=== PATIENT | female | born 1975 | race Caucasian/White ===

== ENCOUNTER 2017-03-24 22:58 | Emergency (ER) | payer BC, OTHER ==
[~2017-03-24 22:58] MED LIST: SODIUM CHLORIDE 0.9% 1,000 ML BAG ONE
[2017-03-25] MEDS ORDERED: HYDROmorphone 1 MG/ML 1 ML SYRINGE ONE (01:58)
[2017-03-25] MEDS ORDERED: ONDANSETRON 4 MG/2 ML VIAL ONE (01:58)
--- NOTE | 2017-03-25 11:46 | XR ---
Exam: X-ray abdomen one view HISTORY: Abdominal pain COMPARISON: None FINDINGS: Nonspecific, nonobstructive, bowel gas pattern is noted. There is mild stool noted in the colon witho ut evidence of impaction or obstruction. IMPRESSION: No significant findings.
[2017-03-25 16:20] LABS: Basophils % (A) 0 %; Eosinophils % (A) 0 %; HCT 37.9 % (34.0-46.0); HGB 12.3 gm/dL (11.4-16.0); Lymphocytes # (A) 1.6 k/uL (1.0-4.8); Lymphocytes % (A) 32 %; MCHC 32.3 g/dL (31.0-37.0); MCV 83.5 fL (80.0-100.0); Mean Platelet Volume 9.6; Monocytes # (A) 0.4 k/uL (0-1.0); Monocytes % (A) 8 %; Neutrophils # (A) 2.9 k/uL (1.3-7.7); Neutrophils % (A) 57 %; Partial Thromboplastin Time 23.6 sec (22.0-30.0); Platelet Count 103 k/uL (150-450); Prothrombin Time 10.2 sec (9.0-12.0); RBC 4.54 m/uL (3.80-5.40); RDW 14.7 % (11.5-15.5); WBC 5.1 k/uL (3.8-10.6)
[2017-03-25 16:26] LABS: Amorphous Sediment,Urine Rare /hpf; Appearance,Urine Cloudy (Clear); Bilirubin,Urine Negative (Negative); Blood,Urine Moderate (Negative); Color,Urine Yellow; Glucose,Urine (UA) 4+ (Negative); Hyaline Casts,Urine 2 /lpf (0-2); Ketones,Urine Negative (Negative); Leukocyte Esterase,Urine Trace (Negative); Nitrite,Urine Negative (Negative); Protein,Urine 3+ (Negative); RBC,Urine 3 /hpf (0-5); Specific Gravity,Urine 1.012 (1.001-1.035); Squamous Epithelial Cell,Urine 20 /hpf (0-4); Urobilinogen,Urine <2.0 mg/dL (<2.0); WBC,Urine 28 /hpf (0-5)
[2017-03-25 17:16] LABS: ALT 52 U/L (9-52); AST 68 U/L (14-36); Albumin 2.7 g/dL (3.5-5.0); Alkaline Phosphatase 179 U/L (38-126); Anion Gap 8 mmol/L; Blood Urea Nitrogen 9 mg/dL (7-17); Carbon Dioxide 26 mmol/L (22-30); Chloride 103 mmol/L (98-107); Glucose 280 mg/dL (74-99); Lipase 49 U/L (23-300); Magnesium 1.4 mg/dL (1.6-2.3); Phosphorus 3.7 mg/dL (2.5-4.5); Potassium 3.7 mmol/L (3.5-5.1); Sodium 137 mmol/L (137-145); Total Bilirubin 0.2 mg/dL (0.2-1.3); Total Protein 6.2 g/dL (6.3-8.2)
--- NOTE | 2017-03-30 00:10 | CDI ---
Documentation Clarification OP Dear FIDENCIO Zaragoza: Please do addendum of ED physician document. Thank you, Mica Pedro Cabinetmaker Helper If you have any question, Please contact audio visual project manager at [phone] [facility]
== END 2017-03-25 04:44 | disposition home or self-care (01) ==
LOC: EC 22:58
DX: R18.8 Other ascites (principal); N83.209 Unspecified ovarian cyst, unspecified side; Z87.891 Personal history of nicotine dependence
CPT/HCPCS: 36415; 80053; 82009; 83605; 83690; 83735; 84100; 85025; 85610; 85730; 81001; 87040; 74000; 99284; 96374; 96375; 96361 ×3; J2405; J1170

== ENCOUNTER 2019-07-23 15:05 | Emergency (ER) | payer BC, OTHER ==
[2019-07-23 15:17] VITALS: TEMP 98
[2019-07-23] MEDS ORDERED: SODIUM CHLORIDE 0.9% 1,000 ML IV ONE (15:25)
[2019-07-23] MEDS ORDERED: SODIUM CHLORIDE 0.9% 1,000 ML IV SCH (15:30)
[2019-07-23 15:38] LABS: Glucose,Whole Blood 423 mg/dL (75-99)
[2019-07-23 16:03] LABS: Basophils % (A) 0 %; Eosinophils % (A) 0 %; HCT 37.6 % (34.0-46.0); HGB 12.3 gm/dL (11.4-16.0); Lymphocytes # (A) 0.9 k/uL (1.0-4.8); Lymphocytes % (A) 21 %; MCH 28.1 pg (25.0-35.0); MCHC 32.7 g/dL (31.0-37.0); MCV 85.8 fL (80.0-100.0); Mean Platelet Volume 10.1; Monocytes # (A) 0.2 k/uL (0-1.0); Monocytes % (A) 6 %; Neutrophils # (A) 2.8 k/uL (1.3-7.7); Neutrophils % (A) 70 %; RBC 4.38 m/uL (3.80-5.40); RDW 14.1 % (11.5-15.5); WBC 4.1 k/uL (3.8-10.6)
[2019-07-23 16:06] LABS: Platelet Count 71 k/uL (150-450)
[2019-07-23 16:23] LABS: ALT 73 U/L (4-34); AST 117 U/L (14-36); African American GFR (CKD) 81 (>60 ml/min/1.73 sqM); Albumin 3.8 g/dL (3.5-5.0); Alkaline Phosphatase 321 U/L (38-126); Anion Gap 10 mmol/L; Blood Urea Nitrogen 20 mg/dL (7-17); Calcium 9.1 mg/dL (8.4-10.2); Carbon Dioxide 22 mmol/L (22-30); Chloride 99 mmol/L (98-107); Glucose 453 mg/dL (74-99); Magnesium 1.6 mg/dL (1.6-2.3); Non-African American GFR(CKD) 70 (>60 ml/min/1.73 sqM); Phosphorus 4.3 mg/dL (2.5-4.5); Potassium 5.4 mmol/L (3.5-5.1); Sodium 131 mmol/L (137-145); Total Bilirubin 1.1 mg/dL (0.2-1.3); Total Protein 8.3 g/dL (6.3-8.2)
[2019-07-23 16:55] LABS: Partial Thromboplastin Time 23.1 sec (22.0-30.0); Prothrombin Time 10.3 sec (9.0-12.0)
--- NOTE | 2019-07-23 16:59 | XR ---
EXAMINATION TYPE: XR chest 2V DATE OF EXAM: 07/23/2019 COMPARISON: NONE HISTORY: Diabetic ketoacidosis. Hyperglycemia. Weakness. TECHNIQUE: Frontal and lateral views of the chest are obtained. FINDINGS: Overlying EKG leads are present. There is no focal air space opacity, pleural effusion, or pneumothorax seen. The cardiac silhouette size is within normal limits. The osseous structures ar e intact. IMPRESSION: No acute cardiopulmonary process.
[2019-07-23] MEDS ORDERED: INSULIN REGULAR 100 UNIT/ML VIAL IV ONE (17:51)
[2019-07-23] MEDS ORDERED: MORPHINE SULFATE 4 MG/ML SYRINGE IVP STA (17:57)
--- NOTE | 2019-07-23 18:05 | ED ---
Recheck HPI - General Chief Complaint: Recheck/Abnormal Lab/Rx Stated Complaint: high blood sugar Time Seen by Provider: 07/23/19 15:24 Source: patient Mode of arrival: ambulatory Limitations: no limitations - History of Present Illness Initial Comments: 44-year-old female presenting today for chief complaint of elevated glucose. She stated that her glucometer has read as high for the past 4 days. Patient states that she is also patient also admits to slight shortness of breath. Patient denies any chest pain. Patient denies any fever or cough congestion or URI symptoms. Patient denies dysuria or urgency C but admits to frequency. Patient denies hematuria. Patient states she has chronic abdominal pain due to her liver disease denies any new changes today. Patient denies any melena or hematochezia. Patient denies any jaw or arm pain. Patient denies any pain with deep inspiration leg swelling calf pain. DVD her primary and wasn't hemoptysis recent surgical procedure or immobilization. Immediately system negative upon arrival patient appears well signs acute distress. - Related Data Home Medications Medication Instructions Recorded Confirmed Furosemide [Lasix] 20 mg PO DAILY 03/30/17 07/23/19 Gabapentin [Neurontin] 300 mg PO BID 03/30/17 07/23/19 Spironolactone 50 mg PO DAILY 03/30/17 07/23/19 Albuterol Nebulized [Ventolin 2.5 mg INHALATION RT-QID PRN 07/23/19 07/23/19 Nebulized] Albuterol Sulfate [Ventolin HFA] 2 puff INHALATION RT-QID PRN 07/23/19 07/23/19 Compound Topical Cream W/ 1 applic TOPICAL DAILY PRN 07/23/19 07/23/19 Gabapentin DULoxetine HCL [Cymbalta] 60 mg PO HS 07/23/19 07/23/19 Insulin Aspart [NovoLOG Flexpen] 20 units SQ TID 07/23/19 07/23/19 Insulin Aspart [NovoLOG Flexpen] See Protocol SQ AC-TID 07/23/19 07/23/19 Insulin Degludec [Tresiba 70 units SQ HS 07/23/19 07/23/19 Flextouch U-100] Lactulose [Kristalose Powder 10 gm PO BID 07/23/19 07/23/19 Packet] Meclizine HCl 25 mg PO TID 07/23/19 07/23/19 Multivitamins, Thera [Multivitamin 1 tab PO DAILY 07/23/19 07/23/19 (formulary)] Ondansetron [Zofran] 8 mg PO DAILY 07/23/19 07/23/19 traMADol HCl [Ultram] 25 mg PO DAILY PRN 07/23/19 07/23/19 Allergies Allergy/AdvReac Type Severity Reaction Status Date / Time No Known Allergies Allergy Verified 07/23/19 17:31 Review of Systems ROS Statement: Those systems with pertinent positive or pertinent negative responses have been documented in the HPI. ROS Other: All systems not noted in ROS Statement are negative. 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, neuropathy feet, cyst left ovary History of Any Multi-Drug Resistant Organisms: None Reported Past Surgical History: Tubal Ligation Additional Past Surgical History / Comment(s): carpal tunnel - rt hand, skin tag throat removed Past Anesthesia/Blood Transfusion Reactions: No Reported Reaction Past Psychological History: No Psychological Hx Reported Smoking Status: Former smoker Past Alcohol Use History: Rare Past Drug Use History: None Reported General Exam - General Exam Comments Initial Comments: General: The patient is awake and alert, in no distress Eye: +3 mm pupils are equal, round and reactive to light, extra-ocular movements are intact. No nystagmus. There is normal conjunctiva bilaterally. No signs of icterus. Ears, nose, mouth and throat: There are moist mucous membranes and no oral lesions. Neck: The neck is supple, there is no tenderness or JVD. Cardiovascular: There is a regular rate and rhythm. No murmur, rub or gallop is appreciated. Respiratory: Lungs are clear to auscultation, respirations are non-labored, breath sounds are equal. No wheezes, stridor, rales, or rhonchi. Gastrointestinal: Soft, non-distended, non-tender abdomen without masses or organomegaly noted. There is no rebound or guarding present. Musculoskeletal: Normal ROM, no tenderness. Strength 5/5. Sensation intact. Radial and DP pulses equal bilaterally 2+. Neurological: A&O x 3. CN II-XII intact, There are no obvious motor or sensory deficits. Coordination appears grossly intact. Speech is normal. Skin: Skin is warm and dry and no rashes or lesions are noted. No leg edema b/l, no calf pain, or calf swelling. Psychiatric: Cooperative, appropriate mood & affect, normal judgment. Limitations: no limitations Course Vital Signs 07/23/19 15:14 Temperature 98.0 F Pulse Rate 110 H Respiratory 20 Rate Blood Pressure 134/85 O2 Sat by Pulse 100 Oximetry - Reevaluation(s) Reevaluation #1: 07/23/19 18:05 discussed results with patient, she states she has a headache, which she has exp erienced before, no focal deficits, no sudden onset she states it came on gradually, she states this sometimes occurs with high sugars. patinet will be given analgesics. UA pending. Medical Decision Making - Medical Decision Making Glucose elevated acetone negative no ketones in the urine. Glucose in the urine. Patient was presents to steroids none currently for the past 4 weeks. Patient chest x-ray clear no URI symptoms. There is no evidence of urinary tract infection. Patient has no significant abdominal pain. She denies any chest pain or pressure. Admits to shortness of breath. D-dimer within normal limits. EKG no significant acute findings. Patient heart rate normalized. Give IV insulin/fluids. Patient has slight HAWK during visit, subsided with 1 IV dose of analgesics. Patient appears well in no distress. Was discharged appearing well after discussing case wtih Dr. eden reviewing EKG and CXR. - Lab Data Result diagrams: 07/23/19 15:52 07/23/19 15:52 Lab Results 07/23/19 07/23/19 07/23/19 Range/Units 15:27 15:27 15:27 WBC (3.8-10.6) k/uL RBC (3.80-5.40) m/uL Hgb (11.4-16.0) gm/dL Hct (34.0-46.0) % MCV (80.0-100.0) fL MCH (25.0-35.0) pg MCHC (31.0-37.0) g/dL RDW (11.5-15.5) % Plt Count (150-450) k/uL Neutrophils % % Lymphocytes % % Monocytes % % Eosinophils % % Basophils % % Neutrophils # (1.3-7.7) k/uL Lymphocytes # (1.0-4.8) k/uL Monocytes # (0-1.0) k/uL Eosinophils # (0-0.7) k/uL Basophils # (0-0.2) k/uL PT 10.3 (9.0-12.0) sec INR 1.0 (<1.2) APTT 23.1 (22.0-30.0) sec D-Dimer (<0.60) mg/L FEU Sodium (137-145) mmol/L Potassium (3.5-5.1) mmol/L Chloride (98-107) mmol/L Carbon Dioxide (22-30) mmol/L Anion Gap mmol/L BUN (7-17) mg/dL Creatinine (0.52-1.04) mg/dL Est GFR (CKD-EPI)AfAm (>60 ml/min/1.73 sqM) Est GFR (CKD-EPI)NonAf (>60 ml/min/1.73 sqM) Glucose (74-99) mg/dL POC Glucose (mg/dL) 423 H (75-99) mg/dL POC Glu Shank Carrier ID Isis Vasquez Calcium (8.4-10.2) mg/dL Phosphorus (2.5-4.5) mg/dL Magnesium (1.6-2.3) mg/dL Total Bilirubin (0.2-1.3) mg/dL AST (14-36) U/L ALT (4-34) U/L Alkaline Phosphatase (38-126) U/L Ammonia (<30) umol/L Troponin I <0.012 (0.000-0.034) ng/mL Total Protein (6.3-8.2) g/dL Albumin (3.5-5.0) g/dL Lipase (23-300) U/L Urine Color Urine Appearance (Clear) Urine pH (5.0-8.0) Ur Specific [place] (1.001-1.035) Urine Protein (Negative) Urine Glucose (UA) (Negative) Urine Ketones (Negative) Urine Blood (Negative) Urine Nitrite (Negative) Urine Bilirubin (Negative) Urine Urobilinogen (<2.0) mg/dL Ur Leukocyte Esterase (Negative) Urine RBC (0-5) /hpf Urine WBC (0-5) /hpf Ur Squamous Epith Cells (0-4) /hpf Acetone, Qual (Negative) 07/23/19 07/23/19 07/23/19 Range/Units 15:27 15:27 15:27 WBC (3.8-10.6) k/uL RBC (3.80-5.40) m/uL Hgb (11.4-16.0) gm/dL Hct (34.0-46.0) % MCV (80.0-100.0) fL MCH (25.0-35.0) pg MCHC (31.0-37.0) g/dL RDW (11.5-15.5) % Plt Count (150-450) k/uL Neutrophils % % Lymphocytes % % Monocytes % % Eosinophils % % Basophils % % Neutrophils # (1.3-7.7) k/uL Lymphocytes # (1.0-4.8) k/uL Monocytes # (0-1.0) k/uL Eosinophils # (0-0.7) k/uL Basophils # (0-0.2) k/uL PT (9.0-12.0) sec INR (<1.2) APTT (22.0-30.0) sec D-Dimer 0.34 (<0.60) mg/L FEU Sodium (137-145) mmol/L Potassium (3.5-5.1) mmol/L Chloride (98-107) mmol/L Carbon Dioxide (22-30) mmol/L Anion Gap mmol/L BUN (7-17) mg/dL Creatinine (0.52-1.04) mg/dL Est GFR (CKD-EPI)AfAm (>60 ml/min/1.73 sqM) Est GFR (CKD-EPI)NonAf (>60 ml/min/1.73 sqM) Glucose (74-99) mg/dL POC Glucose (mg/dL) (75-99) mg/dL POC Glu Shank Carrier ID Calcium (8.4-10.2) mg/dL Phosphorus (2.5-4.5) mg/dL Magnesium (1.6-2.3) mg/dL Total Bilirubin (0.2-1.3) mg/dL AST (14-36) U/L ALT (4-34) U/L Alkaline Phosphatase (38-126) U/L Ammonia 25 (<30) umol/L Troponin I (0.000-0.034) ng/mL Total Protein (6.3-8.2) g/dL Albumin (3.5-5.0) g/dL Lipase 168 (23-300) U/L Urine Color Urine Appearance (Clear) Urine pH (5.0-8.0) Ur Specific [place] (1.001-1.035) Urine Protein (Negative) Urine Glucose (UA) (Negative) Urine Ketones (Negative) Urine Blood (Negative) Urine Nitrite (Negative) Urine Bilirubin (Negative) Urine Urobilinogen (<2.0) mg/dL Ur Leukocyte Esterase (Negative) Urine RBC (0-5) /hpf Urine WBC (0-5) /hpf Ur Squamous Epith Cells (0-4) /hpf Acetone, Qual (Negative) 07/23/19 07/23/19 07/23/19 Range/Units 15:52 15:52 18:30 WBC 4.1 (3.8-10.6) k/uL RBC 4.38 (3.80-5.40) m/uL Hgb 12.3 (11.4-16.0) gm/dL Hct 37.6 (34.0-46.0) % MCV 85.8 (80.0-100.0) fL MCH 28.1 (25.0-35.0) pg MCHC 32.7 (31.0-37.0) g/dL RDW 14.1 (11.5-15.5) % Plt Count 71 L (150-450) k/uL Neutrophils % 70 % Lymphocytes % 21 % Monocytes % 6 % Eosinophils % 0 % Basophils % 0 % Neutrophils # 2.8 (1.3-7.7) k/uL Lymphocytes # 0.9 L (1.0-4.8) k/uL Monocytes # 0.2 (0-1.0) k/uL Eosinophils # 0.0 (0-0.7) k/uL Basophils # 0.0 (0-0.2) k/uL PT (9.0-12.0) sec INR (<1.2) APTT (22.0-30.0) sec D-Dimer (<0.60) mg/L FEU Sodium 131 L (137-145) mmol/L Potassium 5.4 H (3.5-5.1) mmol/L Chloride 99 (98-107) mmol/L Carbon Dioxide 22 (22-30) mmol/L Anion Gap 10 mmol/L BUN 20 H (7-17) mg/dL Creatinine 0.98 (0.52-1.04) mg/dL Est GFR (CKD-EPI)AfAm 81 (>60 ml/min/1.73 sqM) Est GFR (CKD-EPI)NonAf 70 (>60 ml/min/1.73 sqM) Glucose 453 H (74-99) mg/dL POC Glucose (mg/dL) (75-99) mg/dL POC Glu Shank Carrier ID Calcium 9.1 (8.4-10.2) mg/dL Phosphorus 4.3 (2.5-4.5) mg/dL Magnesium 1.6 (1.6-2.3) mg/dL Total Bilirubin 1.1 (0.2-1.3) mg/dL AST 117 H (14-36) U/L ALT 73 H (4-34) U/L Alkaline Phosphatase 321 H (38-126) U/L Ammonia (<30) umol/L Troponin I (0.000-0.034) ng/mL Total Protein 8.3 H (6.3-8.2) g/dL Albumin 3.8 (3.5-5.0) g/dL Lipase (23-300) U/L Urine Color Light Yellow Urine Appearance Clear (Clear) Urine pH 6.0 (5.0-8.0) Ur Specific [place] 1.022 (1.001-1.035) Urine Protein Negative (Negative) Urine Glucose (UA) 4+ H (Negative) Urine Ketones Negative (Negative) Urine Blood Small H (Negative) Urine Nitrite Negative (Negative) Urine Bilirubin Negative (Negative) Urine Urobilinogen <2.0 (<2.0) mg/dL Ur Leukocyte Esterase Negative (Negative) Urine RBC 5 (0-5) /hpf Urine WBC 1 (0-5) /hpf Ur Squamous Epith Cells 4 (0-4) /hpf Acetone, Qual Negative (Negative) 07/23/19 Range/Units 19:00 WBC (3.8-10.6) k/uL RBC (3.80-5.40) m/uL Hgb (11.4-16.0) gm/dL Hct (34.0-46.0) % MCV (80.0-100.0) fL MCH (25.0-35.0) pg MCHC (31.0-37.0) g/dL RDW (11.5-15.5) % Plt Count (150-450) k/uL Neutrophils % % Lymphocytes % % Monocytes % % Eosinophils % % Basophils % % Neutrophils # (1.3-7.7) k/uL Lymphocytes # (1.0-4.8) k/uL Monocytes # (0-1.0) k/uL Eosinophils # (0-0.7) k/uL Basophils # (0-0.2) k/uL PT (9.0-12.0) sec INR (<1.2) APTT (22.0-30.0) sec D-Dimer (<0.60) mg/L FEU Sodium (137-145) mmol/L Potassium (3.5-5.1) mmol/L Chloride (98-107) mmol/L Carbon Dioxide (22-30) mmol/L Anion Gap mmol/L BUN (7-17) mg/dL Creatinine (0.52-1.04) mg/dL Est GFR (CKD-EPI)AfAm (>60 ml/min/1.73 sqM) Est GFR (CKD-EPI)NonAf (>60 ml/min/1.73 sqM) Glucose (74-99) mg/dL POC Glucose (mg/dL) 248 H (75-99) mg/dL POC Glu Shank Carrier Rambo Tyson Calcium (8.4-10.2) mg/dL Phosphorus (2.5-4.5) mg/dL Magnesium (1.6-2.3) mg/dL Total Bilirubin (0.2-1.3) mg/dL AST (14-36) U/L ALT (4-34) U/L Alkaline Phosphatase (38-126) U/L Ammonia (<30) umol/L Troponin I (0.000-0.034) ng/mL Total Protein (6.3-8.2) g/dL Albumin (3.5-5.0) g/dL Lipase (23-300) U/L Urine Color Urine Appearance (Clear) Urine pH (5.0-8.0) Ur Specific [place] (1.001-1.035) Urine Protein (Negative) Urine Glucose (UA) (Negative) Urine Ketones (Negative) Urine Blood (Negative) Urine Nitrite (Negative) Urine Bilirubin (Negative) Urine Urobilinogen (<2.0) mg/dL Ur Leukocyte Esterase (Negative) Urine RBC (0-5) /hpf Urine WBC (0-5) /hpf Ur Squamous Epith Cells (0-4) /hpf Acetone, Qual (Negative) Disposition Clinical Impression: High glucose, Dyspnea, Hyperkalemia, Elevated transaminase level Disposition: HOME SELF-CARE Condition: Good Instructions (If sedation given, give patient instructions): Diabetic Hyperglycemia (ED) Additional Instructions: Please use medication as discussed. Please follow-up with family doctor in the next 2 days. Please return to emergency room if the symptoms increase or worsen or for any other concerns. Is patient prescribed a controlled substance at d/c from ED?: No Referrals: Aldo Hall MD [Primary Care Provider] - 1-2 days Time of Disposition: 19:06
[2019-07-23 18:53] LABS: Appearance,Urine Clear (Clear); Bilirubin,Urine Negative (Negative); Blood,Urine Small (Negative); Color,Urine Light Yellow; Glucose,Urine (UA) 4+ (Negative); Ketones,Urine Negative (Negative); Leukocyte Esterase,Urine Negative (Negative); Nitrite,Urine Negative (Negative); Protein,Urine Negative (Negative); RBC,Urine 5 /hpf (0-5); Specific Gravity,Urine 1.022 (1.001-1.035); Squamous Epithelial Cell,Urine 4 /hpf (0-4); Urobilinogen,Urine <2.0 mg/dL (<2.0); WBC,Urine 1 /hpf (0-5)
[2019-07-23 19:01] LABS: Glucose,Whole Blood 248 mg/dL (75-99)
[2019-07-23 19:22] VITALS: BP 151/99; PULSE 100; RESP 18
== END 2019-07-23 19:21 | disposition home or self-care (01) ==
LOC: EC 15:05
DX: E87.5 Hyperkalemia (principal); R74.0 Nonspecific elevation of levels of transaminase and lactic acid dehydrogenase [LDH]; E11.40 Type 2 diabetes mellitus with diabetic neuropathy, unspecified; I10 Essential (primary) hypertension; K74.60 Unspecified cirrhosis of liver; Z79.4 Long term (current) use of insulin; Z79.899 Other long term (current) drug therapy; Z87.891 Personal history of nicotine dependence
CPT/HCPCS: 99285 ×2; 96374 ×2; 96361 ×4; 36415; 93005; 85379; 80053; 82140; 82009; 83690; 83735; 84100; 84484; 85025; 85610; 85730; 81001; 71046; J2270

== ENCOUNTER 2020-06-09 12:11 | Emergency (ER) | payer BC, OTHER ==
[2020-06-09 12:23] VITALS: TEMP 98
[2020-06-09] MEDS ORDERED: SODIUM CHLORIDE 0.9% 1,000 ML IV STA (12:41)
--- NOTE | 2020-06-09 12:47 | ED ---
General Adult HPI - General Chief complaint: Abdominal Pain Stated complaint: abd pain/distention, vomiting Time Seen by Provider: 06/09/20 12:20 Source: patient, RN notes reviewed, old records reviewed Mode of arrival: ambulatory Limitations: no limitations - History of Present Illness Initial comments: This a 45-year-old female who presents to the emergency department stating that she has a history of cirrhosis with multiple banding's of her esophageal varices. Patient states her last esophageal banding was febrile 21st after which she has been waking up every day with nausea and vomiting. Patient states she also has diffuse abdominal pain and a normal basis but the abdominal pain has, much worse per patient states he epigastric region is more tender than normal for sure. Patient denies any fever chills or cough. Patient denies any chest pain or palpitations per patient denies any diarrhea. Patient denies any headache patient denies numbness weakness. Patient denies any recent injury or trauma. Patient states she also has low platelets on occasion. - Related Data Home Medications Medication Instructions Recorded Confirmed Furosemide [Lasix] 20 mg PO DAILY 03/30/17 06/09/20 Gabapentin [Neurontin] 300 mg PO BID@0800,1200 03/30/17 06/09/20 Spironolactone 50 mg PO DAILY 03/30/17 06/09/20 traMADol HCl [Ultram] 50 mg PO DAILY PRN 07/23/19 06/09/20 Cephalexin [Keflex] 500 mg PO TID 06/09/20 06/09/20 Folic Acid 1 mg PO DAILY 06/09/20 06/09/20 Gabapentin [Neurontin] 600 mg PO HS 06/09/20 06/09/20 Insulin Regular [HumuLIN R] 40 units SQ DAILY 06/09/20 06/09/20 Insulin Regular [HumuLIN R] 45 units SQ HS 06/09/20 06/09/20 Pramipexole [Mirapex] 0.5 mg PO DAILY 06/09/20 06/09/20 Pravastatin Sodium [Pravachol] 10 mg PO HS 06/09/20 06/09/20 Propranolol [Inderal] 10 mg PO BID 06/09/20 06/09/20 ondansetron HCL [Zofran] 8 mg PO Q8HR PRN 06/09/20 06/09/20 Allergies Allergy/AdvReac Type Severity Reaction Status Date / Time No Known Allergies Allergy Verified 06/09/20 14:22 Review of Systems ROS Statement: Those systems with pertinent positive or pertinent negative responses have been documented in the HPI. ROS Other: All systems not noted in ROS Statement are negative. Past Medical History Past Medical History: Diabetes Mellitus, Hypertension, Liver Disease Additional Past Medical History / Comment(s): Cirrhosis-2012 from diabetes, neuropathy feet, cyst left ovary, ascities History of Any Multi-Drug Resistant Organisms: None Reported Past Surgical History: Tubal Ligation Additional Past Surgical History / Comment(s): carpal tunnel - rt hand, esphogeal banding Past Anesthesia/Blood Transfusion Reactions: No Reported Reaction Past Psychological History: No Psychological Hx Reported Smoking Status: Never smoker Past Alcohol Use History: Rare Past Drug Use History: None Reported General Exam - General Exam Comments Initial Comments: GENERAL: Patient is well-developed and well-nourished. Patient is nontoxic and well-hy drated and is in mild distress. ENT: Neck is soft and supple. No significant lymphadenopathy is noted. Oropharynx is clear. Moist mucous membranes. Neck has full range of motion without eliciting any pain. EYES: The sclera were anicteric and conjunctiva were pink and moist. Extraocular movements were intact and pupils were equal round and reactive to light. Eyelids were unremarkable. PULMONARY: Unlabored respirations. Good breath sounds bilaterally. No audible rales rhonchi or wheezing was noted. CARDIOVASCULAR: There is a regular rate and rhythm without any murmurs gallops or rubs. ABDOMEN: Patient has right upper quadrant epigastric tenderness. Patient's abdomen is distended and has ascites. SKIN: Skin is clear with no lesions or rashes and otherwise unremarkable. NEUROLOGIC: Patient is alert and oriented x3. Cranial nerves II through XII are grossly intact. Motor and sensory are also intact. Normal speech, volume and content. Symmetrical smile. MUSCULOSKELETAL: Normal extremities with adequate strength and full range of motion. LYMPHATICS: No significant lymphadenopathy is noted PSYCHIATRIC: Normal psychiatric evaluation. Limitations: no limitations Course Vital Signs 06/09/20 06/09/20 06/09/20 12:19 12:49 14:00 Temperature 98.0 F Pulse Rate 112 H 107 H 102 H Respiratory 18 18 16 Rate Blood Pressure 153/74 131/78 128/74 O2 Sat by Pulse 100 99 100 Oximetry Medical Decision Making - Medical Decision Making EKG shows sinus tachycardia at 102 bpm MT interval is 142 QRS is 80 QT interval 372 QTC is 484. Patient's EKG shows no ST segment elevation or depression. CAT scan of the abdomen and pelvis shows cirrhosis hepatosplenomegaly and some ascites. I went into the room to discuss the results with the patient she insisted on going home I told her I recommended her to stay she did sign out AMA knowing the risks and possible consequences. Patient will sign out AMA - Lab Data Result diagrams: 06/09/20 12:49 06/09/20 12:49 Lab Results 06/09/20 06/09/20 06/09/20 Range/Units 12:49 12:49 12:49 WBC 4.4 (3.8-10.6) k/uL RBC 3.98 (3.80-5.40) m/uL Hgb 11.8 (11.4-16.0) gm/dL Hct 34.7 (34.0-46.0) % MCV 87.2 (80.0-100.0) fL MCH 29.5 (25.0-35.0) pg MCHC 33.8 (31.0-37.0) g/dL RDW 14.4 (11.5-15.5) % Plt Count 62 L (150-450) k/uL MPV 8.8 Neutrophils % 76 % Lymphocytes % 18 % Monocytes % 5 % Eosinophils % 0 % Basophils % 0 % Neutrophils # 3.3 (1.3-7.7) k/uL Lymphocytes # 0.8 L (1.0-4.8) k/uL Monocytes # 0.2 (0-1.0) k/uL Eosinophils # 0.0 (0-0.7) k/uL Basophils # 0.0 (0-0.2) k/uL Manual Slide Review Performed PT 10.9 (9.0-12.0) sec INR 1.0 (<1.2) APTT 22.1 (22.0-30.0) sec Sodium (137-145) mmol/L Potassium (3.5-5.1) mmol/L Chloride (98-107) mmol/L Carbon Dioxide (22-30) mmol/L Anion Gap mmol/L BUN (7-17) mg/dL Creatinine (0.52-1.04) mg/dL Est GFR (CKD-EPI)AfAm (>60 ml/min/1.73 sqM) Est GFR (CKD-EPI)NonAf (>60 ml/min/1.73 sqM) Glucose (74-99) mg/dL Plasma Lactic Acid Kai (0.7-2.0) mmol/L Calcium (8.4-10.2) mg/dL Total Bilirubin (0.2-1.3) mg/dL AST (14-36) U/L ALT (4-34) U/L Alkaline Phosphatase (38-126) U/L Total Protein (6.3-8.2) g/dL Albumin (3.5-5.0) g/dL Amylase (30-110) U/L Lipase (23-300) U/L Urine Color Yellow Urine Appearance Clear (Clear) Urine pH 5.5 (5.0-8.0) Ur Specific Atwood 1.031 (1.001-1.035) Urine Protein Negative (Negative) Urine Glucose (UA) 4+ H (Negative) Urine Ketones Negative (Negative) Urine Blood Large H (Negative) Urine Nitrite Negative (Negative) Urine Bilirubin Negative (Negative) Urine Urobilinogen <2.0 (<2.0) mg/dL Ur Leukocyte Esterase Negative (Negative) Urine RBC 78 H (0-5) /hpf Urine WBC 2 (0-5) /hpf Ur Squamous Epith Cells 1 (0-4) /hpf Urine Mucus Rare H (None) /hpf Blood Type Blood Type Confirm Blood Type Recheck Bld Type Recheck Status Antibody Screen Spec Expiration Date 06/09/20 06/09/20 06/09/20 Range/Units 12:49 12:49 12:51 WBC (3.8-10.6) k/uL RBC (3.80-5.40) m/uL Hgb (11.4-16.0) gm/dL Hct (34.0-46.0) % MCV (80.0-100.0) fL MCH (25.0-35.0) pg MCHC (31.0-37.0) g/dL RDW (11.5-15.5) % Plt Count (150-450) k/uL MPV Neutrophils % % Lymphocytes % % Monocytes % % Eosinophils % % Basophils % % Neutrophils # (1.3-7.7) k/uL Lymphocytes # (1.0-4.8) k/uL Monocytes # (0-1.0) k/uL Eosinophils # (0-0.7) k/uL Basophils # (0-0.2) k/uL Manual Slide Review PT (9.0-12.0) sec INR (<1.2) APTT (22.0-30.0) sec Sodium 133 L (137-145) mmol/L Potassium 4.2 (3.5-5.1) mmol/L Chloride 100 (98-107) mmol/L Carbon Dioxide 22 (22-30) mmol/L Anion Gap 11 mmol/L BUN 17 (7-17) mg/dL Creatinine 0.97 (0.52-1.04) mg/dL Est GFR (CKD-EPI)AfAm 81 (>60 ml/min/1.73 sqM) Est GFR (CKD-EPI)NonAf 71 (>60 ml/min/1.73 sqM) Glucose 430 H (74-99) mg/dL Plasma Lactic Acid Kai 1.9 (0.7-2.0) mmol/L Calcium 8.9 (8.4-10.2) mg/dL Total Bilirubin 1.6 H (0.2-1.3) mg/dL AST 89 H (14-36) U/L ALT 53 H (4-34) U/L Alkaline Phosphatase 332 H (38-126) U/L Total Protein 7.5 (6.3-8.2) g/dL Albumin 3.6 (3.5-5.0) g/dL Amylase 61 (30-110) U/L Lipase 237 (23-300) U/L Urine Color Urine Appearance (Clear) Urine pH (5.0-8.0) Ur Specific Atwood (1.001-1.035) Urine Protein (Negative) Urine Glucose (UA) (Negative) Urine Ketones (Negative) Urine Blood (Negative) Urine Nitrite (Negative) Urine Bilirubin (Negative) Urine Urobilinogen (<2.0) mg/dL Ur Leukocyte Esterase (Negative) Urine RBC (0-5) /hpf Urine WBC (0-5) /hpf Ur Squamous Epith Cells (0-4) /hpf Urine Mucus (None) /hpf Blood Type O Negative Blood Type Confirm Blood Type Recheck No Previous Record Bld Type Recheck Status CABO Indicated Antibody Screen NEGATIVE Spec Expiration Date 06/12/2020 - 235006/09/20 Range/Units 12:55 WBC (3.8-10.6) k/uL RBC (3.80-5.40) m/uL Hgb (11.4-16.0) gm/dL Hct (34.0-46.0) % MCV (80.0-100.0) fL MCH (25.0-35.0) pg MCHC (31.0-37.0) g/dL RDW (11.5-15.5) % Plt Count (150-450) k/uL MPV Neutrophils % % Lymphocytes % % Monocytes % % Eosinophils % % Basophils % % Neutrophils # (1.3-7.7) k/uL Lymphocytes # (1.0-4.8) k/uL Monocytes # (0-1.0) k/uL Eosinophils # (0-0.7) k/uL Basophils # (0-0.2) k/uL Manual Slide Review PT (9.0-12.0) sec INR (<1.2) APTT (22.0-30.0) sec Sodium (137-145) mmol/L Potassium (3.5-5.1) mmol/L Chloride (98-107) mmol/L Carbon Dioxide (22-30) mmol/L Anion Gap mmol/L BUN (7-17) mg/dL Creatinine (0.52-1.04) mg/dL Est GFR (CKD-EPI)AfAm (>60 ml/min/1.73 sqM) Est GFR (CKD-EPI)NonAf (>60 ml/min/1.73 sqM) Glucose (74-99) mg/dL Plasma Lactic Acid Kai (0.7-2.0) mmol/L Calcium (8.4-10.2) mg/dL Total Bilirubin (0.2-1.3) mg/dL AST (14-36) U/L ALT (4-34) U/L Alkaline Phosphatase (38-126) U/L Total Protein (6.3-8.2) g/dL Albumin (3.5-5.0) g/dL Amylase (30-110) U/L Lipase (23-300) U/L Urine Color Urine Appearance (Clear) Urine pH (5.0-8.0) Ur Specific Atwood (1.001-1.035) Urine Protein (Negative) Urine Glucose (UA) (Negative) Urine Ketones (Negative) Urine Blood (Negative) Urine Nitrite (Negative) Urine Bilirubin (Negative) Urine Urobilinogen (<2.0) mg/dL Ur Leukocyte Esterase (Negative) Urine RBC (0-5) /hpf Urine WBC (0-5) /hpf Ur Squamous Epith Cells (0-4) /hpf Urine Mucus (None) /hpf Blood Type Blood Type Confirm O Negative Blood Type Recheck Bld Type Recheck Status Antibody Screen Spec Expiration Date Disposition Clinical Impression: Abdominal pain, Ascites, Acute vomiting Disposition: Left Against Medical Advice Instructions (If sedation given, give patient instructions): Abdominal Pain (ED) Is patient prescribed a controlled substance at d/c from ED?: No Referrals: Aldo Hall MD [Primary Care Provider] - 1-2 days Time of Disposition: 14:54
[2020-06-09 13:20] LABS: Basophils % (A) 0 %; Eosinophils % (A) 0 %; HCT 34.7 % (34.0-46.0); HGB 11.8 gm/dL (11.4-16.0); Lymphocytes # (A) 0.8 k/uL (1.0-4.8); Lymphocytes % (A) 18 %; MCH 29.5 pg (25.0-35.0); MCHC 33.8 g/dL (31.0-37.0); MCV 87.2 fL (80.0-100.0); Mean Platelet Volume 8.8; Monocytes # (A) 0.2 k/uL (0-1.0); Monocytes % (A) 5 %; Neutrophils # (A) 3.3 k/uL (1.3-7.7); Neutrophils % (A) 76 %; RBC 3.98 m/uL (3.80-5.40); RDW 14.4 % (11.5-15.5); WBC 4.4 k/uL (3.8-10.6)
[2020-06-09 13:24] LABS: Albumin 3.6 g/dL (3.5-5.0); Calcium 8.9 mg/dL (8.4-10.2); Potassium 4.2 mmol/L (3.5-5.1); Total Bilirubin 1.6 mg/dL (0.2-1.3); Total Protein 7.5 g/dL (6.3-8.2)
[2020-06-09 13:31] LABS: Partial Thromboplastin Time 22.1 sec (22.0-30.0); Prothrombin Time 10.9 sec (9.0-12.0)
[2020-06-09 13:32] LABS: Appearance,Urine Clear (Clear); Bilirubin,Urine Negative (Negative); Blood,Urine Large (Negative); Color,Urine Yellow; Glucose,Urine (UA) 4+ (Negative); Ketones,Urine Negative (Negative); Leukocyte Esterase,Urine Negative (Negative); Mucus,Urine Rare /hpf; Nitrite,Urine Negative (Negative); PH, Urine 5.5 (5.0-8.0); Protein,Urine Negative (Negative); RBC,Urine 78 /hpf (0-5); Specific Gravity,Urine 1.031 (1.001-1.035); Squamous Epithelial Cell,Urine 1 /hpf (0-4); Urobilinogen,Urine <2.0 mg/dL (<2.0); WBC,Urine 2 /hpf (0-5)
[2020-06-09 13:51] LABS: Platelet Count 62 k/uL (150-450)
[2020-06-09] MEDS ORDERED: INSULIN ASPART (NovoLOG) 100 UNIT/ML VIAL SQ ONE (13:54)
[2020-06-09 14:04] VITALS: RESP 16
--- NOTE | 2020-06-09 14:50 | CT ---
EXAMINATION TYPE: CT abdomen pelvis w con DATE OF EXAM: 06/09/2020 COMPARISON: Abdomen dated 03/22/2017 HISTORY: Abd pain, distention, vomiting CT DLP: 1047.4 mGycm Automated exposure control for dose reduction was used. TECHNIQUE: Helical acquisition of images from the lung bases through the pelvis have been completed. CONTRAST: Performed without Oral Contrast and with IV Contrast, patient injected with 100 mL of Isovue 300. FINDINGS: There is some serpiginous enhancing foci adjacent to the distal esophagus, lesser curvature of the stomach consistent with varices. Within the subcutaneous fat there is some high attenuation w hich may be due to injections. LUNG BASES: No significant abnormality is appreciated. AORTA: No significant abnormality is appreciated. LIVER/GB: Liver contour shows a nodular appearance, liver is enlarged, gallbladder is unremarkable. PANCREAS: No significant abnormality is seen. SPLEEN: Enlarged measuring approximately 17 cm in AP dimension ADRENALS: No significant abnormality is seen. KIDNEYS: Probable cortical cysts associated with the kidneys REPRODUCTIVE ORGANS: There is abnormal fluid attenuation, mixed density within the endometrium which shows a thickness of approximately 2.4 cm BOWEL: There are some thickened small bowel loops, the appendix is normal FREE AIR: No Free Air visible. ASCITES: There is ascites, fluid within the pelvis, minimal fluid about the liver PELVIC ADENOPATHY: None visualized. RETROPERITONEAL ADENOPATHY: No Retroperitoneal Adenopathy visible. URINARY BLADDER: No significant abnormality is seen. OSSEOUS STRUCTURES: No significant abnormality is seen. IMPRESSION: ABNORMALITIES CONSISTENT WITH CIRRHOSIS, THERE IS HEPATOSPLENOMEGALY, ASCITES, CONSIDER PORTAL HYPERT ENSION WITH POSSIBLE UNDERLYING ENTERITIS, ABNORMAL DENSITY WITHIN THE ENDOMETRIUM, CONSIDER GASTROEN TEROLOGY, FIXED ASSETS ACCOUNTANT CONSULTATION
[2020-06-09 15:27] VITALS: BP 140/87; PULSE 100
[2020-06-09] MEDS ORDERED: INSULIN ASPART (NovoLOG) 100 UNIT/ML VIAL SQ SCH (17:30)
== END 2020-06-09 15:10 | disposition left against medical advice (07) ==
LOC: EC 12:11
DX: R10.84 Generalized abdominal pain (principal); R11.2 Nausea with vomiting, unspecified; R18.8 Other ascites; E11.40 Type 2 diabetes mellitus with diabetic neuropathy, unspecified; I10 Essential (primary) hypertension; Z79.4 Long term (current) use of insulin; Z79.899 Other long term (current) drug therapy
CPT/HCPCS: 36415; 93005; 86900; 86901; 80053; 82150; 83605; 83690; 85025; 85610; 85730; 86850; 81001; 74177; 99284; 96374; 96361; Q9967; J1790

== ENCOUNTER 2020-07-16 18:28 | Emergency (ER) | payer BC, OTHER ==
--- NOTE | 2020-07-16 18:54 | ED ---
General Adult HPI - General Chief complaint: Shortness of Breath Stated complaint: SOB Time Seen by Provider: 07/16/20 18:31 Source: patient, EMS Mode of arrival: EMS Limitations: no limitations - History of Present Illness Initial comments: Dictation was produced using [employer] dictation software. please excuse any grammatical, word or spelling errors. This patient was cared for during a federal and state declared state of emergency secondary to Covid 19 Chief Complaint: 45-year-old female reported several comorbidities presents to the emergency department for dyspnea shortness of breath. History of Present Illness: Patient is a 45-year-old female she received the [employer] vaccine 5 days ago. She states that the day after she began having symptoms of fever, shortness of breath. She states that her is really feeling sick with upper respiratory symptoms. States that he did not get tested. She states that he refuses to get tested. Patient states she has asked for aggressive liver disease diabetes and hypertension. She denies any pulmonary medical comorbidities. No nausea vomiting. No abdominal pain. She does have sore throat runny nose and mild cough. The ROS documented in this emergency department record has been reviewed and confirmed by me. Those systems with pertinent positive or negative responses have been documented in the HPI. All other systems are other negative and/or noncontributory. PHYSICAL EXAM: General Impression: Alert and oriented x3, not in acute distress HEENT: Normocephalic atraumatic, extra-ocular movements intact, pupils equal and reactive to light bilaterally, mucous membranes moist. Cardiovascular: Heart regular rate and rhythm Chest: Able to complete full sentences, no retractions, no tachypnea, lungs clear to auscultation bilaterally Abdomen: abdomen soft, non-tender, non-distended, no organomegaly Musculoskeletal: Pulses present and equal in all extremities, no peripheral edema Motor: no focal deficits noted Neurological: CN II-XII grossly intact, no focal motor or sensory deficits noted Skin: Intact with no visualized rashes Psych: Normal affect and mood ED course: 45-year-old female presents to the emergency department for respiratory symptoms. Vital signs upon arrival are within acceptable limits. EKG interpretation: Ventricular rate 96, normal sinus rhythm, AZ interval 136, QRS 80, QTC 490. No AZ prolongation, no QTC prolongation, no ST or T-wave changes noted. Overall, this EKG is unremarkable White blood cell count 1.8, hemoglobin 10.0, platelets of 58. Sodium of 129, AST of 170, ALT of 43, alk phos of 338. Patient reevaluated. She does meet criteria for monoclonal antibody infusion. Patient given monoclonal antibody infusion observed for one hour. Patient notified of her lab abnormalities. She does have good follow-up with her primary care physician. Patient improved for discharge. She still to monitor symptoms at home and return to emergency department if she has any shortness of breath or worsening symptoms including hypoxia. - Related Data Home Medications Medication Instructions Recorded Confirmed Furosemide [Lasix] 20 mg PO DAILY 03/30/17 06/09/20 Gabapentin [Neurontin] 300 mg PO BID@0800,1200 03/30/17 06/09/20 Spironolactone 50 mg PO DAILY 03/30/17 06/09/20 traMADol HCl [Ultram] 50 mg PO DAILY PRN 07/23/19 06/09/20 Cephalexin [Keflex] 500 mg PO TID 06/09/20 06/09/20 Folic Acid 1 mg PO DAILY 06/09/20 06/09/20 Gabapentin [Neurontin] 600 mg PO HS 06/09/20 06/09/20 Insulin Regular [HumuLIN R] 40 units SQ DAILY 06/09/20 06/09/20 Insulin Regular [HumuLIN R] 45 units SQ HS 06/09/20 06/09/20 Pramipexole [Mirapex] 0.5 mg PO DAILY 06/09/20 06/09/20 Pravastatin Sodium [Pravachol] 10 mg PO HS 06/09/20 06/09/20 Propranolol [Inderal] 10 mg PO BID 06/09/20 06/09/20 ondansetron HCL [Zofran] 8 mg PO Q8HR PRN 06/09/20 06/09/20 Allergies Allergy/AdvReac Type Severity Reaction Status Date / Time No Known Allergies Allergy Verified 06/09/20 14:22 Review of Systems ROS Statement: Those systems with pertinent positive or pertinent negative responses have been documented in the HPI. ROS Other: All systems not noted in ROS Statement are negative. Past Medical History Past Medical History: Diabetes Mellitus, Hypertension, Liver Disease Additional Past Medical History / Comment(s): Cirrhosis-2012 from diabetes, neuropathy feet, cyst left ovary, ascities History of Any Multi-Drug Resistant Organisms: None Reported Past Surgical History: Tubal Ligation Additional Past Surgical History / Comment(s): carpal tunnel - rt hand, esphogeal banding Past Anesthesia/Blood Transfusion Reactions: No Reported Reaction Past Psychological History: No Psychological Hx Reported Smoking Status: Never smoker Past Alcohol Use History: Rare Past Drug Use History: None Reported General Exam Limitations: no limitations Course Vital Signs 07/16/20 07/16/20 07/16/20 18:37 18:42 20:00 Temperature 98 F Pulse Rate 90 Respiratory 22 18 18 Rate Blood Pressure 107/70 O2 Sat by Pulse 99 Oximetry Medical Decision Making - Lab Data Result diagrams: 07/16/20 18:58 07/16/20 18:58 Lab Results 07/16/20 07/16/20 07/16/20 Range/Units 18:52 18:58 18:58 WBC 1.8 L (3.8-10.6) k/uL RBC 3.61 L (3.80-5.40) m/uL Hgb 10.0 L D (11.4-16.0) gm/dL Hct 30.5 L (34.0-46.0) % MCV 84.5 (80.0-100.0) fL MCH 27.8 (25.0-35.0) pg MCHC 32.9 (31.0-37.0) g/dL RDW 13.8 (11.5-15.5) % Plt Count 58 L (150-450) k/uL MPV 11.5 Neutrophils % 71 % Lymphocytes % 21 % Monocytes % 5 % Eosinophils % 0 % Basophils % 0 % Neutrophils # 1.3 (1.3-7.7) k/uL Lymphocytes # 0.4 L (1.0-4.8) k/uL Monocytes # 0.1 (0-1.0) k/uL Eosinophils # 0.0 (0-0.7) k/uL Basophils # 0.0 (0-0.2) k/uL Manual Slide Review Performed Hypochromasia Moderate Poikilocytosis Slight Sodium 129 L (137-145) mmol/L Potassium 5.1 (3.5-5.1) mmol/L Chloride 103 (98-107) mmol/L Carbon Dioxide 20 L (22-30) mmol/L Anion Gap 6 mmol/L BUN 20 H (7-17) mg/dL Creatinine 1.24 H (0.52-1.04) mg/dL Est GFR (CKD-EPI)AfAm 60 (>60 ml/min/1.73 sqM) Est GFR (CKD-EPI)NonAf 52 (>60 ml/min/1.73 sqM) Glucose 406 H (74-99) mg/dL POC Glucose (mg/dL) 428 H (75-99) mg/dL POC Glu Audit Analyst ID Carmen Scott Calcium 7.8 L (8.4-10.2) mg/dL Total Bilirubin 1.2 (0.2-1.3) mg/dL AST 170 H (14-36) U/L ALT 43 H (4-34) U/L Alkaline Phosphatase 338 H (38-126) U/L NT-Pro-B Natriuret Pep pg/mL Total Protein 6.9 (6.3-8.2) g/dL Albumin 3.0 L (3.5-5.0) g/dL Coronavirus (PCR) (Not Detectd) 07/16/20 07/16/20 Range/Units 18:58 18:58 WBC (3.8-10.6) k/uL RBC (3.80-5.40) m/uL Hgb (11.4-16.0) gm/dL Hct (34.0-46.0) % MCV (80.0-100.0) fL MCH (25.0-35.0) pg MCHC (31.0-37.0) g/dL RDW (11.5-15.5) % Plt Count (150-450) k/uL MPV Neutrophils % % Lymphocytes % % Monocytes % % Eosinophils % % Basophils % % Neutrophils # (1.3-7.7) k/uL Lymphocytes # (1.0-4.8) k/uL Monocytes # (0-1.0) k/uL Eosinophils # (0-0.7) k/uL Basophils # (0-0.2) k/uL Manual Slide Review Hypochromasia Poikilocytosis Sodium (137-145) mmol/L Potassium (3.5-5.1) mmol/L Chloride (98-107) mmol/L Carbon Dioxide (22-30) mmol/L Anion Gap mmol/L BUN (7-17) mg/dL Creatinine (0.52-1.04) mg/dL Est GFR (CKD-EPI)AfAm (>60 ml/min/1.73 sqM) Est GFR (CKD-EPI)NonAf (>60 ml/min/1.73 sqM) Glucose (74-99) mg/dL POC Glucose (mg/dL) (75-99) mg/dL POC Glu Audit Analyst ID Calcium (8.4-10.2) mg/dL Total Bilirubin (0.2-1.3) mg/dL AST (14-36) U/L ALT (4-34) U/L Alkaline Phosphatase (38-126) U/L NT-Pro-B Natriuret Pep 53 pg/mL Total Protein (6.3-8.2) g/dL Albumin (3.5-5.0) g/dL Coronavirus (PCR) Detected A (Not Detectd) Disposition Clinical Impression: COVID-19 Disposition: HOME SELF-CARE Condition: Fair Instructions (If sedation given, give patient instructions): Coronavirus Disease 2019 (COVID-19) Additional Instructions: Follow-up with her primary care physician for the following lab abnormalities. White blood cell count 1.8, hemoglobin 10.0, platelets of 58. Sodium of 129, AST of 170, ALT of 43, alk phos of 338. Today you were evaluated for symptoms consistent with upper respiratory infection. Today you tested positive for Covid 19. Your are stable for d ischarge, however it is instructed to to seek immediate medical attention especially if you develop worsening symptoms especially respiratory distress. If possible, try to obtain a pulse oximeter and monitor your oxygen at home. In the meantime please remain in quarantine for 14 days. For any other questions please contact Remigio for here in emergency department or [facility] at [phone] Is patient prescribed a controlled substance at d/c from ED?: No Referrals: Aldo Hall MD [Primary Care Provider] - 1-2 days Time of Disposition: 22:29
[2020-07-16 18:56] LABS: Glucose,Whole Blood 428 mg/dL (75-99)
--- NOTE | 2020-07-16 19:14 | XR ---
EXAMINATION: XR chest 1V portable DATE AND TIME: 07/16/2020 7:05 PM CLINICAL INDICATION: PHH; dyspnea TECHNIQUE: PA view COMPARISON: Frontal view 07/23/2019 FINDINGS: The lungs are clear. The pleural spaces are negative. The cardiac silhouette is not enlarged. The remainder of the mediastinal silhouette is unremarkable. The skeletal structures and soft tissues are negative for acute findings. IMPRESSION: NO ACUTE PROCESS.
[2020-07-16 19:18] LABS: Calcium 7.8 mg/dL (8.4-10.2); Total Bilirubin 1.2 mg/dL (0.2-1.3); Total Protein 6.9 g/dL (6.3-8.2)
[2020-07-16 19:21] LABS: Potassium 5.1 mmol/L (3.5-5.1)
[2020-07-16 19:29] LABS: Basophils % (A) 0 %; Eosinophils % (A) 0 %; HCT 30.5 % (34.0-46.0); Hypochromasia Moderate; Lymphocytes # (A) 0.4 k/uL (1.0-4.8); Lymphocytes % (A) 21 %; MCH 27.8 pg (25.0-35.0); MCHC 32.9 g/dL (31.0-37.0); MCV 84.5 fL (80.0-100.0); Mean Platelet Volume 11.5; Monocytes # (A) 0.1 k/uL (0-1.0); Monocytes % (A) 5 %; Neutrophils # (A) 1.3 k/uL (1.3-7.7); Neutrophils % (A) 71 %; Poikilocytosis Slight; RBC 3.61 m/uL (3.80-5.40); RDW 13.8 % (11.5-15.5); WBC 1.8 k/uL (3.8-10.6)
[2020-07-16 19:36] LABS: Platelet Count 58 k/uL (150-450)
[2020-07-16] MEDS ORDERED: SODIUM CHLORIDE 0.9% 50 ML IVPB ONE (20:00)
[2020-07-16] MEDS ORDERED: BAMLANIVIMAB (EUA) 700 MG, ETESEVIMAB (EUA) 1,400 MG in SODIUM CHLORIDE 0.9% 50 ML IVPB ONE (20:15)
[2020-07-16] MEDS ORDERED: MORPHINE SULFATE 4 MG/ML SYRINGE IVP STA (21:23)
[2020-07-16] MEDS ORDERED: INSULIN REGULAR 100 UNIT/ML VIAL IV ONE (22:02)
[2020-07-16 23:20] VITALS: BP 138/73; PULSE 84; RESP 17; TEMP 99.1
== END 2020-07-16 22:54 | disposition home or self-care (01) ==
LOC: EC 18:28
DX: U07.1 COVID-19 (principal); E11.40 Type 2 diabetes mellitus with diabetic neuropathy, unspecified; I10 Essential (primary) hypertension; Z79.4 Long term (current) use of insulin
CPT/HCPCS: 36415; 93005; 83880; 80053; 85025; 87635; 71045; 99285; 96365; 96375; J2270; Q0245; 96374

== ENCOUNTER 2020-07-21 17:06 | Emergency (ER) | payer OTHER ==
[2020-07-21] MEDS ORDERED: DEXAMETHASONE SOD PHOSPHATE 10 MG/ML 1 ML VIAL IV STA (18:28)
--- NOTE | 2020-07-21 18:29 | ED ---
General Adult HPI - General Chief complaint: Shortness of Breath Stated complaint: Sent by PCP - covid/pneumonia Time Seen by Provider: 07/21/20 18:21 Source: patient Mode of arrival: ambulatory Limitations: no limitations - History of Present Illness Initial comments: A she is a 45-year-old female that presents to the emergency Department with Covid symptoms. She noted that she's artery receive monoclonal antibody therapy approximately 3-4 days ago. She was sent in by her primary care after he told her that she had Covid pneumonia. Patient is saturating well on room air at 98%. She stated that she was feeling cold and still has a dry cough that is worse with deep inhalation. She was in no apparent distress or pain while laying in bed during the exam and interview. She denied any chest pain headache nausea vomiting diarrhea constipation fever. - Related Data Home Medications Medication Instructions Recorded Confirmed Furosemide [Lasix] 20 mg PO DAILY 03/30/17 06/09/20 Gabapentin [Neurontin] 300 mg PO BID@0800,1200 03/30/17 06/09/20 Spironolactone 50 mg PO DAILY 03/30/17 06/09/20 traMADol HCl [Ultram] 50 mg PO DAILY PRN 07/23/19 06/09/20 Cephalexin [Keflex] 500 mg PO TID 06/09/20 06/09/20 Folic Acid 1 mg PO DAILY 06/09/20 06/09/20 Gabapentin [Neurontin] 600 mg PO HS 06/09/20 06/09/20 Insulin Regular [HumuLIN R] 40 units SQ DAILY 06/09/20 06/09/20 Insulin Regular [HumuLIN R] 45 units SQ HS 06/09/20 06/09/20 Pramipexole [Mirapex] 0.5 mg PO DAILY 06/09/20 06/09/20 Pravastatin Sodium [Pravachol] 10 mg PO HS 06/09/20 06/09/20 Propranolol [Inderal] 10 mg PO BID 06/09/20 06/09/20 ondansetron HCL [Zofran] 8 mg PO Q8HR PRN 06/09/20 06/09/20 Previous Rx's Medication Instructions Recorded Ascorbic Acid [Vitamin C] 1,000 mg PO DAILY 30 Days #30 07/21/20 tablet Cholecalciferol (Vitamin D3) 125 mcg PO DAILY 30 Days #30 cap 07/21/20 [Vitamin D3 (5000 Iu)] Allergies Allergy/AdvReac Type Severity Reaction Status Date / Time No Known Allergies Allergy Verified 07/21/20 17:12 Review of Systems ROS Statement: Those systems with pertinent positive or pertinent negative responses have been documented in the HPI. ROS Other: All systems not noted in ROS Statement are negative. 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 Covid 07/16/20 History of Any Multi-Drug Resistant Organisms: None Reported Past Surgical History: Tubal Ligation Additional Past Surgical History / Comment(s): carpal tunnel - rt hand, esphogeal banding Past Anesthesia/Blood Transfusion Reactions: No Reported Reaction Past Psychological History: No Psychological Hx Reported Smoking Status: Never smoker Past Alcohol Use History: Rare Past Drug Use History: None Reported General Exam Limitations: no limitations General appearance: alert, in no apparent distress Head exam: Present: atraumatic, normocephalic, normal inspection Eye exam: Present: normal appearance, PERRL, EOMI. Absent: scleral icterus, conjunctival injection, periorbital swelling Neck exam: Present: normal inspection. Absent: tenderness, meningismus, lymphadenopathy Respiratory exam: Present: normal lung sounds bilaterally. Absent: respiratory distress, wheezes, rales, rhonchi, stridor Cardiovascular Exam: Present: regular rate, normal rhythm, normal heart sounds. Absent: systolic murmur, diastolic murmur, rubs, gallop, clicks GI/Abdominal exam: Present: soft, normal bowel sounds. Absent: distended, tenderness, guarding, rebound, rigid Extremities exam: Present: normal inspection, full ROM, normal capillary refill. Absent: tenderness, pedal edema, joint swelling, calf tenderness Neurological exam: Present: alert, oriented X3, CN II-XII intact Psychiatric exam: Present: normal affect, normal mood Skin exam: Present: warm, dry, intact, normal color. Absent: rash Course Vital Signs 07/21/20 07/21/20 07/21/20 17:09 18:12 20:04 Temperature 98.1 F 98.4 F Pulse Rate 119 H 95 Respiratory 24 20 16 Rate Blood Pressure 121/80 121/76 O2 Sat by Pulse 98 99 Oximetry Medical Decision Making - Medical Decision Making 45-year-old female with Covid that started received monoclonal antibody therapy. Labs, chest x-ray, 1 L normal saline, 6 mg of Decadron ordered. Labs unremarkable from previous studies, d-dimer elevated at 0.78. CT chest angiogram for PE ordered. CT of the chest negative for pulmonary emboli. Vital signs remained stable. case discussed with Dr. Blanchard, patient can discharge home - Lab Data Result diagrams: 07/21/20 18:30 07/21/20 18:30 Lab Results 07/21/20 07/21/20 07/21/20 Range/Units 18:30 18:30 18:30 WBC 3.2 L (3.8-10.6) k/uL RBC 3.59 L (3.80-5.40) m/uL Hgb 9.9 L (11.4-16.0) gm/dL Hct 29.8 L (34.0-46.0) % MCV 83.1 (80.0-100.0) fL MCH 27.5 (25.0-35.0) pg MCHC 33.1 (31.0-37.0) g/dL RDW 13.9 (11.5-15.5) % Plt Count 66 L (150-450) k/uL MPV 10.1 Neutrophils % 69 % Lymphocytes % 22 % Monocytes % 7 % Eosinophils % 0 % Basophils % 0 % Neutrophils # 2.2 (1.3-7.7) k/uL Lymphocytes # 0.7 L (1.0-4.8) k/uL Monocytes # 0.2 (0-1.0) k/uL Eosinophils # 0.0 (0-0.7) k/uL Basophils # 0.0 (0-0.2) k/uL Manual Slide Review Performed Hypochromasia Moderate Poikilocytosis Slight PT 10.5 (9.0-12.0) sec INR 1.0 (<1.2) APTT 24.4 (22.0-30.0) sec D-Dimer 0.78 H (<0.60) mg/L FEU Sodium 140 (137-145) mmol/L Potassium 4.2 (3.5-5.1) mmol/L Chloride 107 (98-107) mmol/L Carbon Dioxide 26 (22-30) mmol/L Anion Gap 7 mmol/L BUN 14 (7-17) mg/dL Creatinine 0.88 (0.52-1.04) mg/dL Est GFR (CKD-EPI)AfAm >90 (>60 ml/min/1.73 sqM) Est GFR (CKD-EPI)NonAf 80 (>60 ml/min/1.73 sqM) Glucose 151 H (74-99) mg/dL Plasma Lactic Acid Kai (0.7-2.0) mmol/L Calcium 8.6 (8.4-10.2) mg/dL Magnesium 1.6 (1.6-2.3) mg/dL Total Bilirubin 0.8 (0.2-1.3) mg/dL AST 91 H (14-36) U/L ALT 37 H (4-34) U/L Alkaline Phosphatase 398 H (38-126) U/L Lactate Dehydrogenase 675 H (313-618) U/L C-Reactive Protein 2.3 H (<1.0) mg/dL Total Protein 6.9 (6.3-8.2) g/dL Albumin 3.0 L (3.5-5.0) g/dL 07/21/20 Range/Units 18:30 WBC (3.8-10.6) k/uL RBC (3.80-5.40) m/uL Hgb (11.4-16.0) gm/dL Hct (34.0-46.0) % MCV (80.0-100.0) fL MCH (25.0-35.0) pg MCHC (31.0-37.0) g/dL RDW (11.5-15.5) % Plt Count (150-450) k/uL MPV Neutrophils % % Lymphocytes % % Monocytes % % Eosinophils % % Basophils % % Neutrophils # (1.3-7.7) k/uL Lymphocytes # (1.0-4.8) k/uL Monocytes # (0-1.0) k/uL Eosinophils # (0-0.7) k/uL Basophils # (0-0.2) k/uL Manual Slide Review Hypochromasia Poikilocytosis PT (9.0-12.0) sec INR (<1.2) APTT (22.0-30.0) sec D-Dimer (<0.60) mg/L FEU Sodium (137-145) mmol/L Potassium (3.5-5.1) mmol/L Chloride (98-107) mmol/L Carbon Dioxide (22-30) mmol/L Anion Gap mmol/L BUN (7-17) mg/dL Creatinine (0.52-1.04) mg/dL Est GFR (CKD-EPI)AfAm (>60 ml/min/1.73 sqM) Est GFR (CKD-EPI)NonAf (>60 ml/min/1.73 sqM) Glucose (74-99) mg/dL Plasma Lactic Acid Kai 1.6 (0.7-2.0) mmol/L Calcium (8.4-10.2) mg/dL Magnesium (1.6-2.3) mg/dL Total Bilirubin (0.2-1.3) mg/dL AST (14-36) U/L ALT (4-34) U/L Alkaline Phosphatase (38-126) U/L Lactate Dehydrogenase (313-618) U/L C-Reactive Protein (<1.0) mg/dL Total Protein (6.3-8.2) g/dL Albumin (3.5-5.0) g/dL - Radiology Data Radiology results: report reviewed, image reviewed Chest CTA: No pulmonary emboli. Mild to moderate multifocal patchy round glass opacities characteristic of COVID-19 pneumonia cirrhotic liver and likely sequela portal hypertension including splenomegaly and trace perihepatic ascites. Chest x-ray: Leg patchy basilar infiltrates suspicious for developing pneumonia. Disposition Clinical Impression: COVID-19, Pneumonia due to COVID-19 virus Disposition: HOME SELF-CARE Condition: Stable Instructions (If sedation given, give patient instructions): Coronavirus Disease 2019 (COVID-19) Additional Instructions: Please return to the Emergency Department if symptoms worsen or any other concerns. Follow-up with primary care in 3-5 days. Take medications as prescribed. Get plenty rest. Is patient prescribed a controlled substance at d/c from ED?: No Referrals: Aldo Hall MD [Primary Care Provider] - 1-2 days Time of Disposition: 21:50
[2020-07-21 18:50] LABS: Basophils % (A) 0 %; Eosinophils % (A) 0 %; HCT 29.8 % (34.0-46.0); HGB 9.9 gm/dL (11.4-16.0); Hypochromasia Moderate; Lymphocytes # (A) 0.7 k/uL (1.0-4.8); Lymphocytes % (A) 22 %; MCH 27.5 pg (25.0-35.0); MCHC 33.1 g/dL (31.0-37.0); MCV 83.1 fL (80.0-100.0); Mean Platelet Volume 10.1; Monocytes # (A) 0.2 k/uL (0-1.0); Monocytes % (A) 7 %; Neutrophils # (A) 2.2 k/uL (1.3-7.7); Neutrophils % (A) 69 %; Poikilocytosis Slight; RBC 3.59 m/uL (3.80-5.40); RDW 13.9 % (11.5-15.5); WBC 3.2 k/uL (3.8-10.6)
[2020-07-21 18:54] LABS: Platelet Count 66 k/uL (150-450)
[2020-07-21 19:07] LABS: Partial Thromboplastin Time 24.4 sec (22.0-30.0); Prothrombin Time 10.5 sec (9.0-12.0)
[2020-07-21 19:09] LABS: D-Dimer 0.78 mg/L FEU (<0.60)
[2020-07-21 19:12] LABS: ALT 37 U/L (4-34); AST 91 U/L (14-36); African American GFR (CKD) >90 (>60 ml/min/1.73 sqM); Alkaline Phosphatase 398 U/L (38-126); Anion Gap 7 mmol/L; Blood Urea Nitrogen 14 mg/dL (7-17); C Reactive Protein 2.3 mg/dL (<1.0); Calcium 8.6 mg/dL (8.4-10.2); Carbon Dioxide 26 mmol/L (22-30); Chloride 107 mmol/L (98-107); Glucose 151 mg/dL (74-99); LDH 675 U/L (313-618); Magnesium 1.6 mg/dL (1.6-2.3); Non-African American GFR(CKD) 80 (>60 ml/min/1.73 sqM); Potassium 4.2 mmol/L (3.5-5.1); Sodium 140 mmol/L (137-145); Total Bilirubin 0.8 mg/dL (0.2-1.3); Total Protein 6.9 g/dL (6.3-8.2)
--- NOTE | 2020-07-21 20:09 | XR ---
EXAMINATION TYPE: XR chest 1V portable DATE OF EXAM: 07/21/2020 COMPARISON: 07/16/2020 HISTORY: Chest pain TECHNIQUE: Single frontal view of the chest is obtained. FINDINGS: Vague patchy basilar infiltrates suspicious for developing pneumonia. The cardiac silhouette size is within normal limits. The osseous structures are intact. IMPRESSION: 1. Vague patchy basilar infiltrates suspicious for developing pneumonia.
--- NOTE | 2020-07-21 21:38 | CT ---
EXAMINATION TYPE: CT chest angio for PE DATE OF EXAM: 07/21/2020 COMPARISON: Same day chest radiograph. CT abdomen pelvis 06/09/2020 HISTORY: elevated d-dimer, cough, SOB, +covid CT DLP: 325.6 mGycm Automated exposure control for dose reduction was used. CONTRAST: CT Chest for pulmonary embolism performed with with IV Contrast, patient injected with 85cc mL of Iso alisia 370. FINDINGS: LUNGS: There are mild to moderate multifocal patchy groundglass and airspace opacities throughout the bilateral lungs. There is no pleural effusion or pneumothorax seen. The tracheobronchial tree is pa tent. MEDIASTINUM: There is satisfactory enhancement of the pulmonary artery and its branches, there is no CT evidence for pulmonary embolism. There are reactive appearing hilar and mediastinal lymph nodes. T horacic aorta normal in caliber. Cardiac size is normal. No pericardial effusion is seen. OTHER: There is redemonstrated nodular contour of the liver with coarsened appearance, splenomegaly, and adenopathy of the upper abdomen. Trace perihepatic ascites. IMPRESSION: 1. No pulmonary emboli. 2. Mild to moderate multifocal patchy round glass opacities characteristic of Covid 19 pneumonia. 3. Cirrhotic liver and likely sequela of portal hypertension including splenomegaly and trace perihep atic ascites.
[2020-07-21 22:13] VITALS: BP 122/78; PULSE 96; RESP 18; TEMP 98
[2020-07-22 15:23] LABS: Ferritin 33.1 ng/mL (10.0-291.0)
== END 2020-07-21 22:16 | disposition home or self-care (01) ==
LOC: EC 17:06
DX: U07.1 COVID-19 (principal); J12.82 Pneumonia due to coronavirus disease 2019; E11.40 Type 2 diabetes mellitus with diabetic neuropathy, unspecified; I10 Essential (primary) hypertension; Z79.4 Long term (current) use of insulin
CPT/HCPCS: 36415; 85379; 80053; 82728; 83605; 83615; 83735; 85025; 85610; 85730; 86140; 84145; 71045; 71275; 99285; 96374; J1100; Q9967

== ENCOUNTER 2021-11-05 10:06 | Emergency (ER) | payer OTHER ==
[2021-11-05 10:13] VITALS: TEMP 97.7
--- NOTE | 2021-11-05 10:38 | ED ---
General Adult HPI - General Chief complaint: Recheck/Abnormal Lab/Rx Stated complaint: high levels of potassium & sugar - dr sent her Time Seen by Provider: 11/05/21 10:15 Source: patient, RN notes reviewed, old records reviewed Mode of arrival: ambulatory Limitations: no limitations - History of Present Illness Initial comments: This is a 46-year-old female with past medical history significant for liver transplant and diabetes. Patient states she had a transplant done in July and she is in the early stages of possible rejection. She'll call today that her potassium was elevated as was her sugar. [facility] would like to admit her to the hospital but they asked her to come here first so she could have her potassium treated and then her will drive her [facility] to be treated. Patient feels weak she sore all over but she states this is been ongoing issue. Patient states she's had an issue with the potass ium before. Patient denies any chest pain difficulty breathing or shortness of breath. Patient has any fever chills. - Related Data Home Medications Medication Instructions Recorded Confirmed Furosemide [Lasix] 20 mg PO DAILY 03/30/17 06/09/20 Gabapentin [Neurontin] 300 mg PO BID@0800,1200 03/30/17 06/09/20 Spironolactone 50 mg PO DAILY 03/30/17 06/09/20 traMADol HCl [Ultram] 50 mg PO DAILY PRN 07/23/19 06/09/20 Cephalexin [Keflex] 500 mg PO TID 06/09/20 06/09/20 Folic Acid 1 mg PO DAILY 06/09/20 06/09/20 Gabapentin [Neurontin] 600 mg PO HS 06/09/20 06/09/20 Insulin Regular [HumuLIN R] 40 units SQ DAILY 06/09/20 06/09/20 Insulin Regular [HumuLIN R] 45 units SQ HS 06/09/20 06/09/20 Pramipexole [Mirapex] 0.5 mg PO DAILY 06/09/20 06/09/20 Pravastatin Sodium [Pravachol] 10 mg PO HS 06/09/20 06/09/20 Propranolol [Inderal] 10 mg PO BID 06/09/20 06/09/20 ondansetron HCL [Zofran] 8 mg PO Q8HR PRN 06/09/20 06/09/20 Previous Rx's Medication Instructions Recorded Ascorbic Acid [Vitamin C] 1,000 mg PO DAILY 30 Days #30 07/21/20 tablet Cholecalciferol (Vitamin D3) 125 mcg PO DAILY 30 Days #30 cap 07/21/20 [Vitamin D3 (5000 Iu)] Allergies Allergy/AdvReac Type Severity Reaction Status Date / Time No Known Allergies Allergy Verified 11/05/21 10:13 Review of Systems ROS Statement: Those systems with pertinent positive or pertinent negative responses have been documented in the HPI. ROS Other: All systems not noted in ROS Statement are negative. 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 Covid 07/16/20 History of Any Multi-Drug Resistant Organisms: None Reported Past Surgical History: Tubal Ligation Additional Past Surgical History / Comment(s): carpal tunnel - rt hand, esphogeal banding, Liver transplant July 2021 Past Anesthesia/Blood Transfusion Reactions: No Reported Reaction Past Psychological History: No Psychological Hx Reported Smoking Status: Never smoker Past Alcohol Use History: Rare Past Drug Use History: None Reported General Exam - General Exam Comments Initial Comments: GENERAL: Patient is well-developed and well-nourished. Patient is nontoxic and well- hydrated and is in mild distress. ENT: Neck is soft and supple. No significant lymphadenopathy is noted. Oropharynx is clear. Moist mucous membranes. Neck has full range of motion without eliciting any pain. EYES: The sclera were anicteric and conjunctiva were pink and moist. Extraocular move ments were intact and pupils were equal round and reactive to light. Eyelids were unremarkable. PULMONARY: Unlabored respirations. Good breath sounds bilaterally. No audible rales rhonchi or wheezing was noted. CARDIOVASCULAR: There is a regular rate and rhythm without any murmurs gallops or rubs. ABDOMEN: Patient has abdominal tenderness diffusely SKIN: Skin is clear with no lesions or rashes and otherwise unremarkable. NEUROLOGIC: Patient is alert and oriented x3. Cranial nerves II through XII are grossly intact. Motor and sensory are also intact. Normal speech, volume and content. Symmetrical smile. MUSCULOSKELETAL: Normal extremities with adequate strength and full range of motion. LYMPHATICS: No significant lymphadenopathy is noted PSYCHIATRIC: Normal psychiatric evaluation. Limitations: no limitations Course Vital Signs 11/05/21 10:10 Temperature 97.7 F Pulse Rate 96 Respiratory 22 Rate Blood Pressure 112/78 O2 Sat by Pulse 100 Oximetry Medical Decision Making - Medical Decision Making Patient's EKG shows sinus rhythm at 80 bpm IA interval 131 QRS 79 QT interval 362 QTC is 408. Patient's EKG shows no ST segment elevation or depression. Patient's potassium was 5.6 with hemolysis. Patient's EKG was normal. Patient states she or he has a bad at [facility] because of transplant team wants her to stay there. Patient states her liver enzymes are elevated here but much lower than they were a little while ago. Patient does not want to stay any longer if she needs no treatment for the potassium she would like to leave with her to go to [facility] where she is going to be admitted. - Lab Data Result diagrams: 11/05/21 10:55 11/05/21 10:55 Lab Results 11/05/21 11/05/21 Range/Units 10:55 10:55 WBC 11.7 H (3.8-10.6) k/uL RBC 4.64 (3.80-5.40) m/uL Hgb 13.2 (11.4-16.0) gm/dL Hct 39.8 (34.0-46.0) % MCV 85.9 (80.0-100.0) fL MCH 28.5 (25.0-35.0) pg MCHC 33.2 (31.0-37.0) g/dL RDW 16.0 H (11.5-15.5) % Plt Count 121 L (150-450) k/uL MPV 9.6 Neutrophils % 74 % Lymphocytes % 17 % Monocytes % 7 % Eosinophils % 0 % Basophils % 0 % Neutrophils # 8.7 H (1.3-7.7) k/uL Lymphocytes # 2.0 (1.0-4.8) k/uL Monocytes # 0.8 (0-1.0) k/uL Eosinophils # 0.0 (0-0.7) k/uL Basophils # 0.0 (0-0.2) k/uL Hypochromasia Slight Poikilocytosis Slight Sodium 134 L (137-145) mmol/L Potassium 5.6 H (3.5-5.1) mmol/L Chloride 103 (98-107) mmol/L Carbon Dioxide 19 L (22-30) mmol/L Anion Gap 12 mmol/L BUN 41 H (7-17) mg/dL Creatinine 1.45 H (0.52-1.04) mg/dL Est GFR (CKD-EPI)AfAm 50 (>60 ml/min/1.73 sqM) Est GFR (CKD-EPI)NonAf 43 (>60 ml/min/1.73 sqM) Glucose 387 H (74-99) mg/dL Calcium 9.1 (8.4-10.2) mg/dL Total Bilirubin 0.7 (0.2-1.3) mg/dL AST 121 H (14-36) U/L ALT 389 H (4-34) U/L Alkaline Phosphatase 169 H (38-126) U/L Total Protein 7.5 (6.3-8.2) g/dL Albumin 4.5 (3.5-5.0) g/dL Disposition Clinical Impression: Disorder of electrolytes Disposition: HOME SELF-CARE Condition: Good Is patient prescribed a controlled substance at d/c from ED?: No Referrals: Aldo Hall MD [Primary Care Provider] - 1-2 days Time of Disposition: 12:30
[2021-11-05 11:26] LABS: Basophils % (A) 0 %; Eosinophils % (A) 0 %; HCT 39.8 % (34.0-46.0); HGB 13.2 gm/dL (11.4-16.0); Hypochromasia Slight; Lymphocytes % (A) 17 %; MCH 28.5 pg (25.0-35.0); MCHC 33.2 g/dL (31.0-37.0); MCV 85.9 fL (80.0-100.0); Mean Platelet Volume 9.6; Monocytes # (A) 0.8 k/uL (0-1.0); Monocytes % (A) 7 %; Neutrophils # (A) 8.7 k/uL (1.3-7.7); Neutrophils % (A) 74 %; Platelet Count 121 k/uL (150-450); Poikilocytosis Slight; RBC 4.64 m/uL (3.80-5.40); WBC 11.7 k/uL (3.8-10.6)
[2021-11-05 11:43] LABS: Albumin 4.5 g/dL (3.5-5.0); Calcium 9.1 mg/dL (8.4-10.2); Total Bilirubin 0.7 mg/dL (0.2-1.3); Total Protein 7.5 g/dL (6.3-8.2)
[2021-11-05 11:47] LABS: Potassium 5.6 mmol/L (3.5-5.1)
[2021-11-05 13:17] VITALS: BP 128/85; PULSE 84; RESP 18
== END 2021-11-05 12:42 | disposition home or self-care (01) ==
LOC: EC 10:06
DX: E87.8 Other disorders of electrolyte and fluid balance, not elsewhere classified (principal); E11.9 Type 2 diabetes mellitus without complications; I10 Essential (primary) hypertension
CPT/HCPCS: 36415; 80053; 85025; 93005; 99283

== ENCOUNTER 2022-04-06 10:52 | Emergency (ER) | payer OTHER ==
[2022-04-06 11:06] VITALS: RESP 18; TEMP 97.4
[2022-04-06 12:01] LABS: Basophils # (A) 0.1 k/uL (0-0.2); Basophils % (A) 1 %; Eosinophils # (A) 0.1 k/uL (0-0.7); Eosinophils % (A) 1 %; HCT 36.6 % (34.0-46.0); HGB 12.6 gm/dL (11.4-16.0); Lymphocytes # (A) 4.6 k/uL (1.0-4.8); Lymphocytes % (A) 52 %; MCH 31.9 pg (25.0-35.0); MCHC 34.5 g/dL (31.0-37.0); MCV 92.6 fL (80.0-100.0); Mean Platelet Volume 9.7; Monocytes # (A) 0.6 k/uL (0-1.0); Monocytes % (A) 6 %; Neutrophils # (A) 3.3 k/uL (1.3-7.7); Neutrophils % (A) 37 %; Poikilocytosis Slight; RBC 3.95 m/uL (3.80-5.40); RDW 15.9 % (11.5-15.5); WBC 8.8 k/uL (3.8-10.6)
[2022-04-06 12:05] LABS: Albumin 4.1 g/dL (3.5-5.0); Calcium 9.1 mg/dL (8.4-10.2); Potassium 5.9 mmol/L (3.5-5.1); Total Bilirubin 0.7 mg/dL (0.2-1.3); Total Protein 7.3 g/dL (6.3-8.2)
[2022-04-06 12:18] LABS: Platelet Count 77 k/uL (150-450)
[2022-04-06] MEDS ORDERED: SODIUM CHLORIDE 0.9% 1,000 ML IV STA ×2 (12:30)
--- NOTE | 2022-04-06 12:34 | ED ---
Recheck HPI - General Chief Complaint: Recheck/Abnormal Lab/Rx Stated Complaint: abn labs Time Seen by Provider: 04/06/22 12:01 Source: patient, family, RN notes reviewed Mode of arrival: ambulatory Limitations: no limitations - History of Present Illness Initial Comments: 46-year-old female with a history of liver transplant in July of this past year with a rejection in November of this past year which did resolve after treatment who presents with reports of elevated potassium and liver enzymes on testing that was done yesterday at [facility]. Patient reports that she had a 6.3 potassium and elevated liver enzymes. Patient states that in the past 2 weeks she's had upper respiratory infection and sinus infection along with influenza she has no symptoms from that right now other than she does report decreased oral intake of food and water. She also reports lightheadedness or dizziness when she gets up too fast and sitting or lying down. No current fevers chills nausea vomiting sweats she does report a chronic condition of what appears be reflux in the morning she gets up this is a long time symptoms. She has have an ultrasound scheduled for [facility] for evaluation of the liver. No other current complaints modifying factors - Related Data Home Medications Medication Instructions Recorded Confirmed Gabapentin [Neurontin] 300 mg PO BID@0900,1200 03/30/17 04/06/22 Folic Acid 1 mg PO DAILY 06/09/20 04/06/22 Gabapentin [Neurontin] 600 mg PO HS@2100 06/09/20 04/06/22 Aspirin EC [Ecotrin Low Dose] 81 mg PO DAILY 11/05/21 04/06/22 Glucagon [Baqsimi] 1 spray NASAL BID PRN 11/05/21 04/06/22 INSULIN LISPRO (For Pump) [humaLOG 0.01 units SQ-PUMP CONTINUOUS 11/05/2107/24 (For Pump)] Magnesium Oxide [Magox 400] 400 mg PO DAILY 11/05/21 04/06/22 Ondansetron Odt [Zofran Odt] 4 mg PO Q8HR PRN 11/05/21 04/06/22 Pantoprazole Sodium [Protonix] 40 mg PO HS 11/05/21 04/06/22 Tacrolimus [Prograf] 5 mg PO BID 11/05/21 04/06/22 methocarbamoL [Robaxin] 500 mg PO TID PRN 11/05/21 04/06/22 Acetaminophen Tab [Tylenol Tab] 1,000 mg PO Q6HR PRN 04/06/22 04/06/22 Cholecalciferol [Vitamin D3 (25 50 mcg PO DAILY 04/06/22 04/06/22 Mcg = 1000 Iu)] Multivitamins, Thera [Multivitamin 1 tab PO DAILY 04/06/22 04/06/22 (formulary)] Sertraline [Zoloft] 50 mg PO DAILY 04/06/22 04/06/22 Sodium Zirconium Cyclosilicate 10 gm PO DAILY PRN 04/06/22 04/06/22 [Lokelma] hydrOXYzine HCL [Atarax] 25 mg PO Q8H PRN 04/06/22 04/06/22 Allergies Allergy/AdvReac Type Severity Reaction Status Date / Time No Known Allergies Allergy Verified 04/06/22 14:57 Review of Systems ROS Statement: Those systems with pertinent positive or pertinent negative responses have been documented in the HPI. ROS Other: All systems not noted in ROS Statement are negative. 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 Covid 07/16/20 History of Any Multi-Drug Resistant Organisms: None Reported Past Surgical History: Tubal Ligation Additional Past Surgical History / Comment(s): carpal tunnel - rt hand, esphogeal banding, Liver transplant July 2021 Past Anesthesia/Blood Transfusion Reactions: No Reported Reaction Past Psychological History: No Psychological Hx Reported Smoking Status: Never smoker Past Alcohol Use History: Rare Past Drug Use History: None Reported General Exam - General Exam Comments Initial Comments: This is a well-developed well-nourished awake alert oriented 4 female Limitations: no limitations General appearance: alert, in no apparent distress Head exam: Present: atraumatic, normocephalic, normal inspection Eye exam: Present: normal appearance, PERRL, EOMI. Absent: scleral icterus, conjunctival injection, periorbital swelling ENT exam: Present: mucous membranes dry Neck exam: Present: normal inspection, full ROM, other. Absent: tenderness, meningismus, lymphadenopathy Respiratory exam: Present: normal lung sounds bilaterally. Absent: respiratory distress, wheezes, rales, rhonchi, stridor Cardiovascular Exam: Present: normal rhythm, tachycardia, normal heart sounds. Absent: systolic murmur, diastolic murmur, rubs, gallop, clicks GI/Abdominal exam: Present: soft, normal bowel sounds, other (Well-healed surgical scar seen in the mid and upper right quadrant). Absent: distended, tenderness, guarding, rebound, rigid, bruit, pulsatile mass Extremities exam: Present: normal inspection, full ROM, normal capillary refill. Absent: tenderness, pedal edema, joint swelling, calf tenderness Back exam: Present: normal inspection Neurological exam: Present: alert, oriented X3, CN II-XII intact Psychiatric exam: Present: normal affect, normal mood Skin exam: Present: warm, dry, intact, normal color. Absent: rash Course Vital Signs 04/06/22 10:58 Temperature 97.4 F L Pulse Rate 112 H Respiratory 18 Rate Blood Pressure 101/45 O2 Sat by Pulse 98 Oximetry - Reevaluation(s) Reevaluation #1: 04/06/22 15:14 I did discuss patient's care with her transferring surgeon Dr. Garcia at [facility] patient will be discharged after IV hydration will follow-up tomorrow for ultrasound and further evaluation. Patient is asymptomatic this time patient is in agreement with this also. Medical Decision Making - Medical Decision Making Patient remains asymptomatic did discuss the findings the patient and family members also with the transplant surgeon, Dr. Garcia at [facility] patient will follow-up tomorrow as planned for outpatient ultrasound and further evaluation. Patient is encouraged to increase oral fluids he dose of Kayexalate was given emergency department. Was pt. sent in by a medical professional or institution? @ He has by Dr. Garcia from [facility] -[by , PA, CROWN POUNCER, urgent care, hospital, or [place] [facility] [place] facility] Did you speak to anyone other than the patient for history? @ Family members or present-[EMS, parent, family, police, friend?] Did you review nursing and triage notes? @ Yes and I agree-[agree or disagree, why?] Were old charts reviewed? @ Yesterday's labs from [facility]-[outside hosp., previous admi ssions, EMS record, old EKG, old radiological studies, urgent care reports/EKGs, [place] health [place] records?] Differential Diagnosis? @ Elevated potassium secondary to renal failure, dehydration-[chest pain, altered mental status abdominal pain women, abdominal pain men, vaginal bleeding, weakness, fever, dyspnea, syncope, headache, dizziness, GI bleed, back pain, seizure] EKG interpreted by me (3pts min.)? @ Yes no evidence of acute findings please see the reading above-[none] X-rays interpreted by me (1pt min.)? @ -[none] CT interpreted by me (1pt min.)? @ -[none] U/S interpreted by me (1pt. min.)? @ -[none] What testing was considered but not performed? (CT, X-rays, U/S, labs)? Why? @No not at this time [CT, X-rays, U/S, labs? Why?] What meds were considered but not given? Why? @ -[none] Did you discuss the management of the patient with other professionals? @ Dr. Garcia at [facility]-[professionals i.e. Dr, PA, CROWN POUNCER, Lab, RT, Psych Nurse, Telecom Assistant, It Operations Manager, Teacher, Medical Coding Auditor, case management specialist? Give summary] Did you reconcile home meds? @ -[none] Was smoking cessation discussed for >3mins.? @ -[none] Was critical care preformed (if so, how long)? @ -[none] Were there social determinants of health that impacted care today? How? (Ho melessness, low income, unemployed, alcoholism, drug addiction, transportation, low edu. Level, literacy, decrease access to med. care, [facility], rehab)? @ No-[Homelessness, low income, unemployed, alcoholism, drug addiction, transportation, low edu. Level, literacy, decrease access to med. care, [facility], rehab?] Was there de-escalation of care discussed even if they declined? (Discuss DNR or withdrawal of care, Hospice)? @ Not applicable-[Discuss DNR or withdrawal of care, Hospice?] What co-morbidities impacted this encounter? (DM, HTN, Smoking, COPD, CAD, Cancer, CVA, Hep., AIDS, mental health diagnosis, sleep apnea, morbid obesity)? @ Not applicable-[DM, HTN, Smoking, COPD, CAD, Cancer, CVA, Hep., AIDS, mental health diagnosis, sleep apnea, morbid obesity?] Was patient admitted / discharged? @ Patient was discharged -[hospital course] Undiagnosed new problem with uncertain prognosis? @ -[none] Drug Therapy requiring intensive monitoring for toxicity (Heparin, Nitro, Insulin, Cardizem)? @ -[none] Were any procedures done? @ -[none] Diagnosis/symptom? @ Hyperkalemia, dehydration, history of liver transplant-[default] Acute, or Chronic, or Acute on Chronic? @ Acute-[default] Uncomplicated (without systemic symptoms) or Complicated (systemic symptoms)? @ -[default] Side effects of treatment? @ -[none] Exacerbation, Progression, or Severe Exacerbation] @ -[no] Poses a threat to life or bodily function? @ -[no] - Lab Data Result diagrams: 04/06/22 11:35 04/06/22 11:35 Lab Results 04/06/22 04/06/22 04/06/22 Range/Units 11:35 11:35 11:35 WBC 8.8 (3.8-10.6) k/uL RBC 3.95 (3.80-5.40) m/uL Hgb 12.6 (11.4-16.0) gm/dL Hct 36.6 (34.0-46.0) % MCV 92.6 (80.0-100.0) fL MCH 31.9 (25.0-35.0) pg MCHC 34.5 (31.0-37.0) g/dL RDW 15.9 H (11.5-15.5) % Plt Count 77 L (150-450) k/uL MPV 9.7 Neutrophils % 37 % Lymphocytes % 52 % Monocytes % 6 % Eosinophils % 1 % Basophils % 1 % Neutrophils # 3.3 (1.3-7.7) k/uL Lymphocytes # 4.6 (1.0-4.8) k/uL Monocytes # 0.6 (0-1.0) k/uL Eosinophils # 0.1 (0-0.7) k/uL Basophils # 0.1 (0-0.2) k/uL Manual Slide Review Performed Poikilocytosis Slight Sodium 140 (137-145) mmol/L Potassium 5.9 H (3.5-5.1) mmol/L Chloride 108 H (98-107) mmol/L Carbon Dioxide 25 (22-30) mmol/L Anion Gap 7 mmol/L BUN 37 H (7-17) mg/dL Creatinine 1.57 H (0.52-1.04) mg/dL Est GFR (CKD-EPI)AfAm 45 (>60 ml/min/1.73 sqM) Est GFR (CKD-EPI)NonAf 39 (>60 ml/min/1.73 sqM) Glucose 160 H (74-99) mg/dL Calcium 9.1 (8.4-10.2) mg/dL Magnesium 1.7 (1.6-2.3) mg/dL Total Bilirubin 0.7 (0.2-1.3) mg/dL AST 194 H (14-36) U/L ALT 272 H (4-34) U/L Alkaline Phosphatase 134 H (38-126) U/L Troponin I (0.000-0.034) ng/mL Total Protein 7.3 (6.3-8.2) g/dL Albumin 4.1 (3.5-5.0) g/dL 04/06/22 Range/Units 12:45 WBC (3.8-10.6) k/uL RBC (3.80-5.40) m/uL Hgb (11.4-16.0) gm/dL Hct (34.0-46.0) % MCV (80.0-100.0) fL MCH (25.0-35.0) pg MCHC (31.0-37.0) g/dL RDW (11.5-15.5) % Plt Count (150-450) k/uL MPV Neutrophils % % Lymphocytes % % Monocytes % % Eosinophils % % Basophils % % Neutrophils # (1.3-7.7) k/uL Lymphocytes # (1.0-4.8) k/uL Monocytes # (0-1.0) k/uL Eosinophils # (0-0.7) k/uL Basophils # (0-0.2) k/uL Manual Slide Review Poikilocytosis Sodium (137-145) mmol/L Potassium (3.5-5.1) mmol/L Chloride (98-107) mmol/L Carbon Dioxide (22-30) mmol/L Anion Gap mmol/L BUN (7-17) mg/dL Creatinine (0.52-1.04) mg/dL Est GFR (CKD-EPI)AfAm (>60 ml/min/1.73 sqM) Est GFR (CKD-EPI)NonAf (>60 ml/min/1.73 sqM) Glucose (74-99) mg/dL Calcium (8.4-10.2) mg/dL Magnesium (1.6-2.3) mg/dL Total Bilirubin (0.2-1.3) mg/dL AST (14-36) U/L ALT (4-34) U/L Alkaline Phosphatase (38-126) U/L Troponin I <0.012 (0.000-0.034) ng/mL Total Protein (6.3-8.2) g/dL Albumin (3.5-5.0) g/dL - EKG Data -: EKG Interpreted by Me EKG Comments: EKG interpreted by me shows sinus tachycardia of 104. Interval 136 QRS duration 82 QT since QTC 320/388 possible left atrial enlargement no acute ST-T wave changes this is compared to an EKG dated 11/05/21 showing similar configuration. Disposition Clinical Impression: Hyperkalemia, Dehydration, Elevated liver enzymes, History of liver transplant Disposition: HOME SELF-CARE Condition: Good Instructions (If sedation given, give patient instructions): Hyperkalemia (ED), Dehydration (ED) Additional Instructions: Keep your appointment tomorrow at [facility] for ultrasound and further workup Is patient prescribed a controlled substance at d/c from ED?: No Referrals: Aldo Hall MD [Primary Care Provider] - 1-2 days Decision Date: 04/06/22 Decision Time: 15:19
[2022-04-06] MEDS ORDERED: SODIUM POLYSTYRENE SULFONATE 15 GM/60 ML BOTTLE PO STA (15:12)
[2022-04-06 15:47] VITALS: BP 111/58; PULSE 101
== END 2022-04-06 15:40 | disposition home or self-care (01) ==
LOC: EC 10:52
DX: E86.0 Dehydration (principal); E87.5 Hyperkalemia; I10 Essential (primary) hypertension; E11.9 Type 2 diabetes mellitus without complications; Z94.4 Liver transplant status; Z79.82 Long term (current) use of aspirin; Z79.4 Long term (current) use of insulin
CPT/HCPCS: 36415; 80053; 83735; 84484; 85025; 93005; 96360; 96361; 99283; 99284

== ENCOUNTER → 2022-08-03 | Outpatient (CLI) | payer OTHER ==
--- NOTE | 2022-08-03 18:44 | BD ---
EXAMINATION TYPE: Axial Bone Density DATE OF EXAM: 08/03/2022 CLINICAL HISTORY: 47 years old Female. 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 History of Fracture in Adulthood: yes Secondary Osteoporosis: 1. Type 1 Diabetes: yes 2. Hyperthyroidism: no 3. Menopause before 45: yes 4. Malnutrition: no 5. Chronic liver disease: yes Rheumatoid Arthritis: yes Current Tobacco Use: no RISK FACTORS HISTORY OF: Surgery to Spine/Hip(right/left)/Wrist (right/left): no Family History of Osteoporosis: no Active: no Diet low in dairy products/other sources of calcium: no Postmenopausal woman: yes Take estrogen and/or progesterone medications: no Lost more than 2 inches in height since high school: no Frequent falls: yes Poor Health: fair Hyperparathyroidism: no Adrenal Insufficiency: stage 3 kidney disease MEDICATIONS: Prednisone or other steroids: yes How Long: one Additional Medications: liver transplant 2021 , Additional History: prograf, lokelma, prednisone, albuterol, pen lac , magnesium, Pepcid, Afliberce pt, Tramadol, zoloft, imuran, aspirin, vit d3, humi log, Robaxin, glucagon, gabapentin, tylenol as needed, EXAM MEASUREMENTS: Bone mineral densitometry was performed using the Qiniu System. Bone mineral density as measured about the Lumbar spine is: ----- L1-L4(G/cm2): 1.284 T Score Values are as follows: ----- L1: -0.2 ----- L2: 0.7 ----- L3: 1.5 ----- L4: 1.1 ----- L1-L4: 0.9 Z Score Values are as follows: ----- L1: -1.0 ----- L2: -0.1 ----- L3: 0.7 ----- L4: 0.4 ----- L1-L4: 0.1 baseline Bone mineral density about the R hip (g/cm2): 0.772 Bone mineral density about the L hip (g/cm2): 0.727 T Score values are as follows: -----R Neck: -1.9 -----L Neck: -2.2 -----R Total: -1.9 -----L Total: -1.9 Z Score values are as follows: -----R Neck: -1.9 -----L Neck: -2.2 -----R Total: -2.3 -----L Total: -2.2 baseline FRAX%s: The graph provided illustrates a 15.1 % chance for a major osteoporotic fx and a 3.5 % chance for the hips probability for fx in 10 years time. IMPRESSION: Osteopenia (T Score between -2.5 and -1). There is slightly increased risk of fracture and the patient may be considered for treatment. Re-Screen 2-5 years. NOTE: T-SCORE=SD OF THE YOUNG ADULT MEAN.
--- NOTE | 2022-08-04 07:40 | MM ---
Reason for Exam: Screening (asymptomatic). Last mammogram was performed 4 year(s) and 0 month(s) ago. Patient History: Menarche at age 12. First Full-Term at age 22. Right ovary removed at age 42. Postmenopausal. Maternal grandmother had breast cancer at or over age 50. Risk Values: Aleja 5 year model risk: 0.8%. NCI Lifetime model risk: 8.3%. Prior Study Comparison: 08/26/2018 Bilateral MG 3D screening mammo w/cad, [facility] . Tissue Density: There are scattered fibroglandular densities. Findings: Analyzed By CAD. There is no suspicious group of microcalcifications or new suspicious mass in either breast. Overall Assessment: Negative, BI-RAD 1 Management: Screening Mammogram of both breasts in 1 year. . Patient should continue monthly self-breast exams. A clinical breast exam by your physician is recommended on an annual basis. This exam should not preclude additional follow-up of suspicious palpable abnormalities. Note on Aleja scores and lifetime risk: 1. A Aleja score greater than 3% is considered moderate risk. If this is the case, consider specialist referral to assess eligibility for a risk reducing agent. 2. If overall lifetime risk for the development of breast cancer is 20% or higher, the patient may qualify for future screening with alternating mammogram and breast MRI. Electronically signed and approved by: Derek Gallardo M.D.
== END | disposition home or self-care (01) ==
LOC: RADMAMWWP 13:33
PROVIDERS: ATTEND Family Medicine
DX: Z12.31 Encounter for screening mammogram for malignant neoplasm of breast (principal); N18.30 Chronic kidney disease, stage 3 unspecified; E10.9 Type 1 diabetes mellitus without complications; M06.9 Rheumatoid arthritis, unspecified; M85.89 Other specified disorders of bone density and structure, multiple sites; Z78.0 Asymptomatic menopausal state; Z79.52 Long term (current) use of systemic steroids; Z80.3 Family history of malignant neoplasm of breast
CPT/HCPCS: 77063; 77067; 77080

== ENCOUNTER 2023-02-04 09:20 | Emergency (ER) | payer OTHER, MEDICARE ==
[2023-02-04 09:26] VITALS: TEMP 98.5
[2023-02-04 09:38] LABS: Glucose,Whole Blood 162 mg/dL (70-110)
[2023-02-04] MEDS ORDERED: ONDANSETRON 4 MG/2 ML VIAL IVP STA (09:46)
[2023-02-04] MEDS ORDERED: SODIUM CHLORIDE 0.9% 1,000 ML IV STA (09:46)
--- NOTE | 2023-02-04 09:51 | ED ---
General Adult HPI - General Chief complaint: Weakness Stated complaint: dizziness,weakness Time Seen by Provider: 02/04/23 09:25 Source: patient, RN notes reviewed, old records reviewed Mode of arrival: wheelchair Limitations: no limitations - History of Present Illness Initial comments: This a 47-year-old female who has a past medical history significant for liver transplant about a year ago. Patient states she's had 2 episodes of rejection. Patient states she also is a diabetic. Patient comes in today because she has been vomiting for the last 3 days. Patient states she hasn't eaten anything significant since Monday. Patient states she's not been able to take her meds for 3 days because of the vomiting. Patient denies any fever chills per patient states she has diffuse abdominal pain but nothing too severe. Patient denies any diarrhea per patient denies chest pain difficult breathing shortness of breath. - Related Data Home Medications Medication Instructions Recorded Confirmed Gabapentin [Neurontin] 300 mg PO BID@0900,1200 03/30/17 04/06/22 Folic Acid 1 mg PO DAILY 06/09/20 04/06/22 Gabapentin [Neurontin] 600 mg PO HS@2100 06/09/20 04/06/22 Aspirin EC [Ecotrin Low Dose] 81 mg PO DAILY 11/05/21 04/06/22 Glucagon [Baqsimi] 1 spray NASAL BID PRN 11/05/21 04/06/22 INSULIN LISPRO (For Pump) [humaLOG 0.01 units SQ-PUMP CONTINUOUS 11/05/21 04/06/22 (For Pump)] Magnesium Oxide [Magox 400] 400 mg PO DAILY 11/05/21 04/06/22 Ondansetron Odt [Zofran Odt] 4 mg PO Q8HR PRN 11/05/21 04/06/22 Pantoprazole Sodium [Protonix] 40 mg PO HS 11/05/21 04/06/22 Tacrolimus [Prograf] 5 mg PO BID 11/05/21 04/06/22 methocarbamoL [Robaxin] 500 mg PO TID PRN 11/05/21 04/06/22 Acetaminophen Tab [Tylenol Tab] 1,000 mg PO Q6HR PRN 04/06/22 04/06/22 Cholecalciferol [Vitamin D3 (25 50 mcg PO DAILY 04/06/22 04/06/22 Mcg = 1000 Iu)] Multivitamins, Thera [Multivitamin 1 tab PO DAILY 04/06/22 04/06/22 (formulary)] Sertraline [Zoloft] 50 mg PO DAILY 04/06/22 04/06/22 Sodium Zirconium Cyclosilicate 10 gm PO DAILY PRN 04/06/22 04/06/22 [Lokelma] hydrOXYzine HCL [Atarax] 25 mg PO Q8H PRN 04/06/22 04/06/22 Allergies Allergy/AdvReac Type Severity Reaction Status Date / Time No Known Allergies Allergy Verified 02/04/23 09:24 Review of Systems ROS Statement: Those systems with pertinent positive or pertinent negative responses have been documented in the HPI. ROS Other: All systems not noted in ROS Statement are negative. 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 Covid 07/16/20 History of Any Multi-Drug Resistant Organisms: None Reported Past Surgical History: Tubal Ligation Additional Past Surgical History / Comment(s): carpal tunnel - rt hand, esphogeal banding, Liver transplant July 2021 Past Anesthesia/Blood Transfusion Reactions: No Reported Reaction Past Psychological History: No Psychological Hx Reported Smoking Status: Never smoker Past Alcohol Use History: Rare Past Drug Use History: None Reported General Exam - General Exam Comments Initial Comments: GENERAL: Patient is well-developed and well-nourished. Patient is nontoxic and well- hydrated and is in mild distress. ENT: Neck is soft and supple. No significant lymphadenopathy is noted. Oropharynx is clear. Moist mucous membranes. Neck has full range of motion without eliciting any pain. EYES: The sclera were anicteric and conjunctiva were pink and moist. Extraocular mo vements were intact and pupils were equal round and reactive to light. Eyelids were unremarkable. PULMONARY: Unlabored respirations. Good breath sounds bilaterally. No audible rales rhonchi or wheezing was noted. CARDIOVASCULAR: Patient is a regular rate and rhythm ABDOMEN: Minimal diffuse abdominal pain SKIN: Skin is clear with no lesions or rashes and otherwise unremarkable. NEUROLOGIC: Patient is alert and oriented x3. Cranial nerves II through XII are grossly intact. Motor and sensory are also intact. Normal speech, volume and content. Symmetrical smile. MUSCULOSKELETAL: Normal extremities with adequate strength and full range of motion. No lower extremity swelling or edema. No calf tenderness. LYMPHATICS: No significant lymphadenopathy is noted PSYCHIATRIC: Normal psychiatric evaluation. Limitations: no limitations Course Vital Signs 02/04/23 02/04/23 02/04/23 09:21 10:24 11:16 Temperature 98.5 F Pulse Rate 101 H 101 H 99 Respiratory 24 18 18 Rate Blood Pressure 161/99 141/81 O2 Sat by Pulse 99 93 L 100 Oximetry Medical Decision Making - Medical Decision Making EKG as interpreted by myself. EKG shows sinus tachycardia at 100 beats a minute NH interval is 142 QRS is 76 QT interval 341 QTC is 3. Patient's EKG shows no ST segment elevation or depression. Was pt. sent in by a medical professional or institution (FIDENCIO Love, SPECIAL EDUCATION AIDE, urgent care, hospital, or skilled nursing...) When possible be specific @ -No Did you speak to anyone other than the patient for history (EMS, parent, family, police, friend...)? What history was obtained from this source @ -No Did you review nursing and triage notes (agree or disagree)? Why? @ -I reviewed and agree with nursing and triage notes Were old charts reviewed (outside hosp., previous admission, EMS record, old EKG, old radiological studies, urgent care reports/EKG's, skilled nursing records)? Report findings @ -I reviewed prior notes and prior lab work in prior charts and this patient Differential Diagnosis (chest pain, altered mental status, abdominal pain women, abdominal pain men, vaginal bleeding, weakness, fever, dyspnea, syncope, headache, dizziness, GI bleed, back pain, seizure, CVA, palpatations, mental health, musculoskeletal)? @ -Differential Abdominal Pain Women: Appendicitis, Cholecystitis, diverticulosis, ischemic bowel, pancreatitis, hepatitis, UTI, gastroenteritis, AAA, incarcerated hernia, bowel obstruction, constipation, inflammatory bowel, hepatitis, peptic ulcer disease, splenic infarction, perforated viscus, vulvitis, ovarian torsion, PID, kidney stone, placenta abruption, this is not meant to be an all-inclusive list EKG interpreted by me (3pts min.). @ -As above X-rays interpreted by me (1pt min.). @ -None done CT interpreted by me (1pt min.). @ -None done U/S interpreted by me (1pt. min.). @ -None done What testing was considered but not performed or refused? (CT, X-rays, U/S, labs)? Why? @ -None What meds were considered but not given or refused? Why? @ -None Did you discuss the management of the patient with other professionals (professionals i.e. , PA, SPECIAL EDUCATION AIDE, lab, RT, psych nurse, social insurance administrator, manager document, teacher, aoc operations intelligence officer, director of casework)? Give summary @ -No Was smoking cessation discussed for >3mins.? @ -No Was critical care preformed (if so, how long)? @ -No Were there social determinants of health that impacted care today? How? (Homelessness, low income, unemployed, alcoholism, drug addiction, transportation, low edu. Level, literacy, decrease access to med. care, alf, rehab)? @ -No Was there de-escalation of care discussed even if they declined (Discuss DNR or withdrawal of care, Hospice)? DNR status @ -No What co-morbidities impacted this encounter? (DM, HTN, Smoking, COPD, CAD, Cancer, CVA, ARF, Chemo, Hep., AIDS, mental health diagnosis, sleep apnea, morbid obesity)? @ -None Was patient admitted / discharged? Hospital course, mention meds given and route, prescriptions, significant lab abnormalities, going to OR and other pertinent info. @ -Patient was given a liter fluid and Zofran and she felt better but still nauseous she was given 5 of Reglan and the nausea went away. Patient was able to tolerate by mouth fluids and crackers in the emergency department patient's feeling good enough to go home at this time. Undiagnosed new problem with uncertain prognosis? @ -No Drug Therapy requiring intensive monitoring for toxicity (Heparin, Nitro, Insulin, Cardizem)? @ -No Were any procedures done? @ -No Diagnosis/symptom? @ -Acute nausea vomiting Acute, or Chronic, or Acute on Chronic? @ -Acute Uncomplicated (without systemic symptoms) or Complicated (systemic symptoms)? @ -Complicated Side effects of treatment? @ -No Exacerbation, Progression, or Severe Exacerbation? @ -No Poses a threat to life or bodily function? How? (Chest pain, [place], [place], pneumonia, PE, COPD, DKA, ARF, appy, cholecystitis, CVA, Diverticulitis, Homicidal, Suicidal, threat to staff... and all critical care pts) @ -No - Lab Data Result diagrams: 02/04/23 09:51 02/04/23 09:51 Lab Results 02/04/23 02/04/23 02/04/23 Range/Units 09:28 09:51 09:51 WBC 8.9 (3.8-10.6) k/uL RBC 4.47 (3.80-5.40) m/uL Hgb 13.5 (11.4-16.0) gm/dL Hct 40.3 (34.0-46.0) % MCV 90.2 (80.0-100.0) fL MCH 30.3 (25.0-35.0) pg MCHC 33.6 (31.0-37.0) g/dL RDW 16.3 H (11.5-15.5) % Plt Count 131 L (150-450) k/uL MPV 8.2 Neutrophils % 71 % Lymphocytes % 22 % Monocytes % 4 % Eosinophils % 1 % Basophils % 0 % Neutrophils # 6.4 (1.3-7.7) k/uL Lymphocytes # 2.0 (1.0-4.8) k/uL Monocytes # 0.4 (0-1.0) k/uL Eosinophils # 0.1 (0-0.7) k/uL Basophils # 0.0 (0-0.2) k/uL Poikilocytosis Slight Anisocytosis Slight Sodium 139 (137-145) mmol/L Potassium 5.0 (3.5-5.1) mmol/L Chloride 103 (98-107) mmol/L Carbon Dioxide 23 (22-30) mmol/L Anion Gap 13 mmol/L BUN 19 H (7-17) mg/dL Creatinine 1.38 H (0.52-1.04) mg/dL Est GFR (CKD-EPI)AfAm 52 (>60 ml/min/1.73 sqM) Est GFR (CKD-EPI)NonAf 45 (>60 ml/min/1.73 sqM) Glucose 150 H (74-99) mg/dL POC Glucose (mg/dL) 162 H (70-110) mg/dL POC Glu Plater Hot Dip ID Sundeep Wilkerson Calcium 10.4 H (8.4-10.2) mg/dL Total Bilirubin 0.9 (0.2-1.3) mg/dL AST 64 H (14-36) U/L ALT 48 H (4-34) U/L Alkaline Phosphatase 94 (38-126) U/L Total Protein 8.5 H (6.3-8.2) g/dL Albumin 4.7 (3.5-5.0) g/dL Amylase 58 (30-110) U/L Lipase 58 (23-300) U/L Disposition Clinical Impression: Nausea & vomiting Disposition: HOME SELF-CARE Condition: Good Is patient prescribed a controlled substance at d/c from ED?: No Referrals: Aldo Hall MD [Primary Care Provider] - 1-2 days Time of Disposition: 13:06
[2023-02-04 10:02] LABS: Anisocytosis Slight; Basophils % (A) 0 %; Eosinophils # (A) 0.1 k/uL (0-0.7); Eosinophils % (A) 1 %; HCT 40.3 % (34.0-46.0); HGB 13.5 gm/dL (11.4-16.0); Lymphocytes % (A) 22 %; MCH 30.3 pg (25.0-35.0); MCHC 33.6 g/dL (31.0-37.0); MCV 90.2 fL (80.0-100.0); Mean Platelet Volume 8.2; Monocytes # (A) 0.4 k/uL (0-1.0); Monocytes % (A) 4 %; Neutrophils # (A) 6.4 k/uL (1.3-7.7); Neutrophils % (A) 71 %; Platelet Count 131 k/uL (150-450); Poikilocytosis Slight; RBC 4.47 m/uL (3.80-5.40); RDW 16.3 % (11.5-15.5); WBC 8.9 k/uL (3.8-10.6)
[2023-02-04 10:16] LABS: ALT 48 U/L (4-34); AST 64 U/L (14-36); African American GFR (CKD) 52 (>60 ml/min/1.73 sqM); Albumin 4.7 g/dL (3.5-5.0); Alkaline Phosphatase 94 U/L (38-126); Amylase 58 U/L (30-110); Anion Gap 13 mmol/L; Blood Urea Nitrogen 19 mg/dL (7-17); Calcium 10.4 mg/dL (8.4-10.2); Carbon Dioxide 23 mmol/L (22-30); Chloride 103 mmol/L (98-107); Glucose 150 mg/dL (74-99); Lipase 58 U/L (23-300); Non-African American GFR(CKD) 45 (>60 ml/min/1.73 sqM); Sodium 139 mmol/L (137-145); Total Bilirubin 0.9 mg/dL (0.2-1.3); Total Protein 8.5 g/dL (6.3-8.2)
[2023-02-04] MEDS ORDERED: METOCLOPRAMIDE 5 MG/ML 2 ML VIAL IVP STA (10:32)
[2023-02-04 10:53] VITALS: RESP 18
[2023-02-04] MEDS ORDERED: ONDANSETRON 4 MG ODT STARTER PACK 2 TAB BTL PO STA (13:08)
[2023-02-04 13:42] VITALS: BP 136/79; PULSE 79
== END 2023-02-04 13:26 | disposition home or self-care (01) ==
LOC: EC 09:20
DX: R11.2 Nausea with vomiting, unspecified (principal); I10 Essential (primary) hypertension; E11.40 Type 2 diabetes mellitus with diabetic neuropathy, unspecified; Z79.4 Long term (current) use of insulin; Z79.82 Long term (current) use of aspirin; Z79.899 Other long term (current) drug therapy; Z86.16 Personal history of COVID-19
CPT/HCPCS: 36415; 80053; 82150; 83690; 85025; 99285; 96374; 96375; 96361; J2765; J2405; S0119

== ENCOUNTER 2023-02-13 17:22 | Inpatient (IN) | payer OTHER, MEDICARE ==
[2023-02-13] MEDS ORDERED: ONDANSETRON 4 MG/2 ML VIAL IVP STA (18:43)
[2023-02-13] MEDS ORDERED: SODIUM CHLORIDE 0.9% 1,000 ML IV STA ×3 (18:52→19:29)
[2023-02-13] MEDS ORDERED: PROCHLORPERAZINE INJ 10 MG/2 ML VIAL IVP STA ×2 (18:55→21:23)
--- NOTE | 2023-02-13 18:56 | ED ---
Recheck HPI - General Chief Complaint: Nausea/Vomiting/Diarrhea Stated Complaint: vomiting sugar running high Time Seen by Provider: 02/13/23 18:50 Source: patient, RN notes reviewed, old records reviewed Mode of arrival: wheelchair Limitations: no limitations - History of Present Illness Initial Comments: This is a 47-year-old female to the emergency department for evaluation of nausea vomiting weakness, patient does have history of liver transplant patient is on anti- rejection medication. Patient is having nausea vomiting persistently here in the ER feels lightheaded with an elevated blood sugar at home and feels like her heart is racing. No fevers. MD Complaint: abnormal lab Returns Today for: Called Because of Abnormal Lab/Test, persistent/worsening pain related to initial visit Symptoms Since Prior Visit: no new symptoms Context: planned re-check Associated Symptoms: none Treatments Prior to Arrival: other - Related Data Home Medications Medication Instructions Recorded Confirmed Gabapentin [Neurontin] 600 mg PO DIRECTED 06/09/20 02/14/23 Aspirin EC [Ecotrin Low Dose] 81 mg PO DAILY 11/05/21 02/13/23 Glucagon [Baqsimi] 1 spray NASAL BID PRN 11/05/21 02/13/23 INSULIN LISPRO (For Pump) [humaLOG 0.01 units SQ-PUMP CONTINUOUS 11/05/21 1 04/15/22 (For Pump)] Tacrolimus [Prograf] 5 mg PO BID 11/05/21 02/13/23 Acetaminophen Tab [Tylenol Tab] 1,000 mg PO Q6HR PRN 04/06/22 02/13/23 Cholecalciferol [Vitamin D3 (25 50 mcg PO DAILY 04/06/22 02/13/23 Mcg = 1000 Iu)] Sodium Zirconium Cyclosilicate 10 gm PO DAILY PRN 04/06/22 02/13/23 [Lokelma] Albuterol Inhaler [Ventolin Hfa 1 - 2 puff INHALATION RT-Q6H PRN 02/13/23 Inhaler] Eylea (Aflibercept) 2mg/0.05ml 2 mg IV Q60D 02/13/23 02/13/23 Solution Famotidine [Pepcid] 40 mg PO DAILY 02/13/23 02/13/23 Insulin NPH Human Isophane See Protocol SQ ACHS PRN 02/13/23 02/13/23 [humuLIN N Kwikpen] Ketoconazole 2% Shampoo [Nizoral] 1 applic TOPICAL DAILY PRN 02/13/23 02/13/23 Magnesium Chloride [Slow-Mag] 64 mg PO BID 02/13/23 02/13/23 Sertraline [Zoloft] 100 mg PO DAILY 02/13/23 02/13/23 Triamcinolone 0.1% Ointment 1 applic TOPICAL BID PRN 02/13/23 02/13/23 [Kenalog 0.1% Ointment] azaTHIOprine [Imuran] 50 mg PO DAILY 02/13/23 02/13/23 predniSONE 2 mg PO DAILY 02/13/23 02/13/23 traMADol HCL 50 mg PO BID PRN 02/13/23 02/13/23 Allergies Allergy/AdvReac Type Severity Reaction Status Date / Time No Known Allergies Allergy Verified 02/13/23 20:02 Review of Systems ROS Statement: Those systems with pertinent positive or pertinent negative responses have been documented in the HPI. ROS Other: All systems not noted in ROS Statement are negative. 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 Covid 07/16/20 History of Any Multi-Drug Resistant Organisms: None Reported Past Surgical History: Tubal Ligation Additional Past Surgical History / Comment(s): carpal tunnel - rt hand, esphogeal banding, Liver transplant July 2021 Past Anesthesia/Blood Transfusion Reactions: No Reported Reaction Past Psychological History: No Psychological Hx Reported Smoking Status: Never smoker Past Alcohol Use History: Rare Past Drug Use History: None Reported General Exam Limitations: no limitations General appearance: alert, anxious, lethargic, in distress Head exam: Present: atraumatic, normocephalic, normal inspection Eye exam: Present: normal appearance, PERRL, EOMI. Absent: scleral icterus, conjunctival injection, periorbital swelling ENT exam: Present: normal exam, mucous membranes moist Neck exam: Present: normal inspection. Absent: tenderness, meningismus, lymphadenopathy Respiratory exam: Present: normal lung sounds bilaterally. Absent: respiratory distress, wheezes, rales, rhonchi, stridor Cardiovascular Exam: Present: normal rhythm, tachycardia, normal heart sounds. Absent: systolic murmur, diastolic murmur, rubs, gallop, clicks GI/Abdominal exam: Present: soft, normal bowel sounds. Absent: distended, tenderness, guarding, rebound, rigid Extremities exam: Present: normal inspection, full ROM, normal capillary refill. Absent: tenderness, pedal edema, joint swelling, calf tenderness Back exam: Present: normal inspection Neurological exam: Present: alert, oriented X3, CN II-XII intact Psychiatric exam: Present: normal affect, normal mood Skin exam: Present: warm, dry, intact, normal color. Absent: rash Course Vital Signs 02/13/23 02/13/23 02/13/23 17:32 19:42 20:46 Temperature 98.6 F Pulse Rate 133 H 131 H 133 H Respiratory 16 18 18 Rate Blood Pressure 171/94 180/89 180/111 O2 Sat by Pulse 96 98 95 Oximetry 02/13/23 02/13/23 02/13/23 21:10 21:17 22:28 Temperature Pulse Rate 131 H 122 H Respiratory 18 18 Rate Blood Pressure 186/105 152/63 145/88 O2 Sat by Pulse 96 94 L Oximetry 02/14/23 02/14/23 02/14/23 02:00 03:45 03:53 Temperature 98.9 F Pulse Rate 122 H 126 H 124 H Respiratory 20 20 20 Rate Blood Pressure 185/102 155/94 168/96 O2 Sat by Pulse 97 96 95 Oximetry 02/14/23 02/14/23 02/14/23 06:15 08:12 08:58 Temperature 98.6 F Pulse Rate 127 H 125 H 128 H Respiratory 22 20 16 Rate Blood Pressure 160/85 171/93 O2 Sat by Pulse 95 92 L 96 Oximetry 02/14/23 14:12 Temperature 98 F Pulse Rate 122 H Respiratory 20 Rate Blood Pressure 158/76 O2 Sat by Pulse 95 Oximetry - Reevaluation(s) Reevaluation #1: 02/13/23 22:55 Medical record is reviewed Reevaluation #2: 02/13/23 22:55 Patient informed results and questions answered Reevaluation #3: 02/13/23 22:55 Patient symptoms are relatively unchanged Reevaluation #4: 02/13/23 22:55 Was pt. sent in by a medical professional or institution (, PA, DIGITAL ACCOUNT EXECUTIVE, urgent care, hospital, or alf...) When possible be specific @ -no Did you speak to anyone other than the patient for history (EMS, parent, family, police, friend...)? What history was obtained from this source @ -no Did you review nursing and triage notes (agree or disagree)? Why? @ -agree Are old charts reviewed (outside hosp., previous admission, EMS record, old EKG, old radiological studies, urgent care reports/EKG's, alf records)? Report findings @ -yes Differential Diagnosis (chest pain, altered mental status, abdominal pain women, abdominal pain men, vaginal bleeding, weakness, fever, dyspnea, syncope, headache, dizziness, GI bleed, back pain, seizure, CVA, palpatations, mental health, musculoskeletal)? @ -prior EKG interpreted by me (3pts min.). @ -yes X-rays interpreted by me (1pt min.). @ -no CT interpreted by me (1pt min.). @ -no U/S interpreted by me (1pt. min.). @ -no What testing was considered but not performed or refused? (CT, X-rays, U/S, labs)? Why? @ -none What meds were considered but not given or refused? Why? @ -none Did you discuss the management of the patient with other professionals (professionals i.e. , PA, DIGITAL ACCOUNT EXECUTIVE, lab, RT, psych nurse, social media marketing specialist, bench hand, teacher, chief science officer, director of casework department)? Give summary @ -no Was smoking cessation discussed for >3mins.? @ -no Was critical care preformed (if so, how long)? @ -yes31 Were there social determinants of health that impacted care today? How? ([place] elessness, low income, unemployed, alcoholism, drug addiction, transportation, low edu. Level, literacy, decrease access to med. care, senior care, rehab)? @ -none Was there de-escalation of care discussed even if they declined (Discuss DNR or withdrawal of care, Hospice)? DNR status @ -no What co-morbidities impacted this encounter? (DM, HTN, Smoking, COPD, CAD, Cancer, CVA, ARF, Chemo, Hep., AIDS, mental health diagnosis, sleep apnea, morbid obesity)? @ -none Was patient admitted / discharged? Hospital course, mention meds given and route, prescriptions, significant lab abnormalities, going to OR and other pertinent info. @ - 47 female to the emergency department for evaluation. Patient will be admitted for supportive care IV hydration blood sugar control and control potassium of cardiac monitoring Admitted Undiagnosed new problem with uncertain prognosis? @ -no Drug Therapy requiring intensive monitoring for toxicity (Heparin, Nitro, Insulin, Cardizem)? @ -no Were any procedures done? @ -no Diagnosis/symptom? @ - Acute, or Chronic, or Acute on Chronic? @ -Acute Uncomplicated (without systemic symptoms) or Complicated (systemic symptoms)? @ -Complicated Side effects of treatment? @ -no Exacerbation, Progression, or Severe Exacerbation? @ -exacerbation Poses a threat to life or bodily function? How? (Chest pain, [place], [place], pneumonia, PE, COPD, DKA, ARF, appy, cholecystitis, CVA, Diverticulitis, Homicidal, Suicidal, threat to staff... and all critical care pts) @ -yes or severe electrolyte abnormality Reevaluation #5: 02/13/23 22:55 Differential Weakness: Hypoglycemia, shock, sepsis, hyponatremia, anemia, infection, PR, ETOH, adverse medicine reaction, overdose, stroke, this is not meant to be an all-inclusive list. - Consultations Consultation #1: Spoke with admitting physician agrees to admit this patient Medical Decision Making - Medical Decision Making 47 female to the emergency department for evaluation. Patient will be admitted for supportive care IV hydration blood sugar control and control potassium of cardiac monitoring - Lab Data Result diagrams: 02/20/23 07:20 02/20/23 07:20 Lab Results 02/13/23 02/13/23 02/13/23 Range/Units 18:48 18:48 18:48 WBC 11.1 H (3.8-10.6) k/uL RBC 5.10 (3.80-5.40) m/uL Hgb 15.5 (11.4-16.0) gm/dL Hct 46.3 H (34.0-46.0) % MCV 90.9 (80.0-100.0) fL MCH 30.4 (25.0-35.0) pg MCHC 33.4 (31.0-37.0) g/dL RDW 15.5 (11.5-15.5) % Plt Count 107 L (150-450) k/uL MPV 8.4 Neutrophils % 83 % Lymphocytes % 13 % Monocytes % 3 % Eosinophils % 0 % Basophils % 0 % Neutrophils # 9.2 H (1.3-7.7) k/uL Lymphocytes # 1.4 (1.0-4.8) k/uL Monocytes # 0.3 (0-1.0) k/uL Eosinophils # 0.0 (0-0.7) k/uL Basophils # 0.0 (0-0.2) k/uL Poikilocytosis Slight Sodium 135 L (137-145) mmol/L Potassium 6.3 H* (3.5-5.1) mmol/L Chloride 99 (98-107) mmol/L Carbon Dioxide 20 L (22-30) mmol/L Anion Gap 16 mmol/L BUN 37 H (7-17) mg/dL Creatinine 1.66 H (0.52-1.04) mg/dL Est GFR (CKD-EPI)AfAm 42 (>60 ml/min/1.73 sqM) Est GFR (CKD-EPI)NonAf 36 (>60 ml/min/1.73 sqM) Glucose 421 H (74-99) mg/dL Plasma Lactic Acid Kai (0.7-2.0) mmol/L Calcium 9.8 (8.4-10.2) mg/dL Phosphorus 4.8 H (2.5-4.5) mg/dL Magnesium 1.3 L (1.6-2.3) mg/dL Total Bilirubin 1.1 (0.2-1.3) mg/dL AST 63 H (14-36) U/L ALT 62 H (4-34) U/L Alkaline Phosphatase 126 (38-126) U/L Total Protein 8.4 H (6.3-8.2) g/dL Albumin 4.6 (3.5-5.0) g/dL Urine Color Colorless Urine Appearance Clear (Clear) Urine pH 6.5 (5.0-8.0) Ur Specific [place] 1.010 (1.001-1.035) Urine Protein Trace H (Negative) Urine Glucose (UA) 4+ H (Negative) Urine Ketones 1+ H (Negative) Urine Blood Negative (Negative) Urine Nitrite Negative (Negative) Urine Bilirubin Negative (Negative) Urine Urobilinogen <2.0 (<2.0) mg/dL Ur Leukocyte Esterase Negative (Negative) Acetone, Qual Positive (Negative) 02/13/23 Range/Units 18:48 WBC (3.8-10.6) k/uL RBC (3.80-5.40) m/uL Hgb (11.4-16.0) gm/dL Hct (34.0-46.0) % MCV (80.0-100.0) fL MCH (25.0-35.0) pg MCHC (31.0-37.0) g/dL RDW (11.5-15.5) % Plt Count (150-450) k/uL MPV Neutrophils % % Lymphocytes % % Monocytes % % Eosinophils % % Basophils % % Neutrophils # (1.3-7.7) k/uL Lymphocytes # (1.0-4.8) k/uL Monocytes # (0-1.0) k/uL Eosinophils # (0-0.7) k/uL Basophils # (0-0.2) k/uL Poikilocytosis Sodium (137-145) mmol/L Potassium (3.5-5.1) mmol/L Chloride (98-107) mmol/L Carbon Dioxide (22-30) mmol/L Anion Gap mmol/L BUN (7-17) mg/dL Creatinine (0.52-1.04) mg/dL Est GFR (CKD-EPI)AfAm (>60 ml/min/1.73 sqM) Est GFR (CKD-EPI)NonAf (>60 ml/min/1.73 sqM) Glucose (74-99) mg/dL Plasma Lactic Acid Kai 1.9 (0.7-2.0) mmol/L Calcium (8.4-10.2) mg/dL Phosphorus (2.5-4.5) mg/dL Magnesium (1.6-2.3) mg/dL Total Bilirubin (0.2-1.3) mg/dL AST (14-36) U/L ALT (4-34) U/L Alkaline Phosphatase (38-126) U/L Total Protein (6.3-8.2) g/dL Albumin (3.5-5.0) g/dL Urine Color Urine Appearance (Clear) Urine pH (5.0-8.0) Ur Specific [place] (1.001-1.035) Urine Protein (Negative) Urine Glucose (UA) (Negative) Urine Ketones (Negative) Urine Blood (Negative) Urine Nitrite (Negative) Urine Bilirubin (Negative) Urine Urobilinogen (<2.0) mg/dL Ur Leukocyte Esterase (Negative) Acetone, Qual (Negative) - EKG Data -: EKG Interpreted by Me (EKG is tachycardia 130 MO 28 QRS 87 QTc 389) Critical Care Time Critical Care Time: Yes Total Critical Care Time: 31 Disposition Clinical Impression: Nausea & vomiting, Dehydration, Hyperkalemia, Tachycardia Disposition: ADMITTED IP TO THIS HOSP Condition: Good Is patient prescribed a controlled substance at d/c from ED?: No Time of Disposition: 22:15
[2023-02-13 19:01] LABS: Basophils % (A) 0 %; Eosinophils % (A) 0 %; HCT 46.3 % (34.0-46.0); HGB 15.5 gm/dL (11.4-16.0); Lymphocytes # (A) 1.4 k/uL (1.0-4.8); Lymphocytes % (A) 13 %; MCH 30.4 pg (25.0-35.0); MCHC 33.4 g/dL (31.0-37.0); MCV 90.9 fL (80.0-100.0); Mean Platelet Volume 8.4; Monocytes # (A) 0.3 k/uL (0-1.0); Monocytes % (A) 3 %; Neutrophils # (A) 9.2 k/uL (1.3-7.7); Neutrophils % (A) 83 %; Platelet Count 107 k/uL (150-450); Poikilocytosis Slight; RDW 15.5 % (11.5-15.5); WBC 11.1 k/uL (3.8-10.6)
[2023-02-13 19:09] LABS: ALT 62 U/L (4-34); AST 63 U/L (14-36); African American GFR (CKD) 42 (>60 ml/min/1.73 sqM); Albumin 4.6 g/dL (3.5-5.0); Alkaline Phosphatase 126 U/L (38-126); Anion Gap 16 mmol/L; Blood Urea Nitrogen 37 mg/dL (7-17); Calcium 9.8 mg/dL (8.4-10.2); Carbon Dioxide 20 mmol/L (22-30); Chloride 99 mmol/L (98-107); Glucose 421 mg/dL (74-99); Magnesium 1.3 mg/dL (1.6-2.3); Non-African American GFR(CKD) 36 (>60 ml/min/1.73 sqM); Phosphorus 4.8 mg/dL (2.5-4.5); Sodium 135 mmol/L (137-145); Total Bilirubin 1.1 mg/dL (0.2-1.3); Total Protein 8.4 g/dL (6.3-8.2)
[2023-02-13 19:14] LABS: Potassium 6.3 mmol/L (3.5-5.1)
[2023-02-13] MEDS ORDERED: SODIUM BICARB 8.4% 50 ML SYR (1 MEQ/ML) IV STA (19:29)
[2023-02-13] MEDS ORDERED: DEXTROSE 50% SYRINGE 50 ML IVP STA (19:29)
[2023-02-13] MEDS: INSULIN REGULAR 100 UNIT/ML VIAL (IV) IV ONE ×2 (19:40→19:44)
[2023-02-13 20:54] LABS: Appearance,Urine Clear (Clear); Bilirubin,Urine Negative (Negative); Blood,Urine Negative (Negative); Color,Urine Colorless; Glucose,Urine (UA) 4+ (Negative); Ketones,Urine 1+ (Negative); Leukocyte Esterase,Urine Negative (Negative); Nitrite,Urine Negative (Negative); PH, Urine 6.5 (5.0-8.0); Protein,Urine Trace (Negative); Urobilinogen,Urine <2.0 mg/dL (<2.0)
[2023-02-13] MEDS: LABETALOL 5 MG/ML VIAL MDV IVP STA ×2 (21:11→21:22)
[2023-02-13] MEDS ORDERED: NALOXONE 0.4 MG/ML 1 ML VIAL IV PRN (22:53)
[2023-02-13] MEDS: SODIUM CHLORIDE 0.9% 1,000 ML IV SCH (23:39)
[2023-02-14 01:00] LABS: Glucose,Whole Blood 418 mg/dL (70-110)
[2023-02-14 01:50] LABS: ALT 53 U/L (4-34); AST 52 U/L (14-36); African American GFR (CKD) 51 (>60 ml/min/1.73 sqM); Albumin 4.2 g/dL (3.5-5.0); Alkaline Phosphatase 113 U/L (38-126); Anion Gap 17 mmol/L; Blood Urea Nitrogen 33 mg/dL (7-17); Carbon Dioxide 19 mmol/L (22-30); Chloride 102 mmol/L (98-107); Glucose 419 mg/dL (74-99); Non-African American GFR(CKD) 44 (>60 ml/min/1.73 sqM); Potassium 5.5 mmol/L (3.5-5.1); Sodium 138 mmol/L (137-145); Total Protein 7.6 g/dL (6.3-8.2)
[2023-02-14] MEDS ORDERED: METOCLOPRAMIDE 5 MG/ML 2 ML VIAL IVP STA ×2 (02:21→06:17)
[2023-02-14] MEDS ORDERED: INSULIN ASPART (NovoLOG) 100 UNIT/ML VIAL SQ ONE ×2 (02:21→10:34)
[2023-02-14] MEDS ORDERED: hydrALAZINE HCL 20 MG/ML 1 ML VIAL IVP STA (02:21)
[2023-02-14] MEDS ORDERED: diphenhydrAMINE 50 MG/ML 1 ML VIAL IVP STA ×2 (02:22→06:17)
[2023-02-14 03:27] LABS: Glucose,Whole Blood 410 mg/dL (70-110)
[2023-02-14] MEDS: ONDANSETRON 4 MG/2 ML VIAL IVP PRN ×3 (03:56→21:33)
[2023-02-14] MEDS ORDERED: INSULIN LISPRO (For Pump) 100 UNIT/ML VIAL SQ-PUMP SCH (04:15)
[2023-02-14] MEDS ORDERED: DEXTROSE 50% SYRINGE 50 ML IVP PRN ×2 (04:19)
[2023-02-14 05:25] LABS: Glucose,Whole Blood 412 mg/dL (70-110)
--- NOTE | 2023-02-14 06:14 | P.HPIM ---
History of Present Illness H&P Date: 02/13/23 Chief Complaint: repeated nausea and vomiting 47 year old female with liver transplant due to history of VELASQUEZ She started feeling weak and tired 3 days ago spent the weekend in bed however today since morning she's been having repeated nausea vomiting nonbloody nonbilious denies any abdominal pain denies any fever or Zyrtec chills denies any diarrhea continues to pass regular bowel movement with nonbloody continues to pass gas as denies any chest pain or shortness of breath denies any cough runny nose or any symptoms of upper respiratory infection denies any falls or injuries she claims to be compliant with all her medications and her antirejection medications. She hasn't been traveling or in contact with any nodes people she's been sharing food with her who is healthy and denies any similar symptoms. Today after repeated nausea vomiting started having some epigastric discomfort. In the ED her workup was overall pretty much unremarkable except for some hyperglycemia and hyperkalemia patient does have history of diabetes mellitus with insulin pump continuous insulin pump Patient denies any tobacco smoking illicit drugs or heavy alcohol review of systems Pertinent positives as noted in HPI. All other systems were reviewed and are negative on exam Constitutional: No acute distress, conversant, pleasant Eyes: Anicteric sclerae, moist conjunctiva, Pupils equal round reactive to light ENMT: NC/AT Oropharynx clear, no erythema, or exudates Neck: Supple, no masses, or JVD No carotid bruits No thyromegaly Lungs: Clear to auscultation Clear to percussion Normal respiratory effort, no accessory muscle use Cardiovascular: Heart regular in rate and rhythm, No murmurs, gallops, or rubs No peripheral edema Abdominal: Soft Nontender, no guarding, rebound or rigidity Abdomen moving with respiration Normoactive bowel sounds No hepatomegaly, No splenomegaly No palpable mass No abdominal wall hernia noted Extremities: No digital cyanosis No clubbing Pedal pulses intact and symmetrical Radial pulses intact and symmetrical No calf tenderness Psychiatric: Alert and oriented to person, place and time Appropriate affect fair judgement Neuro Muscles Strength 5/5 in all 4 extremities Sensation to light touch grossly present throughout Cranial nerves II-XII grossly intact Lymphatics: no palpable cervical or supraclavicular lymph nodes Past Medical History Past Medical History: Diabetes Mellitus, Hypertension, Liver Disease Additional Past Medical History / Comment(s): Cirrhosis-2012 from diabetes, neuropathy feet, cyst left ovary, ascities. Covid 07/16/20 History of Any Multi-Drug Resistant Organisms: None Reported Past Surgical History: Tubal Ligation Additional Past Surgical History / Comment(s): carpal tunnel - rt hand, esphogeal banding, Liver transplant July 2021 Past Anesthesia/Blood Transfusion Reactions: No Reported Reaction Past Psychological History: No Psychological Hx Reported Smoking Status: Never smoker Past Alcohol Use History: Rare Past Drug Use History: None Reported Medications and Allergies Home Medications Medication Instructions Recorded Confirmed Type Gabapentin [Neurontin] 600 mg PO BID 06/09/20 02/13/23 History Aspirin EC [Ecotrin Low Dose] 81 mg PO DAILY 11/05/21 02/13/23 History Glucagon [Baqsimi] 1 spray NASAL BID PRN 11/05/21 02/13/23 History INSULIN LISPRO (For Pump) [humaLOG 0.01 units SQ-PUMP CONTINUOUS 11/05/21 02/13/23 History (For Pump)] Tacrolimus [Prograf] 5 mg PO BID 11/05/21 02/13/23 History Acetaminophen Tab [Tylenol Tab] 1,000 mg PO Q6HR PRN 04/06/22 02/13/23 History Cholecalciferol [Vitamin D3 (25 50 mcg PO DAILY 04/06/22 02/13/23 History Mcg = 1000 Iu)] Sodium Zirconium Cyclosilicate 10 gm PO DAILY PRN 04/06/22 02/13/23 History [Lokelma] Albuterol Inhaler [Ventolin Hfa 1 - 2 puff INHALATION RT-Q6H PRN 02/13/2302/01 History Inhaler] Eylea (Aflibercept) 2mg/0.05ml 2 mg IV Q60D 02/13/23 02/13/23 History Solution Famotidine [Pepcid] 40 mg PO DAILY 02/13/23 02/13/23 History Insulin NPH Human Isophane See Protocol SQ ACHS PRN 02/13/23 02/13/23 History [humuLIN N Kwikpen] Ketoconazole 2% Shampoo [Nizoral] 1 applic TOPICAL DAILY PRN 02/13/23 02/13/23 History Magnesium Chloride [Slow-Mag] 64 mg PO BID 02/13/23 02/13/23 History Sertraline [Zoloft] 100 mg PO DAILY 02/13/23 02/13/23 History Triamcinolone 0.1% Ointment 1 applic TOPICAL BID PRN 02/13/23 02/13/23 History [Kenalog 0.1% Ointment] azaTHIOprine [Imuran] 50 mg PO DAILY 02/13/23 02/13/23 History predniSONE 2 mg PO DAILY 02/13/23 02/13/23 History traMADol HCL 50 mg PO BID PRN 02/13/23 02/13/23 History Allergies Allergy/AdvReac Type Severity Reaction Status Date / Time No Known Allergies Allergy Verified 02/13/23 20:02 Physical Exam Vitals: Vital Signs Temp Pulse Resp BP Pulse Ox 02/13/23 22:28 122 H 18 145/88 94 L 02/13/23 21:17 152/63 02/13/23 21:10 131 H 18 186/105 96 02/13/23 20:46 133 H 18 180/111 95 02/13/23 19:42 131 H 18 180/89 98 02/13/23 17:32 98.6 F 133 H 16 171/94 96 Intake and Output 02/13/23 02/13/23 02/14/23 14:59 22:59 06:59 Other: Weight 94.347 kg Results CBC & Chem 7: 02/13/23 18:48 02/14/23 01:01 Labs: Abnormal Lab Results - Last 24 Hours (Table) 02/13/23 02/13/23 02/13/23 Range/Units 18:48 18:48 18:48 WBC 11.1 H (3.8-10.6) k/uL Hct 46.3 H (34.0-46.0) % Plt Count 107 L (150-450) k/uL Neutrophils # 9.2 H (1.3-7.7) k/uL Sodium 135 L (137-145) mmol/L Potassium 6.3 H* (3.5-5.1) mmol/L Carbon Dioxide 20 L (22-30) mmol/L BUN 37 H (7-17) mg/dL Creatinine 1.66 H (0.52-1.04) mg/dL Glucose 421 H (74-99) mg/dL Phosphorus 4.8 H (2.5-4.5) mg/dL Magnesium 1.3 L (1.6-2.3) mg/dL AST 63 H (14-36) U/L ALT 62 H (4-34) U/L Total Protein 8.4 H (6.3-8.2) g/dL Urine Protein Trace H (Negative) Urine Glucose (UA) 4+ H (Negative) Urine Ketones 1+ H (Negative) Assessment and Plan Assessment: 47-year-old female with history of liver transplant secondary to fatty liver, coming in with intractable nausea vomiting of 1 day duration I discussed the case with the ED doctor and accepted the admission for hyperkalemia and symptomatic control of nausea vomiting with anticipated length of stay less than 2 midnights Intractable nausea vomiting Rule out gastroenteritis versus side effect of antirejection meds History of liver transplant secondary to nonalcoholic fatty liver Continue with tacrolimus and azathioprine and prednisone Symptom control with Zofran when necessary Consider contacting [facility] for for further recommendations IV fluid hydration with normal saline Replace magnesium follow-up levels Advance diet as tolerated Chronic kidney disease stage III Hyperkalemia Sodium 135 potassium 6.3 when necessary 37 creatinine 1.66 Patient given potassium Schifter's Follow-up potassium 5.5 Hyperglycemia Continue with continuous insulin pump Insulin sliding scale Elevated blood pressure without history of hypertension When necessary hydralazine IV push due to unable to take by mouth intake Full code DVT prophylaxis heparin subcu 3 times a day
[2023-02-14 06:18] LABS: Anisocytosis Slight; Basophils % (A) 0 %; Eosinophils % (A) 0 %; HCT 42.6 % (34.0-46.0); HGB 14.3 gm/dL (11.4-16.0); Lymphocytes # (A) 1.5 k/uL (1.0-4.8); Lymphocytes % (A) 13 %; MCH 30.5 pg (25.0-35.0); MCHC 33.7 g/dL (31.0-37.0); MCV 90.5 fL (80.0-100.0); Mean Platelet Volume 8.5; Monocytes # (A) 0.5 k/uL (0-1.0); Monocytes % (A) 4 %; Neutrophils # (A) 9.7 k/uL (1.3-7.7); Neutrophils % (A) 81 %; Platelet Count 117 k/uL (150-450); Poikilocytosis Slight; RDW 16.1 % (11.5-15.5); WBC 11.9 k/uL (3.8-10.6)
[2023-02-14 06:34] LABS: ALT 53 U/L (4-34); AST 47 U/L (14-36); African American GFR (CKD) 54 (>60 ml/min/1.73 sqM); Albumin 4.4 g/dL (3.5-5.0); Alkaline Phosphatase 121 U/L (38-126); Anion Gap 14 mmol/L; Blood Urea Nitrogen 32 mg/dL (7-17); Calcium 9.2 mg/dL (8.4-10.2); Carbon Dioxide 21 mmol/L (22-30); Chloride 102 mmol/L (98-107); Glucose 462 mg/dL (74-99); Magnesium 1.2 mg/dL (1.6-2.3); Non-African American GFR(CKD) 47 (>60 ml/min/1.73 sqM); Phosphorus 3.7 mg/dL (2.5-4.5); Potassium 5.3 mmol/L (3.5-5.1); Sodium 137 mmol/L (137-145); Total Protein 7.9 g/dL (6.3-8.2)
[2023-02-14] MEDS ORDERED: INSULIN ASPART (NovoLOG) 100 UNIT/ML VIAL SQ SCH (07:30)
[2023-02-14] MEDS: HEPARIN SODIUM,PORCINE 5,000 UNIT/ML 1 ML VIAL SQ SCH ×3 (07:43→23:42)
[2023-02-14] MEDS: SODIUM CHLORIDE 0.9% 1,000 ML IV SCH ×2 (07:49→16:23)
[2023-02-14] MEDS: MAGNESIUM SULFATE-D5W PMX 1 GM in DEXTROSE/WATER 1 100ML.BAG IVPB SCH ×4 (07:50→15:15)
[2023-02-14] MEDS: GABAPENTIN 300 MG CAP PO SCH ×2 (07:50→20:48)
[2023-02-14] MEDS: ASPIRIN 81 MG PO SCH (07:50)
[2023-02-14] MEDS: SERTRALINE 100 MG TAB PO SCH (07:50)
[2023-02-14 08:03] LABS: Glucose,Whole Blood 445 mg/dL (70-110)
[2023-02-14] MEDS: azaTHIOprine 50 MG TAB PO SCH (08:12)
[2023-02-14] MEDS: predniSONE 1 MG TAB PO SCH (08:12)
[2023-02-14] MEDS ORDERED: FAMOTIDINE 20 MG TAB PO SCH (09:00)
[2023-02-14 09:05] LABS: Glucose,Whole Blood 451 mg/dL (70-110)
[2023-02-14] MEDS ORDERED: INSULIN REGULAR 100 UNIT in SODIUM CHLORIDE 0.9% 100 ML IV SCH (11:15)
[2023-02-14] MEDS: TACROLIMUS 1 MG CAP PO SCH ×2 (11:18→21:34)
[2023-02-14 11:19] LABS: VBG PH 7.38 (7.31-7.41)
[2023-02-14 11:47] LABS: Glucose,Whole Blood 371 mg/dL (70-110)
--- NOTE | 2023-02-14 11:54 | P.PN ---
Subjective Progress Note Date: 02/14/23 47-year-old female with PMH of liver transplant, type 2 diabetes mellitus on insulin pump, hypertension presents to the ED for altered mentation and intractable NBNB nausea and vomiting. Symptoms ongoing since Monday. Reports poor oral intake. Reports vague epigastric pain, could be sore from intractable N/V. No fever, chills, cough, diarrhea, changes in urination or bowel habits. reports being sick with the stomach flu over the weekend (nausea, vomiting, diarrhea). reports she was not making sense and lethargic today which prompted her to come to the ED. She received her liver transplant at [facility]. [phone] Dr. Garcia. Currently on antirejection medications including Prednisone, Tacrolimus, and Azathioprine. In the ED, she underwent extensive evaluation. Tachycardic with HR in the 130s and hypertensive BP 170s/90s. CBC WBC 11.1, Hct 46.3, Plt 107 CMP Na 135, K 6.3, bicarb 20, BUN 37, Cr 1.66, glucose 421, AST 63, ALT 62. Phos 4.8. Mag 1.3. UA + protein, glucose and ketone. Acetone + EKG atrial tachycardia with ST depression. She was given IV insulin/D50, sodium bicarbonate, NS bolus and admitted for management and workup. 02/14 Patient was seen and examined. She continues to reports nausea but no more vomiting. Her mentation has significantly improved according to the . Her insulin pump was restarted but does not appear to be working. BP 171/93, HR 128. CBC WBC 11.9, Plt 117. CMP K 5.3, bicarb 21, BUN 32, Cr 1.35, glu 462, AST 47, A LT 52. Mag 1.2. General: non toxic, mild distress, appears at stated age Derm: warm, dry Head: atraumatic, normocephalic, symmetric Eyes: EOMI, no lid lag, anicteric sclera Mouth: no lip lesion, mucus membranes moist Cardiovascular: S1S2 tachycardic, no murmur Lungs: CTA bilateral, no rhonchi, no rales , no accessory muscle use Abdominal: soft, nontender to palpation, no guarding, no appreciable organomegaly Ext: no gross muscle atrophy, no edema, no contractures Neuro: no focal neuro deficits Psych: Alert, oriented, appropriate affect Intractable nausea and vomiting Acute metabolic encephalopathy Mild diabetic ketoacidosis Acute kidney injury on chronic kidney disease Hypomagnesemia Transaminitis Leukocytosis Thrombocytopenia Based on my assessment of this patient, this patient meets a high complexity level of care. Patient has an acute diagnosis of intractable nausea and vomiting that poses a threat to life or bodily function. Found to have severe hyperkalemia, mild DKA and CHIQUITA. Intractable nausea and vomiting: Gastroparesis vs gastroenteritis vs side effect of antirejection medications. Abdominal exam benign. LFTs non obstructive and mildly elevated. Zofran 4 mg IV Q8H PRN for N/V. Protonix 40 mg IV BID. Obtain tacrolimus level. Acute metabolic encephalopathy: Likely related to above. Significantly improved. Mild diabetic ketoacidosis: Discontinue insulin pump and start insulin drip per DKA protocol. NS at 130 cc/hr. Accuchecks Q1H. BMP Q4H. A1c. Hypoglycemic pre cautions. Telemetry monitoring. Hyperkalemia: Expected to improve with insulin infusion. Acute kidney injury on chronic kidney disease: Baseline Cr ~ 1.4. IV hydration as above. Hypomagnesemia: 4g Mag sulfate IV ordered. Transaminitis: Monitor. Leukocytosis: Likely reactive. Monitor fever profile. Thrombocytopenia: Monitor. CODE STATUS: FULL CODE DVT Prophylaxis: Heparin SQ. GI Prophylaxis: Protonix IV. Designated medical POA if patient is not able to make medical decisions for themselves: I have reviewed the following business system consultant notes: I have reviewed the results of the following tests: CBC, BMP, Mag I have ordered the following tests: Accuchecks Q1H. BMP Q4H. A1c. Tacrolimus level. I have discussed the care of this patient with the following independent historian: at bedside. RN. I have independently interpreted the following test below: I have discussed the management of this patient with the following physician: This patient has a high risk of morbidity due to the following reasons: This patient meets a high level of care for the following reasons: Patient requires adjustments in insulin which requires intensive monitoring for hypoglycemic episodes. Objective - Vital Signs Vital signs: Vital Signs Temp 98.6 F 02/14/23 08:58 Pulse 128 H 02/14/23 08:58 Resp 16 02/14/23 08:58 BP 171/93 02/14/23 08:58 Pulse Ox 96 02/14/23 08:58 FiO2 Intake & Output 02/13/23 02/14/23 02/14/23 18:59 06:59 18:59 Weight 94.347 kg Other: # Voids 3 - Labs CBC & Chem 7: 02/14/23 05:57 02/14/23 05:57 Labs: Abnormal Lab Results - Last 24 Hours (Table) 02/13/23 02/13/23 02/13/23 Range/Units 18:48 18:48 18:48 WBC 11.1 H (3.8-10.6) k/uL Hct 46.3 H (34.0-46.0) % RDW (11.5-15.5) % Plt Count 107 L (150-450) k/uL Neutrophils # 9.2 H (1.3-7.7) k/uL Sodium 135 L (137-145) mmol/L Potassium 6.3 H* (3.5-5.1) mmol/L Carbon Dioxide 20 L (22-30) mmol/L BUN 37 H (7-17) mg/dL Creatinine 1.66 H (0.52-1.04) mg/dL Glucose 421 H (74-99) mg/dL POC Glucose (mg/dL) (70-110) mg/dL Phosphorus 4.8 H (2.5-4.5) mg/dL Magnesium 1.3 L (1.6-2.3) mg/dL AST 63 H (14-36) U/L ALT 62 H (4-34) U/L Total Protein 8.4 H (6.3-8.2) g/dL Urine Protein Trace H (Negative) Urine Glucose (UA) 4+ H (Negative) Urine Ketones 1+ H (Negative) 02/14/23 02/14/23 02/14/23 Range/Units 00:58 01:01 03:25 WBC (3.8-10.6) k/uL Hct (34.0-46.0) % RDW (11.5-15.5) % Plt Count (150-450) k/uL Neutrophils # (1.3-7.7) k/uL Sodium (137-145) mmol/L Potassium 5.5 H (3.5-5.1) mmol/L Carbon Dioxide 19 L (22-30) mmol/L BUN 33 H (7-17) mg/dL Creatinine 1.40 H (0.52-1.04) mg/dL Glucose 419 H (74-99) mg/dL POC Glucose (mg/dL) 418 H 410 H (70-110) mg/dL Phosphorus (2.5-4.5) mg/dL Magnesium (1.6-2.3) mg/dL AST 52 H (14-36) U/L ALT 53 H (4-34) U/L Total Protein (6.3-8.2) g/dL Urine Protein (Negative) Urine Glucose (UA) (Negative) Urine Ketones (Negative) 02/14/23 02/14/23 02/14/23 Range/Units 05:23 05:57 05:57 WBC 11.9 H (3.8-10.6) k/uL Hct (34.0-46.0) % RDW 16.1 H (11.5-15.5) % Plt Count 117 L (150-450) k/uL Neutrophils # 9.7 H (1.3-7.7) k/uL Sodium (137-145) mmol/L Potassium 5.3 H (3.5-5.1) mmol/L Carbon Dioxide 21 L (22-30) mmol/L BUN 32 H (7-17) mg/dL Creatinine 1.35 H (0.52-1.04) mg/dL Glucose 462 H (74-99) mg/dL POC Glucose (mg/dL) 412 H (70-110) mg/dL Phosphorus (2.5-4.5) mg/dL Magnesium 1.2 L (1.6-2.3) mg/dL AST 47 H (14-36) U/L ALT 53 H (4-34) U/L Total Protein (6.3-8.2) g/dL Urine Protein (Negative) Urine Glucose (UA) (Negative) Urine Ketones (Negative) 02/14/23 02/14/23 02/14/23 Range/Units 08:01 09:02 11:45 WBC (3.8-10.6) k/uL Hct (34.0-46.0) % RDW (11.5-15.5) % Plt Count (150-450) k/uL Neutrophils # (1.3-7.7) k/uL Sodium (137-145) mmol/L Potassium (3.5-5.1) mmol/L Carbon Dioxide (22-30) mmol/L BUN (7-17) mg/dL Creatinine (0.52-1.04) mg/dL Glucose (74-99) mg/dL POC Glucose (mg/dL) 445 H 451 H 371 H (70-110) mg/dL Phosphorus (2.5-4.5) mg/dL Magnesium (1.6-2.3) mg/dL AST (14-36) U/L ALT (4-34) U/L Total Protein (6.3-8.2) g/dL Urine Protein (Negative) Urine Glucose (UA) (Negative) Urine Ketones (Negative)
[2023-02-14 13:27] LABS: Glucose,Whole Blood 301 mg/dL (70-110)
[2023-02-14 14:07] LABS: Glucose,Whole Blood 310 mg/dL (70-110)
[2023-02-14 15:08] LABS: Glucose,Whole Blood 243 mg/dL (70-110)
[2023-02-14 16:04] LABS: Glucose,Whole Blood 182 mg/dL (70-110)
[2023-02-14] MEDS ORDERED: DEXTROSE 5%-0.9% NACL 1,000 ML IV SCH (16:15)
[2023-02-14 17:02] LABS: African American GFR (CKD) 56 (>60 ml/min/1.73 sqM); Anion Gap 13 mmol/L; Blood Urea Nitrogen 32 mg/dL (7-17); Carbon Dioxide 23 mmol/L (22-30); Chloride 103 mmol/L (98-107); Non-African American GFR(CKD) 48 (>60 ml/min/1.73 sqM); Phosphorus 2.5 mg/dL (2.5-4.5); Potassium 4.7 mmol/L (3.5-5.1); Sodium 139 mmol/L (137-145)
[2023-02-14 17:07] LABS: Glucose,Whole Blood 160 mg/dL (70-110)
[2023-02-14 18:06] LABS: Glucose,Whole Blood 169 mg/dL (70-110)
[2023-02-14] MEDS: METOCLOPRAMIDE 5 MG/ML 2 ML VIAL IVP PRN (18:32)
[2023-02-14 19:06] LABS: Glucose,Whole Blood 185 mg/dL (70-110)
[2023-02-14 20:02] LABS: Glucose,Whole Blood 210 mg/dL (70-110)
[2023-02-14] MEDS: PANTOPRAZOLE 40 MG/10 ML VIAL IVP SCH (20:48)
[2023-02-14] MEDS: INSULIN ASPART (NovoLOG) 100 UNIT/ML VIAL SQ SCH (20:49)
[2023-02-14] MEDS ORDERED: cloNIDine HCL 0.2 MG TAB PO STA (20:57)
[2023-02-14 21:35] LABS: Sodium 137 mmol/L (137-145)
[2023-02-14 21:37] LABS: African American GFR (CKD) 57 (>60 ml/min/1.73 sqM); Anion Gap 10 mmol/L; Blood Urea Nitrogen 32 mg/dL (7-17); Carbon Dioxide 26 mmol/L (22-30); Chloride 101 mmol/L (98-107); Non-African American GFR(CKD) 50 (>60 ml/min/1.73 sqM); Phosphorus 3.7 mg/dL (2.5-4.5); Potassium 4.9 mmol/L (3.5-5.1)
[2023-02-15 00:52] LABS: African American GFR (CKD) 50 (>60 ml/min/1.73 sqM); Anion Gap 11 mmol/L; Blood Urea Nitrogen 34 mg/dL (7-17); Carbon Dioxide 22 mmol/L (22-30); Chloride 102 mmol/L (98-107); Non-African American GFR(CKD) 43 (>60 ml/min/1.73 sqM); Phosphorus 3.5 mg/dL (2.5-4.5); Potassium 4.8 mmol/L (3.5-5.1); Sodium 135 mmol/L (137-145)
[2023-02-15 02:52] LABS: Glucose,Whole Blood 304 mg/dL (70-110)
[2023-02-15] MEDS: INSULIN ASPART (NovoLOG) 100 UNIT/ML VIAL SQ SCH ×8 (03:03→21:18)
[2023-02-15 07:26] LABS: Glucose,Whole Blood 304 mg/dL (70-110)
[2023-02-15] MEDS: ASPIRIN 81 MG PO SCH (08:57)
[2023-02-15] MEDS: SERTRALINE 100 MG TAB PO SCH (08:58)
[2023-02-15] MEDS: HEPARIN SODIUM,PORCINE 5,000 UNIT/ML 1 ML VIAL SQ SCH ×3 (08:58→23:39)
[2023-02-15] MEDS: FAMOTIDINE 20 MG TAB PO SCH (08:58)
[2023-02-15] MEDS: SODIUM CHLORIDE 0.9% 1,000 ML IV SCH ×2 (08:58→21:18)
[2023-02-15] MEDS: carvediloL 3.125 MG TAB PO SCH ×2 (08:58→17:22)
[2023-02-15] MEDS: PANTOPRAZOLE 40 MG/10 ML VIAL IVP SCH ×2 (08:59→21:17)
[2023-02-15] MEDS: INSULIN DETEMIR (LEVEMIR) 100 UNIT/ML SYR SQ SCH (08:59)
[2023-02-15] MEDS: predniSONE 1 MG TAB PO SCH (09:01)
[2023-02-15] MEDS: TACROLIMUS 1 MG CAP PO SCH ×2 (09:02→21:18)
[2023-02-15] MEDS: azaTHIOprine 50 MG TAB PO SCH (09:02)
[2023-02-15] MEDS: GABAPENTIN 300 MG CAP PO SCH ×3 (09:06→21:18)
[2023-02-15] MEDS: ONDANSETRON 4 MG/2 ML VIAL IVP PRN ×2 (09:06→17:22)
[2023-02-15 10:08] LABS: ALT 41 U/L (4-34); AST 35 U/L (14-36); African American GFR (CKD) 42 (>60 ml/min/1.73 sqM); Alkaline Phosphatase 106 U/L (38-126); Anion Gap 13 mmol/L; Blood Urea Nitrogen 38 mg/dL (7-17); Calcium 9.1 mg/dL (8.4-10.2); Carbon Dioxide 23 mmol/L (22-30); Chloride 100 mmol/L (98-107); Glucose 289 mg/dL (74-99); Magnesium 2.2 mg/dL (1.6-2.3); Non-African American GFR(CKD) 36 (>60 ml/min/1.73 sqM); Potassium 4.1 mmol/L (3.5-5.1); Sodium 136 mmol/L (137-145); Total Bilirubin 0.9 mg/dL (0.2-1.3); Total Protein 7.4 g/dL (6.3-8.2)
[2023-02-15 11:37] LABS: Anisocytosis Slight; HCT 40.4 % (34.0-46.0); HGB 13.9 gm/dL (11.4-16.0); MCHC 34.3 g/dL (31.0-37.0); MCV 90.4 fL (80.0-100.0); Mean Platelet Volume 8.4; Platelet Count 106 k/uL (150-450); Poikilocytosis Slight; RBC 4.47 m/uL (3.80-5.40); RDW 16.1 % (11.5-15.5); WBC 11.9 k/uL (3.8-10.6)
[2023-02-15 11:45] LABS: Partial Thromboplastin Time 28.1 sec (22.0-30.0); Prothrombin Time 11.1 sec (10.0-12.5)
[2023-02-15 12:05] LABS: Glucose,Whole Blood 302 mg/dL (70-110)
--- NOTE | 2023-02-15 12:53 | P.NPCON ---
History of Present Illness - Reason for Consult acute renal failure, chronic renal failure - History of Present Illness Reason for consultation: Acute kidney injury on chronic kidney disease History of present illness: Patient is a 47-year-old female seen in renal consultation for acute kidney injury on chronic kidney disease. Patient has chronic kidney disease age IIIB with baseline creatinine 1.4-1.6 secondary to diabetic kidney disease. Patient states she follows with manager culture out of [place]. Creatinine this admission was 1.66 and improved to 1.28 and is back up to 1.66 today. She is receiving IV fluids. Patient came to the hospital due to vomiting which initially started Monday morning. Patient states history progressively getting worse and she's not able to eat or drink much at all. She has been voiding and denies any hematuria or dysuria. She denies use of nonsteroidals. Patient has diabetes and states his uncontrolled. She denies history of coronary artery disease. Patient does have a history of nonalcoholic fatty liver disease with cirrhosis and is status post liver transplant from [facility] in July 2021. Patient states she takes prednisone, Imuran and tacrolimus. She just underwent a CAT scan of the abdomen. Hemodynamically stable. No chest pain or shortness of breath. No edema. Vital signs are stable. General: No acute distress. HEENT: Head exam is unremarkable. LUNGS: No audible rhonchi or wheezes. HEART: Rate and Rhythm are regular. ABDOMEN: Nontender. EXTREMITITES: No edema. 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 Covid 07/16/20 History of Any Multi-Drug Resistant Organisms: None Reported Past Surgical History: Tubal Ligation Additional Past Surgical History / Comment(s): carpal tunnel - rt hand, esphogeal banding, Liver transplant July 2021 Past Anesthesia/Blood Transfusion Reactions: No Reported Reaction Past Psychological History: No Psychological Hx Reported Smoking Status: Never smoker Past Alcohol Use History: Rare Additional Past Alcohol Use History / Comment(s): quit 2012 Past Drug Use History: None Reported Medications and Allergies Home Medications Medication Instructions Recorded Confirmed Type Gabapentin [Neurontin] 600 mg PO DIRECTED 06/09/20 02/14/23 History Aspirin EC [Ecotrin Low Dose] 81 mg PO DAILY 11/05/21 02/13/23 History Glucagon [Baqsimi] 1 spray NASAL BID PRN 11/05/21 02/13/23 History INSULIN LISPRO (For Pump) [humaLOG 0.01 units SQ-PUMP CONTINUOUS 11/05/21 History (For Pump)] Tacrolimus [Prograf] 5 mg PO BID 11/05/21 02/13/23 History Acetaminophen Tab [Tylenol Tab] 1,000 mg PO Q6HR PRN 04/06/22 02/13/23 History Cholecalciferol [Vitamin D3 (25 50 mcg PO DAILY 04/06/22 02/13/23 History Mcg = 1000 Iu)] Sodium Zirconium Cyclosilicate 10 gm PO DAILY PRN 04/06/22 02/13/23 History [Lokelma] Albuterol Inhaler [Ventolin Hfa 1 - 2 puff INHALATION RT-Q6H PRN 02/13/23 02/13/23 History Inhaler] Eylea (Aflibercept) 2mg/0.05ml 2 mg IV Q60D 02/13/23 02/13/23 History Solution Famotidine [Pepcid] 40 mg PO DAILY 02/13/23 02/13/23 History Insulin NPH Human Isophane See Protocol SQ ACHS PRN 02/13/23 02/13/23 History [humuLIN N Kwikpen] Ketoconazole 2% Shampoo [Nizoral] 1 applic TOPICAL DAILY PRN 02/13/23 02/13/23 History Magnesium Chloride [Slow-Mag] 64 mg PO BID 02/13/23 02/13/23 History Sertraline [Zoloft] 100 mg PO DAILY 02/13/23 02/13/23 History Triamcinolone 0.1% Ointment 1 applic TOPICAL BID PRN 02/13/23 02/13/23 History [Kenalog 0.1% Ointment] azaTHIOprine [Imuran] 50 mg PO DAILY 02/13/23 02/13/23 History predniSONE 2 mg PO DAILY 02/13/23 02/13/23 History traMADol HCL 50 mg PO BID PRN 02/13/23 02/13/23 History Allergies Allergy/AdvReac Type Severity Reaction Status Date / Time No Known Allergies Allergy Verified 02/13/23 20:02 Physical Exam Vitals: Vital Signs Temp Pulse Pulse Resp BP BP Pulse Ox 02/15/23 08:00 97.6 F 115 H 16 172/90 95 02/15/23 03:13 97.4 F L 105 H 17 130/72 95 02/14/23 23:57 97.5 F L 101 H 17 124/81 94 L 02/14/23 20:00 97.5 F L 124 H 17 183/99 97 02/14/23 15:30 98.3 F 117 H 17 151/86 96 02/14/23 14:12 98 F 122 H 20 158/76 95 Intake and Output 02/14/23 02/15/23 02/15/23 22:59 06:59 14:59 Intake Total 37.945 300 Balance 37.945 300 Intake: Intake, IV Titration 37.945 Amount Insulin Regular 100 unit 37.945 In Sodium Chloride 0.9% 100 ml @ 0.1 UNITS/KG/HR 9.529 mls/hr IV .[id number] [facility] Rx#:[id number] Oral 300 Other: Voiding Method Toilet Toilet Toilet # Voids 1 2 Weight 94.347 kg Results - Lab Results Most recent lab results Calcium 9.1 mg/dL (8.4-10.2) 02/15/23 08:32 Phosphorus 3.5 mg/dL (2.5-4.5) 02/15/23 00:24 Magnesium 2.2 mg/dL (1.6-2.3) 02/15/23 08:32 02/15/23 11:26 02/15/23 08:32 Assessment and Plan Plan: Assessment: 1. Acute kidney injury secondary to vasomotor nephropathy secondary to hypovolemia from vomiting. Creatinine 1.66 today. UA with trace protein and no blood. 2. Chronic kidney disease stage IIIB. Baseline creatinine 1.4-1.6 secondary to diabetic kidney disease. 3. Hyperkalemia secondary to acute kidney injury, tacrolimus and hyperglycemia. Improved. 4. DKA. Improved. 5. Hypertension with chronic kidney disease. Exacerbated by vomiting. 6. History of liver transplant in July 2021 at [facility]. Plan: Maintain IV fluids. Check tacrolimus level. Follow-up CAT scan. Avoid nephrotoxins. Add when necessary hydralazine. Thank you for the consultation. I will continue to follow the patient with you during her hospital stay.
[2023-02-15] MEDS: hydrALAZINE HCL 20 MG/ML 1 ML VIAL IVP PRN (13:36)
[2023-02-15] MEDS: SCOPOLAMINE 1 MG/72 HR PATCH TRANSDERM SCH (13:37)
[2023-02-15] MEDS: METOCLOPRAMIDE 5 MG/ML 2 ML VIAL IVP PRN ×2 (14:36→22:00)
--- NOTE | 2023-02-15 14:38 | P.CONS ---
History of Present Illness - Reason for Consult Consult date: 02/15/23 Liver transplant Requesting physician: Diamond Acosta - Chief Complaint Intractable nausea and vomiting - History of Present Illness This 47-year-old female who presented to the emergency department 2 days ago for intractable nausea, vomiting, tachycardia and weakness. She does have a history of diabetes mellitus, cirrhosis of the liver status post liver transplant in 2021 who is on antirejection medications including Imuran, prednisone and Prograf. She follows with Dr. Garcia from [facility] and actually had seen him 2 weeks ago. For the last few days patient sugar had been running high she was having nausea and vomiting several times a day. States yesterday she may have had coffee-ground emesis. She was admitted with diabetic ketoacidosis. Denies previous history of uncontrolled sugars. She is insulin- dependent and has a insulin pump. Nausea vomiting is somewhat improved today. She did reportedly vomited 4 times today, no coffee-ground emesis or hematemesis. She denies any abdominal pain, fevers or chills. She's been tachycardic. Today's labs WBC 11.9 hemoglobin 13.9 platelet count of 106,000 sodium 136 potassium 4.1 BUN 38 creatinine 1.66 glucose 289 total bilirubin 0.9 AST 35 ALT 41 alk phos 106 Review of Systems REVIEW OF SYSTEMS: CARDIOPULMONARY: No chest pain or shortness of breath. Reports heart racing. Gastrointestinal: No abdominal pain. Nausea with vomiting, reported coffee- ground appearing emesis yesterday. No rectal bleeding, or melena. GENITOURINARY: No dysuria or hematuria. MUSCULOSKELETAL: Reports normal range of motion. SKIN: No rashes. No jaundice. ENDOCRINE: No chills, fevers. No excessive weight gain or loss. No polydipsia or polyuria. PSYCHIATRIC: Unremarkable. NEUROLOGY: No change in mental status. Reports dizziness, weakness. ENT: Vision unremarkable. CONSTITUTIONAL: No recent weight loss. No fever, chills, night sweats. Reports body aches. 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 Covid 07/16/20 History of Any Multi-Drug Resistant Organisms: None Reported Past Surgical History: Tubal Ligation Additional Past Surgical History / Comment(s): carpal tunnel - rt hand, esphogeal banding, Liver transplant July 2021 Past Anesthesia/Blood Transfusion Reactions: No Reported Reaction Past Psychological History: No Psychological Hx Reported Smoking Status: Never smoker Past Alcohol Use History: Rare Additional Past Alcohol Use History / Comment(s): quit 2012 Past Drug Use History: None Reported Medications and Allergies Home Medications Medication Instructions Recorded Confirmed Type Gabapentin [Neurontin] 600 mg PO DIRECTED 06/09/20 02/14/23 History Aspirin EC [Ecotrin Low Dose] 81 mg PO DAILY 11/05/21 02/13/23 History Glucagon [Baqsimi] 1 spray NASAL BID PRN 11/05/21 02/13/23 History INSULIN LISPRO (For Pump) [humaLOG 0.01 units SQ-PUMP CONTINUOUS 11/05/21 02/13/23 History (For Pump)] Tacrolimus [Prograf] 5 mg PO BID 11/05/21 02/13/23 History Acetaminophen Tab [Tylenol Tab] 1,000 mg PO Q6HR PRN 04/06/22 02/13/23 History Cholecalciferol [Vitamin D3 (25 50 mcg PO DAILY 04/06/22 02/13/23 History Mcg = 1000 Iu)] Sodium Zirconium Cyclosilicate 10 gm PO DAILY PRN 04/06/22 02/13/23 History [Lokelma] Albuterol Inhaler [Ventolin Hfa 1 - 2 puff INHALATION RT-Q6H PRN 02/13/23 02/13/23 History Inhaler] Eylea (Aflibercept) 2mg/0.05ml 2 mg IV Q60D 02/13/23 02/13/23 History Solution Famotidine [Pepcid] 40 mg PO DAILY 02/13/23 02/13/23 History Insulin NPH Human Isophane See Protocol SQ ACHS PRN 02/13/23 02/13/23 History [humuLIN N Kwikpen] Ketoconazole 2% Shampoo [Nizoral] 1 applic TOPICAL DAILY PRN 02/13/23 02/13/23 History Magnesium Chloride [Slow-Mag] 64 mg PO BID 02/13/23 02/13/23 History Sertraline [Zoloft] 100 mg PO DAILY 02/13/23 02/13/23 History Triamcinolone 0.1% Ointment 1 applic TOPICAL BID PRN 02/13/23 02/13/23 History [Kenalog 0.1% Ointment] azaTHIOprine [Imuran] 50 mg PO DAILY 02/13/23 02/13/23 History predniSONE 2 mg PO DAILY 02/13/23 02/13/23 History traMADol HCL 50 mg PO BID PRN 02/13/23 02/13/23 History Allergies Allergy/AdvReac Type Severity Reaction Status Date / Time No Known Allergies Allergy Verified 02/13/23 20:02 Physical Exam Vitals: Vital Signs Temp Pulse Pulse Resp BP BP Pulse Ox 02/15/23 08:00 97.6 F 115 H 16 172/90 95 02/15/23 03:13 97.4 F L 105 H 17 130/72 95 02/14/23 23:57 97.5 F L 101 H 17 124/81 94 L 02/14/23 20:00 97.5 F L 124 H 17 183/99 97 02/14/23 15:30 98.3 F 117 H 17 151/86 96 02/14/23 14:12 98 F 122 H 20 158/76 95 Intake and Output 02/14/23 02/15/23 02/15/23 22:59 06:59 14:59 Intake Total 37.945 300 Balance 37.945 300 Intake: Intake, IV Titration 37.945 Amount Insulin Regular 100 unit 37.945 In Sodium Chloride 0.9% 100 ml @ 0.1 UNITS/KG/HR 9.529 mls/hr IV .[id number] [facility] Rx#:[id number] Oral 300 Other: Voiding Method Toilet Toilet Toilet # Voids 1 2 Weight 94.347 kg General appearance: The patient is alert, oriented, appears in no acute distress. HET: Head is normocephalic and atraumatic. Conjunctiva pink. Sclera anicteric. Neck: Supple without lymphadenopathy. Trachea midline. Heart: Regular. Lungs: Equal expansion, normal respiratory effort. Abdomen: Soft, nontender, nondistended with bowel sounds. No guarding or rigidity. Skin: No rashes. No jaundice. Extremities: Normal skin color and turgor. No pedal edema. Neurological: No focal deficits. Alert and oriented x3. Results CBC & Chem 7: 02/15/23 11:26 02/15/23 08:32 Labs: Abnormal Lab Results - Last 24 Hours (Table) 02/14/23 02/14/23 02/14/23 Range/Units 11:06 11:45 13:25 Sodium (137-145) mmol/L BUN (7-17) mg/dL Creatinine (0.52-1.04) mg/dL Glucose (74-99) mg/dL POC Glucose (mg/dL) 371 H 301 H (70-110) mg/dL Hemoglobin A1c 6.9 H (<=6.0) % ALT (4-34) U/L 02/14/23 02/14/23 02/14/23 Range/Units 14:06 15:06 16:02 Sodium (137-145) mmol/L BUN (7-17) mg/dL Creatinine (0.52-1.04) mg/dL Glucose (74-99) mg/dL POC Glucose (mg/dL) 310 H 243 H 182 H (70-110) mg/dL Hemoglobin A1c (<=6.0) % ALT (4-34) U/L 02/14/23 02/14/23 02/14/23 Range/Units 16:07 17:05 18:05 Sodium (137-145) mmol/L BUN 32 H (7-17) mg/dL Creatinine 1.31 H (0.52-1.04) mg/dL Glucose (74-99) mg/dL POC Glucose (mg/dL) 160 H 169 H (70-110) mg/dL Hemoglobin A1c (<=6.0) % ALT (4-34) U/L 02/14/23 02/14/23 02/14/23 Range/Units 19:03 20:01 20:24 Sodium (137-145) mmol/L BUN 32 H (7-17) mg/dL Creatinine 1.28 H (0.52-1.04) mg/dL Glucose (74-99) mg/dL POC Glucose (mg/dL) 185 H 210 H (70-110) mg/dL Hemoglobin A1c (<=6.0) % ALT (4-34) U/L 02/15/23 02/15/23 02/15/23 Range/Units 00:24 02:50 07:22 Sodium 135 L (137-145) mmol/L BUN 34 H (7-17) mg/dL Creatinine 1.43 H (0.52-1.04) mg/dL Glucose (74-99) mg/dL POC Glucose (mg/dL) 304 H 304 H (70-110) mg/dL Hemoglobin A1c (<=6.0) % ALT (4-34) U/L 02/15/23 Range/Units 08:32 Sodium 136 L (137-145) mmol/L BUN 38 H (7-17) mg/dL Creatinine 1.66 H (0.52-1.04) mg/dL Glucose 289 H (74-99) mg/dL POC Glucose (mg/dL) (70-110) mg/dL Hemoglobin A1c (<=6.0) % ALT 41 H (4-34) U/L Assessment and Plan (1) History of liver transplant Narrative/Plan: 47-year-old female with a history of diabetes mellitus, hypertension, cirrhosis of the liver status post liver transplant in 2021 on antirejection medications presented with nausea and vomiting, tachycardia, and hyperglycemia. She was noted to be in diabetic ketoacidosis on admission with sugars in the 400s. She is insulin-dependent diabetic, denies any previous history of uncontrolled diabetes mellitus. She follows with Dr. Garcia [facility] for her liver transplant. She recently was seen about 2 weeks ago. States there was no changes in her medications other than the discontinued her Zofran which she states doesn't help for her nausea anyway. Patient states that she has chronic nausea however over the last couple days duration she has been having intractable nausea with vomiting. Nausea vomiting likely related to diabetic ketoacidosis also need to consider gastroparesis in the setting of diabetes mellitus. Will add scopolamine patch for nausea and vomiting. Otherwise no further workup from gastroenterology. Patient will need to follow-up with her liver specialist on discharge. Recommend strict glycemic control. Current Visit: Yes Status: Acute Code(s): Z94.4 - LIVER TRANSPLANT STATUS SNOMED Code(s): 064878664 (2) Nausea & vomiting Current Visit: Yes Status: Acute Code(s): R11.2 - NAUSEA WITH VOMITING, UNSPECIFIED SNOMED Code(s): 11759690 (3) Diabetic ketoacidosis Current Visit: Yes Status: Acute Code(s): E11.10 - TYPE 2 DIABETES MELLITUS WITH KETOACIDOSIS WITHOUT COMA SNOMED Code(s): 134219647 (4) Tachycardia Current Visit: Yes Status: Acute Code(s): R00.0 - TACHYCARDIA, UNSPECIFIED SNOMED Code(s): 8306646 Plan: 1. Continue symptomatic and supportive care 2. Continue anti-emetics, will add scopolamine patch 3. Continue Protonix 40 mg daily for GI prophylaxis 4. Recommend strict glycemic control 5. Diet as tolerated 6. No further workup per gastroenterology. Recommend outpatient follow-up with liver specialist at [facility]. Thank you for this consultation, we will continue to follow. Dr. oDv Brunson I agree with the dictator's note, documented as a scribe by Li Toussaint.
[2023-02-15] MEDS ORDERED: bisacodyL 5 MG TABLET.DR PO PRN (15:06)
--- NOTE | 2023-02-15 15:11 | P.PN ---
Subjective Progress Note Date: 02/15/23 (delayed charting seen at 1030) Patient is a 47-year-old female status post liver transplant due to nonalcoholic fatty liver disease, insulin-dependent diabetes on insulin pump, hypertension, and neuropathy who presented to the hospital due to abdominal pain and altered mentation. On arrival to the ER her vital signs were remarkable for a blood pressure of 171/94 and a heart rate of 133. Laboratory analysis was remarkable for white blood cell count of 11.1, platelets 107, sodium 135, potassium 6.3, carbon dioxide 20, BUN 37, creatinine 1.66, glucose 421, magnesium 1.3, AST 63, ALT 62, and positive urine acetone. In the emergency department she was diagnosed with intractable nausea and vomiting with possible gastroparesis as well as hyperkalemia. Patient was treated with Zofran, hydration, and potassium binders. She was admitted for further monitoring. Her [facility] transplant he was contacted who recommended continued care at our facility. Patient seen and examined at bedside with present. She reports some upper abdominal pain that is epigastric. She also reports intractable nausea. She has been able to keep her pills down. Her reports that he did have some abdominal pain and diarrhea on Monday, however the patient took ill on Monday. She has not missed any of her doses of medications or had any issues with rejection in the past. She seems rather lethargic on exam and her reports that she does sleep a lot at home. Apparently she was having difficulty self administering her insulin pump over the weekend due to her lethargy. She denies any history of gastroparesis. Vital signs reviewed General: nontoxic, no distress, appears at stated age Cardiovascular: S1S2 reg, no murmur, positive posterior tibial pulse bilateral, Lungs: CTA bilateral, no rhonchi, no rales , no accessory muscle use Abdominal: soft, tender to palpation epigastric, no guarding, no appreciable organomegaly Ext: no gross muscle atrophy, no edema b/l lower extremities, no contractures Neuro: CN II-XI grossly intact, no focal neuro deficits Psych: Lethargic, one awake answers questions appropriately, oriented, appropriate affect Assessment/Plan: Intractable nausea and vomiting with abdominal pain Immunosuppression secondary to liver transplantation with antirejection meds CHIQUITA on CKD stage IIIB Toxic metabolic encephalopathy Transaminitis Pancytopenia -Stop D5 half normal, start normal saline at 75 mL/h -Check CT abdomen and pelvis -Consult GI -Consult nephrology -Continue with Protonix 40 mg twice daily -Continue with prednisone 2 mg daily, Prograf 4 mg twice daily, and azathioprine 50 mg daily -Follow CBC and CMP daily, ammonia level ordered and was negative DM2 with hyperglycemia and neuropathy -Hemoglobin A1c 6.9 -Follow blood sugars -Continue with insulin sliding scale, NovoLog 8 units with meals, and Levemir 28 units at 7 AM Hypertensive urgency -Start Coreg 3.125 mg daily -Follow blood pressures DKA, resolved Hyperkalemia, resolved Imaging: None Data Review: Labs reviewed from this morning include a CBC, basic metabolic profile, liver enzymes which are remarkable for white blood cell count 11.9, platelets 106, sodium 136, BUN 38, creatinine 1.66, glucose 302. Ammonia level was less than 9. Coagulation studies were normal. DVT prophylaxis: Heparin Anticipated discharge date: Pending Clinical Course Anticipated discharge place: Pending Clinical Course This dictation was prepared using [employer] voice recognition software. Though every attempt is made to correct errors during dictation some may still exist. Objective - Vital Signs Vital signs: Vital Signs Temp 98.6 F 02/15/23 12:00 Pulse 113 H 02/15/23 12:00 Resp 16 02/15/23 12:00 BP 167/107 02/15/23 12:00 Pulse Ox 95 02/15/23 12:00 FiO2 Intake & Output 02/14/23 02/15/23 02/15/23 18:59 06:59 18:59 Intake Total 37.945 300 Balance 37.945 300 Weight 94.347 kg Intake: Intake, IV Titration 37.945 Amount Insulin Regular 100 unit 37.945 In Sodium Chloride 0.9% 100 ml @ 0.1 UNITS/KG/HR 9.529 mls/hr IV .[id number] [facility] Rx#:[id number] Oral 300 Other: Voiding Method Toilet Toilet # Voids 2 - Labs CBC & Chem 7: 02/15/23 11:26 02/15/23 08:32 Labs: Abnormal Lab Results - Last 24 Hours (Table) 02/14/23 02/14/23 02/14/23 Range/Units 11:06 16:02 16:07 WBC (3.8-10.6) k/uL RDW (11.5-15.5) % Plt Count (150-450) k/uL Sodium (137-145) mmol/L BUN 32 H (7-17) mg/dL Creatinine 1.31 H (0.52-1.04) mg/dL Glucose (74-99) mg/dL POC Glucose (mg/dL) 182 H (70-110) mg/dL Hemoglobin A1c 6.9 H (<=6.0) % ALT (4-34) U/L 02/14/23 02/14/23 02/14/23 Range/Units 17:05 18:05 19:03 WBC (3.8-10.6) k/uL RDW (11.5-15.5) % Plt Count (150-450) k/uL Sodium (137-145) mmol/L BUN (7-17) mg/dL Creatinine (0.52-1.04) mg/dL Glucose (74-99) mg/dL POC Glucose (mg/dL) 160 H 169 H 185 H (70-110) mg/dL Hemoglobin A1c (<=6.0) % ALT (4-34) U/L 02/14/23 02/14/23 02/15/23 Range/Units 20:01 20:24 00:24 WBC (3.8-10.6) k/uL RDW (11.5-15.5) % Plt Count (150-450) k/uL Sodium 135 L (137-145) mmol/L BUN 32 H 34 H (7-17) mg/dL Creatinine 1.28 H 1.43 H (0.52-1.04) mg/dL Glucose (74-99) mg/dL POC Glucose (mg/dL) 210 H (70-110) mg/dL Hemoglobin A1c (<=6.0) % ALT (4-34) U/L 02/15/23 02/15/23 02/15/23 Range/Units 02:50 07:22 08:32 WBC (3.8-10.6) k/uL RDW (11.5-15.5) % Plt Count (150-450) k/uL Sodium 136 L (137-145) mmol/L BUN 38 H (7-17) mg/dL Creatinine 1.66 H (0.52-1.04) mg/dL Glucose 289 H (74-99) mg/dL POC Glucose (mg/dL) 304 H 304 H (70-110) mg/dL Hemoglobin A1c (<=6.0) % ALT 41 H (4-34) U/L 02/15/23 02/15/23 Range/Units 11:26 12:03 WBC 11.9 H (3.8-10.6) k/uL RDW 16.1 H (11.5-15.5) % Plt Count 106 L (150-450) k/uL Sodium (137-145) mmol/L BUN (7-17) mg/dL Creatinine (0.52-1.04) mg/dL Glucose (74-99) mg/dL POC Glucose (mg/dL) 302 H (70-110) mg/dL Hemoglobin A1c (<=6.0) % ALT (4-34) U/L
[2023-02-15 16:42] LABS: Glucose,Whole Blood 216 mg/dL (70-110)
--- NOTE | 2023-02-15 17:25 | CT ---
EXAMINATION TYPE: CT abdomen pelvis wo con DATE OF EXAM: 02/15/2023 COMPARISON: 06/09/2020 HISTORY: 47-year-old female Vomiting, hx of liver transplant CT DLP: 721 mGycm. Automated exposure control for dose reduction was used. TECHNIQUE: Contiguous axial scanning of the abdomen and pelvis without IV contrast. Coronal and sagit antonio reconstructions performed. FINDINGS: Heart normal size without pericardial effusion. Strandy atelectasis in the lower lungs. There appears to be circumferential wall thickening distal esophagus. Post surgical change of hepatic transplant. The transplant liver shows partial resection of the left lobe. There is severe diminished attenuation of the liver parenchyma. Vasculature not adequately asse ssed on this noncontrast study. Adrenal glands, right kidney, and atrophic pancreas show no gross organomegaly. Small 1.2 cm cortical cyst lateral left kidney. Small underlying 1 cm cortical cyst lateral right kid josefa. No hydronephrosis on either side. There is residual splenomegaly at 16.8 cm, similar to prior. Tiny anterior splenule. However, the pre vious ascites fluid and mesenteric edema has resolved. Moderate atherosclerotic calcifications infrarenal abdominal aorta. Increased density and reticulations within the subcutaneous adipose layer of the mid to lower abdomen likely relates to subcutaneous injections. Normal appendix. No significant stool burden. No pericolic inflammatory change. Bladder urine distended. Uterus anteverted. Right ovary visualized. Left ovary not clearly delineated . No abnormal fluid collection in the pelvis or pelvic lymphadenopathy. Bones: No osseous destructive process. IMPRESSION: 1. Interval transplant liver. The transplant liver shows partial left hepatectomy change. In additio n, there is severely diminished density of the transplant liver parenchyma. Consider hepatitis or sev ere fatty infiltration. 2. The previous ascites and mesenteric edema seen in 2020 has resolved. There is residual splenomega ly of 16.8 cm, similar to 202. 3. Circumferential wall thickening visualized lower esophagus. Correlate for esophagitis. Direct vis ualization if indicated.
[2023-02-15 20:44] LABS: Glucose,Whole Blood 171 mg/dL (70-110)
[2023-02-15] MEDS: ACETAMINOPHEN TAB 325 MG TAB PO PRN (22:01)
[2023-02-16] MEDS: INSULIN ASPART (NovoLOG) 100 UNIT/ML VIAL SQ SCH ×8 (03:17→21:33)
[2023-02-16] MEDS: ONDANSETRON 4 MG/2 ML VIAL IVP PRN (03:17)
[2023-02-16] MEDS: hydrALAZINE HCL 20 MG/ML 1 ML VIAL IVP PRN ×2 (03:21→08:41)
[2023-02-16 06:19] LABS: Glucose,Whole Blood 232 mg/dL (70-110)
[2023-02-16] MEDS: INSULIN DETEMIR (LEVEMIR) 100 UNIT/ML SYR SQ SCH (06:45)
[2023-02-16] MEDS: carvediloL 3.125 MG TAB PO SCH ×2 (06:46→18:07)
[2023-02-16] MEDS: METOCLOPRAMIDE 5 MG/ML 2 ML VIAL IVP PRN (06:46)
[2023-02-16 07:15] LABS: Glucose,Whole Blood 231 mg/dL (70-110)
[2023-02-16] MEDS: HEPARIN SODIUM,PORCINE 5,000 UNIT/ML 1 ML VIAL SQ SCH ×3 (08:40→23:14)
[2023-02-16] MEDS: FAMOTIDINE 20 MG TAB PO SCH (08:40)
[2023-02-16] MEDS: PANTOPRAZOLE 40 MG/10 ML VIAL IVP SCH ×2 (08:40→20:18)
[2023-02-16] MEDS: GABAPENTIN 300 MG CAP PO SCH ×3 (08:40→20:17)
[2023-02-16] MEDS: ASPIRIN 81 MG PO SCH (08:40)
[2023-02-16] MEDS: SERTRALINE 100 MG TAB PO SCH (08:40)
[2023-02-16] MEDS: TACROLIMUS 1 MG CAP PO SCH ×2 (08:41→20:17)
[2023-02-16] MEDS: predniSONE 1 MG TAB PO SCH (08:41)
[2023-02-16] MEDS: azaTHIOprine 50 MG TAB PO SCH (08:41)
[2023-02-16 09:31] LABS: HCT 41.8 % (34.0-46.0); HGB 14.3 gm/dL (11.4-16.0); MCH 30.4 pg (25.0-35.0); MCHC 34.2 g/dL (31.0-37.0); MCV 88.9 fL (80.0-100.0); Mean Platelet Volume 7.9; Platelet Count 120 k/uL (150-450); Poikilocytosis Slight; RDW 15.4 % (11.5-15.5); WBC 12.5 k/uL (3.8-10.6)
[2023-02-16 09:54] LABS: ALT 42 U/L (4-34); AST 45 U/L (14-36); African American GFR (CKD) 61 (>60 ml/min/1.73 sqM); Albumin 4.4 g/dL (3.5-5.0); Alkaline Phosphatase 124 U/L (38-126); Anion Gap 12 mmol/L; Blood Urea Nitrogen 30 mg/dL (7-17); Calcium 9.5 mg/dL (8.4-10.2); Carbon Dioxide 25 mmol/L (22-30); Chloride 100 mmol/L (98-107); Glucose 244 mg/dL (74-99); Magnesium 1.5 mg/dL (1.6-2.3); Non-African American GFR(CKD) 53 (>60 ml/min/1.73 sqM); Sodium 137 mmol/L (137-145); Total Bilirubin 1.1 mg/dL (0.2-1.3)
[2023-02-16 09:56] LABS: Potassium 4.4 mmol/L (3.5-5.1)
[2023-02-16 11:43] LABS: Glucose,Whole Blood 227 mg/dL (70-110)
[2023-02-16] MEDS: MAGNESIUM SULFATE-D5W PMX 1 GM in DEXTROSE/WATER 1 100ML.BAG IVPB SCH ×2 (11:55→15:06)
--- NOTE | 2023-02-16 11:55 | P.PN ---
Subjective Patient is seen in follow-up for acute kidney injury on chronic kidney disease. Renal function improved. Vomited last night. Oral intake remains poor. Good urine output. Vital signs are stable. General: No acute distress. HEENT: Head exam is unremarkable. LUNGS: No audible rhonchi or wheezes. HEART: Rate and Rhythm are regular. ABDOMEN: Nontender. EXTREMITITES: No edema. Objective - Vital Signs Vital signs: Vital Signs Temp 97.6 F 02/16/23 08:00 Pulse 120 H 02/16/23 08:00 Resp 16 02/16/23 08:00 BP 184/103 02/16/23 08:00 Pulse Ox 96 02/16/23 08:00 FiO2 Intake & Output 02/15/23 02/16/23 02/16/23 18:59 06:59 18:59 Output Total 27 Balance -27 Output: Post Void Residual 27 Other: Voiding Method Toilet Toilet Toilet # Voids 3 - Labs CBC & Chem 7: 02/16/23 08:32 02/16/23 08:32 Labs: Abnormal Lab Results - Last 24 Hours (Table) 02/15/23 02/15/23 02/15/23 Range/Units 12:03 16:41 20:42 WBC (3.8-10.6) k/uL Plt Count (150-450) k/uL BUN (7-17) mg/dL Creatinine (0.52-1.04) mg/dL Glucose (74-99) mg/dL POC Glucose (mg/dL) 302 H 216 H 171 H (70-110) mg/dL Magnesium (1.6-2.3) mg/dL AST (14-36) U/L ALT (4-34) U/L 02/16/23 02/16/23 02/16/23 Range/Units 06:17 07:12 08:32 WBC (3.8-10.6) k/uL Plt Count (150-450) k/uL BUN 30 H (7-17) mg/dL Creatinine 1.22 H (0.52-1.04) mg/dL Glucose 244 H (74-99) mg/dL POC Glucose (mg/dL) 232 H 231 H (70-110) mg/dL Magnesium 1.5 L (1.6-2.3) mg/dL AST 45 H (14-36) U/L ALT 42 H (4-34) U/L 02/16/23 02/16/23 Range/Units 08:32 11:41 WBC 12.5 H (3.8-10.6) k/uL Plt Count 120 L (150-450) k/uL BUN (7-17) mg/dL Creatinine (0.52-1.04) mg/dL Glucose (74-99) mg/dL POC Glucose (mg/dL) 227 H (70-110) mg/dL Magnesium (1.6-2.3) mg/dL AST (14-36) U/L ALT (4-34) U/L Assessment and Plan Plan: Assessment: 1. Acute kidney injury secondary to vasomotor nephropathy secondary to hypovolemia from vomiting. Renal function improved. Creatinine 1.22 today. UA with trace protein and no blood. 2. Chronic kidney disease stage IIIB. Baseline creatinine 1.4-1.6 secondary to diabetic kidney disease. 3. Hyperkalemia secondary to acute kidney injury, tacrolimus and hyperglycemia. Improved. 4. DKA. Improved. 5. Hypertension with chronic kidney disease. Exacerbated by vomiting. 6. History of liver transplant in July 2021 at [facility]. 7. Hypomagnesemia anemia from poor intake. Being replaced. Plan: Maintain IV fluids. Follow-up tacrolimus level. Avoid nephrotoxins. Add scheduled hydralazine.
[2023-02-16] MEDS: PROMETHAZINE 25 MG TAB PO PRN ×3 (11:57→23:18)
[2023-02-16] MEDS: METOCLOPRAMIDE 5 MG/ML 2 ML VIAL IVP SCH ×3 (11:57→23:14)
[2023-02-16] MEDS: SODIUM CHLORIDE 0.9% 1,000 ML IV SCH (12:07)
--- NOTE | 2023-02-16 14:21 | P.PN ---
Subjective Progress Note Date: 02/16/23 Principal diagnosis: Nausea and vomiting, liver transplant patient This 47-year-old female who presented to the emergency department 2 days ago for intractable nausea, vomiting, tachycardia and weakness. She does have a history of diabetes mellitus, cirrhosis of the liver status post liver transplant in 2021 who is on antirejection medications including Imuran, prednisone and Prograf. She follows with Dr. Garcia from [facility] and actually had seen him 2 weeks ago. For the last few days patient sugar had been running high she was having nausea and vomiting several times a day. States yesterday she may have had coffee-ground emesis. She was admitted with diabetic ketoacidosis. Denies previous history of uncontrolled sugars. She is insulin- dependent and has a insulin pump. Nausea vomiting is somewhat improved today. She did reportedly vomited 4 times today, no coffee-ground emesis or hematemesis. She denies any abdominal pain, fevers or chills. She's been tachycardic. Today's labs WBC 11.9 hemoglobin 13.9 platelet count of 106,000 sodium 136 potassium 4.1 BUN 38 creatinine 1.66 glucose 289 total bilirubin 0.9 AST 35 ALT 41 alk phos 106 02/16/2023 She was seen and examined as a follow-up. Blood sugars still remain in the upper 200s. She still remains nauseated and states she vomited from 2 AM until about 6 AM this morning, all bile. Denies any abdominal pain. Has some occasional dizziness. States bowel movements have been normal. She doesn't feel that the scopolamine patch really help. She did have a CT of the abdomen and pelvis yesterday which reported interval transplant liver. Transplant liver shows partial left hepatectomy change in addition, there is severely diminished density of the transplant liver parenchyma. Consider hepatitis or severe fatty infiltration. The previous ascites and mesenteric edema seen in 2020 has resolved. There is residual splenomegaly of 16.8 cm, similar to 202. Circumferential wall thickening visualized lower esophagus. Correlate for esophagitis. Direct visualization of indicated. WBC 12.5 hemoglobin 14 platelet count 120,000 sodium 137 potassium 4.4 BUN 30 creatinine 1.2 glucose 244 magnesium 1.5 total bilirubin 1.1 AST 45 ALT 42 alkaline phosphatase 42 Objective - Vital Signs Vital signs: Vital Signs Temp 97.6 F 02/16/23 08:00 Pulse 120 H 02/16/23 08:00 Resp 16 02/16/23 08:00 BP 184/103 02/16/23 08:00 Pulse Ox 96 02/16/23 08:00 FiO2 Intake & Output 02/15/23 02/16/23 02/16/23 18:59 06:59 18:59 Output Total 27 Balance -27 Output: Post Void Residual 27 Other: Voiding Method Toilet Toilet Toilet # Voids 3 - Exam General appearance: The patient is alert, oriented, appears in no acute distress . HET: Head is normocephalic and atraumatic. Conjunctiva pink. Sclera anicteric. Neck: Supple without lymphadenopathy. Abdomen: Soft, nontender, nondistended with bowel sounds. No guarding or ri gidity. Extremities: Normal skin color and turgor. No pedal edema Skin: No rashes, no jaundice Neurological: No focal deficits. Alert and oriented. - Labs CBC & Chem 7: 02/16/23 08:32 02/16/23 08:32 Labs: Abnormal Lab Results - Last 24 Hours (Table) 02/15/23 02/15/23 02/15/23 Range/Units 12:03 16:41 20:42 WBC (3.8-10.6) k/uL Plt Count (150-450) k/uL BUN (7-17) mg/dL Creatinine (0.52-1.04) mg/dL Glucose (74-99) mg/dL POC Glucose (mg/dL) 302 H 216 H 171 H (70-110) mg/dL Magnesium (1.6-2.3) mg/dL AST (14-36) U/L ALT (4-34) U/L 02/16/23 02/16/23 02/16/23 Range/Units 06:17 07:12 08:32 WBC (3.8-10.6) k/uL Plt Count (150-450) k/uL BUN 30 H (7-17) mg/dL Creatinine 1.22 H (0.52-1.04) mg/dL Glucose 244 H (74-99) mg/dL POC Glucose (mg/dL) 232 H 231 H (70-110) mg/dL Magnesium 1.5 L (1.6-2.3) mg/dL AST 45 H (14-36) U/L ALT 42 H (4-34) U/L 02/16/23 02/16/23 Range/Units 08:32 11:41 WBC 12.5 H (3.8-10.6) k/uL Plt Count 120 L (150-450) k/uL BUN (7-17) mg/dL Creatinine (0.52-1.04) mg/dL Glucose (74-99) mg/dL POC Glucose (mg/dL) 227 H (70-110) mg/dL Magnesium (1.6-2.3) mg/dL AST (14-36) U/L ALT (4-34) U/L Assessment and Plan (1) History of liver transplant Narrative/Plan: 47-year-old female with a history of diabetes mellitus, hypertension, cirrhosis of the liver status post liver transplant in 2021 on antirejection medications presented with nausea and vomiting, tachycardia, and hyperglycemia. She was noted to be in diabetic ketoacidosis on admission with sugars in the 400s. She is insulin-dependent diabetic, denies any previous history of uncontrolled diabetes mellitus. She follows with Dr. Garcia [facility] for her liver transplant. She recently was seen about 2 weeks ago. States there was no changes in her medications other than the discontinued her Zofran which she states doesn't help for her nausea anyway. Patient states that she has chronic nausea however over the last couple days duration she has been having intractable nausea with vomiting. Nausea vomiting likely related to diabetic ketoacidosis also need to consider gastroparesis in the setting of diabetes mellitus. Will add scopolamine patch for nausea and vomiting. Otherwise no further workup from gastroenterology. Patient will need to follow-up with her liver specialist on discharge. Recommend strict glycemic control. Current Visit: Yes Status: Acute Code(s): Z94.4 - LIVER TRANSPLANT STATUS SNOMED Code(s): 546879455 (2) Nausea & vomiting Narrative/Plan: Non-improving. Scopolamine was added. Will add Tigan. CT abdomen and pelvis does show esophageal wall thickening correlate for esophagitis likely related to intractable nausea and vomiting Current Visit: Yes Status: Acute Code(s): R11.2 - NAUSEA WITH VOMITING, UNSPECIFIED SNOMED Code(s): 62953520 (3) Diabetic ketoacidosis Current Visit: Yes Status: Acute Code(s): E11.10 - TYPE 2 DIABETES MELLITUS WITH KETOACIDOSIS WITHOUT COMA SNOMED Code(s): 109017397 (4) Tachycardia Current Visit: Yes Status: Acute Code(s): R00.0 - TACHYCARDIA, UNSPECIFIED SNOMED Code(s): 0530322 Plan: 1. Continue symptomatic and supportive care 2. Continue anti-emetics, will add Tigan 3. Continue Protonix 40 mg twice a day for GI prophylaxis 4. Recommend strict glycemic control 5. Recommend clear liquid diet today, advance as tolerated 6. If patient continues to vomit consider possible endoscopic evaluation tomorrow 7. Recommend outpatient follow-up with liver specialist at [facility]. Thank you for this consultation, we will continue to follow. Dr. Dov Brunson I agree with the dictator's note, documented as a scribe by Li Toussaint.
[2023-02-16] MEDS: TRIMETHOBENZAMIDE 100 MG/ML 2 ML VIAL IM PRN (15:10)
[2023-02-16 15:59] LABS: Glucose,Whole Blood 184 mg/dL (70-110)
[2023-02-16 16:18] LABS: Glucose,Whole Blood 178 mg/dL (70-110)
--- NOTE | 2023-02-16 17:54 | P.PN ---
Subjective Progress Note Date: 02/16/23 (delayed charting seen at 0945) Patient is a 47-year-old female status post liver transplant due to nonalcoholic fatty liver disease, insulin-dependent diabetes on insulin pump, hypertension, and neuropathy who presented to the hospital due to abdominal pain and altered mentation. On arrival to the ER her vital signs were remarkable for a blood pressure of 171/94 and a heart rate of 133. Laboratory analysis was remarkable for white blood cell count of 11.1, platelets 107, sodium 135, potassium 6.3, carbon dioxide 20, BUN 37, creatinine 1.66, glucose 421, magnesium 1.3, AST 63, ALT 62, and positive urine acetone. In the emergency department she was diagnosed with intractable nausea and vomiting with possible gastroparesis as well as hyperkalemia. Patient was treated with Zofran, hydration, and potassium binders. She was admitted for further monitoring. Her [facility] transplant team was contacted who recommended continued care at our facility. She was seen by gastroenterology who added scopolamine patch. She was seen by nephrology who did agree with tacrolimus testing but suggested trough level testing. Patient seen and examined at bedside with present. She continues to have some nausea but no vomiting. She has been able to keep her pills down today. We discussed lab results and imaging finding. Vital signs reviewed General: nontoxic, no distress, appears at stated age Cardiovascular: S1S2 reg, no murmur, positive posterior tibial pulse bilateral, Lungs: CTA bilateral, no rhonchi, no rales , no accessory muscle use Abdominal: soft, tender to palpation epigastric, no guarding, no appreciable organomegaly Ext: no gross muscle atrophy, no edema b/l lower extremities, no contractures Neuro: CN II-XI grossly intact, no focal neuro deficits Psych: Lethargic, one awake answers questions appropriately, oriented, appropriate affect Assessment/Plan: Intractable nausea and vomiting with abdominal pain Immunosuppression secondary to liver transplantation with antirejection meds CHIQUITA on CKD stage IIIB Toxic metabolic encephalopathy Transaminitis Pancytopenia - case discussed with GI [employer] will conitnue to monitor and if has increased vomiting will consider scope - Case discussed with Dr. Diane at length. We agree that an immune suppression associated with liver transplant we need to be concerned about CMV or jp esophagitis. Will send out CMV IgM and IgG antibodies as well as EBV panel. If patient continues to have significant/vomiting in the morning we'll recontact [facility] to consider transfer given the fact that we'll not have GI services available after tomorrow. -Continue with Protonix 40 mg twice daily -Continue with prednisone 2 mg daily, Prograf 4 mg twice daily, and azathioprine 50 mg daily -Follow CBC and CMP daily, ammonia level ordered and was negative - phenergan 25 mg PO q 6 hours prn, tigan 100 mg IM daily prn nausea DM2 with hyperglycemia and neuropathy -Hemoglobin A1c 6.9 -Follow blood sugars -Continue with insulin sliding scale, NovoLog 10 units with meals, and Levemir 28 units at 7 AM Hypertensive urgency - Coreg 3.125 mg daily -Follow blood pressures Hypomagnesemia -Magnesium sulfate 2 g IV piggyback, repeat magnesium level in a.m. DKA, resolved Hyperkalemia, resolved Imaging: None Data Review: Labs reviewed from today include CBC and basic metabolic profile which are remarkable for white blood cell count of 12.5, platelets 120, BUN 30, creatinine 1.22, magnesium 1.5 DVT prophylaxis: Heparin Anticipated discharge date: Pending Clinical Course Anticipated discharge place: Pending Clinical Course This dictation was prepared using [employer] voice recognition software. Though every attempt is made to correct errors during dictation some may still exist. Objective - Vital Signs Vital signs: Vital Signs Temp 96.3 F L 02/16/23 16:00 Pulse 114 H 02/16/23 16:00 Resp 16 02/16/23 16:00 BP 179/92 02/16/23 16:00 Pulse Ox 94 L 02/16/23 16:00 FiO2 Intake & Output 02/15/23 02/16/23 02/16/23 18:59 06:59 18:59 Output Total 27 Balance -27 Output: Post Void Residual 27 Other: Voiding Method Toilet Toilet Toilet # Voids 3 2 - Labs CBC & Chem 7: 02/16/23 08:32 02/16/23 08:32 Labs: Abnormal Lab Results - Last 24 Hours (Table) 02/15/23 02/16/23 02/16/23 Range/Units 20:42 02:22 06:17 WBC (3.8-10.6) k/uL Plt Count (150-450) k/uL BUN (7-17) mg/dL Creatinine (0.52-1.04) mg/dL Glucose (74-99) mg/dL POC Glucose (mg/dL) 171 H 184 H 232 H (70-110) mg/dL Magnesium (1.6-2.3) mg/dL AST (14-36) U/L ALT (4-34) U/L 02/16/23 02/16/23 02/16/23 Range/Units 07:12 08:32 08:32 WBC 12.5 H (3.8-10.6) k/uL Plt Count 120 L (150-450) k/uL BUN 30 H (7-17) mg/dL Creatinine 1.22 H (0.52-1.04) mg/dL Glucose 244 H (74-99) mg/dL POC Glucose (mg/dL) 231 H (70-110) mg/dL Magnesium 1.5 L (1.6-2.3) mg/dL AST 45 H (14-36) U/L ALT 42 H (4-34) U/L 02/16/23 02/16/23 Range/Units 11:41 16:17 WBC (3.8-10.6) k/uL Plt Count (150-450) k/uL BUN (7-17) mg/dL Creatinine (0.52-1.04) mg/dL Glucose (74-99) mg/dL POC Glucose (mg/dL) 227 H 178 H (70-110) mg/dL Magnesium (1.6-2.3) mg/dL AST (14-36) U/L ALT (4-34) U/L
[2023-02-16] MEDS: hydrALAZINE HCL 25 MG TAB PO SCH ×2 (18:07→23:14)
[2023-02-16 20:49] LABS: Glucose,Whole Blood 116 mg/dL (70-110)
[2023-02-17] MEDS: ONDANSETRON 4 MG/2 ML VIAL IVP PRN ×3 (00:04→17:14)
[2023-02-17 01:53] LABS: Glucose,Whole Blood 160 mg/dL (70-110)
[2023-02-17] MEDS: INSULIN ASPART (NovoLOG) 100 UNIT/ML VIAL SQ SCH ×8 (01:55→20:48)
[2023-02-17] MEDS: TRIMETHOBENZAMIDE 100 MG/ML 2 ML VIAL IM PRN (01:59)
[2023-02-17] MEDS: SODIUM CHLORIDE 0.9% 1,000 ML IV SCH ×2 (04:29→14:54)
[2023-02-17] MEDS: hydrALAZINE HCL 20 MG/ML 1 ML VIAL IVP PRN (04:29)
[2023-02-17 04:42] LABS: EBV-EA (IgG) <0.2 AI; EBV-EBNA(IgG) 0.5; EBV-VCA (IgG) 7.2 AI; EBV-VCA (IgM) >4.0 AI
[2023-02-17] MEDS: carvediloL 3.125 MG TAB PO SCH ×2 (06:38→17:14)
[2023-02-17] MEDS: METOCLOPRAMIDE 5 MG/ML 2 ML VIAL IVP SCH ×3 (06:39→17:14)
[2023-02-17 07:14] LABS: Glucose,Whole Blood 199 mg/dL (70-110)
[2023-02-17] MEDS: TACROLIMUS 1 MG CAP PO SCH ×2 (08:49→20:48)
[2023-02-17] MEDS: azaTHIOprine 50 MG TAB PO SCH (08:49)
[2023-02-17] MEDS: predniSONE 1 MG TAB PO SCH (08:49)
[2023-02-17 09:39] LABS: HCT 41.1 % (34.0-46.0); HGB 14.1 gm/dL (11.4-16.0); MCH 30.4 pg (25.0-35.0); MCHC 34.4 g/dL (31.0-37.0); MCV 88.5 fL (80.0-100.0); Platelet Count 127 k/uL (150-450); Poikilocytosis Slight; RBC 4.65 m/uL (3.80-5.40); RDW 15.3 % (11.5-15.5); WBC 12.9 k/uL (3.8-10.6)
[2023-02-17 09:58] LABS: ALT 41 U/L (4-34); AST 48 U/L (14-36); African American GFR (CKD) 62 (>60 ml/min/1.73 sqM); Albumin 4.1 g/dL (3.5-5.0); Alkaline Phosphatase 111 U/L (38-126); Anion Gap 14 mmol/L; Blood Urea Nitrogen 27 mg/dL (7-17); Calcium 9.2 mg/dL (8.4-10.2); Carbon Dioxide 24 mmol/L (22-30); Chloride 99 mmol/L (98-107); Glucose 180 mg/dL (74-99); Magnesium 1.6 mg/dL (1.6-2.3); Non-African American GFR(CKD) 53 (>60 ml/min/1.73 sqM); Phosphorus 3.8 mg/dL (2.5-4.5); Potassium 4.5 mmol/L (3.5-5.1); Sodium 137 mmol/L (137-145); Total Bilirubin 1.1 mg/dL (0.2-1.3); Total Protein 7.6 g/dL (6.3-8.2)
[2023-02-17] MEDS: GABAPENTIN 300 MG CAP PO SCH ×2 (10:50→13:28)
[2023-02-17] MEDS: hydrALAZINE HCL 25 MG TAB PO SCH (10:50)
[2023-02-17] MEDS: FAMOTIDINE 20 MG TAB PO SCH (10:50)
[2023-02-17] MEDS: INSULIN DETEMIR (LEVEMIR) 100 UNIT/ML SYR SQ SCH (10:50)
[2023-02-17] MEDS: HEPARIN SODIUM,PORCINE 5,000 UNIT/ML 1 ML VIAL SQ SCH ×2 (10:50→17:14)
[2023-02-17] MEDS: SERTRALINE 100 MG TAB PO SCH (10:50)
[2023-02-17] MEDS: ASPIRIN 81 MG PO SCH (10:50)
--- NOTE | 2023-02-17 10:59 | P.PN ---
Subjective Progress Note Date: 02/17/23 Principal diagnosis: Nausea and vomiting, liver transplant patient This 47-year-old female who presented to the emergency department 2 days ago for intractable nausea, vomiting, tachycardia and weakness. She does have a history of diabetes mellitus, cirrhosis of the liver status post liver transplant in 2021 who is on antirejection medications including Imuran, prednisone and Prograf. She follows with Dr. Garcia from [facility] and actually had seen him 2 weeks ago. For the last few days patient sugar had been running high she was having nausea and vomiting several times a day. States yesterday she may have had coffee-ground emesis. She was admitted with diabetic ketoacidosis. Denies previous history of uncontrolled sugars. She is insulin- dependent and has a insulin pump. Nausea vomiting is somewhat improved today. She did reportedly vomited 4 times today, no coffee-ground emesis or hematemesis. She denies any abdominal pain, fevers or chills. She's been tachycardic. Today's labs WBC 11.9 hemoglobin 13.9 platelet count of 106,000 sodium 136 potassium 4.1 BUN 38 creatinine 1.66 glucose 289 total bilirubin 0.9 AST 35 ALT 41 alk phos 106 02/16/2023 She was seen and examined as a follow-up. Blood sugars still remain in the upper 200s. She still remains nauseated and states she vomited from 2 AM until about 6 AM this morning, all bile. Denies any abdominal pain. Has some occasional dizziness. States bowel movements have been normal. She doesn't feel that the scopolamine patch really help. She did have a CT of the abdomen and pelvis yesterday which reported interval transplant liver. Transplant liver shows partial left hepatectomy change in addition, there is severely diminished density of the transplant liver parenchyma. Consider hepatitis or severe fatty infiltration. The previous ascites and mesenteric edema seen in 2020 has resolved. There is residual splenomegaly of 16.8 cm, similar to 202. Circumferential wall thickening visualized lower esophagus. Correlate for esophagitis. Direct visualization of indicated. WBC 12.5 hemoglobin 14 platelet count 120,000 sodium 137 potassium 4.4 BUN 30 creatinine 1.2 glucose 244 magnesium 1.5 total bilirubin 1.1 AST 45 ALT 42 alkaline phosphatase 42 02/17/2023 Patient was seen and examined this morning. She states she is feeling better. States she had 3-4 episodes of nausea and vomiting from yesterday afternoon through the night but feeling better this morning. Denies any hematemesis or coffee-ground emesis. Denies any abdominal pain. Medical team did run a CMV yesterday which came back reactive positive IgM. Denies any diarrhea. WBC 12.9 hemoglobin 14 platelet count 127,000 BUN 27 creatinine 1.2 total bilirubin 1.1 AST 48 ALT 41 alkaline phosphatase 111. She's been afebrile mesh remains mildly tachycardic with heart rate in the 100s. Objective - Vital Signs Vital signs: Vital Signs Temp 98.4 F 02/17/23 04:00 Pulse 104 H 02/17/23 04:00 Resp 18 02/17/23 04:00 BP 166/99 02/17/23 04:00 Pulse Ox 96 02/17/23 04:00 FiO2 Intake & Output 02/16/23 02/17/23 02/17/23 18:59 06:59 18:59 Output Total 100 Balance -100 Output: Emesis 100 Other: Voiding Method Toilet Toilet # Voids 2 1 - Exam General appearance: The patient is alert, oriented, appears in no acute distress. HET: Head is normocephalic and atraumatic. Conjunctiva pink. Sclera anicteric. Neck: Supple without lymphadenopathy. Abdomen: Soft, nontender, nondistended with bowel sounds. No guarding or rigidity. Extremities: Normal skin color and turgor. No pedal edema Skin: No rashes, no jaundice Neurological: No focal deficits. Alert and oriented. - Labs CBC & Chem 7: 02/17/23 08:16 02/17/23 08:16 Labs: Abnormal Lab Results - Last 24 Hours (Table) 02/16/23 02/16/23 02/16/23 Range/Units 02:22 07:12 08:32 WBC (3.8-10.6) k/uL Plt Count (150-450) k/uL BUN 30 H (7-17) mg/dL Creatinine 1.22 H (0.52-1.04) mg/dL Glucose 244 H (74-99) mg/dL POC Glucose (mg/dL) 184 H 231 H (70-110) mg/dL Magnesium 1.5 L (1.6-2.3) mg/dL AST 45 H (14-36) U/L ALT 42 H (4-34) U/L CMV IgG Ab (Non-Reactive) CMV IgM Ab (Non-Reactive) EBV Capsid Ag IgG Intrp (Negative) EBV Capsid Ag IgM Intrp (Negative) 02/16/23 02/16/23 02/16/23 Range/Units 08:32 11:41 16:17 WBC 12.5 H (3.8-10.6) k/uL Plt Count 120 L (150-450) k/uL BUN (7-17) mg/dL Creatinine (0.52-1.04) mg/dL Glucose (74-99) mg/dL POC Glucose (mg/dL) 227 H 178 H (70-110) mg/dL Magnesium (1.6-2.3) mg/dL AST (14-36) U/L ALT (4-34) U/L CMV IgG Ab (Non-Reactive) CMV IgM Ab (Non-Reactive) EBV Capsid Ag IgG Intrp (Negative) EBV Capsid Ag IgM Intrp (Negative) 02/16/23 02/16/23 02/16/23 Range/Units 17:39 17:39 20:47 WBC (3.8-10.6) k/uL Plt Count (150-450) k/uL BUN (7-17) mg/dL Creatinine (0.52-1.04) mg/dL Glucose (74-99) mg/dL POC Glucose (mg/dL) 116 H (70-110) mg/dL Magnesium (1.6-2.3) mg/dL AST (14-36) U/L ALT (4-34) U/L CMV IgG Ab Reactive A (Non-Reactive) CMV IgM Ab Reactive A (Non-Reactive) EBV Capsid Ag IgG Intrp Positive A (Negative) EBV Capsid Ag IgM Intrp Positive A (Negative) 02/17/23 Range/Units 01:51 WBC (3.8-10.6) k/uL Plt Count (150-450) k/uL BUN (7-17) mg/dL Creatinine (0.52-1.04) mg/dL Glucose (74-99) mg/dL POC Glucose (mg/dL) 160 H (70-110) mg/dL Magnesium (1.6-2.3) mg/dL AST (14-36) U/L ALT (4-34) U/L CMV IgG Ab (Non-Reactive) CMV IgM Ab (Non-Reactive) EBV Capsid Ag IgG Intrp (Negative) EBV Capsid Ag IgM Intrp (Negative) Assessment and Plan (1) History of liver transplant Narrative/Plan: 47-year-old female with a history of diabetes mellitus, hypertension, cirrhosis of the liver status post liver transplant in 2021 on antirejection medications presented with nausea and vomiting, tachycardia, and hyperglycemia. She was noted to be in diabetic ketoacidosis on admission with sugars in the 400s. She is insulin-dependent diabetic, denies any previous history of uncontrolled diabetes mellitus. She follows with Dr. Garcia [facility] for her liver transplant. She recently was seen about 2 weeks ago. States there was no changes in her medications other than the discontinued her Zofran which she states doesn't help for her nausea anyway. Patient states that she has chronic nausea however over the last couple days duration she has been having intractable nausea with vomiting. Nausea vomiting likely related to diabetic ketoacidosis also need to consider gastroparesis in the setting of diabetes mellitus. Will add scopolamine patch for nausea and vomiting. Otherwise no further workup from gastroenterology. Patient will need to follow-up with her liver specialist on discharge. Recommend strict glycemic control. Current Visit: Yes Status: Acute Code(s): Z94.4 - LIVER TRANSPLANT STATUS SNOMED Code(s): 971387758 (2) Nausea & vomiting Narrative/Plan: Treating symptomatically with antiemetics. CT abdomen and pelvis does show esophageal wall thickening correlate for esophagitis likely related to intractable nausea and vomiting. Some improvement with nausea and vomiting. CMV IgM positive, primary medical team called [facility] liver transplant team associated with patient and they are requesting a EGD with biopsy to be done here with no recommendation for transfer at this time. We'll plan for EGD with biopsy today. Current Visit: Yes Status: Acute Code(s): R11.2 - NAUSEA WITH VOMITING, UNSPECIFIED SNOMED Code(s): 14514501 (3) Diabetic ketoacidosis Current Visit: Yes Status: Acute Code(s): E11.10 - TYPE 2 DIABETES MELLITUS WITH KETOACIDOSIS WITHOUT COMA SNOMED Code(s): 594772032 (4) Tachycardia Current Visit: Yes Status: Acute Code(s): R00.0 - TACHYCARDIA, UNSPECIFIED SNOMED Code(s): 7045424 (5) CMV (cytomegalovirus infection) Current Visit: Yes Status: Acute Code(s): B25.9 - CYTOMEGALOVIRAL DISEASE, UNSPECIFIED SNOMED Code(s): 26785406 Plan: 1. Continue symptomatic and supportive care 2. Make nothing by mouth 3. Continue antiemetics as needed 4. Continue antirejection medications 5. We'll plan for EGD with biopsies today, further recommendations forthcoming 6. Continue Protonix 40 mg twice a day 7. Recommend patient follow-up after discharge with her manager office services with [facility] Thank you for allowing us to participate in the care of the patient, the GI service will sign off, gastroenterology will not be available at the hospital this weekend and through next week. If further evaluation by gastroenterology is required the patient will need transfer as per the primary team's discretion. Dr. Dov Brunson I agree with the dictator's note, documented as a scribe by Li Toussaint.
--- NOTE | 2023-02-17 11:32 | P.PN ---
Subjective Patient is seen in follow-up for acute kidney injury on chronic kidney disease. Renal function stable. Still having vomiting. Scheduled for EGD today. Admits to good urine output. present at bedside. Vital signs are stable. General: No acute distress. HEENT: Head exam is unremarkable. LUNGS: No audible rhonchi or wheezes. HEART: Rate and Rhythm are regular. ABDOMEN: Nontender. EXTREMITITES: No edema. Objective - Vital Signs Vital signs: Vital Signs Temp 98.4 F 02/17/23 04:00 Pulse 104 H 02/17/23 08:00 Resp 18 02/17/23 08:00 BP 154/86 02/17/23 08:00 Pulse Ox 96 02/17/23 08:00 FiO2 Intake & Output 02/16/23 02/17/23 02/17/23 18:59 06:59 18:59 Output Total 100 Balance -100 Output: Emesis 100 Other: Voiding Method Toilet Toilet # Voids 2 1 - Labs CBC & Chem 7: 02/17/23 08:16 02/17/23 08:16 Labs: Abnormal Lab Results - Last 24 Hours (Table) 02/16/23 02/16/23 02/16/23 Range/Units 02:22 11:41 16:17 WBC (3.8-10.6) k/uL Plt Count (150-450) k/uL BUN (7-17) mg/dL Creatinine (0.52-1.04) mg/dL Glucose (74-99) mg/dL POC Glucose (mg/dL) 184 H 227 H 178 H (70-110) mg/dL AST (14-36) U/L ALT (4-34) U/L CMV IgG Ab (Non-Reactive) CMV IgM Ab (Non-Reactive) EBV Capsid Ag IgG Intrp (Negative) EBV Capsid Ag IgM Intrp (Negative) 02/16/23 02/16/23 02/16/23 Range/Units 17:39 17:39 20:47 WBC (3.8-10.6) k/uL Plt Count (150-450) k/uL BUN (7-17) mg/dL Creatinine (0.52-1.04) mg/dL Glucose (74-99) mg/dL POC Glucose (mg/dL) 116 H (70-110) mg/dL AST (14-36) U/L ALT (4-34) U/L CMV IgG Ab Reactive A (Non-Reactive) CMV IgM Ab Reactive A (Non-Reactive) EBV Capsid Ag IgG Intrp Positive A (Negative) EBV Capsid Ag IgM Intrp Positive A (Negative) 02/17/23 02/17/23 02/17/23 Range/Units 01:51 07:13 08:16 WBC (3.8-10.6) k/uL Plt Count (150-450) k/uL BUN 27 H (7-17) mg/dL Creatinine 1.21 H (0.52-1.04) mg/dL Glucose 180 H (74-99) mg/dL POC Glucose (mg/dL) 160 H 199 H (70-110) mg/dL AST 48 H (14-36) U/L ALT 41 H (4-34) U/L CMV IgG Ab (Non-Reactive) CMV IgM Ab (Non-Reactive) EBV Capsid Ag IgG Intrp (Negative) EBV Capsid Ag IgM Intrp (Negative) 02/17/23 Range/Units 08:16 WBC 12.9 H (3.8-10.6) k/uL Plt Count 127 L (150-450) k/uL BUN (7-17) mg/dL Creatinine (0.52-1.04) mg/dL Glucose (74-99) mg/dL POC Glucose (mg/dL) (70-110) mg/dL AST (14-36) U/L ALT (4-34) U/L CMV IgG Ab (Non-Reactive) CMV IgM Ab (Non-Reactive) EBV Capsid Ag IgG Intrp (Negative) EBV Capsid Ag IgM Intrp (Negative) Assessment and Plan Plan: Assessment: 1. Acute kidney injury secondary to vasomotor nephropathy secondary to hypovolemia from vomiting. Renal function improved. Creatinine stable at 1.21 today. UA with trace protein and no blood. 2. Chronic kidney disease stage IIIB. Baseline creatinine 1.4-1.6 secondary to diabetic kidney disease. 3. Hyperkalemia secondary to acute kidney injury, tacrolimus and hyperglycemia. Improved. 4. DKA. Improved. 5. Hypertension with chronic kidney disease. Exacerbated by vomiting. 6. History of liver transplant in July 2021 at [facility]. 7. Hypomagnesemia anemia from poor intake. Replaced. Slightly better. 8. Nausea and vomiting. Possibly diabetic gastroparesis versus viral esophagitis. 9. Positive CMV and EBV IgM and IgG antibody. Plan: Maintain IV fluids. Follow-up trough tacrolimus level. Avoid nephrotoxins. Increase dose of hydralazine. Viral load will be quantified. Per [facility] transplant team, maintain current immunosuppressive medications as she had episode of ejection recently. Goal tacrolimus level 8-10. ID consulted. Case discussed with primary team.
[2023-02-17 12:07] LABS: Glucose,Whole Blood 216 mg/dL (70-110)
[2023-02-17] MEDS: MAGNESIUM SULFATE-D5W PMX 1 GM in DEXTROSE/WATER 1 100ML.BAG IVPB SCH ×2 (13:27→13:28)
[2023-02-17] MEDS: PANTOPRAZOLE 40 MG/10 ML VIAL IVP SCH ×2 (13:27→20:47)
[2023-02-17] MEDS ORDERED: LIDOCAINE 1% INJ 10MG/ML (20 ML MDV) ONE (15:10)
[2023-02-17] MEDS ORDERED: PROPOFOL 10 MG/ML 20 ML VIAL IV ONE (15:10)
[2023-02-17] MEDS ORDERED: IV FLUID CONTINUATION 1,000 ML IV ONE (15:13)
--- NOTE | 2023-02-17 15:29 | P.PCN ---
Date of Procedure: 02/17/23 Procedure(s) Performed: BRIEF HISTORY: Patient is a 47-year-old, pleasant, white white female scheduled for an upper endoscopy as a part of evaluation of persistent nausea vomiting for the last 2 weeks' duration.. 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 She was noted to have positive CMV IgM antibody and the clinical setting of recent liver transplant she is scheduled for an upper endoscopy to rule out acute CMV infection PROCEDURE PERFORMED: Esophagogastroduodenoscopy with biopsy. PREOPERATIVE DIAGNOSIS: Forceps and nausea vomiting and epigastric pain of 2 weeks' duration. IV sedation per anesthesia. PROCEDURE: After informed consent was obtained, the patient was brought into the endoscopy unit. IV sedation was administered by Anesthesia under continuous monitoring. Initially the Olympus GIF-140 video endoscope was inserted into the mouth. Esophagus intubated without any difficulty. It was gradually advanced into the stomach and duodenum and carefully examined. The bulb and the second part of the duodenum appeared normal. Biopsies were done from the duodenum. The scope at this time was withdrawn to the stomach, adequately insufflated with air, and upon careful examination, mucosa of the antrum had several scattered erosions and biopsies were done from this area. Mucosa of the, body, cardia and the fundus appeared normal. The scope was then withdrawn into the esophagus. The GE junction was located at 39 cm from the incisors. There was a circumferential erythema of the distal esophagus with mucosal friability and exudates consistent with moderate esophagitis and biopsies were done to rule out CMV infection. The mid and esophagus appeared normal and the patient tolerated the procedure well. IMPRESSION: 1. Circumferential erythema and mucosal friability of the entire distal esophagus consistent with severe esophagitis status post biopsies to rule out CMV infection. 2. Antral erosive gastritis.. RECOMMENDATIONS: The findings of this examination were discussed with the patient . Follow with the biopsy results. Continue with Protonix 40 mg twice daily as well as antiemetics as needed. We'll advance diet as tolerated..
[2023-02-17] MEDS ORDERED: LACTATED RINGERS 1,000 ML IV ONE (15:32)
--- NOTE | 2023-02-17 16:16 | P.PN ---
Subjective Progress Note Date: 02/17/23 (delayed charting seen at 0830) Patient is a 47-year-old female status post liver transplant due to nonalcoholic fatty liver disease, insulin-dependent diabetes on insulin pump, hypertension, and neuropathy who presented to the hospital due to abdominal pain and altered mentation. On arrival to the ER her vital signs were remarkable for a blood pressure of 171/94 and a heart rate of 133. Laboratory analysis was remarkable for white blood cell count of 11.1, platelets 107, sodium 135, potassium 6.3, carbon dioxide 20, BUN 37, creatinine 1.66, glucose 421, magnesium 1.3, AST 63, ALT 62, and positive urine acetone. In the emergency department she was diagnosed with intractable nausea and vomiting with possible gastroparesis as well as hyperkalemia. Patient was treated with Zofran, hydration, and potassium binders. She was admitted for further monitoring. Her [facility] transplant team was contacted who recommended continued care at our facility. She was seen by gastroenterology who added scopolamine patch. She was seen by nephrology who did agree with tacrolimus testing but suggested trough level testing. Patient seen and examined at bedside. She continues to have some nausea and abdominal tenderness. She has not had any vomiting today. Vital signs reviewed General: nontoxic, no distress, appears at stated age Cardiovascular: S1S2 reg, no murmur, positive posterior tibial pulse bilateral, Lungs: CTA bilateral, no rhonchi, no rales , no accessory muscle use Abdominal: soft, tender to palpation epigastric, no guarding, no appreciable organomegaly Ext: no gross muscle atrophy, no edema b/l lower extremities, no contractures Neuro: CN II-XI grossly intact, no focal neuro deficits Psych: awake, appropraite affect Assessment/Plan: Intractable nausea and vomiting with abdominal pain Severe esophagitis, concerns for CMV Immunosuppression secondary to liver transplantation with antirejection meds CHIQUITA on CKD stage IIIB Toxic metabolic encephalopathy Transaminitis Pancytopenia -CMV IgG and IgM as well as EBV IgG and IgM are positive -Dr. Dr. Garcia contacted through [facility] he recommends direct visualization of the esophagus to rule out CMV esophagitis. Tacro levels ideally 6-10. He believes that she has had a recent episode of rejection and there for recommneds conitnue imurna, tacro, and prednisone at the same dose. He recommends CMV and EBV PCR levels. Alerted him that no GI available here starting today. He thanked me for calling, and did not suggest transfer to [facility] at this time. Patient and updated. Infectious diseaase consulted. [facility] [facility] contacted who has arranged for EGD this afternoon. Case discussed with nephrology as well. -Continue with Protonix 40 mg twice daily -Continue with prednisone 2 mg daily, Prograf 4 mg twice daily, and azathioprine 50 mg daily -Follow CBC and CMP daily, ammonia level ordered and was negative - phenergan 25 mg PO q 6 hours prn, tigan 100 mg IM daily prn nausea - case discussed with pathology will not have CMV biopsy back until - of next week, CMV PCR will take 1 week for results. DM2 with hyperglycemia and neuropathy -Hemoglobin A1c 6.9 -Follow blood sugars -Continue with insulin sliding scale, NovoLog 11 units with meals, and Levemir 30 units at 7 AM Hypertensive urgency - Coreg 3.125 mg daily -Follow blood pressures Hypomagnesemia -Magnesium sulfate 2 g IV piggyback, repeat magnesium level in a.m. DKA, resolved Hyperkalemia, resolved Imaging: None Data Review: Labs reviewed today include CBC, CMP which are remarkable for white blood cell count 12.9, platelets 127, BUN 27, creatinine 1.21, glucose 218, AST 48, ALT 41. Trough tacrolimus level IX.9 and within goal range DVT prophylaxis: Heparin Anticipated discharge date: Pending Clinical Course Anticipated discharge place: Pending Clinical Course This dictation was prepared using Get[employer] voice recognition software. Though every attempt is made to correct errors during dictation some may still exist. Objective - Vital Signs Vital signs: Vital Signs Temp 98.4 F 02/17/23 04:00 Pulse 106 H 02/17/23 12:00 Resp 18 02/17/23 12:00 BP 154/96 02/17/23 12:00 Pulse Ox 97 02/17/23 12:00 FiO2 Intake & Output 02/16/23 02/17/23 02/17/23 18:59 06:59 18:59 Output Total 100 Balance -100 Output: Emesis 100 Other: Voiding Method Toilet Toilet # Voids 2 1 - Labs CBC & Chem 7: 02/17/23 08:16 02/17/23 08:16 Labs: Abnormal Lab Results - Last 24 Hours (Table) 02/16/23 02/16/23 02/16/23 Range/Units 02:22 16:17 17:39 WBC (3.8-10.6) k/uL Plt Count (150-450) k/uL BUN (7-17) mg/dL Creatinine (0.52-1.04) mg/dL Glucose (74-99) mg/dL POC Glucose (mg/dL) 184 H 178 H (70-110) mg/dL AST (14-36) U/L ALT (4-34) U/L CMV IgG Ab Reactive A (Non-Reactive) CMV IgM Ab Reactive A (Non-Reactive) EBV Capsid Ag IgG Intrp (Negative) EBV Capsid Ag IgM Intrp (Negative) 02/16/23 02/16/23 02/17/23 Range/Units 17:39 20:47 01:51 WBC (3.8-10.6) k/uL Plt Count (150-450) k/uL BUN (7-17) mg/dL Creatinine (0.52-1.04) mg/dL Glucose (74-99) mg/dL POC Glucose (mg/dL) 116 H 160 H (70-110) mg/dL AST (14-36) U/L ALT (4-34) U/L CMV IgG Ab (Non-Reactive) CMV IgM Ab (Non-Reactive) EBV Capsid Ag IgG Intrp Positive A (Negative) EBV Capsid Ag IgM Intrp Positive A (Negative) 02/17/23 02/17/23 02/17/23 Range/Units 07:13 08:16 08:16 WBC 12.9 H (3.8-10.6) k/uL Plt Count 127 L (150-450) k/uL BUN 27 H (7-17) mg/dL Creatinine 1.21 H (0.52-1.04) mg/dL Glucose 180 H (74-99) mg/dL POC Glucose (mg/dL) 199 H (70-110) mg/dL AST 48 H (14-36) U/L ALT 41 H (4-34) U/L CMV IgG Ab (Non-Reactive) CMV IgM Ab (Non-Reactive) EBV Capsid Ag IgG Intrp (Negative) EBV Capsid Ag IgM Intrp (Negative) 02/17/23 Range/Units 12:05 WBC (3.8-10.6) k/uL Plt Count (150-450) k/uL BUN (7-17) mg/dL Creatinine (0.52-1.04) mg/dL Glucose (74-99) mg/dL POC Glucose (mg/dL) 216 H (70-110) mg/dL AST (14-36) U/L ALT (4-34) U/L CMV IgG Ab (Non-Reactive) CMV IgM Ab (Non-Reactive) EBV Capsid Ag IgG Intrp (Negative) EBV Capsid Ag IgM Intrp (Negative)
[2023-02-17 16:38] LABS: Glucose,Whole Blood 218 mg/dL (70-110)
[2023-02-17] MEDS: hydrALAZINE HCL 50 MG TAB PO SCH ×2 (17:14→20:47)
[2023-02-17 20:28] LABS: Glucose,Whole Blood 209 mg/dL (70-110)
[2023-02-17] MEDS: PROMETHAZINE 25 MG TAB PO PRN (20:55)
--- NOTE | 2023-02-17 21:00 | P.CONS ---
History of Present Illness - Reason for Consult Consult date: 02/17/23 Possible CMV infection Requesting physician: Diamond Acosta - Chief Complaint Intractable vomiting x few days - History of Present Illness Patient is a 47-year-old female who is status post liver transplant at [facility] [place] patient has been on immuno suppressive therapy and mention did not have any change in her immunosuppressive recently and she had tested positive for CMV at the time of transplant patient did have an episode of intractable nausea vomiting unable to keep anything down for the patient was seen in the ER on 02/04/2023 and the patient was given some symptomatic treatment and subsequently discharged home patient mention she felt better initially however 2 days before presentation to the hospital this time patient did have recurrence of her nausea and vomiting and the patient was unable to keep anything down for the patient presented to hospital patient denies any fever or any chills and no fever have recorded during this hospital stay patient did have some elevated white count of 11.1 on admission which is 12.9 today [facility] has been mildly elevated liver enzymes are mildly elevated urine has been negative patient did tested positive for CMV IgG and IgM and also did have a EBV antibodies positive with concern for possible CMV infection infectious disease was consulted for further management of antibiotic therapy patient did have a abdominal pelvis CT with no acute abnormality did show circumferential wall thickening lower esophagus correlate for esophagitis and the patient scheduled for EGD this afternoon Review of Systems Positive point and negatives has been mentioned in the HPI, complete review of systems was performed and all other systems are negative 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, neuropathy feet, cyst left ovary, ascities. Covid 07/16/20 History of Any Multi-Drug Resistant Organisms: None Reported Past Surgical History: Tubal Ligation Additional Past Surgical History / Comment(s): carpal tunnel - rt hand, esphogeal banding, Liver transplant July 2021 Past Anesthesia/Blood Transfusion Reactions: No Reported Reaction Past Psychological History: No Psychological Hx Reported Smoking Status: Never smoker Past Alcohol Use History: Rare Additional Past Alcohol Use History / Comment(s): quit 2012 Past Drug Use History: None Reported Medications and Allergies Home Medications Medication Instructions Recorded Confirmed Type Gabapentin [Neurontin] 600 mg PO DIRECTED 06/09/20 02/14/23 History Aspirin EC [Ecotrin Low Dose] 81 mg PO DAILY 11/05/21 02/13/23 History Glucagon [Baqsimi] 1 spray NASAL BID PRN 11/05/21 02/13/23 History INSULIN LISPRO (For Pump) [humaLOG 0.01 units SQ-PUMP CONTINUOUS 11/05/21 02/13/23 History (For Pump)] Tacrolimus [Prograf] 5 mg PO BID 11/05/21 02/13/23 History Acetaminophen Tab [Tylenol Tab] 1,000 mg PO Q6HR PRN 04/06/22 02/13/23 History Cholecalciferol [Vitamin D3 (25 50 mcg PO DAILY 04/06/22 02/13/23 History Mcg = 1000 Iu)] Sodium Zirconium Cyclosilicate 10 gm PO DAILY PRN 04/06/22 02/13/23 History [Lokelma] Albuterol Inhaler [Ventolin Hfa 1 - 2 puff INHALATION RT-Q6H PRN 02/13/23 02/13/23 History Inhaler] Eylea (Aflibercept) 2mg/0.05ml 2 mg IV Q60D 02/13/23 02/13/23 History Solution Famotidine [Pepcid] 40 mg PO DAILY 02/13/23 02/13/23 History Insulin NPH Human Isophane See Protocol SQ ACHS PRN 02/13/23 02/13/23 History [humuLIN N Kwikpen] Ketoconazole 2% Shampoo [Nizoral] 1 applic TOPICAL DAILY PRN 02/13/23 02/13/23 History Magnesium Chloride [Slow-Mag] 64 mg PO BID 02/13/23 02/13/23 History Sertraline [Zoloft] 100 mg PO DAILY 02/13/23 02/13/23 History Triamcinolone 0.1% Ointment 1 applic TOPICAL BID PRN 02/13/23 02/13/23 History [Kenalog 0.1% Ointment] azaTHIOprine [Imuran] 50 mg PO DAILY 02/13/23 02/13/23 History predniSONE 2 mg PO DAILY 02/13/23 02/13/23 History traMADol HCL 50 mg PO BID PRN 02/13/23 02/13/23 History Allergies Allergy/AdvReac Type Severity Reaction Status Date / Time No Known Allergies Allergy Verified 02/13/23 20:02 Physical Exam Vitals: Vital Signs Temp Pulse Resp BP Pulse Ox 02/17/23 08:00 104 H 18 154/86 96 02/17/23 04:00 98.4 F 104 H 18 166/99 96 02/17/23 02:00 104 H 18 02/17/23 00:00 98.5 F 103 H 18 152/88 94 L 02/16/23 20:00 98.4 F 100 18 105/69 96 02/16/23 16:00 96.3 F L 114 H 16 179/92 94 L 02/16/23 12:00 98.5 F 111 H 16 157/91 96 Intake and Output 02/16/23 02/17/23 02/17/23 22:59 06:59 14:59 Output Total 100 Balance -100 Output: Emesis 100 Other: Voiding Method Toilet Toilet # Voids 1 1 GENERAL DESCRIPTION: Middle-aged female lying in bed, no distress. No tachypnea or accessory muscle of respiration use. HEENT: Shows Pallor , no scleral icterus. Oral mucous membrane is dry. No pharyngeal erythema or thrush NECK: Trachea central, no thyromegaly. LUNGS: Unlabored breathing. Clear to auscultation anteriorly. No wheeze or crackle. HEART: S1, S2, regular rate and rhythm. No loud murmur ABDOMEN: Soft, no tenderness EXTREMITIES: No edema of feet. SKIN: No rash, no masses palpable. NEUROLOGICAL: The patient is awake, alert, oriented x3, mood and affect normal. Results CBC & Chem 7: 02/17/23 08:16 02/17/23 08:16 Labs: Abnormal Lab Results - Last 24 Hours (Table) 02/16/23 02/16/23 02/16/23 Range/Units 02:22 11:41 16:17 WBC (3.8-10.6) k/uL Plt Count (150-450) k/uL BUN (7-17) mg/dL Creatinine (0.52-1.04) mg/dL Glucose (74-99) mg/dL POC Glucose (mg/dL) 184 H 227 H 178 H (70-110) mg/dL AST (14-36) U/L ALT (4-34) U/L CMV IgG Ab (Non-Reactive) CMV IgM Ab (Non-Reactive) EBV Capsid Ag IgG Intrp (Negative) EBV Capsid Ag IgM Intrp (Negative) 02/16/23 02/16/23 02/16/23 Range/Units 17:39 17:39 20:47 WBC (3.8-10.6) k/uL Plt Count (150-450) k/uL BUN (7-17) mg/dL Creatinine (0.52-1.04) mg/dL Glucose (74-99) mg/dL POC Glucose (mg/dL) 116 H (70-110) mg/dL AST (14-36) U/L ALT (4-34) U/L CMV IgG Ab Reactive A (Non-Reactive) CMV IgM Ab Reactive A (Non-Reactive) EBV Capsid Ag IgG Intrp Positive A (Negative) EBV Capsid Ag IgM Intrp Positive A (Negative) 02/17/23 02/17/23 02/17/23 Range/Units 01:51 07:13 08:16 WBC (3.8-10.6) k/uL Plt Count (150-450) k/uL BUN 27 H (7-17) mg/dL Creatinine 1.21 H (0.52-1.04) mg/dL Glucose 180 H (74-99) mg/dL POC Glucose (mg/dL) 160 H 199 H (70-110) mg/dL AST 48 H (14-36) U/L ALT 41 H (4-34) U/L CMV IgG Ab (Non-Reactive) CMV IgM Ab (Non-Reactive) EBV Capsid Ag IgG Intrp (Negative) EBV Capsid Ag IgM Intrp (Negative) 02/17/23 Range/Units 08:16 WBC 12.9 H (3.8-10.6) k/uL Plt Count 127 L (150-450) k/uL BUN (7-17) mg/dL Creatinine (0.52-1.04) mg/dL Glucose (74-99) mg/dL POC Glucose (mg/dL) (70-110) mg/dL AST (14-36) U/L ALT (4-34) U/L CMV IgG Ab (Non-Reactive) CMV IgM Ab (Non-Reactive) EBV Capsid Ag IgG Intrp (Negative) EBV Capsid Ag IgM Intrp (Negative) Assessment and Plan (1) Positive cytomegalovirus IgG serology Current Visit: Yes Status: Acute Code(s): R76.8 - OTHER SPECIFIED ABNORMAL IMMUNOLOGICAL FINDINGS IN SERUM SNOMED Code(s): 689464022 Plan: 1patient presented to hospital with intractable nausea and vomiting in this patient who did have a history of liver transplant on immunosuppressive medication patient was positive for CMV at the time of surgery, her symptoms are highly suggestive of possible severe reflux esophagitis clinically suspicious low for CMV esophagitis but not entirely excluded 2-we will wait for EGD and biopsy to confirm the diagnosis before recommending any specific treatment for CMV 3-we will check inflammatory markers Multiple questions concern answered in layman term We will follow on clinical condition and cultures to further adjust medication if needed Thank you for this consultation we will follow the patient along with you Dictation was produced using [employer] dictation software. please excuse any grammatical, word or spelling errors. Time with Patient: Greater than 30
[2023-02-18] MEDS: hydrALAZINE HCL 20 MG/ML 1 ML VIAL IVP PRN (00:03)
[2023-02-18] MEDS: METOCLOPRAMIDE 5 MG/ML 2 ML VIAL IVP SCH ×4 (00:05→18:40)
[2023-02-18] MEDS: HEPARIN SODIUM,PORCINE 5,000 UNIT/ML 1 ML VIAL SQ SCH ×3 (00:08→17:21)
[2023-02-18] MEDS: SODIUM CHLORIDE 0.9% 1,000 ML IV SCH ×2 (00:08→17:22)
[2023-02-18] MEDS: GABAPENTIN 300 MG CAP PO SCH ×4 (00:16→23:16)
[2023-02-18 03:24] LABS: Glucose,Whole Blood 179 mg/dL (70-110)
[2023-02-18] MEDS: INSULIN ASPART (NovoLOG) 100 UNIT/ML VIAL SQ SCH ×8 (03:28→20:29)
[2023-02-18] MEDS: carvediloL 3.125 MG TAB PO SCH ×2 (06:28→16:22)
[2023-02-18] MEDS: ONDANSETRON 4 MG/2 ML VIAL IVP PRN ×2 (06:41→20:32)
[2023-02-18 07:20] LABS: Glucose,Whole Blood 191 mg/dL (70-110)
[2023-02-18 09:17] LABS: Glucose,Whole Blood 195 mg/dL (70-110)
[2023-02-18 09:23] LABS: HGB 11.9 gm/dL (11.4-16.0); MCH 30.7 pg (25.0-35.0); MCHC 34.2 g/dL (31.0-37.0); MCV 89.8 fL (80.0-100.0); Mean Platelet Volume 8.1; Poikilocytosis Slight; RDW 15.5 % (11.5-15.5); WBC 7.2 k/uL (3.8-10.6)
[2023-02-18] MEDS: PROMETHAZINE 25 MG TAB PO PRN ×2 (09:34→16:27)
[2023-02-18 09:40] LABS: Blood Urea Nitrogen 28 mg/dL (7-17)
[2023-02-18 09:42] LABS: ALT 34 U/L (4-34); AST 40 U/L (14-36); African American GFR (CKD) 70 (>60 ml/min/1.73 sqM); Albumin 3.3 g/dL (3.5-5.0); Alkaline Phosphatase 95 U/L (38-126); Anion Gap 10 mmol/L; C Reactive Protein 4.7 mg/dL (<1.0); Calcium 8.4 mg/dL (8.4-10.2); Carbon Dioxide 19 mmol/L (22-30); Chloride 103 mmol/L (98-107); Glucose 205 mg/dL (74-99); Non-African American GFR(CKD) 61 (>60 ml/min/1.73 sqM); Sodium 132 mmol/L (137-145); Total Bilirubin 0.8 mg/dL (0.2-1.3); Total Protein 6.4 g/dL (6.3-8.2)
[2023-02-18] MEDS: INSULIN DETEMIR (LEVEMIR) 100 UNIT/ML SYR SQ SCH ×2 (10:09→10:19)
[2023-02-18 10:12] LABS: Platelet Count 89 k/uL (150-450)
[2023-02-18] MEDS: PANTOPRAZOLE 40 MG/10 ML VIAL IVP SCH ×2 (10:16→20:31)
[2023-02-18] MEDS: SERTRALINE 100 MG TAB PO SCH (10:23)
[2023-02-18] MEDS: FAMOTIDINE 20 MG TAB PO SCH (10:24)
[2023-02-18] MEDS: ASPIRIN 81 MG PO SCH (10:24)
[2023-02-18] MEDS: hydrALAZINE HCL 50 MG TAB PO SCH ×3 (10:24→20:33)
[2023-02-18] MEDS: TACROLIMUS 1 MG CAP PO SCH ×2 (10:25→20:31)
[2023-02-18] MEDS: predniSONE 1 MG TAB PO SCH (10:26)
[2023-02-18] MEDS: azaTHIOprine 50 MG TAB PO SCH (10:26)
[2023-02-18] MEDS: SCOPOLAMINE 1 MG/72 HR PATCH TRANSDERM SCH (10:28)
--- NOTE | 2023-02-18 11:38 | P.PN ---
Subjective Progress Note Date: 02/18/23 Principal diagnosis: Reason for follow-up is intractable vomiting esophagitis and a question of CMV Patient is a 47-year-old female who is status post liver transplant at [facility] , patient has been on immuno suppressive therapy, patient presented to hospital with intractable vomiting he did have evidence of severe esophagitis did have positive CMV serology status post endoscopy and biopsy completed on 02/17/2023 On today's evaluation that is 02/18/2023, the patient remains to be afebrile, the patient is breathing comfortably on room air, the patient denies shortness of breath, chest pain and no cough , patient denies abdominal pain, patient did have improvement in her nausea no further vomiting has been reported Patient did have white, 7.2, creatinine 1.08 CRP is 4.7, CMV PCR is pending as well as biopsy report Objective - Vital Signs Vital signs: Vital Signs Temp 97.8 F 02/18/23 09:30 Pulse 103 H 02/18/23 09:30 Resp 16 02/18/23 09:30 BP 172/96 02/18/23 09:30 Pulse Ox 98 02/18/23 09:30 FiO2 Intake & Output 02/17/23 02/18/23 02/18/23 18:59 06:59 18:59 Intake Total 630 Balance 630 Intake: Oral 630 Other: Voiding Method Toilet Toilet # Voids 2 # Bowel Movements 1 - Exam GENERAL DESCRIPTION: A middle-age female lying in bed in no distress RESPIRATORY SYSTEM: Unlabored breathing , clear to auscultation anteriorly HEART: S1 S2 regular rate and rhythm , ABDOMEN: Soft , no tenderness EXTREMITIES: No edema feet - Labs CBC & Chem 7: 02/18/23 08:14 02/18/23 08:14 Labs: Abnormal Lab Results - Last 24 Hours (Table) 02/17/23 02/17/23 02/17/23 Range/Units 12:05 16:27 20:26 Plt Count (150-450) k/uL Sodium (137-145) mmol/L Carbon Dioxide (22-30) mmol/L BUN (7-17) mg/dL Creatinine (0.52-1.04) mg/dL Glucose (74-99) mg/dL POC Glucose (mg/dL) 216 H 218 H 209 H (70-110) mg/dL AST (14-36) U/L C-Reactive Protein (<1.0) mg/dL Albumin (3.5-5.0) g/dL 02/18/23 02/18/23 02/18/23 Range/Units 03:23 07:19 08:14 Plt Count 89 L (150-450) k/uL Sodium (137-145) mmol/L Carbon Dioxide (22-30) mmol/L BUN (7-17) mg/dL Creatinine (0.52-1.04) mg/dL Glucose (74-99) mg/dL POC Glucose (mg/dL) 179 H 191 H (70-110) mg/dL AST (14-36) U/L C-Reactive Protein (<1.0) mg/dL Albumin (3.5-5.0) g/dL 02/18/23 02/18/23 Range/Units 08:14 09:15 Plt Count (150-450) k/uL Sodium 132 L (137-145) mmol/L Carbon Dioxide 19 L (22-30) mmol/L BUN 28 H (7-17) mg/dL Creatinine 1.08 H (0.52-1.04) mg/dL Glucose 205 H (74-99) mg/dL POC Glucose (mg/dL) 195 H (70-110) mg/dL AST 40 H (14-36) U/L C-Reactive Protein 4.7 H (<1.0) mg/dL Albumin 3.3 L (3.5-5.0) g/dL Assessment and Plan (1) Positive cytomegalovirus IgG serology Current Visit: Yes Status: Acute Code(s): R76.8 - OTHER SPECIFIED ABNORMAL IMMUNOLOGICAL FINDINGS IN SERUM SNOMED Code(s): 672428265 Plan: 1patient presented to hospital with intractable nausea and vomiting in this patient who did have a history of liver transplant on immunosuppressive medication patient was positive for CMV at the time of surgery, her symptoms are highly suggestive of possible severe reflux esophagitis clinically suspicious low for CMV esophagitis but not entirely excluded 2-patient is status post EGD and biopsy, CMV PCR is currently pending 3-we will wait for biopsy and CMV PCR before recommending any treatment this was discussed with the admitting physician at the bedside Multiple questions concern answered in layman term Dictation was produced using [employer]oves[employer] software. please excuse any grammatical, word or spelling errors. Time with Patient: Greater than 30
[2023-02-18 11:53] LABS: Glucose,Whole Blood 221 mg/dL (70-110)
--- NOTE | 2023-02-18 14:45 | P.PN ---
Subjective Progress Note Date: 02/18/23 Follow-up for acute on chronic kidney disease. Renal function stable. Denies any nausea vomiting diarrhea. Objective - Vital Signs Vital signs: Vital Signs Temp 97.8 F 02/18/23 09:30 Pulse 108 H 02/18/23 11:35 Resp 16 02/18/23 14:15 BP 166/97 02/18/23 11:35 Pulse Ox 97 02/18/23 11:35 FiO2 Intake & Output 02/17/23 02/18/23 02/18/23 18:59 06:59 18:59 Intake Total 630 Balance 630 Intake: Oral 630 Other: Voiding Method Toilet Toilet # Voids 2 # Bowel Movements 1 - Exam No acute distress. S1-S2 heard Lungs clear No edema - Labs CBC & Chem 7: 02/18/23 08:14 02/18/23 08:14 Labs: Abnormal Lab Results - Last 24 Hours (Table) 02/17/23 02/17/23 02/18/23 Range/Units 16:27 20:26 03:23 Plt Count (150-450) k/uL Sodium (137-145) mmol/L Carbon Dioxide (22-30) mmol/L BUN (7-17) mg/dL Creatinine (0.52-1.04) mg/dL Glucose (74-99) mg/dL POC Glucose (mg/dL) 218 H 209 H 179 H (70-110) mg/dL AST (14-36) U/L C-Reactive Protein (<1.0) mg/dL Albumin (3.5-5.0) g/dL 02/18/23 02/18/23 02/18/23 Range/Units 07:19 08:14 08:14 Plt Count 89 L (150-450) k/uL Sodium 132 L (137-145) mmol/L Carbon Dioxide 19 L (22-30) mmol/L BUN 28 H (7-17) mg/dL Creatinine 1.08 H (0.52-1.04) mg/dL Glucose 205 H (74-99) mg/dL POC Glucose (mg/dL) 191 H (70-110) mg/dL AST 40 H (14-36) U/L C-Reactive Protein 4.7 H (<1.0) mg/dL Albumin 3.3 L (3.5-5.0) g/dL 02/18/23 02/18/23 Range/Units 09:15 11:52 Plt Count (150-450) k/uL Sodium (137-145) mmol/L Carbon Dioxide (22-30) mmol/L BUN (7-17) mg/dL Creatinine (0.52-1.04) mg/dL Glucose (74-99) mg/dL POC Glucose (mg/dL) 195 H 221 H (70-110) mg/dL AST (14-36) U/L C-Reactive Protein (<1.0) mg/dL Albumin (3.5-5.0) g/dL Assessment and Plan Assessment: #1 acute kidney injury secondary to prerenal process. #2 status post liver transplant'July 2021 at [facility] #3 chronic kidney disease stage IIIB baseline creatinine of 1.4-1.6 secondary to diabetic kidney disease/chronic tacrolimus nephropathy #4 CMV positive Plan: #1 renal function stable. #2 Prograf level IX.5. Goal tacrolimus 8-10. #3 continue with Prograf 4 mg twice a day. #4 supportive care
--- NOTE | 2023-02-18 15:36 | P.PN ---
Subjective Progress Note Date: 02/18/23 (delayed charting seen at 0930) Patient is a 47-year-old female status post liver transplant due to nonalcoholic fatty liver disease, insulin-dependent diabetes on insulin pump, hypertension, and neuropathy who presented to the hospital due to abdominal pain and altered mentation. On arrival to the ER her vital signs were remarkable for a blood pressure of 171/94 and a heart rate of 133. Laboratory analysis was remarkable for white blood cell count of 11.1, platelets 107, sodium 135, potassium 6.3, carbon dioxide 20, BUN 37, creatinine 1.66, glucose 421, magnesium 1.3, AST 63, ALT 62, and positive urine acetone. In the emergency department she was diagnosed with intractable nausea and vomiting with possible gastroparesis as well as hyperkalemia. Patient was treated with Zofran, hydration, and potassium binders. She was admitted for further monitoring. Her [facility] transplant team was contacted who recommended continued care at our facility. She was seen by gastroenterology who added scopolamine patch. She was seen by nephrology who did agree with tacrolimus testing but suggested trough level testing. She continued to struggle with nausea and vomiting. Her blood sugars were improving. She subsequently underwent CMV and EBV testing which showed possible acute infection. [facility] liver transplant team was again contacted who recommended direct visualization with EGD and biopsy, this was completed on 02/17/23, hey also suggested CMV PCR. Patient seen and examined at bedside With and child present. Sure nausea is getting somewhat better. She is asking to eat. She has no complaints of chest pain. We discussed current plan of care and that her results will likely not be back until Monday. Her and her are aware. All questions answered. Vital signs reviewed General: nontoxic, no distress, appears at stated age Cardiovascular: S1S2 reg, no murmur, positive posterior tibial pulse bilateral, Lungs: CTA bilateral, no rhonchi, no rales , no accessory muscle use Abdominal: soft, tender to palpation epigastric, no guarding, no appreciable organomegaly Ext: no gross muscle atrophy, no edema b/l lower extremities, no contractures Neuro: CN II-XI grossly intact, no focal neuro deficits Psych: awake, appropriate affect Assessment/Plan: Intractable nausea and vomiting with abdominal pain Severe esophagitis, concerns for CMV Immunosuppression secondary to liver transplantation with antirejection meds CHIQUITA on CKD stage IIIB Toxic metabolic encephalopathy Transaminitis Pancytopenia -CMV IgG and IgM as well as EBV IgG and IgM are positive -Case discussed with Dr. Richardson. We will continue to await biopsy results and CMV PCR - await biopsy results from EGD preformed on 02/17. -Continue with Protonix 40 mg IV twice daily -Continue with prednisone 2 mg daily, Prograf 4 mg twice daily, and azathioprine 50 mg daily -Follow CBC and CMP daily, ammonia level ordered and was negative - phenergan 25 mg PO q 6 hours prn, tigan 100 mg IM daily prn nausea - anticipate CMV biopsy back - of next week, CMV PCR will take 1 week for results. - Tacro level 9.9, goal 8-10 per [facility] (Dr. Garcia. [phone]) DM2 with hyperglycemia and neuropathy -Hemoglobin A1c 6.9 -Follow blood sugars -Continue with insulin sliding scale, NovoLog 11 units with meals, and Levemir 30 units at 7 AM Hypertensive urgency - Coreg 3.125 mg BID, Hydralazine 50 mg TID -Follow blood pressures Hypomagnesemia DKA, resolved Hyperkalemia, resolved Imaging: None Data Review: Labs reviewed from today include CBC and basic metabolic profile which are remarkable for white blood cell count 7.2, platelets 89, sodium 132, carbon dioxide 19, BUN 28, creatinine 1.08, blood sugar 205 DVT prophylaxis: Heparin Anticipated discharge date: Pending Clinical Course Anticipated discharge place: Pending Clinical Course This dictation was prepared using Nginx voice recognition software. o [facility] every attempt is made to correct errors during dictation some may still exist. Objective - Vital Signs Vital signs: Vital Signs Temp 97.8 F 02/18/23 09:30 Pulse 108 H 02/18/23 11:35 Resp 16 02/18/23 14:15 BP 166/97 02/18/23 11:35 Pulse Ox 97 02/18/23 11:35 FiO2 Intake & Output 02/17/23 02/18/23 02/18/23 18:59 06:59 18:59 Intake Total 630 Balance 630 Intake: Oral 630 Other: Voiding Method Toilet Toilet # Voids 2 # Bowel Movements 1 - Labs CBC & Chem 7: 02/18/23 08:14 11/18/23 08:14 Labs: Abnormal Lab Results - Last 24 Hours (Table) 02/17/23 02/17/23 02/18/23 Range/Units 16:27 20:26 03:23 Plt Count (150-450) k/uL Sodium (137-145) mmol/L Carbon Dioxide (22-30) mmol/L BUN (7-17) mg/dL Creatinine (0.52-1.04) mg/dL Glucose (74-99) mg/dL POC Glucose (mg/dL) 218 H 209 H 179 H (70-110) mg/dL AST (14-36) U/L C-Reactive Protein (<1.0) mg/dL Albumin (3.5-5.0) g/dL 02/18/23 02/18/23 02/18/23 Range/Units 07:19 08:14 08:14 Plt Count 89 L (150-450) k/uL Sodium 132 L (137-145) mmol/L Carbon Dioxide 19 L (22-30) mmol/L BUN 28 H (7-17) mg/dL Creatinine 1.08 H (0.52-1.04) mg/dL Glucose 205 H (74-99) mg/dL POC Glucose (mg/dL) 191 H (70-110) mg/dL AST 40 H (14-36) U/L C-Reactive Protein 4.7 H (<1.0) mg/dL Albumin 3.3 L (3.5-5.0) g/dL 02/18/23 02/18/23 Range/Units 09:15 11:52 Plt Count (150-450) k/uL Sodium (137-145) mmol/L Carbon Dioxide (22-30) mmol/L BUN (7-17) mg/dL Creatinine (0.52-1.04) mg/dL Glucose (74-99) mg/dL POC Glucose (mg/dL) 195 H 221 H (70-110) mg/dL AST (14-36) U/L C-Reactive Protein (<1.0) mg/dL Albumin (3.5-5.0) g/dL
[2023-02-18 16:08] LABS: Glucose,Whole Blood 145 mg/dL (70-110)
[2023-02-18] MEDS: ACETAMINOPHEN TAB 325 MG TAB PO PRN (16:22)
[2023-02-18 17:06] LABS: Glucose,Whole Blood 117 mg/dL (70-110)
[2023-02-18 17:53] LABS: Glucose,Whole Blood 151 mg/dL (70-110)
[2023-02-18 20:23] LABS: Glucose,Whole Blood 134 mg/dL (70-110)
[2023-02-19] MEDS: hydrALAZINE HCL 20 MG/ML 1 ML VIAL IVP PRN (00:02)
[2023-02-19 02:54] LABS: Glucose,Whole Blood 158 mg/dL (70-110)
[2023-02-19] MEDS: ACETAMINOPHEN TAB 325 MG TAB PO PRN ×2 (02:55→09:16)
[2023-02-19] MEDS: PROMETHAZINE 25 MG TAB PO PRN ×3 (02:57→16:59)
[2023-02-19] MEDS: INSULIN DETEMIR (LEVEMIR) 100 UNIT/ML SYR SQ SCH (06:23)
[2023-02-19] MEDS: METOCLOPRAMIDE 5 MG/ML 2 ML VIAL IVP SCH ×4 (06:23→17:54)
[2023-02-19] MEDS: carvediloL 3.125 MG TAB PO SCH ×2 (06:23→16:59)
[2023-02-19] MEDS: SODIUM CHLORIDE 0.9% 1,000 ML IV SCH ×2 (06:24→17:54)
[2023-02-19 07:01] LABS: Glucose,Whole Blood 170 mg/dL (70-110)
[2023-02-19 08:23] LABS: African American GFR (CKD) 70 (>60 ml/min/1.73 sqM); Anion Gap 7 mmol/L; Blood Urea Nitrogen 22 mg/dL (7-17); Calcium 8.5 mg/dL (8.4-10.2); Carbon Dioxide 22 mmol/L (22-30); Chloride 106 mmol/L (98-107); Glucose 151 mg/dL (74-99); Magnesium 1.3 mg/dL (1.6-2.3); Non-African American GFR(CKD) 61 (>60 ml/min/1.73 sqM); Phosphorus 3.4 mg/dL (2.5-4.5); Potassium 3.9 mmol/L (3.5-5.1); Sodium 135 mmol/L (137-145)
[2023-02-19 08:28] LABS: HGB 11.7 gm/dL (11.4-16.0); MCHC 35.5 g/dL (31.0-37.0); MCV 87.4 fL (80.0-100.0); Mean Platelet Volume 8.8; Platelet Count 108 k/uL (150-450); Poikilocytosis Slight; RBC 3.77 m/uL (3.80-5.40); RDW 15.3 % (11.5-15.5); WBC 8.2 k/uL (3.8-10.6)
[2023-02-19] MEDS: ASPIRIN 81 MG PO SCH (09:15)
[2023-02-19] MEDS: INSULIN ASPART (NovoLOG) 100 UNIT/ML VIAL SQ SCH ×7 (09:15→21:16)
[2023-02-19] MEDS: GABAPENTIN 300 MG CAP PO SCH ×4 (09:15→21:16)
[2023-02-19 09:16] LABS: Glucose,Whole Blood 145 mg/dL (70-110)
[2023-02-19] MEDS: hydrALAZINE HCL 50 MG TAB PO SCH ×3 (09:16→21:14)
[2023-02-19] MEDS: FAMOTIDINE 20 MG TAB PO SCH ×2 (09:16→21:15)
[2023-02-19] MEDS: SERTRALINE 100 MG TAB PO SCH (09:16)
[2023-02-19] MEDS: HEPARIN SODIUM,PORCINE 5,000 UNIT/ML 1 ML VIAL SQ SCH ×3 (09:17→17:01)
[2023-02-19] MEDS: PANTOPRAZOLE 40 MG/10 ML VIAL IVP SCH ×2 (09:19→21:15)
[2023-02-19] MEDS: azaTHIOprine 50 MG TAB PO SCH (09:22)
[2023-02-19] MEDS: predniSONE 1 MG TAB PO SCH (09:22)
[2023-02-19] MEDS: TACROLIMUS 1 MG CAP PO SCH ×2 (09:23→21:16)
[2023-02-19] MEDS: MAGNESIUM SULFATE-D5W PMX 1 GM in DEXTROSE/WATER 1 100ML.BAG IVPB SCH ×4 (11:04→17:00)
[2023-02-19 11:46] LABS: Glucose,Whole Blood 174 mg/dL (70-110)
--- NOTE | 2023-02-19 12:07 | P.PN ---
Subjective Progress Note Date: 02/19/23 Principal diagnosis: Reason for follow-up is intractable vomiting esophagitis and a question of CMV Patient is a 47-year-old female who is status post liver transplant at [facility] , patient has been on immuno suppressive therapy, patient presented to hospital with intractable vomiting he did have evidence of severe esophagitis did have positive CMV serology status post endoscopy and biopsy completed on 02/17/2023 On today's evaluation that is 02/19/2023, the patient continues to be afebrile, the patient is breathing comfortably on room air and no need for supplemental oxygen, the patient denies chest pain shortness of breath or cough , patient has been complaining of some nausea but no further vomiting denies any abdominal pain and no diarrhea Patient white count is 8.2, creatinine 1.09 CRP is 4.7, CMV PCR is pending as well as biopsy report Objective - Vital Signs Vital signs: Vital Signs Temp 98.3 F 02/19/23 03:04 Pulse 106 H 02/19/23 03:05 Resp 16 02/19/23 03:05 BP 158/90 02/19/23 03:04 Pulse Ox 96 02/19/23 08:27 FiO2 Intake & Output 02/18/23 02/19/23 02/19/23 18:59 06:59 18:59 Intake Total 720 Balance 720 Intake: Oral 720 Other: Voiding Method Toilet Toilet # Voids 2 2 - Exam GENERAL DESCRIPTION: A middle-age female lying in bed in no distress RESPIRATORY SYSTEM: Unlabored breathing , clear to auscultation anteriorly HEART: S1 S2 regular rate and rhythm , ABDOMEN: Soft , no tenderness EXTREMITIES: No edema feet - Labs CBC & Chem 7: 02/19/23 06:47 02/19/23 06:47 Labs: Abnormal Lab Results - Last 24 Hours (Table) 02/18/23 02/18/23 02/18/23 Range/Units 11:52 16:06 17:05 RBC (3.80-5.40) m/uL Hct (34.0-46.0) % Plt Count (150-450) k/uL Sodium (137-145) mmol/L BUN (7-17) mg/dL Creatinine (0.52-1.04) mg/dL Glucose (74-99) mg/dL POC Glucose (mg/dL) 221 H 145 H 117 H (70-110) mg/dL Magnesium (1.6-2.3) mg/dL 02/18/23 02/18/23 02/19/23 Range/Units 17:50 20:21 02:52 RBC (3.80-5.40) m/uL Hct (34.0-46.0) % Plt Count (150-450) k/uL Sodium (137-145) mmol/L BUN (7-17) mg/dL Creatinine (0.52-1.04) mg/dL Glucose (74-99) mg/dL POC Glucose (mg/dL) 151 H 134 H 158 H (70-110) mg/dL Magnesium (1.6-2.3) mg/dL 02/19/23 02/19/23 02/19/23 Range/Units 06:47 06:47 06:58 RBC 3.77 L (3.80-5.40) m/uL Hct 33.0 L (34.0-46.0) % Plt Count 108 L (150-450) k/uL Sodium 135 L (137-145) mmol/L BUN 22 H (7-17) mg/dL Creatinine 1.09 H (0.52-1.04) mg/dL Glucose 151 H (74-99) mg/dL POC Glucose (mg/dL) 170 H (70-110) mg/dL Magnesium 1.3 L (1.6-2.3) mg/dL 02/19/23 Range/Units 09:14 RBC (3.80-5.40) m/uL Hct (34.0-46.0) % Plt Count (150-450) k/uL Sodium (137-145) mmol/L BUN (7-17) mg/dL Creatinine (0.52-1.04) mg/dL Glucose (74-99) mg/dL POC Glucose (mg/dL) 145 H (70-110) mg/dL Magnesium (1.6-2.3) mg/dL Assessment and Plan (1) Positive cytomegalovirus IgG serology Current Visit: Yes Status: Acute Code(s): R76.8 - OTHER SPECIFIED ABNORMAL IMMUNOLOGICAL FINDINGS IN SERUM SNOMED Code(s): 093976780 Plan: 1patient presented to hospital with intractable nausea and vomiting in this patient who did have a history of liver transplant on immunosuppressive medicati on patient was positive for CMV at the time of surgery, her symptoms are highly suggestive of possible severe reflux esophagitis clinically suspicious low for CMV esophagitis but not entirely excluded 2-patient is status post EGD and biopsy, CMV PCR is currently pending 3-we're currently waiting for biopsy and CMV PCR , continue the Pepcid, Reglan and Protonix at the bedside Multiple questions concern answered in layman term Dictation was produced using [employer] dictation software. please excuse any grammatical, word or spelling errors. Time with Patient: Less than 30
--- NOTE | 2023-02-19 13:45 | P.PN ---
Subjective Progress Note Date: 02/19/23 (delayed charing seen at approx 10 am) Patient is a 47-year-old female status post liver transplant due to nonalcoholic fatty liver disease, insulin-dependent diabetes on insulin pump, hypertension, and neuropathy who presented to the hospital due to abdominal pain and altered mentation. On arrival to the ER her vital signs were remarkable for a blood pressure of 171/94 and a heart rate of 133. Laboratory analysis was remarkable for white blood cell count of 11.1, platelets 107, sodium 135, potassium 6.3, carbon dioxide 20, BUN 37, creatinine 1.66, glucose 421, magnesium 1.3, AST 63, ALT 62, and positive urine acetone. In the emergency department she was diagnosed with intractable nausea and vomiting with possible gastroparesis as well as hyperkalemia. Patient was treated with Zofran, hydration, and potassium binders. She was admitted for further monitoring. Her [facility] transplant team was contacted who recommended continued care at our facility. She was seen by gastroenterology who added scopolamine patch. She was seen by nephrology who did agree with tacrolimus testing but suggested trough level testing. She continued to struggle with nausea and vomiting. Her blood sugars were improving. She subsequently underwent CMV and EBV testing which showed possible acute infection. [facility] liver transplant team was again contacted who recommended direct visualization with EGD and biopsy, this was completed on 02/17/23, hey also suggested CMV PCR. Patient seen and examined at bedside with present. She was able to take in a little bit of chicken and rice yesterday. She is feeling slightly nauseated this morning. She is feeling frustrated that her pain continues. Vital signs reviewed General: nontoxic, no distress, appears at stated age Cardiovascular: S1S2 reg, no murmur, positive posterior tibial pulse bilateral, Lungs: CTA bilateral, no rhonchi, no rales , no accessory muscle use Abdominal: soft, tender to palpation epigastric, no guarding, no appreciable organomegaly Ext: no gross muscle atrophy, no edema b/l lower extremities, no contractures Neuro: CN II-XI grossly intact, no focal neuro deficits Psych: awake, appropriate affect Assessment/Plan: Intractable nausea and vomiting with abdominal pain Severe esophagitis, concerns for CMV Immunosuppression secondary to liver transplantation with antirejection meds CHIQUITA on CKD stage IIIB Toxic metabolic encephalopathy Transaminitis Pancytopenia -CMV IgG and IgM as well as EBV IgG and IgM are positive -Infectious disease note reviewed: Continue with conservative care, await CMV PCR and EGD biopsy results - await biopsy results from EGD preformed on 02/17. -Continue with Protonix 40 mg IV twice daily, increase pepcid to 40 mg BID -Continue with prednisone 2 mg daily, Prograf 4 mg twice daily, and azathioprine 50 mg daily -Follow CBC and CMP daily - phenergan 25 mg PO q 6 hours prn, tigan 100 mg IM daily prn nausea - anticipate CMV biopsy back - of next week, CMV PCR will take 1 week for results. 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 Garcia.[phone]: recommended awaiting biopsy results, goal tacro level 6-10, hx of recent rejection episode. Hypomagnesemia -4 g today and repeat in a.m. DM2 with hyperglycemia and neuropathy -Hemoglobin A1c 6.9 -Follow blood sugars -Continue with insulin sliding scale, NovoLog 8 units with meals, and Levemir 28 units at 7 AM Hypertensive urgency - Coreg 3.125 mg BID, Hydralazine 50 mg TID -Follow blood pressures Hypomagnesemia DKA, resolved Hyperkalemia, resolved Imaging: None Data Review: Labs reviewed from today include CBC, basic metabolic profile, and magnesium which are remarkable for platelets of 108, sodium 135, BUN 22, creatinine 1.09, magnesium 1.3 DVT prophylaxis: Heparin Anticipated discharge date: Pending Clinical Course Anticipated discharge place: Pending Clinical Course This dictation was prepared using [employer] voice recognition software. Though every attempt is made to correct errors during dictation some may still exist. Objective - Vital Signs Vital signs: Vital Signs Temp 98.3 F 02/19/23 03:04 Pulse 106 H 02/19/23 03:05 Resp 16 02/19/23 03:05 BP 158/90 02/19/23 03:04 Pulse Ox 96 02/19/23 08:27 FiO2 Intake & Output 02/18/23 02/19/23 02/19/23 18:59 06:59 18:59 Intake Total 720 Balance 720 Intake: Oral 720 Other: Voiding Method Toilet Toilet # Voids 2 2 - Labs CBC & Chem 7: 02/19/23 06:47 02/19/23 06:47 Labs: Abnormal Lab Results - Last 24 Hours (Table) 02/18/23 02/18/23 02/18/23 Range/Units 16:06 17:05 17:50 RBC (3.80-5.40) m/uL Hct (34.0-46.0) % Plt Count (150-450) k/uL Sodium (137-145) mmol/L BUN (7-17) mg/dL Creatinine (0.52-1.04) mg/dL Glucose (74-99) mg/dL POC Glucose (mg/dL) 145 H 117 H 151 H (70-110) mg/dL Magnesium (1.6-2.3) mg/dL 02/18/23 02/19/23 02/19/23 Range/Units 20:21 02:52 06:47 RBC 3.77 L (3.80-5.40) m/uL Hct 33.0 L (34.0-46.0) % Plt Count 108 L (150-450) k/uL Sodium (137-145) mmol/L BUN (7-17) mg/dL Creatinine (0.52-1.04) mg/dL Glucose (74-99) mg/dL POC Glucose (mg/dL) 134 H 158 H (70-110) mg/dL Magnesium (1.6-2.3) mg/dL 02/19/23 02/19/23 02/19/23 Range/Units 06:47 06:58 09:14 RBC (3.80-5.40) m/uL Hct (34.0-46.0) % Plt Count (150-450) k/uL Sodium 135 L (137-145) mmol/L BUN 22 H (7-17) mg/dL Creatinine 1.09 H (0.52-1.04) mg/dL Glucose 151 H (74-99) mg/dL POC Glucose (mg/dL) 170 H 145 H (70-110) mg/dL Magnesium 1.3 L (1.6-2.3) mg/dL 02/19/23 Range/Units 11:44 RBC (3.80-5.40) m/uL Hct (34.0-46.0) % Plt Count (150-450) k/uL Sodium (137-145) mmol/L BUN (7-17) mg/dL Creatinine (0.52-1.04) mg/dL Glucose (74-99) mg/dL POC Glucose (mg/dL) 174 H (70-110) mg/dL Magnesium (1.6-2.3) mg/dL
[2023-02-19] MEDS: CALCIUM CARBONATE 500 MG CHEWABLE PO PRN (15:38)
[2023-02-19] MEDS: traMADol 50 MG TAB PO PRN ×2 (15:38→21:14)
--- NOTE | 2023-02-19 16:07 | P.PN ---
Subjective Progress Note Date: 02/19/23 Follow-up for acute on chronic kidney disease. Renal function stable. Denies any nausea vomiting diarrhea. Objective - Vital Signs Vital signs: Vital Signs Temp 98.1 F 02/19/23 09:10 Pulse 103 H 02/19/23 11:00 Resp 16 02/19/23 11:00 BP 133/74 02/19/23 11:00 Pulse Ox 96 02/19/23 11:00 FiO2 Intake & Output 02/18/23 02/19/23 02/19/23 18:59 06:59 18:59 Intake Total 720 Balance 720 Intake: Oral 720 Other: Voiding Method Toilet Toilet Toilet # Voids 2 2 2 - Exam No acute distress. S1-S2 heard Lungs clear No edema - Labs CBC & Chem 7: 02/19/23 06:47 02/19/23 06:47 Labs: Abnormal Lab Results - Last 24 Hours (Table) 02/18/23 02/18/23 02/18/23 Range/Units 16:06 17:05 17:50 RBC (3.80-5.40) m/uL Hct (34.0-46.0) % Plt Count (150-450) k/uL Sodium (137-145) mmol/L BUN (7-17) mg/dL Creatinine (0.52-1.04) mg/dL Glucose (74-99) mg/dL POC Glucose (mg/dL) 145 H 117 H 151 H (70-110) mg/dL Magnesium (1.6-2.3) mg/dL 02/18/23 02/19/23 02/19/23 Range/Units 20:21 02:52 06:47 RBC 3.77 L (3.80-5.40) m/uL Hct 33.0 L (34.0-46.0) % Plt Count 108 L (150-450) k/uL Sodium (137-145) mmol/L BUN (7-17) mg/dL Creatinine (0.52-1.04) mg/dL Glucose (74-99) mg/dL POC Glucose (mg/dL) 134 H 158 H (70-110) mg/dL Magnesium (1.6-2.3) mg/dL 02/19/23 02/19/23 02/19/23 Range/Units 06:47 06:58 09:14 RBC (3.80-5.40) m/uL Hct (34.0-46.0) % Plt Count (150-450) k/uL Sodium 135 L (137-145) mmol/L BUN 22 H (7-17) mg/dL Creatinine 1.09 H (0.52-1.04) mg/dL Glucose 151 H (74-99) mg/dL POC Glucose (mg/dL) 170 H 145 H (70-110) mg/dL Magnesium 1.3 L (1.6-2.3) mg/dL 02/19/23 Range/Units 11:44 RBC (3.80-5.40) m/uL Hct (34.0-46.0) % Plt Count (150-450) k/uL Sodium (137-145) mmol/L BUN (7-17) mg/dL Creatinine (0.52-1.04) mg/dL Glucose (74-99) mg/dL POC Glucose (mg/dL) 174 H (70-110) mg/dL Magnesium (1.6-2.3) mg/dL Assessment and Plan Assessment: #1 acute kidney injury secondary to prerenal process. #2 status post liver transplant'July 2021 at [facility] #3 chronic kidney disease stage IIIB baseline creatinine of 1.4-1.6 secondary to diabetic kidney disease/chronic tacrolimus nephropathy #4 CMV positive Plan: #1 renal function stable. #2 Prograf level 9.5 Goal tacrolimus 8-10. #3 continue with Prograf 4 mg twice a day. #4 supportive care
[2023-02-19 16:25] LABS: Glucose,Whole Blood 191 mg/dL (70-110)
[2023-02-19 19:55] LABS: Glucose,Whole Blood 164 mg/dL (70-110)
[2023-02-19] MEDS: ONDANSETRON 4 MG/2 ML VIAL IVP PRN (21:24)
[2023-02-20] MEDS: METOCLOPRAMIDE 5 MG/ML 2 ML VIAL IVP SCH ×4 (00:18→17:48)
[2023-02-20] MEDS: hydrALAZINE HCL 20 MG/ML 1 ML VIAL IVP PRN (00:18)
[2023-02-20] MEDS: HEPARIN SODIUM,PORCINE 5,000 UNIT/ML 1 ML VIAL SQ SCH ×3 (00:18→17:48)
[2023-02-20] MEDS: MORPHINE SULFATE 4 MG/ML SYRINGE IV PRN ×3 (02:55→21:06)
[2023-02-20 03:13] LABS: Glucose,Whole Blood 150 mg/dL (70-110)
[2023-02-20] MEDS: traMADol 50 MG TAB PO PRN (05:32)
[2023-02-20] MEDS: SODIUM CHLORIDE 0.9% 1,000 ML IV SCH ×2 (05:36→22:09)
[2023-02-20] MEDS: INSULIN DETEMIR (LEVEMIR) 100 UNIT/ML SYR SQ SCH (06:25)
[2023-02-20] MEDS: carvediloL 3.125 MG TAB PO SCH ×2 (06:25→17:48)
[2023-02-20] MEDS: ACETAMINOPHEN TAB 325 MG TAB PO PRN (06:26)
[2023-02-20 07:15] LABS: Glucose,Whole Blood 153 mg/dL (70-110)
[2023-02-20] MEDS: INSULIN ASPART (NovoLOG) 100 UNIT/ML VIAL SQ SCH ×7 (08:05→21:05)
[2023-02-20] MEDS: PANTOPRAZOLE 40 MG/10 ML VIAL IVP SCH ×2 (08:23→21:05)
[2023-02-20] MEDS: FAMOTIDINE 20 MG TAB PO SCH ×2 (08:24→21:05)
[2023-02-20] MEDS: ASPIRIN 81 MG PO SCH (08:24)
[2023-02-20] MEDS: hydrALAZINE HCL 50 MG TAB PO SCH ×3 (08:24→21:04)
[2023-02-20] MEDS: SERTRALINE 100 MG TAB PO SCH (08:24)
[2023-02-20] MEDS: GABAPENTIN 300 MG CAP PO SCH ×3 (08:24→21:05)
[2023-02-20] MEDS: azaTHIOprine 50 MG TAB PO SCH (08:25)
[2023-02-20] MEDS: TACROLIMUS 1 MG CAP PO SCH ×2 (08:25→21:05)
[2023-02-20] MEDS: predniSONE 1 MG TAB PO SCH (08:25)
[2023-02-20 08:40] LABS: ALT 32 U/L (4-34); AST 40 U/L (14-36); African American GFR (CKD) 66 (>60 ml/min/1.73 sqM); Albumin 2.9 g/dL (3.5-5.0); Alkaline Phosphatase 87 U/L (38-126); Anion Gap 8 mmol/L; Blood Urea Nitrogen 17 mg/dL (7-17); Calcium 8.2 mg/dL (8.4-10.2); Carbon Dioxide 22 mmol/L (22-30); Chloride 104 mmol/L (98-107); Glucose 140 mg/dL (74-99); Magnesium 1.7 mg/dL (1.6-2.3); Non-African American GFR(CKD) 57 (>60 ml/min/1.73 sqM); Phosphorus 3.6 mg/dL (2.5-4.5); Potassium 4.3 mmol/L (3.5-5.1); Sodium 134 mmol/L (137-145); Total Bilirubin 0.6 mg/dL (0.2-1.3); Total Protein 5.8 g/dL (6.3-8.2)
[2023-02-20 08:53] LABS: HCT 32.9 % (34.0-46.0); HGB 11.6 gm/dL (11.4-16.0); MCH 31.4 pg (25.0-35.0); MCHC 35.1 g/dL (31.0-37.0); MCV 89.6 fL (80.0-100.0); Mean Platelet Volume 8.3; Poikilocytosis Slight; RBC 3.67 m/uL (3.80-5.40); RDW 15.5 % (11.5-15.5)
[2023-02-20 10:42] LABS: Platelet Count 98 k/uL (150-450)
[2023-02-20 11:44] LABS: Glucose,Whole Blood 201 mg/dL (70-110)
--- NOTE | 2023-02-20 12:20 | P.PN ---
Subjective Progress Note Date: 02/20/23 Principal diagnosis: Reason for follow-up is intractable vomiting esophagitis and a question of CMV Patient is a 47-year-old female who is status post liver transplant at [facility] , patient has been on immuno suppressive therapy, patient presented to hospital with intractable vomiting he did have evidence of severe esophagitis did have positive CMV serology status post endoscopy and biopsy completed on 02/17/2023 On today's evaluation that is 02/20/2023, the patient remains to be afebrile, the patient is breathing comfortably on room air and denies any shortness of breath, the patient denies chest pain or cough , patient denies abdominal pain, patient is an episode of vomiting yesterday no further nausea vomiting and no diarrhea Patient white count is 9.0, creatinine 1.14 CRP is 4.7, CMV PCR is pending as well as biopsy report Objective - Vital Signs Vital signs: Vital Signs Temp 98.6 F 02/20/23 03:02 Pulse 105 H 02/20/23 03:02 Resp 16 02/20/23 03:02 BP 145/77 02/20/23 03:02 Pulse Ox 96 02/20/23 03:02 FiO2 Intake & Output 02/19/23 02/20/23 02/20/23 18:59 06:59 18:59 Intake Total 0 Balance 0 Intake: Oral 0 Other: Voiding Method Toilet Toilet # Voids 2 1 - Exam GENERAL DESCRIPTION: A middle-age female lying in bed in no distress RESPIRATORY SYSTEM: Unlabored breathing , clear to auscultation anteriorly HEART: S1 S2 regular rate and rhythm , ABDOMEN: Soft , no tenderness EXTREMITIES: No edema feet - Labs CBC & Chem 7: 02/20/23 07:20 02/20/23 07:20 Labs: Abnormal Lab Results - Last 24 Hours (Table) 02/19/23 02/19/23 02/19/23 Range/Units 11:44 16:24 19:54 RBC (3.80-5.40) m/uL Hct (34.0-46.0) % Sodium (137-145) mmol/L Creatinine (0.52-1.04) mg/dL Glucose (74-99) mg/dL POC Glucose (mg/dL) 174 H 191 H 164 H (70-110) mg/dL Calcium (8.4-10.2) mg/dL AST (14-36) U/L Total Protein (6.3-8.2) g/dL Albumin (3.5-5.0) g/dL 02/20/23 02/20/23 02/20/23 Range/Units 03:01 07:14 07:20 RBC 3.67 L (3.80-5.40) m/uL Hct 32.9 L (34.0-46.0) % Sodium (137-145) mmol/L Creatinine (0.52-1.04) mg/dL Glucose (74-99) mg/dL POC Glucose (mg/dL) 150 H 153 H (70-110) mg/dL Calcium (8.4-10.2) mg/dL AST (14-36) U/L Total Protein (6.3-8.2) g/dL Albumin (3.5-5.0) g/dL 02/20/23 Range/Units 07:20 RBC (3.80-5.40) m/uL Hct (34.0-46.0) % Sodium 134 L (137-145) mmol/L Creatinine 1.14 H (0.52-1.04) mg/dL Glucose 140 H (74-99) mg/dL POC Glucose (mg/dL) (70-110) mg/dL Calcium 8.2 L (8.4-10.2) mg/dL AST 40 H (14-36) U/L Total Protein 5.8 L (6.3-8.2) g/dL Albumin 2.9 L (3.5-5.0) g/dL Assessment and Plan (1) Positive cytomegalovirus IgG serology Current Visit: Yes Status: Acute Code(s): R76.8 - OTHER SPECIFIED ABNORMAL IMMUNOLOGICAL FINDINGS IN SERUM SNOMED Code(s): 960125093 Plan: 1patient presented to hospital with intractable nausea and vomiting in this patient who did have a history of liver transplant on immunosuppressive medication patient was positive for CMV at the time of surgery, her symptoms are highly suggestive of possible severe reflux esophagitis clinically suspicious low for CMV esophagitis but not entirely excluded 2-patient is status post EGD and biopsy, CMV PCR is currently pending 3-we're currently waiting for biopsy and CMV PCR , patient did have some clinical improvement and will continue the Pepcid, Reglan and Protonix Dictation was produced using [employer] dictation software. please excuse any grammatical, word or spelling errors. Time with Patient: Less than 30
--- NOTE | 2023-02-20 12:52 | P.PN ---
Subjective Patient is seen for follow-up for acute kidney injury. Tolerated oral intake today. No further nausea noted. Maintained on IV fluids. Serum creatinine at 1.14. Good urine output. Objective - Vital Signs Vital signs: Vital Signs Temp 97.9 F 02/20/23 08:15 Pulse 97 02/20/23 08:15 Resp 18 02/20/23 08:15 BP 131/73 02/20/23 08:15 Pulse Ox 95 02/20/23 08:15 FiO2 Intake & Output 02/19/23 02/20/23 02/20/23 18:59 06:59 18:59 Intake Total 0 Balance 0 Intake: Oral 0 Other: Voiding Method Toilet Toilet Toilet # Voids 2 1 - Exam Patient is awake, comfortable, no acute distress Examination of the heart S1 and S2 Examination the lungs bilateral breath sounds are heard Abdomen is soft nontender Examination lower extremity shows no significant edema [employer] exam grossly intact - Labs CBC & Chem 7: 02/20/23 07:20 02/20/23 07:20 Labs: Abnormal Lab Results - Last 24 Hours (Table) 02/19/23 02/19/23 02/20/23 Range/Units 16:24 19:54 03:01 RBC (3.80-5.40) m/uL Hct (34.0-46.0) % Plt Count (150-450) k/uL Sodium (137-145) mmol/L Creatinine (0.52-1.04) mg/dL Glucose (74-99) mg/dL POC Glucose (mg/dL) 191 H 164 H 150 H (70-110) mg/dL Calcium (8.4-10.2) mg/dL AST (14-36) U/L Total Protein (6.3-8.2) g/dL Albumin (3.5-5.0) g/dL 02/20/23 02/20/23 02/20/23 Range/Units 07:14 07:20 07:20 RBC 3.67 L (3.80-5.40) m/uL Hct 32.9 L (34.0-46.0) % Plt Count 98 L (150-450) k/uL Sodium 134 L (137-145) mmol/L Creatinine 1.14 H (0.52-1.04) mg/dL Glucose 140 H (74-99) mg/dL POC Glucose (mg/dL) 153 H (70-110) mg/dL Calcium 8.2 L (8.4-10.2) mg/dL AST 40 H (14-36) U/L Total Protein 5.8 L (6.3-8.2) g/dL Albumin 2.9 L (3.5-5.0) g/dL 02/20/23 Range/Units 11:42 RBC (3.80-5.40) m/uL Hct (34.0-46.0) % Plt Count (150-450) k/uL Sodium (137-145) mmol/L Creatinine (0.52-1.04) mg/dL Glucose (74-99) mg/dL POC Glucose (mg/dL) 201 H (70-110) mg/dL Calcium (8.4-10.2) mg/dL AST (14-36) U/L Total Protein (6.3-8.2) g/dL Albumin (3.5-5.0) g/dL Assessment and Plan Assessment: 1. Acute kidney injury, prerenal, maintained on IV fluids 2. CK D stage III B with baseline creatinine 1.4-1.6 with grams per deciliter secondary to diabetic kidney disease and chronic use of calcineurin inhibitors 3. Status post liver transplant in July 2021 at [facility], Prograf level IX.5, goal tacrolimus level at 8-10. 4. Nausea and vomiting, slowly improving, possible diabetic gastroparesis versus CMV esophagitis Plan: Continue IV fluids Continue current dose of tacrolimus. Encourage increased oral intake
[2023-02-20 13:27] LABS: CMV DNA Qualitative Not detected (Not detected); CMV DNA, Quantitative <30 IU/mL (<30); LOG CMV Copies/mL <76 Copies/mL (<76); Log Cytomegalovirus <1.48 (<1.48)
[2023-02-20 13:29] VITALS: BMI 33.5
--- NOTE | 2023-02-20 15:54 | P.PN ---
Subjective Progress Note Date: 02/20/23 Patient is a 47-year-old female status post liver transplant due to nonalcoholic fatty liver disease, insulin-dependent diabetes on insulin pump, hypertension, and neuropathy who presented to the hospital due to abdominal pain and altered mentation. On arrival to the ER her vital signs were remarkable for a blood pressure of 171/94 and a heart rate of 133. Laboratory analysis was remarkable for white blood cell count of 11.1, platelets 107, sodium 135, potassium 6.3, carbon dioxide 20, BUN 37, creatinine 1.66, glucose 421, magnesium 1.3, AST 63, ALT 62, and positive urine acetone. In the emergency department she was diagnosed with intractable nausea and vomiting with possible gastroparesis as w ell as hyperkalemia. Patient was treated with Zofran, hydration, and potassium binders. She was admitted for further monitoring. Her [facility] transplant team was contacted who recommended continued care at our facility. She was seen by gastroenterology who added scopolamine patch. She was seen by nephrology who did agree with tacrolimus testing but suggested trough level testing. She continued to struggle with nausea and vomiting. Her blood sugars were improving. She subsequently underwent CMV and EBV testing which showed possible acute infection. [facility] liver transplant team was again contacted who recommended direct visualization with EGD and biopsy, this was completed on 02/17/23, hey also suggested CMV PCR. 02/20 Patient seen and examined at bedside. She was able to take in romansh muffin from [employer] this morning. She is feeling slightly nauseated this morning. Feels better than previous days. CBC Hct 32.9 Plt 98.BMP Na 134, Cr 1.14, glu 140, Ca 8.2. Mag 1.7. Vital signs reviewed General: nontoxic, no distress, appears at stated age Cardiovascular: S1S2 reg, no murmur Lungs: CTA bilateral, no rhonchi, no rales , no accessory muscle use Abdominal: soft, tender to palpation epigastric, no guarding, no appreciable organomegaly Ext: no gross muscle atrophy, no edema b/l lower extremities, no contractures Neuro: no focal neuro deficits Psych: awake, appropriate affect Assessment/Plan: Intractable nausea and vomiting with abdominal pain Severe esophagitis, concerns for CMV Immunosuppression secondary to liver transplantation with antirejection meds CHIQUITA on CKD stage IIIB Toxic metabolic encephalopathy Transaminitis Pancytopenia -CMV IgG and IgM as well as EBV IgG and IgM are positive -Infectious disease note reviewed: Continue with conservative care, await CMV PCR and EGD biopsy results - await biopsy results from EGD preformed on 02/17. -Continue with Protonix 40 mg IV twice daily, increase pepcid to 40 mg BID -Continue with prednisone 2 mg daily, Prograf 4 mg twice daily, and azathioprine 50 mg daily -Follow CBC and CMP daily - phenergan 25 mg PO q 6 hours prn, tigan 100 mg IM daily prn nausea - anticipate CMV biopsy back - of next week, CMV PCR will take 1 week for results. Transplant signal supervisor- Dr. Garcia.[phone]: recommended awaiting biopsy results, goal tacro level 6-10, hx of recent rejection episode. DM2 with hyperglycemia and neuropathy -Hemoglobin A1c 6.9 -Follow blood sugars -Continue with insulin sliding scale, NovoLog 8 units with meals, and Levemir 28 units at 7 AM Hypertensive urgency - Coreg 3.125 mg BID, Hydralazine 50 mg TID -Follow blood pressures DKA, resolved Hyperkalemia, resolved HypoMag, resolved Imaging: None Data Review: Labs reviewed from today include CBC, basic metabolic profile, and magnesium as above. Objective - Vital Signs Vital signs: Vital Signs Temp 97.9 F 02/20/23 08:15 Pulse 102 H 02/20/23 12:00 Resp 18 02/20/23 12:00 BP 118/71 02/20/23 12:00 Pulse Ox 96 02/20/23 12:00 FiO2 Intake & Output 02/19/23 02/20/23 02/20/23 18:59 06:59 18:59 Intake Total 0 Balance 0 Weight 94.347 kg Intake: Oral 0 Other: Voiding Method Toilet Toilet Toilet # Voids 2 1 - Labs CBC & Chem 7: 02/20/23 07:20 02/20/23 07:20 Labs: Abnormal Lab Results - Last 24 Hours (Table) 02/19/23 02/19/23 02/20/23 Range/Units 16:24 19:54 03:01 RBC (3.80-5.40) m/uL Hct (34.0-46.0) % Plt Count (150-450) k/uL Sodium (137-145) mmol/L Creatinine (0.52-1.04) mg/dL Glucose (74-99) mg/dL POC Glucose (mg/dL) 191 H 164 H 150 H (70-110) mg/dL Calcium (8.4-10.2) mg/dL AST (14-36) U/L Total Protein (6.3-8.2) g/dL Albumin (3.5-5.0) g/dL 02/20/23 02/20/23 02/20/23 Range/Units 07:14 07:20 07:20 RBC 3.67 L (3.80-5.40) m/uL Hct 32.9 L (34.0-46.0) % Plt Count 98 L (150-450) k/uL Sodium 134 L (137-145) mmol/L Creatinine 1.14 H (0.52-1.04) mg/dL Glucose 140 H (74-99) mg/dL POC Glucose (mg/dL) 153 H (70-110) mg/dL Calcium 8.2 L (8.4-10.2) mg/dL AST 40 H (14-36) U/L Total Protein 5.8 L (6.3-8.2) g/dL Albumin 2.9 L (3.5-5.0) g/dL 02/20/23 Range/Units 11:42 RBC (3.80-5.40) m/uL Hct (34.0-46.0) % Plt Count (150-450) k/uL Sodium (137-145) mmol/L Creatinine (0.52-1.04) mg/dL Glucose (74-99) mg/dL POC Glucose (mg/dL) 201 H (70-110) mg/dL Calcium (8.4-10.2) mg/dL AST (14-36) U/L Total Protein (6.3-8.2) g/dL Albumin (3.5-5.0) g/dL
[2023-02-20 16:58] LABS: Glucose,Whole Blood 180 mg/dL (70-110)
[2023-02-20 20:53] LABS: Glucose,Whole Blood 194 mg/dL (70-110)
[2023-02-20 21:47] LABS: Amorphous Sediment,Urine Rare /hpf; Appearance,Urine Cloudy (Clear); Bacteria,Urine Moderate /hpf; Bilirubin,Urine Negative (Negative); Blood,Urine Negative (Negative); Color,Urine Yellow; Glucose,Urine (UA) Trace (Negative); Hyaline Casts,Urine 105 /lpf (0-2); Ketones,Urine Negative (Negative); Leukocyte Esterase,Urine Negative (Negative); Mucus,Urine Rare /hpf; Nitrite,Urine Negative (Negative); Protein,Urine 1+ (Negative); RBC,Urine 2 /hpf (0-5); Specific Gravity,Urine 1.019 (1.001-1.035); Squamous Epithelial Cell,Urine 22 /hpf (0-4); Urobilinogen,Urine <2.0 mg/dL (<2.0); WBC,Urine 4 /hpf (0-5)
[2023-02-21] MEDS: METOCLOPRAMIDE 5 MG/ML 2 ML VIAL IVP SCH ×4 (01:17→17:36)
[2023-02-21] MEDS: HEPARIN SODIUM,PORCINE 5,000 UNIT/ML 1 ML VIAL SQ SCH ×3 (01:17→16:47)
[2023-02-21 01:23] LABS: Glucose,Whole Blood 173 mg/dL (70-110)
[2023-02-21] MEDS: SODIUM CHLORIDE 0.9% 1,000 ML IV SCH (04:56)
[2023-02-21] MEDS: carvediloL 3.125 MG TAB PO SCH ×2 (06:58→16:47)
[2023-02-21 07:05] LABS: HCT 31.7 % (34.0-46.0); MCH 31.2 pg (25.0-35.0); MCHC 34.7 g/dL (31.0-37.0); Mean Platelet Volume 8.9; Platelet Count 98 k/uL (150-450); Poikilocytosis Slight; RBC 3.52 m/uL (3.80-5.40); RDW 15.9 % (11.5-15.5); WBC 7.9 k/uL (3.8-10.6)
[2023-02-21 07:19] LABS: ALT 32 U/L (4-34); AST 38 U/L (14-36); African American GFR (CKD) 38 (>60 ml/min/1.73 sqM); Albumin 2.8 g/dL (3.5-5.0); Alkaline Phosphatase 90 U/L (38-126); Anion Gap 9 mmol/L; Blood Urea Nitrogen 23 mg/dL (7-17); Calcium 8.4 mg/dL (8.4-10.2); Carbon Dioxide 22 mmol/L (22-30); Chloride 103 mmol/L (98-107); Glucose 198 mg/dL (74-99); Non-African American GFR(CKD) 33 (>60 ml/min/1.73 sqM); Potassium 4.3 mmol/L (3.5-5.1); Sodium 134 mmol/L (137-145); Total Bilirubin 0.5 mg/dL (0.2-1.3); Total Protein 5.6 g/dL (6.3-8.2)
[2023-02-21 07:33] LABS: Glucose,Whole Blood 222 mg/dL (70-110)
[2023-02-21] MEDS: INSULIN ASPART (NovoLOG) 100 UNIT/ML VIAL SQ SCH ×7 (08:00→20:48)
[2023-02-21] MEDS: INSULIN DETEMIR (LEVEMIR) 100 UNIT/ML SYR SQ SCH (08:00)
[2023-02-21] MEDS: TACROLIMUS 1 MG CAP PO SCH ×2 (08:02→20:48)
[2023-02-21] MEDS: PANTOPRAZOLE 40 MG/10 ML VIAL IVP SCH ×2 (08:02→20:48)
[2023-02-21] MEDS: hydrALAZINE HCL 50 MG TAB PO SCH ×3 (08:02→20:47)
[2023-02-21] MEDS: GABAPENTIN 300 MG CAP PO SCH ×3 (08:02→20:48)
[2023-02-21] MEDS: ASPIRIN 81 MG PO SCH (08:02)
[2023-02-21] MEDS: SERTRALINE 100 MG TAB PO SCH (08:02)
[2023-02-21] MEDS: FAMOTIDINE 20 MG TAB PO SCH ×2 (08:02→20:47)
[2023-02-21] MEDS: azaTHIOprine 50 MG TAB PO SCH (08:03)
[2023-02-21] MEDS: predniSONE 1 MG TAB PO SCH (08:03)
[2023-02-21] MEDS: TRIMETHOBENZAMIDE 100 MG/ML 2 ML VIAL IM PRN (10:22)
--- NOTE | 2023-02-21 10:42 | P.PN ---
Subjective Progress Note Date: 02/21/23 Patient is a 47-year-old female status post liver transplant due to nonalcoholic fatty liver disease, insulin-dependent diabetes on insulin pump, hypertension, and neuropathy who presented to the hospital due to abdominal pain and altered mentation. On arrival to the ER her vital signs were remarkable for a blood pressure of 171/94 and a heart rate of 133. Laboratory analysis was remarkable for white blood cell count of 11.1, platelets 107, sodium 135, potassium 6.3, carbon dioxide 20, BUN 37, creatinine 1.66, glucose 421, magnesium 1.3, AST 63, ALT 62, and positive urine acetone. In the emergency department she was diagnosed with intractable nausea and vomiting with possible gastroparesis as w ell as hyperkalemia. Patient was treated with Zofran, hydration, and potassium binders. She was admitted for further monitoring. Her [facility] transplant team was contacted who recommended continued care at our facility. She was seen by gastroenterology who added scopolamine patch. She was seen by nephrology who did agree with tacrolimus testing but suggested trough level testing. She continued to struggle with nausea and vomiting. Her blood sugars were improving. She subsequently underwent CMV and EBV testing which showed possible acute infection. [facility] liver transplant team was again contacted who recommended direct visualization with EGD and biopsy, this was completed on 02/17/23, they also suggested CMV PCR. 02/20 Patient seen and examined at bedside. She was able to take in kinyarwanda muffin from [employer] this morning. She is feeling slightly nauseated this morning. Feels better than previous days. CBC Hct 32.9 Plt 98.BMP Na 134, Cr 1.14, glu 140, Ca 8.2. Mag 1.7. 02/21 Patient was seen and examined. at bedside. Appetite slowly improving. Still feels nauseated. CBC Hg 11 Plt 98. CMP Na 134, BUN 23, Cr 1.79, glu 198, AST 38, alb 2.8. UA 1+ protein, trace glucose. Renal/Bladder US ordered by Nephrology. Case discussed with Dr. Acosta, per pathology, CMV PCR results wont be back for a couple of weeks. Pathology can possible reports on a preliminary result for inclusion bodies. Either way, I believe patient can be discharged home to follow up with the CMV PRC results. If positive, she may need to be re-admitted for close monitoring while on anti-viral therapy. This was discussed with the and patient at bedside. Possible discharge home today or tomorrow if patient is able to tolerate small meals and fluid intake. Vital signs reviewed General: nontoxic, no distress, appears at stated age Cardiovascular: good distal perfusion in all 4 extremities Lungs: breathing comfortably , no accessory muscle use Ext: no gross muscle atrophy, no edema b/l lower extremities, no contractures Neuro: no focal neuro deficits Psych: awake, appropriate affect Based on my assessment of this patient, this patient meets a moderate complexity level of care. Patient has an acute diagnosis of intractable nausea and vomiting that poses a threat to life or bodily function. Found to have severe hyperkalemia, mild DKA and CHIQUITA. Intractable nausea and vomiting due to severe esophagitis: CMV IgG and IgM as well as EBV IgG and IgM are positive. ID recommends awaiting CMV PCR and EGD biopsy results. Protonix 40 mg IV twice daily. Pepcid 40 mg PO BID. Tums 500 mg PO TID PRN. Zofran 4 mg IV Q8H PRN. Phenegram 25 mg PO Q6H PRN. Scopolamine path Q72H. Tigan 100 mg IM Q6H PRN. Immunosuppression secondary to liver transplantation with antirejection meds: Continue with prednisone 2 mg daily, Prograf 4 mg twice daily, and azathioprine [address] Garcia, : recommended awaiting biopsy results, goal tacro level 6-10, hx of recent rejection episode. Acute metabolic encephalopathy: Likely related to above. Significantly improved. DM2 with hyperglycemia and neuropathy: A1c 6.9. ISS. Novolog 8 units TID. Levemir 28 units QAM. Acute kidney injury on chronic kidney disease: Baseline Cr ~ 1.4. IV hydration as above. Hypertension: Coreg 3.125 mg PO BID. Hydralazine 50 mg PO TID. Transaminitis: Monitor. Leukocytosis: Likely reactive. Monitor fever profile. Thrombocytopenia: Monitor. Resolved: Hyperkalemia, DKA, HypoMag CODE STATUS: FULL CODE DVT Prophylaxis: Heparin SQ. GI Prophylaxis: Protonix IV. Designated medical POA if patient is not able to make medical decisions for themselves: I have reviewed the following customer service sales consultant notes: ID, Nephro note. I have reviewed the results of the following tests: CBC, BMP, UA I have ordered the following tests: I have discussed the care of this patient with the following independent historian: Discussed with RN and at bedside. I have independently interpreted the following test below: I have discussed the management of this patient with the following physician: Objective - Vital Signs Vital signs: Vital Signs Temp 98.5 F 02/20/23 20:00 Pulse 106 H 02/21/23 04:00 Resp 16 02/21/23 04:00 BP 130/76 02/21/23 04:00 Pulse Ox 95 02/21/23 04:00 FiO2 Intake & Output 02/20/23 02/21/23 02/21/23 18:59 06:59 18:59 Intake Total 118 10 Balance 118 10 Weight 94.347 kg Intake: IV 10 Invasive Line 2 10 Oral 118 Other: Voiding Method Toilet Toilet # Voids 4 1 - Labs CBC & Chem 7: 02/21/23 06:29 02/21/23 06:29 Labs: Abnormal Lab Results - Last 24 Hours (Table) 02/20/23 02/20/23 02/20/23 Range/Units 07:20 07:20 11:42 RBC 3.67 L (3.80-5.40) m/uL Hgb (11.4-16.0) gm/dL Hct 32.9 L (34.0-46.0) % RDW (11.5-15.5) % Plt Count 98 L (150-450) k/uL Sodium 134 L (137-145) mmol/L BUN (7-17) mg/dL Creatinine 1.14 H (0.52-1.04) mg/dL Glucose 140 H (74-99) mg/dL POC Glucose (mg/dL) 201 H (70-110) mg/dL Calcium 8.2 L (8.4-10.2) mg/dL AST 40 H (14-36) U/L Total Protein 5.8 L (6.3-8.2) g/dL Albumin 2.9 L (3.5-5.0) g/dL Urine Appearance (Clear) Urine Protein (Negative) Urine Glucose (UA) (Negative) Ur Squamous Epith Cells (0-4) /hpf Amorphous Sediment (None) /hpf Urine Bacteria (None) /hpf Hyaline Casts (0-2) /lpf Urine Mucus (None) /hpf 02/20/23 02/20/23 02/20/23 Range/Units 16:57 20:52 21:00 RBC (3.80-5.40) m/uL Hgb (11.4-16.0) gm/dL Hct (34.0-46.0) % RDW (11.5-15.5) % Plt Count (150-450) k/uL Sodium (137-145) mmol/L BUN (7-17) mg/dL Creatinine (0.52-1.04) mg/dL Glucose (74-99) mg/dL POC Glucose (mg/dL) 180 H 194 H (70-110) mg/dL Calcium (8.4-10.2) mg/dL AST (14-36) U/L Total Protein (6.3-8.2) g/dL Albumin (3.5-5.0) g/dL Urine Appearance Cloudy H (Clear) Urine Protein 1+ H (Negative) Urine Glucose (UA) Trace H (Negative) Ur Squamous Epith Cells 22 H (0-4) /hpf Amorphous Sediment Rare H (None) /hpf Urine Bacteria Moderate H (None) /hpf Hyaline Casts 105 H (0-2) /lpf Urine Mucus Rare H (None) /hpf 02/21/23 02/21/23 02/21/23 Range/Units 01:21 06:29 06:29 RBC 3.52 L (3.80-5.40) m/uL Hgb 11.0 L (11.4-16.0) gm/dL Hct 31.7 L (34.0-46.0) % RDW 15.9 H (11.5-15.5) % Plt Count 98 L (150-450) k/uL Sodium 134 L (137-145) mmol/L BUN 23 H (7-17) mg/dL Creatinine 1.79 H (0.52-1.04) mg/dL Glucose 198 H (74-99) mg/dL POC Glucose (mg/dL) 173 H (70-110) mg/dL Calcium (8.4-10.2) mg/dL AST 38 H (14-36) U/L Total Protein 5.6 L (6.3-8.2) g/dL Albumin 2.8 L (3.5-5.0) g/dL Urine Appearance (Clear) Urine Protein (Negative) Urine Glucose (UA) (Negative) Ur Squamous Epith Cells (0-4) /hpf Amorphous Sediment (None) /hpf Urine Bacteria (None) /hpf Hyaline Casts (0-2) /lpf Urine Mucus (None) /hpf 02/21/23 Range/Units 07:31 RBC (3.80-5.40) m/uL Hgb (11.4-16.0) gm/dL Hct (34.0-46.0) % RDW (11.5-15.5) % Plt Count (150-450) k/uL Sodium (137-145) mmol/L BUN (7-17) mg/dL Creatinine (0.52-1.04) mg/dL Glucose (74-99) mg/dL POC Glucose (mg/dL) 222 H (70-110) mg/dL Calcium (8.4-10.2) mg/dL AST (14-36) U/L Total Protein (6.3-8.2) g/dL Albumin (3.5-5.0) g/dL Urine Appearance (Clear) Urine Protein (Negative) Urine Glucose (UA) (Negative) Ur Squamous Epith Cells (0-4) /hpf Amorphous Sediment (None) /hpf Urine Bacteria (None) /hpf Hyaline Casts (0-2) /lpf Urine Mucus (None) /hpf
--- NOTE | 2023-02-21 10:56 | US ---
EXAMINATION TYPE: US kidneys/renal and bladder DATE OF EXAM: 02/21/2023 Exam done portable COMPARISON: CT 2022 CLINICAL INDICATION: Female, 47 years old with history of stefanie; EXAM MEASUREMENTS: Right Kidney: 11.0 x 5.5 x 5.4 cm Left Kidney: 10.5 x 4.6 x 4.2 cm Right Kidney: No hydronephrosis or masses seen Left Kidney: 1.5cm hypoechoic area lateral mid pole no hydronephrosis. Bladder: wnl Bilateral Jets seen: yes There is no evidence for hydronephrosis at this point in time. No nephrolithiasis is seen. No herman s are identified. The urinary bladder is anechoic. Bilateral ureteral jets are seen. IMPRESSION: 1. No evidence for obstructive uropathy. 2. Hypoechoic left kidney lesion likely representing simple cyst seen on prior CT 02/15/2023.
--- NOTE | 2023-02-21 12:08 | P.PN ---
Subjective Patient is seen for follow-up for acute kidney injury. Tolerated oral intake today. Patient complained of nausea this morning Maintained on IV fluids. Serum creatinine increased to 1.79 today from 1.14 yesterday. Patient states that she has not been voiding much. Objective - Vital Signs Vital signs: Vital Signs Temp 98.5 F 02/21/23 08:00 Pulse 116 H 02/21/23 08:00 Resp 18 02/21/23 08:00 BP 137/70 02/21/23 08:00 Pulse Ox 94 L 02/21/23 08:00 FiO2 Intake & Output 02/20/23 02/21/23 02/21/23 18:59 06:59 18:59 Intake Total 118 10 118 Balance 118 10 118 Weight 94.347 kg Intake: IV 10 Invasive Line 2 10 Oral 118 118 Other: Voiding Method Toilet Toilet Toilet # Voids 4 1 - Exam Patient is awake, comfortable, no acute distress Examination of the heart S1 and S2 Examination the lungs bilateral breath sounds are heard Abdomen is soft nontender Examination lower extremity shows no significant edema STILL PUMP OPERATOR exam grossly intact - Labs CBC & Chem 7: 02/21/23 06:29 02/21/23 06:29 Labs: Abnormal Lab Results - Last 24 Hours (Table) 02/20/23 02/20/23 02/20/23 Range/Units 16:57 20:52 21:00 RBC (3.80-5.40) m/uL Hgb (11.4-16.0) gm/dL Hct (34.0-46.0) % RDW (11.5-15.5) % Plt Count (150-450) k/uL Sodium (137-145) mmol/L BUN (7-17) mg/dL Creatinine (0.52-1.04) mg/dL Glucose (74-99) mg/dL POC Glucose (mg/dL) 180 H 194 H (70-110) mg/dL AST (14-36) U/L Total Protein (6.3-8.2) g/dL Albumin (3.5-5.0) g/dL Urine Appearance Cloudy H (Clear) Urine Protein 1+ H (Negative) Urine Glucose (UA) Trace H (Negative) Ur Squamous Epith Cells 22 H (0-4) /hpf Amorphous Sediment Rare H (None) /hpf Urine Bacteria Moderate H (None) /hpf Hyaline Casts 105 H (0-2) /lpf Urine Mucus Rare H (None) /hpf 02/21/23 02/21/23 02/21/23 Range/Units 01:21 06:29 06:29 RBC 3.52 L (3.80-5.40) m/uL Hgb 11.0 L (11.4-16.0) gm/dL Hct 31.7 L (34.0-46.0) % RDW 15.9 H (11.5-15.5) % Plt Count 98 L (150-450) k/uL Sodium 134 L (137-145) mmol/L BUN 23 H (7-17) mg/dL Creatinine 1.79 H (0.52-1.04) mg/dL Glucose 198 H (74-99) mg/dL POC Glucose (mg/dL) 173 H (70-110) mg/dL AST 38 H (14-36) U/L Total Protein 5.6 L (6.3-8.2) g/dL Albumin 2.8 L (3.5-5.0) g/dL Urine Appearance (Clear) Urine Protein (Negative) Urine Glucose (UA) (Negative) Ur Squamous Epith Cells (0-4) /hpf Amorphous Sediment (None) /hpf Urine Bacteria (None) /hpf Hyaline Casts (0-2) /lpf Urine Mucus (None) /hpf 02/21/23 Range/Units 07:31 RBC (3.80-5.40) m/uL Hgb (11.4-16.0) gm/dL Hct (34.0-46.0) % RDW (11.5-15.5) % Plt Count (150-450) k/uL Sodium (137-145) mmol/L BUN (7-17) mg/dL Creatinine (0.52-1.04) mg/dL Glucose (74-99) mg/dL POC Glucose (mg/dL) 222 H (70-110) mg/dL AST (14-36) U/L Total Protein (6.3-8.2) g/dL Albumin (3.5-5.0) g/dL Urine Appearance (Clear) Urine Protein (Negative) Urine Glucose (UA) (Negative) Ur Squamous Epith Cells (0-4) /hpf Amorphous Sediment (None) /hpf Urine Bacteria (None) /hpf Hyaline Casts (0-2) /lpf Urine Mucus (None) /hpf Assessment and Plan Assessment: 1. Acute kidney injury, prerenal, maintained on IV fluids. Renal function had improved initially however serum creatinine has increased again to 1.7 today. Patient states that her serum creatinine has been ranging between 1.4-1.8 mg/dL prior to admission. 2. CK D stage III B with baseline creatinine 1.4-1.6 with grams per deciliter secondary to diabetic kidney disease and chronic use of calcineurin inhibitors 3. Status post liver transplant in July 2021 at [facility], Prograf level IX.5, goal tacrolimus level at 8-10. 4. Nausea and vomiting, slowly improving, possible diabetic gastroparesis versus CMV esophagitis Plan: Continue IV fluid Repeat tacrolimus level in a.m. Repeat labs in a.m. Check ultrasound of the kidneys Accurate I's and O's Continue current dose of tacrolimus. Encourage increased oral intake
[2023-02-21 12:18] LABS: Glucose,Whole Blood 200 mg/dL (70-110)
[2023-02-21] MEDS: SCOPOLAMINE 1 MG/72 HR PATCH TRANSDERM SCH (12:20)
--- NOTE | 2023-02-21 14:26 | P.PN ---
Subjective Progress Note Date: 02/21/23 Principal diagnosis: Reason for follow-up is intractable vomiting esophagitis and a question of CMV Patient is a 47-year-old female who is status post liver transplant at [facility] , patient has been on immuno suppressive therapy, patient presented to hospital with intractable vomiting he did have evidence of severe esophagitis did have positive CMV serology status post endoscopy and biopsy completed on 02/17/2023 On today's evaluation that is 02/21/2023, the patient continues to be afebrile, the patient is breathing comfortably on room air without the need for supplemental oxygen, the patient denies shortness of breath chest pain and no significant cough , patient mentioned she felt sick last night but no vomiting and epigastric pain has decreased in intensity and no diarrhea Patient white count is 7.9 creatinine is 1.79 CRP is 4.7, CMV PCR is negative biopsy report is pending Objective - Vital Signs Vital signs: Vital Signs Temp 98.5 F 02/21/23 08:00 Pulse 116 H 02/21/23 08:00 Resp 18 02/21/23 08:00 BP 137/70 02/21/23 08:00 Pulse Ox 94 L 02/21/23 08:00 FiO2 Intake & Output 02/20/23 02/21/23 02/21/23 18:59 06:59 18:59 Intake Total 118 10 118 Balance 118 10 118 Weight 94.347 kg Intake: IV 10 Invasive Line 2 10 Oral 118 118 Other: Voiding Method Toilet Toilet Toilet # Voids 4 1 - Exam GENERAL DESCRIPTION: A middle-age female lying in bed in no distress RESPIRATORY SYSTEM: Unlabored breathing , clear to auscultation anteriorly HEART: S1 S2 regular rate and rhythm , ABDOMEN: Soft , no tenderness EXTREMITIES: No edema feet - Labs CBC & Chem 7: 02/21/23 06:29 02/21/23 06:29 Labs: Abnormal Lab Results - Last 24 Hours (Table) 02/20/23 02/20/23 02/20/23 Range/Units 11:42 16:57 20:52 RBC (3.80-5.40) m/uL Hgb (11.4-16.0) gm/dL Hct (34.0-46.0) % RDW (11.5-15.5) % Plt Count (150-450) k/uL Sodium (137-145) mmol/L BUN (7-17) mg/dL Creatinine (0.52-1.04) mg/dL Glucose (74-99) mg/dL POC Glucose (mg/dL) 201 H 180 H 194 H (70-110) mg/dL AST (14-36) U/L Total Protein (6.3-8.2) g/dL Albumin (3.5-5.0) g/dL Urine Appearance (Clear) Urine Protein (Negative) Urine Glucose (UA) (Negative) Ur Squamous Epith Cells (0-4) /hpf Amorphous Sediment (None) /hpf Urine Bacteria (None) /hpf Hyaline Casts (0-2) /lpf Urine Mucus (None) /hpf 02/20/23 02/21/23 02/21/23 Range/Units 21:00 01:21 06:29 RBC 3.52 L (3.80-5.40) m/uL Hgb 11.0 L (11.4-16.0) gm/dL Hct 31.7 L (34.0-46.0) % RDW 15.9 H (11.5-15.5) % Plt Count 98 L (150-450) k/uL Sodium (137-145) mmol/L BUN (7-17) mg/dL Creatinine (0.52-1.04) mg/dL Glucose (74-99) mg/dL POC Glucose (mg/dL) 173 H (70-110) mg/dL AST (14-36) U/L Total Protein (6.3-8.2) g/dL Albumin (3.5-5.0) g/dL Urine Appearance Cloudy H (Clear) Urine Protein 1+ H (Negative) Urine Glucose (UA) Trace H (Negative) Ur Squamous Epith Cells 22 H (0-4) /hpf Amorphous Sediment Rare H (None) /hpf Urine Bacteria Moderate H (None) /hpf Hyaline Casts 105 H (0-2) /lpf Urine Mucus Rare H (None) /hpf 02/21/23 02/21/23 Range/Units 06:29 07:31 RBC (3.80-5.40) m/uL Hgb (11.4-16.0) gm/dL Hct (34.0-46.0) % RDW (11.5-15.5) % Plt Count (150-450) k/uL Sodium 134 L (137-145) mmol/L BUN 23 H (7-17) mg/dL Creatinine 1.79 H (0.52-1.04) mg/dL Glucose 198 H (74-99) mg/dL POC Glucose (mg/dL) 222 H (70-110) mg/dL AST 38 H (14-36) U/L Total Protein 5.6 L (6.3-8.2) g/dL Albumin 2.8 L (3.5-5.0) g/dL Urine Appearance (Clear) Urine Protein (Negative) Urine Glucose (UA) (Negative) Ur Squamous Epith Cells (0-4) /hpf Amorphous Sediment (None) /hpf Urine Bacteria (None) /hpf Hyaline Casts (0-2) /lpf Urine Mucus (None) /hpf Assessment and Plan (1) Positive cytomegalovirus IgG serology Current Visit: Yes Status: Acute Code(s): R76.8 - OTHER SPECIFIED ABNORMAL IMMUNOLOGICAL FINDINGS IN SERUM SNOMED Code(s): 492719250 Plan: 1patient presented to hospital with intractable nausea and vomiting in this patient who did have a history of liver transplant on immunosuppressive medication patient was positive for CMV at the time of surgery, her symptoms are highly suggestive of possible severe reflux esophagitis clinically suspicious low for CMV esophagitis but not entirely excluded 2-patient is status post EGD and biopsy report is currently pending, CMV PCR is negative making CMV esophagitis to be less likely 3-patient to continue the Pepcid, Reglan and Protonix while waiting for biopsy to finalize Dictation was produced using [employer] dictation software. please excuse any grammatical, word or spelling errors. Time with Patient: Less than 30
[2023-02-21 16:52] LABS: Glucose,Whole Blood 216 mg/dL (70-110)
[2023-02-21 20:26] LABS: Glucose,Whole Blood 239 mg/dL (70-110)
[2023-02-21 23:00] VITALS: TEMP 98.5
[2023-02-22] MEDS: METOCLOPRAMIDE 5 MG/ML 2 ML VIAL IVP SCH ×3 (01:35→12:40)
[2023-02-22] MEDS: HEPARIN SODIUM,PORCINE 5,000 UNIT/ML 1 ML VIAL SQ SCH ×2 (01:35→08:56)
[2023-02-22] MEDS: ACETAMINOPHEN TAB 325 MG TAB PO PRN ×2 (01:35→08:56)
[2023-02-22 01:38] LABS: Glucose,Whole Blood 171 mg/dL (70-110)
[2023-02-22] MEDS: CALCIUM CARBONATE 500 MG CHEWABLE PO PRN (01:42)
[2023-02-22] MEDS: SODIUM CHLORIDE 0.9% 1,000 ML IV SCH (01:43)
[2023-02-22] MEDS: carvediloL 3.125 MG TAB PO SCH (06:50)
[2023-02-22 07:26] LABS: Glucose,Whole Blood 225 mg/dL (70-110)
[2023-02-22 07:37] LABS: HCT 27.9 % (34.0-46.0); HGB 9.8 gm/dL (11.4-16.0); MCH 31.7 pg (25.0-35.0); MCHC 35.2 g/dL (31.0-37.0); MCV 89.9 fL (80.0-100.0); Mean Platelet Volume 9.5; Poikilocytosis Slight; WBC 4.7 k/uL (3.8-10.6)
[2023-02-22 07:46] LABS: Platelet Count 92 k/uL (150-450)
[2023-02-22 07:50] LABS: African American GFR (CKD) 59 (>60 ml/min/1.73 sqM); Anion Gap 7 mmol/L; Blood Urea Nitrogen 14 mg/dL (7-17); Calcium 8.2 mg/dL (8.4-10.2); Carbon Dioxide 21 mmol/L (22-30); Chloride 107 mmol/L (98-107); Glucose 204 mg/dL (74-99); Non-African American GFR(CKD) 52 (>60 ml/min/1.73 sqM); Potassium 3.9 mmol/L (3.5-5.1); Sodium 135 mmol/L (137-145)
[2023-02-22 08:26] VITALS: RESP 18
[2023-02-22] MEDS: PANTOPRAZOLE 40 MG/10 ML VIAL IVP SCH (08:54)
[2023-02-22] MEDS: INSULIN ASPART (NovoLOG) 100 UNIT/ML VIAL SQ SCH ×4 (08:55→12:45)
[2023-02-22] MEDS: INSULIN DETEMIR (LEVEMIR) 100 UNIT/ML SYR SQ SCH (08:55)
[2023-02-22] MEDS: hydrALAZINE HCL 50 MG TAB PO SCH (08:57)
[2023-02-22] MEDS: GABAPENTIN 300 MG CAP PO SCH ×2 (08:57→12:37)
[2023-02-22] MEDS: ONDANSETRON 4 MG/2 ML VIAL IVP PRN (08:57)
[2023-02-22] MEDS: SERTRALINE 100 MG TAB PO SCH (08:57)
[2023-02-22] MEDS: FAMOTIDINE 20 MG TAB PO SCH (08:57)
[2023-02-22] MEDS: ASPIRIN 81 MG PO SCH (08:57)
[2023-02-22] MEDS: TACROLIMUS 1 MG CAP PO SCH (08:57)
[2023-02-22] MEDS: azaTHIOprine 50 MG TAB PO SCH (08:58)
[2023-02-22] MEDS: predniSONE 1 MG TAB PO SCH (08:58)
[2023-02-22 12:24] LABS: Glucose,Whole Blood 221 mg/dL (70-110)
[2023-02-22 12:45] VITALS: BP 110/71; PULSE 92
--- NOTE | 2023-02-22 13:04 | P.DS ---
Providers Date of admission: 02/13/23 22:53 Expected date of discharge: 02/22/23 Attending physician: Gallito Porter MD Consults: 02/15/23 08:19 Consult Physician Routine Consulting Provider: Kal Diane Consult Reason/Comments: CHIQUITA, On Antirejection meds for liver transplant Do you want consulting provider notified?: Yes 02/15/23 08:21 Consult Physician Routine Consulting Provider: Dafne Brunson Consult Reason/Comments: Liver transplant Do you want consulting provider notified?: Yes 02/17/23 08:32 Consult Physician Routine Consulting Provider: Elisabeth Richardson Consult Reason/Comments: possible CMV infection Do you want consulting provider notified?: Yes [facility] Course: Patient is a 47-year-old female status post liver transplant due to nonalcoholic fatty liver disease, insulin-dependent diabetes on insulin pump, hypertension, and neuropathy who presented to the hospital due to abdominal pain and altered mentation. On arrival to the ER her vital signs were remarkable for a blood pressure of 171/94 and a heart rate of 133. Laboratory analysis was remarkable for white blood cell count of 11.1, platelets 107, sodium 135, potassium 6.3, carbon dioxide 20, BUN 37, creatinine 1.66, glucose 421, magnesium 1.3, AST 63, ALT 62, and positive urine acetone. In the emergency department she was diagnosed with intractable nausea and vomiting with possible gastroparesis as well as hyperkalemia. Patient was treated with Zofran, hydration, and potassium binders. She was admitted for further monitoring. Her [facility] transplant team was contacted who recommended continued care at our facility. She was seen by gastroenterology who added scopolamine patch. She was seen by nephrology who did agree with tacrolimus testing but suggested trough level testing. She continued to struggle with nausea and vomiting. Her blood sugars were improving. She subsequently underwent CMV and EBV testing which showed possible acute infection. [facility] liver transplant team was again contacted who recommended direct visualization with EGD and biopsy, this was completed on 02/17/23, they also suggested CMV PCR. 02/20 Patient seen and examined at bedside. She was able to take in beninese muffin from [employer] this morning. She is feeling slightly nauseated this morning. Feels better than previous days. CBC Hct 32.9 Plt 98.BMP Na 134, Cr 1.14, glu 140, Ca 8.2. Mag 1.7. 02/21 Patient was seen and examined. at bedside. Appetite slowly improving. Still feels nauseated. CBC Hg 11 Plt 98. CMP Na 134, BUN 23, Cr 1.79, glu 198, AST 38, alb 2.8. UA 1+ protein, trace glucose. Renal/Bladder US ordered by Nephrology. 02/22 Patient was seen and examined. at bedside. Tolerating diet well. Nausea but no vomiting. CBC shows Hg 9.8 and Plt 92. The drop in Hg could be dilutional as all of her cell lines have dropped. BMP shows Na 135, bicarb 21, Cr 1.24, glu 204, Ca 8.2. Case discussed with Dr. Acosta, per pathology, CMV PCR results wont be back for a couple of weeks. Pathology shows no inclusion bodies. I believe patient can be discharged home to follow up with the CMV results with Dr. Richardson. If positive, she may need to be re-admitted for close monitoring while on anti-viral therapy. This was discussed with the and patient at bedside. Possible discharge home today if patient is able to tolerate small meals and fluid intake. Discharged on Protonix, Pepcid, Zofran PRN, Tigan PRN, Tums PRN, Coreg and Hydralazine. Follow up with PCP within 1-2 days. Follow up with Dr. Richardson and Dr. Brunson within a week. Pertinent studies include Renal US, CT AP. Pertinent procedures include EGD. Vital signs reviewed General: nontoxic, no distress, appears at stated age Cardiovascular: good distal perfusion in all 4 extremities, Normal S1 S2 Lungs: breathing comfortably , no accessory muscle use, CTA BL Ext: no gross muscle atrophy, no edema b/l lower extremities, no contractures Neuro: no focal neuro deficits Psych: awake, appropriate affect Discharge Diagnosis: Intractable nausea and vomiting due to severe esophagitis Immunosuppression secondary to liver transplantation with antirejection meds Acute metabolic encephalopathy DM2 with hyperglycemia and neuropathy Acute kidney injury on chronic kidney disease Hypertension Transaminitis Leukocytosis Thrombocytopenia Resolved: Hyperkalemia, DKA, HypoMag This complex discharge took 35 minutes to complete. Patient Condition at Discharge: Stable Plan - Discharge Summary Discharge Rx Participant: No New Discharge Prescriptions: New carvediloL [Coreg] 3.125 mg PO BID-W/MEALS #60 tab Famotidine [Pepcid] 40 mg PO BID #60 tab Pantoprazole Sodium [Protonix] 40 mg PO AC-BID #60 tab Scopolamine 1 mg/72 Hr Patch [TransDerm Scop] 1 patch TRANSDERM Q72H #10 patch Ondansetron Odt [Zofran Odt] 4 mg PO Q8HR PRN #30 tab PRN Reason: Nausea And Vomiting hydrALAZINE HCL [Apresoline] 50 mg PO TID #90 tab Trimethobenzamide [Tigan] 300 mg PO TID PRN #90 capsule PRN Reason: Nausea And Vomiting Calcium Carbonate [Tums] 500 mg PO TID PRN #90 tab PRN Reason: Heartburn Continue Gabapentin [Neurontin] 600 mg PO DIRECTED INSULIN LISPRO (For Pump) [humaLOG (For Pump)] 0.01 units SQ-PUMP CONTINUOUS Aspirin EC [Ecotrin Low Dose] 81 mg PO DAILY Glucagon [Baqsimi] 1 spray NASAL BID PRN PRN Reason: LOW BLOOD SUGAR Acetaminophen Tab [Tylenol] 1,000 mg PO Q6HR PRN PRN Reason: Fever And/ Or Pain Ketoconazole 2% Shampoo [Nizoral] 1 applic TOPICAL DAILY PRN PRN Reason: Rash predniSONE 2 mg PO DAILY Triamcinolone 0.1% Ointment [Kenalog 0.1% Ointment] 1 applic TOPICAL BID PRN PRN Reason: Rash Eylea (Aflibercept) 2mg/0.05ml Solution 2 mg IV Q60D Tacrolimus [Prograf] 5 mg PO BID Cholecalciferol [Vitamin D3 (25 Mcg = 1000 Iu)] 50 mcg PO DAILY Sodium Zirconium Cyclosilicate [Lokelma] 10 gm PO DAILY PRN PRN Reason: HIGH POTASSIUM LEVELS Albuterol Inhaler [Ventolin Hfa Inhaler] 1 - 2 puff INHALATION RT-Q6H PRN PRN Reason: Shortness Of Breath Insulin NPH Human Isophane [humuLIN N Kwikpen] See Protocol SQ ACHS PRN PRN Reason: HIGH BLOOD SUGAR/PUMP FAILURE Magnesium Chloride [Slow-Mag] 64 mg PO BID traMADol HCL 50 mg PO BID PRN PRN Reason: Pain Sertraline [Zoloft] 100 mg PO DAILY azaTHIOprine [Imuran] 50 mg PO DAILY Discontinued Famotidine [Pepcid] 40 mg PO DAILY Discharge Medication List Gabapentin [Neurontin] 600 mg PO DIRECTED 06/09/20 [History] Aspirin EC [Ecotrin Low Dose] 81 mg PO DAILY 11/05/21 [History] Glucagon [Baqsimi] 1 spray NASAL BID PRN 11/05/21 [History] INSULIN LISPRO (For Pump) [humaLOG (For Pump)] 0.01 units SQ-PUMP CONTINUOUS 11/05/21 [History] Tacrolimus [Prograf] 5 mg PO BID 11/05/21 [History] Acetaminophen Tab [Tylenol] 1,000 mg PO Q6HR PRN 04/06/22 [History] Cholecalciferol [Vitamin D3 (25 Mcg = 1000 Iu)] 50 mcg PO DAILY 04/06/22 [History] Sodium Zirconium Cyclosilicate [Lokelma] 10 gm PO DAILY PRN 04/06/22 [History] Albuterol Inhaler [Ventolin Hfa Inhaler] 1 - 2 puff INHALATION RT-Q6H PRN 02/13/23 [History] Eylea (Aflibercept) 2mg/0.05ml Solution 2 mg IV Q60D 02/13/23 [History] Insulin NPH Human Isophane [humuLIN N Kwikpen] See Protocol SQ ACHS PRN 02/13/23 [History] Ketoconazole 2% Shampoo [Nizoral] 1 applic TOPICAL DAILY PRN 02/13/23 [History] Magnesium Chloride [Slow-Mag] 64 mg PO BID 02/13/23 [History] Sertraline [Zoloft] 100 mg PO DAILY 02/13/23 [History] Triamcinolone 0.1% Ointment [Kenalog 0.1% Ointment] 1 applic TOPICAL BID PRN 02/13/23 [History] azaTHIOprine [Imuran] 50 mg PO DAILY 02/13/23 [History] predniSONE 2 mg PO DAILY 02/13/23 [History] traMADol HCL 50 mg PO BID PRN 02/13/23 [History] Calcium Carbonate [Tums] 500 mg PO TID PRN #90 tab 02/22/23 [Rx] Famotidine [Pepcid] 40 mg PO BID #60 tab 02/22/23 [Rx] Ondansetron Odt [Zofran Odt] 4 mg PO Q8HR PRN #30 tab 02/22/23 [Rx] Pantoprazole Sodium [Protonix] 40 mg PO AC-BID #60 tab 02/22/23 [Rx] Scopolamine 1 mg/72 Hr Patch [TransDerm Scop] 1 patch TRANSDERM Q72H #10 patch 02/22/23 [Rx] Trimethobenzamide [Tigan] 300 mg PO TID PRN #90 capsule 02/22/23 [Rx] carvediloL [Coreg] 3.125 mg PO BID-W/MEALS #60 tab 02/22/23 [Rx] hydrALAZINE HCL [Apresoline] 50 mg PO TID #90 tab 02/22/23 [Rx] Follow up Appointment(s)/Referral(s): Gage Brothers MD [REFERRING] - 1-2 days Elisabeth Richardson MD [STAFF PHYSICIAN] - 1 Week Dafne Brunson MD [STAFF PHYSICIAN] - 1 Week Discharge Disposition: HOME SELF-CARE
--- NOTE | 2023-02-22 14:54 | P.PN ---
Subjective Patient is seen in follow-up for acute kidney injury on chronic kidney disease. Renal function better. No vomiting today. Still having vomiting. No active complaints. Vital signs are stable. General: No acute distress. HEENT: Head exam is unremarkable. LUNGS: No audible rhonchi or wheezes. HEART: Rate and Rhythm are regular. ABDOMEN: Nontender. EXTREMITITES: No edema. Objective - Vital Signs Vital signs: Vital Signs Temp 98.5 F 02/22/23 12:34 Pulse 92 02/22/23 12:34 Resp 18 02/22/23 12:34 BP 110/71 02/22/23 12:34 Pulse Ox 93 L 02/22/23 12:34 FiO2 Intake & Output 02/21/23 02/22/23 02/22/23 18:59 06:59 18:59 Intake Total 2818 490 Output Total 300 800 Balance 2518 -800 490 Weight 94.347 kg Intake: IV 10 Invasive Line 2 10 Oral 2818 480 Output: Urine 300 800 Other: Voiding Method Toilet Toilet Toilet # Voids 1 1 2 - Labs CBC & Chem 7: 02/22/23 07:15 02/22/23 07:15 Labs: Abnormal Lab Results - Last 24 Hours (Table) 02/21/23 02/21/23 02/22/23 Range/Units 16:50 20:24 01:35 RBC (3.80-5.40) m/uL Hgb (11.4-16.0) gm/dL Hct (34.0-46.0) % RDW (11.5-15.5) % Plt Count (150-450) k/uL Sodium (137-145) mmol/L Carbon Dioxide (22-30) mmol/L Creatinine (0.52-1.04) mg/dL Glucose (74-99) mg/dL POC Glucose (mg/dL) 216 H 239 H 171 H (70-110) mg/dL Calcium (8.4-10.2) mg/dL 02/22/23 02/22/23 02/22/23 Range/Units 07:15 07:15 07:25 RBC 3.10 L (3.80-5.40) m/uL Hgb 9.8 L (11.4-16.0) gm/dL Hct 27.9 L (34.0-46.0) % RDW 16.0 H (11.5-15.5) % Plt Count 92 L (150-450) k/uL Sodium 135 L (137-145) mmol/L Carbon Dioxide 21 L (22-30) mmol/L Creatinine 1.24 H (0.52-1.04) mg/dL Glucose 204 H (74-99) mg/dL POC Glucose (mg/dL) 225 H (70-110) mg/dL Calcium 8.2 L (8.4-10.2) mg/dL 02/22/23 Range/Units 12:23 RBC (3.80-5.40) m/uL Hgb (11.4-16.0) gm/dL Hct (34.0-46.0) % RDW (11.5-15.5) % Plt Count (150-450) k/uL Sodium (137-145) mmol/L Carbon Dioxide (22-30) mmol/L Creatinine (0.52-1.04) mg/dL Glucose (74-99) mg/dL POC Glucose (mg/dL) 221 H (70-110) mg/dL Calcium (8.4-10.2) mg/dL Assessment and Plan Plan: Assessment: 1. Acute kidney injury secondary to vasomotor nephropathy secondary to hypovolemia from vomiting. Renal function improved. Creatinine 1.24 today. UA with trace protein and no blood. 2. Chronic kidney disease stage IIIB. Baseline creatinine 1.4-1.6 secondary to diabetic kidney disease. 3. Hyperkalemia secondary to acute kidney injury, tacrolimus and hyperglycemia. Improved. 4. DKA. Improved. 5. Hypertension with chronic kidney disease. Exacerbated by vomiting. Controlled. 6. History of liver transplant in July 2021 at [facility]. 7. Hypomagnesemia anemia from poor intake. Replaced. Improved. 8. Nausea and vomiting. Possibly diabetic gastroparesis versus viral esophagitis. Improved. Status post EGD. 9. Positive CMV and EBV IgM and IgG antibody. Quantification of CMV pending. Plan: Encourage oral intake. Avoid nephrotoxins. Per [facility] transplant team, maintain current immunosuppressive medications as she had episode of ejection recently. Goal tacrolimus level 8-10. Patient being discharged today. Advised to follow up outpatient in 1 week post discharge. She is also advised to follow up with [facility] transplant team and rest of her physicians.
== END 2023-02-22 14:41 | disposition home or self-care (01) | DRG 637 ==
LOC: EC 17:22 → 3SCARD 22:53
PROVIDERS: ADMIT Internal Medicine; ATTEND Internal Medicine
PROC: 0DB98ZX Excision of Duodenum, Via Natural or Artificial Opening Endoscopic, Diagnostic (ICD-10-PCS; principal; 2023-02-17 08:10)
PROC: 0DB78ZX Excision of Stomach, Pylorus, Via Natural or Artificial Opening Endoscopic, Diagnostic (ICD-10-PCS; principal; 2023-02-17 08:10)
PROC: 0DB48ZX Excision of Esophagogastric Junction, Via Natural or Artificial Opening Endoscopic, Diagnostic (ICD-10-PCS; principal; 2023-02-17 08:10)
DX: E11.10 Type 2 diabetes mellitus with ketoacidosis without coma (principal); G92.8 Other toxic encephalopathy; N17.0 Acute kidney failure with tubular necrosis; B25.9 Cytomegaloviral disease, unspecified; D61.818 Other pancytopenia; Z94.4 Liver transplant status; D84.821 Immunodeficiency due to drugs; I47.19 Other supraventricular tachycardia; X58.XXXA Exposure to other specified factors, initial encounter; I12.9 Hypertensive chronic kidney disease with stage 1 through stage 4 chronic kidney disease, or unspecified chronic kidney disease; E11.22 Type 2 diabetes mellitus with diabetic chronic kidney disease; N18.30 Chronic kidney disease, stage 3 unspecified; D69.6 Thrombocytopenia, unspecified; E87.5 Hyperkalemia; R11.2 Nausea with vomiting, unspecified; E86.0 Dehydration; N18.32 Chronic kidney disease, stage 3b; E11.40 Type 2 diabetes mellitus with diabetic neuropathy, unspecified; K76.9 Liver disease, unspecified; I16.0 Hypertensive urgency; K29.60 Other gastritis without bleeding; E83.42 Hypomagnesemia; E11.43 Type 2 diabetes mellitus with diabetic autonomic (poly)neuropathy; R74.01 Elevation of levels of liver transaminase levels; K21.00 Gastro-esophageal reflux disease with esophagitis, without bleeding; E11.21 Type 2 diabetes mellitus with diabetic nephropathy; K31.84 Gastroparesis; E11.42 Type 2 diabetes mellitus with diabetic polyneuropathy; E11.65 Type 2 diabetes mellitus with hyperglycemia; E86.1 Hypovolemia; K74.60 Unspecified cirrhosis of liver; K76.0 Fatty (change of) liver, not elsewhere classified; Z79.4 Long term (current) use of insulin; Z79.624 Long term (current) use of inhibitors of nucleotide synthesis; Z79.82 Long term (current) use of aspirin; Z79.899 Other long term (current) drug therapy; Z96.41 Presence of insulin pump (external) (internal); Z98.51 Tubal ligation status
CPT/HCPCS: 36415; 43239; 74176; 76770; 80048; 80051; 80053; 80197; 81001; 81003; 82009; 82140; 82565; 82803; 83036; 83605; 83735; 84100; 84520; 84703; 85025; 85027; 85610; 85730; 86140; 86644; 86645; 86663; 86664; 86665; 87497; 88305; 93005; 94760; 96361; 96365; 96366; 96375; 96376; 99291

== ENCOUNTER 2023-03-21 17:10 | Inpatient (IN) | payer OTHER, MEDICARE ==
[2023-03-21] MEDS ORDERED: PANTOPRAZOLE 40 MG/10 ML VIAL IVP STA (18:40)
[2023-03-21] MEDS ORDERED: SODIUM CHLORIDE 0.9% 1,000 ML IV STA ×2 (18:40)
[2023-03-21] MEDS ORDERED: ONDANSETRON 4 MG/2 ML VIAL IVP STA (18:40)
[2023-03-21 19:22] LABS: Basophils % (A) 0 %; Eosinophils % (A) 0 %; HCT 39.5 % (34.0-46.0); Hypochromasia Slight; Lymphocytes # (A) 1.3 k/uL (1.0-4.8); Lymphocytes % (A) 22 %; MCH 29.8 pg (25.0-35.0); MCHC 34.2 g/dL (31.0-37.0); MCV 87.2 fL (80.0-100.0); Mean Platelet Volume 9.9; Monocytes # (A) 0.3 k/uL (0-1.0); Monocytes % (A) 5 %; Neutrophils # (A) 4.4 k/uL (1.3-7.7); Neutrophils % (A) 72 %; Platelet Count 119 k/uL (150-450); Poikilocytosis Moderate; RBC 4.53 m/uL (3.80-5.40); RDW 14.9 % (11.5-15.5); WBC 6.1 k/uL (3.8-10.6)
--- NOTE | 2023-03-21 19:29 | XR ---
EXAMINATION TYPE: XR abdomen acute w cxr DATE OF EXAM: 03/21/2023 7:22 PM CLINICAL INDICATION:Female, 47 years old with history of abdominal pain; [facility] COMPARISON: None. TECHNIQUE: Two radiographic views of the abdomen (upright and supine) and a frontal chest radiograph were obtained. FINDINGS CHEST: Lungs/Pleura: There is no evidence of pleural effusion, focal consolidation or pneumothorax. Mediastinum: Unremarkable. Vasculature: Normal. Heart: Normal in size. Musculoskeletal: The osseous structures are intact. Other findings: No significant. FINDINGS ABDOMEN: Bowel gas pattern: Right upper quadrant surgical clips. Normal without dilated loops of small or larg e bowel. Fecal material and gas are demonstrated throughout the colon and rectum. Abnormal calcifications: None. Musculoskeletal: Normal. Other: None. IMPRESSION: 1. No radiographic evidence for acute abdominal process. 2. No acute cardiopulmonary process
[2023-03-21 19:30] LABS: African American GFR (CKD) 34 (>60 ml/min/1.73 sqM); Albumin 4.7 g/dL (3.5-5.0); Carbon Dioxide 26 mmol/L (22-30); Non-African American GFR(CKD) 29 (>60 ml/min/1.73 sqM); Total Protein 8.6 g/dL (6.3-8.2)
[2023-03-21 19:32] LABS: HGB 13.5 gm/dL (11.4-16.0)
[2023-03-21 19:41] LABS: ALT 62 U/L (4-34); AST 90 U/L (14-36); Alkaline Phosphatase 145 U/L (38-126); Anion Gap 11 mmol/L; Blood Urea Nitrogen 34 mg/dL (7-17); Calcium 10.4 mg/dL (8.4-10.2); Chloride 101 mmol/L (98-107); Glucose 221 mg/dL (74-99); Lipase 52 U/L (23-300); Magnesium 1.4 mg/dL (1.6-2.3); Phosphorus 3.4 mg/dL (2.5-4.5); Sodium 138 mmol/L (137-145); Total Bilirubin 0.8 mg/dL (0.2-1.3)
[2023-03-21 19:55] LABS: Potassium 7.1 mmol/L (3.5-5.1)
[2023-03-21] MEDS ORDERED: INSULIN REGULAR 100 UNIT/ML VIAL (IV) IV ONE (20:07)
[2023-03-21] MEDS ORDERED: SODIUM ZIRCONIUM CYCLOSILICATE 10 GM PACKET PO ONE (20:07)
[2023-03-21] MEDS ORDERED: DEXTROSE 50% SYRINGE 50 ML IVP ONE (20:07)
[2023-03-21] MEDS ORDERED: SODIUM BICARB 8.4% 50 ML SYR (1 MEQ/ML) IV ONE (20:07)
[2023-03-21] MEDS ORDERED: METOCLOPRAMIDE 5 MG/ML 2 ML VIAL IVP STA (20:38)
[2023-03-21 20:40] LABS: Appearance,Urine Clear (Clear); Bilirubin,Urine Negative (Negative); Blood,Urine Negative (Negative); Color,Urine Colorless; Glucose,Urine (UA) Trace (Negative); Hyaline Casts,Urine 1 /lpf (0-2); Ketones,Urine Negative (Negative); Leukocyte Esterase,Urine Negative (Negative); Nitrite,Urine Negative (Negative); Protein,Urine 1+ (Negative); RBC,Urine <1 /hpf (0-5); Squamous Epithelial Cell,Urine <1 /hpf (0-4); Urobilinogen,Urine <2.0 mg/dL (<2.0); WBC,Urine <1 /hpf (0-5)
--- NOTE | 2023-03-21 20:41 | ED ---
General Adult HPI - General Chief complaint: Recheck/Abnormal Lab/Rx Stated complaint: abnormal labs Time Seen by Provider: 03/21/23 18:28 Source: patient Mode of arrival: ambulatory Limitations: no limitations - History of Present Illness Initial comments: This 39-year-old female presents with complaint of nausea and vomiting. She states that it just started this morning. She vomited approximately 20 times. She denies any diarrhea, constipation, fevers, or chills. She does complain of occasional abdominal cramping. She does relate a history of previous hepatic transplant out of [facility]. They apparently called [facility] and were told to come to the emergency department. She had some labs done recently that showed slight elevation of her liver function studies as well as elevation of her kidneys. She does admit to being hospitalized last month and was fairly ill at that time with 11 day hospitalization and treatment for diabetic ketoacidosis. Her transplant was approximately a year and a half ago. She has had problems with rejection 2. No other complaints or modifying factors. - Related Data Home Medications Medication Instructions Recorded Confirmed Gabapentin [Neurontin] 600 mg PO DIRECTED 06/09/20 02/14/23 Aspirin EC [Ecotrin Low Dose] 81 mg PO DAILY 11/05/21 02/13/23 Glucagon [Baqsimi] 1 spray NASAL BID PRN 11/05/21 02/13/23 INSULIN LISPRO (For Pump) [humaLOG 0.01 units SQ-PUMP CONTINUOUS 11/05/21 02/13/23 (For Pump)] Tacrolimus [Prograf] 5 mg PO BID 11/05/21 02/13/23 Acetaminophen Tab [Tylenol] 1,000 mg PO Q6HR PRN 04/06/22 02/13/23 Cholecalciferol [Vitamin D3 (25 50 mcg PO DAILY 04/06/22 02/13/23 Mcg = 1000 Iu)] Sodium Zirconium Cyclosilicate 10 gm PO DAILY PRN 04/06/22 02/13/23 [Lokelma] Albuterol Inhaler [Ventolin Hfa 1 - 2 puff INHALATION RT-Q6H PRN 02/13/23 02/13/23 Inhaler] Eylea (Aflibercept) 2mg/0.05ml 2 mg IV Q60D 02/13/23 02/13/23 Solution Insulin NPH Human Isophane See Protocol SQ ACHS PRN 02/13/23 02/13/23 [humuLIN N Gerardikpen] Ketoconazole 2% Shampoo [Nizoral] 1 applic TOPICAL DAILY PRN 02/13/23 02/13/23 Magnesium Chloride [Slow-Mag] 64 mg PO BID 02/13/23 02/13/23 Sertraline [Zoloft] 100 mg PO DAILY 02/13/23 02/13/23 Triamcinolone 0.1% Ointment 1 applic TOPICAL BID PRN 02/13/23 02/13/23 [Kenalog 0.1% Ointment] azaTHIOprine [Imuran] 50 mg PO DAILY 02/13/23 02/13/23 predniSONE 2 mg PO DAILY 02/13/23 02/13/23 traMADol HCL 50 mg PO BID PRN 02/13/23 02/13/23 Previous Rx's Medication Instructions Recorded Calcium Carbonate [Tums] 500 mg PO TID PRN #90 tab 02/22/23 Famotidine [Pepcid] 40 mg PO BID #60 tab 02/22/23 Ondansetron Odt [Zofran Odt] 4 mg PO Q8HR PRN #30 tab 02/22/23 Pantoprazole Sodium [Protonix] 40 mg PO AC-BID #60 tab 02/22/23 Scopolamine 1 mg/72 Hr Patch 1 patch TRANSDERM Q72H #10 patch 02/22/23 [TransDerm Scop] Trimethobenzamide [Tigan] 300 mg PO TID PRN #90 capsule 02/22/23 carvediloL [Coreg] 3.125 mg PO BID-W/MEALS #60 tab 02/22/23 hydrALAZINE HCL [Apresoline] 50 mg PO TID #90 tab 02/22/23 Allergies Allergy/AdvReac Type Severity Reaction Status Date / Time No Known Allergies Allergy Verified 03/21/23 17:50 Review of Systems ROS Statement: Those systems with pertinent positive or pertinent negative responses have been documented in the HPI. ROS Other: All systems not noted in ROS Statement are negative. 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 Covid 07/16/20 History of Any Multi-Drug Resistant Organisms: None Reported Past Surgical History: Tubal Ligation Additional Past Surgical History / Comment(s): carpal tunnel - rt hand, esphogeal banding, Liver transplant July 2021 Past Anesthesia/Blood Transfusion Reactions: No Reported Reaction Past Psychological History: No Psychological Hx Reported Smoking Status: Never smoker Past Alcohol Use History: Rare Past Drug Use History: None Reported General Exam - General Exam Comments Initial Comments: GENERAL: The patient is well nourished and well hydrated. VITAL SIGNS: Heart rate, blood pressure, respiratory rate reviewed as recorded in nurse's notes. EYES: Pupils are round and reactive. Extraocular movements are intact. No conjunctival / lid redness or swelling. ENT: No external evidence of injury, swelling, or ecchymosis. Airway is patent. Throat is clear. NECK: Nontender. No swelling or evidence of injury. No subcutaneous emphysema. Trachea is midline. No thyroid mass. HEART: Regular rate and rhythm. Good peripheral pulses. LUNGS/CHEST: Breath sounds clear and equal bilaterally. No rales, rhonchi, or wheezes. No ecchymosis, subcutaneous emphysema, or tenderness. ABDOMEN: Abdomen soft slight diffuse tenderness. Hiccups noted. No palpable masses or organomegaly. No peritoneal signs. No abdominal wall swelling or ecchymosis. EXTREMITIES: No extremity tenderness. Normal muscle tone and function. No thoracolumbar tenderness. NEUROLOGIC: Sensation is grossly intact. Cranial nerve exam reveals face is symmetrical, tongue is midline, speech is clear. SKIN: No abrasions or ecchymosis is noted. No induration or masses noted. PSYCHIATRIC: Alert and oriented. Appropriate behavior and judgment. Limitations: no limitations Course Vital Signs 03/21/23 03/21/23 17:47 20:52 Temperature 98.3 F Pulse Rate 95 101 H Respiratory 18 18 Rate Blood Pressure 165/92 166/99 O2 Sat by Pulse 100 96 Oximetry Medical Decision Making - Medical Decision Making The patient was seen and examined. All diagnostics were reviewed. An IV was established patient is hydrated. She receives Zofran initially for nausea and later receives Reglan. EKG is completed and this does show a sinus tachycardia at a rate of 107. There is no acute ST or T wave changes noted per my interpretation. The intervals are normal. The laboratory does come back showing increase in the BUN/creatinine and creatinine especially as compared to previous. Her previous level was 1.23 and she currently is at approximately 1.89 for her creatinine. Her potassium came back significantly elevated at 7.1. There is mild transaminitis. Patient does receive Lokelema orally and bicarb perfecto, insulin, and glucose intravenously for her significant hyperkalemia. It is felt as though she would benefit from admission to the hospital for further treatment. She is agreeable with this plan. Case is discussed with Dr. Manrique from internal medicine and he is agreeable with admission. Was pt. sent in by a medical professional or institution ([facility], HEEL SEATER, urgent care, hospital, or penitentiary...) When possible be specific @ -Patient was sent in by [facility] hepatic transplant ancillary staff Did you speak to anyone other than the patient for history (EMS, parent, family, police, friend...)? What history was obtained from this source @ - also does contribute to history. Did you review nursing and triage notes (agree or disagree)? Why? @ -I reviewed and agree with nursing and triage notes Were old charts reviewed (outside hosp., previous admission, EMS record, old EKG, old radiological studies, urgent care reports/EKG's, penitentiary records)? Report findings @ -Old records were reviewed and additional past medical history is obtained. Differential Diagnosis (chest pain, altered mental status, abdominal pain women, abdominal pain men, vaginal bleeding, weakness, fever, dyspnea, syncope, headache, dizziness, GI bleed, back pain, seizure, CVA, palpatations, mental health, musculoskeletal)? @ -Nausea and vomiting, acute kidney injury, hyperkalemia, electrolyte imbalance, dehydration EKG interpreted by me (3pts min.). @ -As above X-rays interpreted by me (1pt min.). @ -None done CT interpreted by me (1pt min.). @ -None done U/S interpreted by me (1pt. min.). @ -None done What testing was considered but not performed or refused? (CT, X-rays, U/S, labs)? Why? @ -None What meds were considered but not given or refused? Why? @ -None Did you discuss the management of the patient with other professionals (pro fessionals i.e. , [facility], HEEL SEATER, lab, RT, psych nurse, social services aide, mobile web application developer, teacher, chief risk officer, insurance case manager)? Give summary @ -Case is discussed with internal medicine and they're agreeable with admission. Was smoking cessation discussed for >3mins.? @ -No Was critical care preformed (if so, how long)? @ -30 minutes of critical care time is utilized and the treatment of the patient. Were there social determinants of health that impacted care today? How? (Homelessness, low income, unemployed, alcoholism, drug addiction, transportation, low edu. Level, literacy, decrease access to med. care, fci, rehab)? @ -No Was there de-escalation of care discussed even if they declined (Discuss DNR or withdrawal of care, Hospice)? DNR status @ -No What co-morbidities impacted this encounter? (DM, HTN, Smoking, COPD, CAD, Cancer, CVA, ARF, Chemo, Hep., AIDS, mental health diagnosis, sleep apnea, morbid obesity)? @ -Hepatic transplant, diabetes mellitus Was patient admitted / discharged? Hospital course, mention meds given and route, prescriptions, significant lab abnormalities, going to OR and other pertinent info. @ -Admitted, please see above. Undiagnosed new problem with uncertain prognosis? @ -This is a new problem. Drug Therapy requiring intensive monitoring for toxicity (Heparin, Nitro, Insulin, Cardizem)? @ -No Were any procedures done? @ -No Diagnosis/symptom? @ -Hyperkalemia, acute kidney injury, transaminitis, nausea and vomiting, dehydration. Acute, or Chronic, or Acute on Chronic? @ -Acute Uncomplicated (without systemic symptoms) or Complicated (systemic symptoms)? @ -Uncomplicated Side effects of treatment? @ -No Exacerbation, Progression, or Severe Exacerbation? @ -Exacerbation Poses a threat to life or bodily function? How? (Chest pain, USA, AL, pneumonia, PE, COPD, DKA, ARF, appy, cholecystitis, CVA, Diverticulitis, Homicidal, Suicidal, threat to staff... and all critical care pts) @ -Yes, patient has severe hyperkalemia and this is life-threatening. - Lab Data Result diagrams: 03/21/23 19:15 03/21/23 19:15 Lab Results 03/21/23 03/21/23 03/21/23 Range/Units 19:15 19:15 19:15 WBC 6.1 (3.8-10.6) k/uL RBC 4.53 (3.80-5.40) m/uL Hgb 13.5 D (11.4-16.0) gm/dL Hct 39.5 (34.0-46.0) % MCV 87.2 (80.0-100.0) fL MCH 29.8 (25.0-35.0) pg MCHC 34.2 (31.0-37.0) g/dL RDW 14.9 (11.5-15.5) % Plt Count 119 L (150-450) k/uL MPV 9.9 Neutrophils % 72 % Lymphocytes % 22 % Monocytes % 5 % Eosinophils % 0 % Basophils % 0 % Neutrophils # 4.4 (1.3-7.7) k/uL Lymphocytes # 1.3 (1.0-4.8) k/uL Monocytes # 0.3 (0-1.0) k/uL Eosinophils # 0.0 (0-0.7) k/uL Basophils # 0.0 (0-0.2) k/uL Hypochromasia Slight Poikilocytosis Moderate Sodium 138 (137-145) mmol/L Potassium 7.1 H* (3.5-5.1) mmol/L Chloride 101 (98-107) mmol/L Carbon Dioxide 26 (22-30) mmol/L Anion Gap 11 mmol/L BUN 34 H (7-17) mg/dL Creatinine 1.98 H (0.52-1.04) mg/dL Est GFR (CKD-EPI)AfAm 34 (>60 ml/min/1.73 sqM) Est GFR (CKD-EPI)NonAf 29 (>60 ml/min/1.73 sqM) Glucose 221 H (74-99) mg/dL Plasma Lactic Acid Kai 1.0 (0.7-2.0) mmol/L Calcium 10.4 H (8.4-10.2) mg/dL Phosphorus 3.4 (2.5-4.5) mg/dL Magnesium 1.4 L (1.6-2.3) mg/dL Total Bilirubin 0.8 (0.2-1.3) mg/dL AST 90 H (14-36) U/L ALT 62 H (4-34) U/L Alkaline Phosphatase 145 H (38-126) U/L Total Protein 8.6 H (6.3-8.2) g/dL Albumin 4.7 (3.5-5.0) g/dL Lipase 52 (23-300) U/L Urine Color Urine Appearance (Clear) Urine pH (5.0-8.0) Ur Specific Lane (1.001-1.035) Urine Protein (Negative) Urine Glucose (UA) (Negative) Urine Ketones (Negative) Urine Blood (Negative) Urine Nitrite (Negative) Urine Bilirubin (Negative) Urine Urobilinogen (<2.0) mg/dL Ur Leukocyte Esterase (Negative) Urine RBC (0-5) /hpf Urine WBC (0-5) /hpf Ur Squamous Epith Cells (0-4) /hpf Hyaline Casts (0-2) /lpf 03/21/23 Range/Units 20:24 WBC (3.8-10.6) k/uL RBC (3.80-5.40) m/uL Hgb (11.4-16.0) gm/dL Hct (34.0-46.0) % MCV (80.0-100.0) fL MCH (25.0-35.0) pg MCHC (31.0-37.0) g/dL RDW (11.5-15.5) % Plt Count (150-450) k/uL MPV Neutrophils % % Lymphocytes % % Monocytes % % Eosinophils % % Basophils % % Neutrophils # (1.3-7.7) k/uL Lymphocytes # (1.0-4.8) k/uL Monocytes # (0-1.0) k/uL Eosinophils # (0-0.7) k/uL Basophils # (0-0.2) k/uL Hypochromasia Poikilocytosis Sodium (137-145) mmol/L Potassium (3.5-5.1) mmol/L Chloride (98-107) mmol/L Carbon Dioxide (22-30) mmol/L Anion Gap mmol/L BUN (7-17) mg/dL Creatinine (0.52-1.04) mg/dL Est GFR (CKD-EPI)AfAm (>60 ml/min/1.73 sqM) Est GFR (CKD-EPI)NonAf (>60 ml/min/1.73 sqM) Glucose (74-99) mg/dL Plasma Lactic Acid Kai (0.7-2.0) mmol/L Calcium (8.4-10.2) mg/dL Phosphorus (2.5-4.5) mg/dL Magnesium (1.6-2.3) mg/dL Total Bilirubin (0.2-1.3) mg/dL AST (14-36) U/L ALT (4-34) U/L Alkaline Phosphatase (38-126) U/L Total Protein (6.3-8.2) g/dL Albumin (3.5-5.0) g/dL Lipase (23-300) U/L Urine Color Colorless Urine Appearance Clear (Clear) Urine pH 7.0 (5.0-8.0) Ur Specific Lane 1.010 (1.001-1.035) Urine Protein 1+ H (Negative) Urine Glucose (UA) Trace H (Negative) Urine Ketones Negative (Negative) Urine Blood Negative (Negative) Urine Nitrite Negative (Negative) Urine Bilirubin Negative (Negative) Urine Urobilinogen <2.0 (<2.0) mg/dL Ur Leukocyte Esterase Negative (Negative) Urine RBC <1 (0-5) /hpf Urine WBC <1 (0-5) /hpf Ur Squamous Epith Cells <1 (0-4) /hpf Hyaline Casts 1 (0-2) /lpf Disposition Clinical Impression: Nausea & vomiting, CHIQUITA (acute kidney injury), Hyperkalemia, Hiccups, Transaminitis, History of liver transplant, Dehydration Disposition: ADMITTED IP TO THIS [facility] Condition: Fair Referrals: Aldo Hall MD [Primary Care Provider] - 1-2 days Time of Disposition: 20:41 Decision Date: 03/21/23 Decision Time: 20:41
[2023-03-21] MEDS ORDERED: ONDANSETRON 4 MG/2 ML VIAL IVP PRN (21:18)
[2023-03-21] MEDS ORDERED: METOCLOPRAMIDE 5 MG/ML 2 ML VIAL IVP PRN (21:23)
[2023-03-22] MEDS ORDERED: TRIMETHOBENZAMIDE 300 MG PO PRN (01:00)
--- NOTE | 2023-03-22 01:04 | P.HPIM ---
History of Present Illness H&P Date: 03/21/23 Patient is a 47-year-old female with a PMH of VELASQUEZ status post liver transplant, insulin-dependent DM on insulin pump, hypertension, and chronic kidney disease who was sent to the emergency room for abnormal blood work. The patient reports that she had been doing well until this morning when she had multiple episodes of nonbloody bilious emesis, without any obvious provocation. She was seen at [facility] for follow-up yesterday where blood work was drawn and she was subsequently called today and advised to go to the emergency room for severe hyperkalemia and acute kidney injury. Of note, the patient was recently discharged from the hospital after a nine-day hospital course for intractable nausea and vomiting with esophagitis and acute encephalopathy. The patient's CMV testing from prior EGD was negative. At time of interview, the patient reports that her nausea had resolved mid day and that she continues to feel well and has no active complaints. Denies experiencing abdominal pain, fever, chills, cough. In the emergency room abdominal x-rays were unremarkable. 107 bpm with Q waves in precordial leads V1 to V3 and poor R-wave progression as reviewed by me. Lab oratory evaluation had revealed potassium of 7.1, BUN 34, creatinine 1.98 (baseline 1.3), platelets 119, magnesium 1.4, AST 90, ALT 62, alk phos 145, with an unremarkable UA, and glucose 221. ED documentation reviewed and case discussed with ED provider. Review of systems: Pertinent positives and negatives as discussed in HPI, a complete review of systems was performed and all other systems are negative. Physical examination: Vital signs reviewed General: non toxic, no distress, appears at stated age, obese Derm: no unusual rashes/lesions, warm Head: atraumatic, normocephalic, symmetric Eyes: EOMI, no lid lag, anicteric sclera, pupils equal round reactive to light ENT: Nose and ears atraumatic Neck: No cervical lymphadenopathy, trachea midline, supple Mouth: no lip lesion, mucus membranes moist Cardiovascular: S1S2 reg, no murmur, positive dorsalis pedis pulse bilateral, no edema Lungs: CTA bilateral, no rhonchi, no rales, no accessory muscle use Abdominal: soft, nontender to palpation, no guarding Ext: muscle strength 5 out of 5 in all 4 extremities grossly, no gross muscle atrophy, no contractures, Neuro: CN II-XI grossly intact, no gross focal neuro deficits Psych: Alert, oriented, appropriate affect Assessment: CHIQUITA on chronic kidney disease Severe hyperkalemia Transaminitis Insulin-dependent diabetes mellitus on insulin pump Thrombocytopenia, at baseline Hypomagnesemia Imaging: In the emergency room abdominal x-rays were unremarkable. 107 bpm with Q waves in precordial leads V1 to V3 and poor R-wave progression as reviewed by me. Data Review: Laboratory evaluation had revealed potassium of 7.1, BUN 34, creatinine 1.98 (baseline 1.3), platelets 119, magnesium 1.4, AST 90, ALT 62, alk phos 145, with an unremarkable UA, and glucose 221. Plan: Continue with IV fluids with normal saline 130 mL/h Status post hyperkalemia cocktail Cardiac monitoring Nephrology consulted Antiemetics Place magnesium Continue patient's insulin pump with pump instructions and assessment Continue home medications DVT prophylaxis: Lovenox Subq The patient is admitted with an anticipated greater than 2 midnight stay for evaluation of CHIQUITA on CKD CODE STATUS: Full Code Discussed with: Patient Anticipated discharge place: Home 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, neuropathy feet, cyst left ovary, ascities. Covid 07/16/20 History of Any Multi-Drug Resistant Organisms: None Reported Past Surgical History: Tubal Ligation Additional Past Surgical History / Comment(s): carpal tunnel - rt hand, esphogeal banding, Liver transplant July 2021 Past Anesthesia/Blood Transfusion Reactions: No Reported Reaction Past Psychological History: No Psychological Hx Reported Smoking Status: Never smoker Past Alcohol Use History: Rare Past Drug Use History: None Reported Medications and Allergies Home Medications Medication Instructions Recorded Confirmed Type Gabapentin [Neurontin] 300 mg PO AC-BID@0800,1200 06/09/20 03/21/23 History Aspirin EC [Ecotrin Low Dose] 81 mg PO DAILY 11/05/21 03/21/23 History Glucagon [Baqsimi] 1 spr NASAL BID PRN 11/05/21 03/21/23 History INSULIN LISPRO (For Pump) [humaLOG 0.01 units SQ-PUMP CONTINUOUS 11/05/21 03/21/23 History (For Pump)] Tacrolimus [Prograf] 5 mg PO BID 11/05/21 03/21/23 History Acetaminophen Tab [Tylenol] 1,000 mg PO Q6HR PRN 04/06/22 03/21/23 History Cholecalciferol [Vitamin D3 (25 50 mcg PO DAILY 04/06/22 03/21/23 History Mcg = 1000 Iu)] Sodium Zirconium Cyclosilicate 10 gm PO DAILY PRN 04/06/22 03/21/23 History [Lokelma] Albuterol Inhaler [Ventolin Hfa 1 - 2 puff INHALATION RT-Q6H PRN 02/13/23 03/21/23 History Inhaler] Eylea (Aflibercept) 2mg/0.05ml 2 mg IV Q60D 02/13/23 03/21/23 History Solution Insulin NPH Human Isophane See Protocol SQ ACHS PRN 02/13/23 03/21/23 History [humuLIN N Kwikpen] Ketoconazole 2% Shampoo [Nizoral] 1 applic TOPICAL DAILY PRN 02/13/23 03/21/23 History Magnesium Chloride [Slow-Mag] 64 mg PO BID 02/13/23 03/21/23 History Sertraline [Zoloft] 100 mg PO DAILY 02/13/23 03/21/23 History Triamcinolone 0.1% Ointment 1 applic TOPICAL BID PRN 02/13/23 03/21/23 History [Kenalog 0.1% Ointment] azaTHIOprine [Imuran] 50 mg PO DAILY 02/13/23 03/21/23 History predniSONE 2 mg PO DAILY 02/13/23 03/21/23 History traMADol HCL 50 mg PO BID PRN 02/13/23 03/21/23 History Calcium Carbonate [Tums] 500 mg PO TID PRN #90 tab 02/22/23 03/21/23 Rx Famotidine [Pepcid] 40 mg PO BID #60 tab 02/22/23 03/21/23 Rx Ondansetron Odt [Zofran Odt] 4 mg PO Q8HR PRN #30 tab 02/22/23 03/21/23 Rx Pantoprazole Sodium [Protonix] 40 mg PO AC-BID #60 tab 02/22/23 03/21/23 Rx Trimethobenzamide [Tigan] 300 mg PO TID PRN #90 capsule 02/22/23 03/21/23 Rx carvediloL [Coreg] 3.125 mg PO BID-W/MEALS #60 tab 02/22/23 03/21/23 Rx hydrALAZINE HCL [Apresoline] 50 mg PO TID #90 tab 02/22/23 03/21/23 Rx Gabapentin [Neurontin] 600 mg PO HS 03/21/23 03/21/23 History Scopolamine 1 mg/72 Hr Patch 1 patch TRANSDERM Q72H PRN 03/21/23 03/21/23 History [TransDerm Scop] Allergies Allergy/AdvReac Type Severity Reaction Status Date / Time furosemide [From Lasix] AdvReac Nausea & Verified 03/21/23 22:20 Vomiting tirzepatide [From Mounjaro] AdvReac Nausea & Verified 03/21/23 22:20 Vomiting Physical Exam Vitals: Vital Signs Temp Pulse Resp BP Pulse Ox 03/21/23 22:52 101 H 18 165/91 96 03/21/23 20:52 101 H 18 166/99 96 03/21/23 17:47 98.3 F 95 18 165/92 100 Intake and Output 03/21/23 03/21/23 03/22/23 14:59 22:59 06:59 Other: Weight 85.729 kg Results CBC & Chem 7: 03/21/23 19:15 03/21/23 19:15 Labs: Abnormal Lab Results - Last 24 Hours (Table) 03/21/23 03/21/23 03/21/23 Range/Units 19:15 19:15 20:24 Plt Count 119 L (150-450) k/uL Potassium 7.1 H* (3.5-5.1) mmol/L BUN 34 H (7-17) mg/dL Creatinine 1.98 H (0.52-1.04) mg/dL Glucose 221 H (74-99) mg/dL Calcium 10.4 H (8.4-10.2) mg/dL Magnesium 1.4 L (1.6-2.3) mg/dL AST 90 H (14-36) U/L ALT 62 H (4-34) U/L Alkaline Phosphatase 145 H (38-126) U/L Total Protein 8.6 H (6.3-8.2) g/dL Urine Protein 1+ H (Negative) Urine Glucose (UA) Trace H (Negative)
[2023-03-22] MEDS: MAGNESIUM SULFATE-D5W PMX 1 GM in DEXTROSE/WATER 1 100ML.BAG IVPB SCH ×2 (01:39→02:55)
[2023-03-22] MEDS: ACETAMINOPHEN TAB 325 MG TAB PO PRN ×2 (03:48→23:35)
[2023-03-22 03:51] LABS: Glucose,Whole Blood 101 mg/dL (70-110)
[2023-03-22] MEDS: GABAPENTIN 300 MG CAP PO SCH ×2 (07:22→12:27)
[2023-03-22] MEDS: carvediloL 3.125 MG TAB PO SCH ×2 (07:22→17:14)
[2023-03-22] MEDS ORDERED: SCOPOLAMINE 1 MG/72 HR PATCH TRANSDERM PRN (09:00)
[2023-03-22] MEDS ORDERED: CALCIUM CARBONATE 500 MG CHEWABLE PO PRN (09:00)
[2023-03-22] MEDS ORDERED: SODIUM ZIRCONIUM CYCLOSILICATE 10 GM PACKET PO PRN (09:00)
[2023-03-22] MEDS ORDERED: TACROLIMUS 1 MG CAP PO SCH (09:00)
[2023-03-22] MEDS: SERTRALINE 100 MG TAB PO SCH (09:43)
[2023-03-22] MEDS: predniSONE 1 MG TAB PO SCH (09:43)
[2023-03-22] MEDS: ASPIRIN 81 MG PO SCH (09:43)
[2023-03-22] MEDS: azaTHIOprine 50 MG TAB PO SCH (09:43)
[2023-03-22] MEDS: PANTOPRAZOLE 40 MG/10 ML VIAL IV SCH (09:43)
[2023-03-22] MEDS: hydrALAZINE HCL 50 MG TAB PO SCH ×3 (09:43→21:38)
[2023-03-22] MEDS: ENOXAPARIN 40 MG/0.4 ML SYRINGE SQ SCH (09:44)
[2023-03-22 09:57] LABS: ALT 58 U/L (4-34); AST 84 U/L (14-36); African American GFR (CKD) 40 (>60 ml/min/1.73 sqM); Albumin 3.9 g/dL (3.5-5.0); Alkaline Phosphatase 127 U/L (38-126); Anion Gap 13 mmol/L; Blood Urea Nitrogen 26 mg/dL (7-17); Calcium 9.5 mg/dL (8.4-10.2); Carbon Dioxide 23 mmol/L (22-30); Chloride 105 mmol/L (98-107); Glucose 125 mg/dL (74-99); Non-African American GFR(CKD) 35 (>60 ml/min/1.73 sqM); Potassium 4.9 mmol/L (3.5-5.1); Sodium 141 mmol/L (137-145); Total Bilirubin 0.8 mg/dL (0.2-1.3); Total Protein 7.4 g/dL (6.3-8.2)
[2023-03-22 10:19] VITALS: RESP 16
--- NOTE | 2023-03-22 11:16 | P.PN ---
Subjective Progress Note Date: 03/22/23 Pt reports feeling better than admission, feels back to baseline. Patient at bedside tells me that on 03/20, patient had tacrolimus level drawn and this was 3 times target range with a level of 30+. Gen: awake, alert HEENT: normocephalic, atraumatic, good hearing acuity, moist mucous membranes Resp: good air exchange, breathing comfortably with no accessory muscle use CVS: good distal perfusion x 4, GI: soft, NTTP, ND : no SPT, no CVAT, denney catheter not present MSK: no pitting edema, no clubbing Neuro: non-focal, moving all extremities Psych: cooperative, euthymic mood Hospital course: Patient is a 47-year-old female with a PMH of VELASQUEZ status post liver transplant, insulin-dependent DM on insulin pump, hypertension, and chronic kidney disease who was sent to the emergency room for abnormal blood work. In the emergency room abdominal x-rays were unremarkable. 107 bpm with Q waves in precordial leads V1 to V3 and poor R-wave progression as reviewed by me. Laboratory evaluation had revealed potassium of 7.1, BUN 34, creatinine 1.98 (baseline 1.3), platelets 119, magnesium 1.4, AST 90, ALT 62, alk phos 145, with an unremarkable UA, and glucose 221. Assessment/plan: CHIQUITA on chronic kidney disease Severe hyperkalemia Transaminitis Insulin-dependent diabetes mellitus on insulin pump Thrombocytopenia, at baseline Hypomagnesemia Plan: Continue with IV fluids with normal saline 130 mL/h Status post hyperkalemia cocktail Cardiac monitoring Nephrology consulted Antiemetics Place magnesium Continue patient's insulin pump with pump instructions and assessment Continue home medications Tacrolimus will be held, tacrolimus level was added stat to a.m. labs DVT prophylaxis: Lovenox Subq CODE STATUS: Full Code Discussed with: Patient Anticipated discharge place: Home Objective - Vital Signs Vital signs: Vital Signs Temp 98.1 F 03/22/23 09:40 Pulse 100 03/22/23 09:40 Resp 16 03/22/23 09:40 BP 130/81 03/22/23 09:40 Pulse Ox 98 03/22/23 09:40 FiO2 Intake & Output 03/21/23 03/22/23 03/22/23 18:59 06:59 18:59 Weight 85.729 kg - Labs CBC & Chem 7: 03/21/23 19:15 03/22/23 08:39 Labs: Abnormal Lab Results - Last 24 Hours (Table) 03/21/23 03/21/23 03/21/23 Range/Units 19:15 19:15 20:24 Plt Count 119 L (150-450) k/uL Potassium 7.1 H* (3.5-5.1) mmol/L BUN 34 H (7-17) mg/dL Creatinine 1.98 H (0.52-1.04) mg/dL Glucose 221 H (74-99) mg/dL Calcium 10.4 H (8.4-10.2) mg/dL Magnesium 1.4 L (1.6-2.3) mg/dL AST 90 H (14-36) U/L ALT 62 H (4-34) U/L Alkaline Phosphatase 145 H (38-126) U/L Total Protein 8.6 H (6.3-8.2) g/dL Urine Protein 1+ H (Negative) Urine Glucose (UA) Trace H (Negative) 03/22/23 03/22/23 Range/Units 00:56 08:39 Plt Count (150-450) k/uL Potassium 5.3 H (3.5-5.1) mmol/L BUN 26 H (7-17) mg/dL Creatinine 1.71 H (0.52-1.04) mg/dL Glucose 125 H (74-99) mg/dL Calcium (8.4-10.2) mg/dL Magnesium (1.6-2.3) mg/dL AST 84 H (14-36) U/L ALT 58 H (4-34) U/L Alkaline Phosphatase 127 H (38-126) U/L Total Protein (6.3-8.2) g/dL Urine Protein (Negative) Urine Glucose (UA) (Negative)
--- NOTE | 2023-03-22 12:10 | P.NPCON ---
History of Present Illness - Reason for Consult acute renal failure - History of Present Illness Patient is a 47-year-old female with history of liver transplant about 1-1/2 year ago at [facility] for VELASQUEZ. Patient is maintained on Prograf and Imuran. She is admitted to the hospital with history of weakness, some nausea and vomiting but mostly for IV hydration as labs done as outpatient showed elevated serum creatinine and elevated liver enzymes. Patient states that her TACROLIMUS LEVEL WAS SIGNIFICANTLY ELEVATED AT 24 RECENTLY.. Her last dose of Prograf was yesterday morning. Serum potassium was 7.1 on admission and is down to 4.9 today. Serum creatinine was 1.98 and down to 1.7. Previous creatinine has been around 1.0-1.2 mg/dL with few episodes of acute kidney injury noted with creatinine as high as 1.79 on 02/21/2023. This improved to a creatinine of 1.2 on 02/22/2023. Patient was hospitalized last month for about a a week from 02/13/2023 to 02/22/2023 with symptoms of nausea and vomiting. CMV IgM and IgG antibody was positive. EGD was performed. Tissue biopsy was negative for CMV and CMV PCR was also negative. No significant urinary symptoms. No history of use of NSAIDs. UA shows 1+ protein, otherwise quite benign Blood pressure has not been low. 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 Covid 07/16/20 History of Any Multi-Drug Resistant Organisms: None Reported Past Surgical History: Tubal Ligation Additional Past Surgical History / Comment(s): carpal tunnel - rt hand, esphogeal banding, Liver transplant July 2021 Past Anesthesia/Blood Transfusion Reactions: No Reported Reaction Past Psychological History: No Psychological Hx Reported Smoking Status: Never smoker Past Alcohol Use History: Rare Past Drug Use History: None Reported Medications and Allergies Home Medications Medication Instructions Recorded Confirmed Type Gabapentin [Neurontin] 300 mg PO AC-BID@0800,1200 06/09/20 03/21/23 History Aspirin EC [Ecotrin Low Dose] 81 mg PO DAILY 11/05/21 03/21/23 History Glucagon [Baqsimi] 1 spr NASAL BID PRN 11/05/21 03/21/23 History INSULIN LISPRO (For Pump) [humaLOG 0.01 units SQ-PUMP CONTINUOUS 11/05/21 03/21/23 History (For Pump)] Tacrolimus [Prograf] 5 mg PO BID 11/05/21 03/21/23 History Acetaminophen Tab [Tylenol] 1,000 mg PO Q6HR PRN 04/06/22 03/21/23 History Cholecalciferol [Vitamin D3 (25 50 mcg PO DAILY 04/06/22 03/21/23 History Mcg = 1000 Iu)] Sodium Zirconium Cyclosilicate 10 gm PO DAILY PRN 04/06/22 03/21/23 History [Lokelma] Albuterol Inhaler [Ventolin Hfa 1 - 2 puff INHALATION RT-Q6H PRN 02/13/23 03/21/23 History Inhaler] Eylea (Aflibercept) 2mg/0.05ml 2 mg IV Q60D 02/13/23 03/21/23 History Solution Insulin NPH Human Isophane See Protocol SQ ACHS PRN 02/13/23 03/21/23 History [humuLIN N Kwikpen] Ketoconazole 2% Shampoo [Nizoral] 1 applic TOPICAL DAILY PRN 02/13/23 03/21/23 History Magnesium Chloride [Slow-Mag] 64 mg PO BID 02/13/23 03/21/23 History Sertraline [Zoloft] 100 mg PO DAILY 02/13/23 03/21/23 History Triamcinolone 0.1% Ointment 1 applic TOPICAL BID PRN 02/13/23 03/21/23 History [Kenalog 0.1% Ointment] azaTHIOprine [Imuran] 50 mg PO DAILY 02/13/23 03/21/23 History predniSONE 2 mg PO DAILY 02/13/23 03/21/23 History traMADol HCL 50 mg PO BID PRN 02/13/23 03/21/23 History Calcium Carbonate [Tums] 500 mg PO TID PRN #90 tab 02/22/23 03/21/23 Rx Famotidine [Pepcid] 40 mg PO BID #60 tab 02/22/23 03/21/23 Rx Ondansetron Odt [Zofran Odt] 4 mg PO Q8HR PRN #30 tab 02/22/23 03/21/23 Rx Pantoprazole Sodium [Protonix] 40 mg PO AC-BID #60 tab 02/22/23 03/21/23 Rx Trimethobenzamide [Tigan] 300 mg PO TID PRN #90 capsule 02/22/23 03/21/23 Rx carvediloL [Coreg] 3.125 mg PO BID-W/MEALS #60 tab 02/22/23 03/21/23 Rx hydrALAZINE HCL [Apresoline] 50 mg PO TID #90 tab 02/22/23 03/21/23 Rx Gabapentin [Neurontin] 600 mg PO HS 03/21/23 03/21/23 History Scopolamine 1 mg/72 Hr Patch 1 patch TRANSDERM Q72H PRN 03/21/23 03/21/23 History [TransDerm Scop] Allergies Allergy/AdvReac Type Severity Reaction Status Date / Time furosemide [From Lasix] AdvReac Nausea & Verified 03/21/23 22:20 Vomiting tirzepatide [From Mounjaro] AdvReac Nausea & Verified 03/21/23 22:20 Vomiting Physical Exam Vitals: Vital Signs Temp Pulse Pulse Resp BP BP Pulse Ox 03/22/23 09:40 98.1 F 100 16 130/81 98 03/22/23 07:23 94 18 130/87 98 03/22/23 05:40 92 18 143/85 95 03/22/23 01:40 101 H 18 95 03/21/23 22:52 101 H 18 165/91 96 03/21/23 20:52 101 H 18 166/99 96 03/21/23 17:47 98.3 F 95 18 165/92 100 Intake and Output 03/21/23 03/22/23 03/22/23 22:59 06:59 14:59 Other: Weight 85.729 kg Patient is awake, comfortable, alert oriented 3, not in any acute distress Examination of the heart S1 and S2 Examination of the lungs bilateral breath sounds are heard. 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 Acute kidney injury, associated with some degree of volume depletion as well as tacrolimus toxicity. Maintain IV hydration. Renal function is improving. Ultrasound of the kidneys on 02/21/2023 did not show any evidence of obstructive uropathy. 2. Tacrolimus toxicity witH Prograf currently on hold. Repeat level ordered for tomorrow 3. Elevated liver enzymes possibly related to tacrolimus toxicity 4. History of liver transplant 1-1/2 year ago at [facility] maintained on Imuran and Prograf 5. Recent hospitalization about a month ago for nausea and vomiting with concern for possible underlying CMV infection with positive IgM and IgG antibodies. However CMV PCR was negative and biopsy on EGD was negative for CMV infection. 6. Hyperkalemia associated with tacrolimus toxicity and acute kidney injury 7. Mild hypercalcemia associated with volume depletion. Patient is also maintained on Tums which will be discontinued Plan: Aggressive IV hydration Continue to hold Prograf Repeat tacrolimus level in a.m. Repeat labs in a.m. DC Tums Continue with Imuran. Next Thank you for the consultation. We will continue to follow the patient with you during her hospitalization.
[2023-03-22] MEDS: SODIUM CHLORIDE 0.9% 1,000 ML IV SCH ×2 (12:27→21:36)
[2023-03-22 12:46] LABS: Glucose,Whole Blood 184 mg/dL (70-110)
[2023-03-22] MEDS ORDERED: INSULIN PUMP BASAL RATES 1 EACH MISC MISCELLANE PRN (15:07)
[2023-03-22] MEDS ORDERED: INSPUCOR MISCELLANE PRN (15:07)
[2023-03-22 17:30] LABS: Glucose,Whole Blood 194 mg/dL (70-110)
[2023-03-22 20:04] LABS: Glucose,Whole Blood 201 mg/dL (70-110)
[2023-03-22] MEDS ORDERED: GABAPENTIN 300 MG CAP PO SCH (21:00)
[2023-03-23 03:32] LABS: Glucose,Whole Blood 168 mg/dL (70-110)
[2023-03-23] MEDS: SODIUM CHLORIDE 0.9% 1,000 ML IV SCH ×2 (05:06→13:00)
[2023-03-23] MEDS: carvediloL 3.125 MG TAB PO SCH (05:47)
[2023-03-23 06:15] LABS: Glucose,Whole Blood 116 mg/dL (70-110)
[2023-03-23 08:55] LABS: African American GFR (CKD) 35 (>60 ml/min/1.73 sqM); Anion Gap 8 mmol/L; Blood Urea Nitrogen 30 mg/dL (7-17); Carbon Dioxide 25 mmol/L (22-30); Chloride 108 mmol/L (98-107); Glucose 94 mg/dL (74-99); Magnesium 1.7 mg/dL (1.6-2.3); Non-African American GFR(CKD) 30 (>60 ml/min/1.73 sqM); Potassium 5.1 mmol/L (3.5-5.1); Sodium 141 mmol/L (137-145)
[2023-03-23] MEDS: PANTOPRAZOLE 40 MG/10 ML VIAL IV SCH (09:41)
[2023-03-23] MEDS: SERTRALINE 100 MG TAB PO SCH (09:41)
[2023-03-23] MEDS: ASPIRIN 81 MG PO SCH (09:41)
[2023-03-23] MEDS: ENOXAPARIN 40 MG/0.4 ML SYRINGE SQ SCH (09:41)
[2023-03-23] MEDS: GABAPENTIN 300 MG CAP PO SCH ×2 (09:41→13:00)
[2023-03-23] MEDS: hydrALAZINE HCL 50 MG TAB PO SCH (09:41)
[2023-03-23] MEDS: azaTHIOprine 50 MG TAB PO SCH (09:42)
[2023-03-23] MEDS: predniSONE 1 MG TAB PO SCH (09:43)
[2023-03-23 11:47] VITALS: TEMP 97.6
[2023-03-23 11:52] LABS: Glucose,Whole Blood 184 mg/dL (70-110)
--- NOTE | 2023-03-23 13:21 | P.PN ---
Subjective Patient is seen for follow-up for acute kidney injury and hyperkalemia associated with tacrolimus toxicity. Repeat Tacrolimus level is pending. Serum creatinine had improved to 1.7 from 1.9 and is back up to 1.9 today. Patient has been hypotensive with systolic blood pressures in the 90s. He is maintained on hydralazine which will be reduced. No significant urinary symptoms. Objective - Vital Signs Vital signs: Vital Signs Temp 97.6 F 03/23/23 08:00 Pulse 85 03/23/23 08:00 Resp 16 03/23/23 08:00 BP 118/59 03/23/23 08:00 Pulse Ox 95 03/23/23 08:00 FiO2 Intake & Output 03/22/23 03/23/23 03/23/23 18:59 06:59 18:59 Intake Total 240 540 118 Balance 240 540 118 Weight 85.729 kg Intake: Oral 240 540 118 Other: Voiding Method Toilet Toilet Toilet # Voids 1 - Exam Patient is awake, comfortable, alert oriented 3, not in any acute distress Examination of the heart S1 and S2 Examination of the lungs bilateral breath sounds are heard. 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 Acute kidney injury, associated with some degree of volume depletion as well as tacrolimus toxicity. Serum creatinine had improved but increased again today to 1.9 mostly associated with hypotension.. Ultrasound of the kidneys on 02/21/2023 did not show any evidence of obstructive uropathy. 2. Tacrolimus toxicity witH Prograf currently on hold. Repeat level ordered for tomorrow. Tacrolimus level was around 24 per patient. 3. Elevated liver enzymes possibly related to tacrolimus toxicity 4. History of liver transplant 1-1/2 year ago at [facility] maintained on Imuran and Prograf 5. Recent hospitalization about a month ago for nausea and vomiting with concern for possible underlying CMV infection with positive IgM and IgG antibodies. However CMV PCR was negative and biopsy on EGD was negative for CMV infection. 6. Hyperkalemia associated with tacrolimus toxicity and acute kidney injury 7. Mild hypercalcemia associated with volume depletion. Patient is also maintained on Tums which will be discontinued Plan: Decrease hydralazine Patient could be discharged from nephrology standpoint on low potassium diet and decreased dose of hydralazine. Patient is advised how to decrease her hydralazine/hold it depending on her systolic blood pressure. She will follow-up with transplant in 1-2 days post discharge. Repeat labs as outpatient next week.
[2023-03-23 13:52] VITALS: BP 99/55; PULSE 92
--- NOTE | 2023-03-23 15:15 | P.DS ---
Providers Date of admission: 03/21/23 21:24 Expected date of discharge: 03/23/23 Attending physician: Tenisha Manrique MD Consults: 03/21/23 21:18 Consult Physician Routine Consulting Provider: Kal Diane Consult Reason/Comments: stefanie, hyperkalemia Do you want consulting provider notified?: Yes Primary care physician: Aldo Hall Hospital Course: STEFANIE on chronic kidney disease Tacrolimus toxicity Severe hyperkalemia Transaminitis Insulin-dependent diabetes mellitus on insulin pump Thrombocytopenia, at baseline Hypomagnesemia Hospital course: Patient is a 47-year-old female with a PMH of VELASQUEZ status post liver transplant, insulin-dependent DM on insulin pump, hypertension, and chronic kidney disease who was sent to the emergency room for abnormal blood work. In the emergency room abdominal x-rays were unremarkable. 107 bpm with Q waves in precordial leads V1 to V3 and poor R-wave progression as reviewed by me. Laboratory evaluation had revealed potassium of 7.1, BUN 34, creatinine 1.98 (baseline 1.3), platelets 119, magnesium 1.4, AST 90, ALT 62, alk phos 145, with an unremarkable UA, and glucose 221. Pt reported that her tac level drawn on 03/20 was 29, and she was instructed to d/c the medication. Repeat level was drawn here and was 9.1. She was discharged home after improvement in her K with potassium cocktail and IVF. She was tolerating regular diet without n/v. She was instructed to f/u with transplant team regarding her tacrolimus dosing, and to discontinue the medication until seen by them. For her K she was advised on low K diet, and lokelma was continued. Her hydralazine was downtitrated to BID dosing from TID dosing (50mg). She will also f/u with PCP and nephrology. I spent 45 minutes coordinating this discharge on 03/23 Gen: awake, alert HEENT: normocephalic, atraumatic, good hearing acuity, moist mucous membranes Resp: good air exchange, breathing comfortably with no accessory muscle use CVS: good distal perfusion x 4, GI: soft, NTTP, ND : no SPT, no CVAT, denney catheter not present MSK: no pitting edema, no clubbing Neuro: non-focal, moving all extremities Psych: cooperative, euthymic mood Patient Condition at Discharge: Good Plan - Discharge Summary Discharge Rx Participant: Yes New Discharge Prescriptions: Continue Gabapentin [Neurontin] 300 mg PO AC-BID@0800,1200 INSULIN LISPRO (For Pump) [humaLOG (For Pump)] 0.01 units SQ-PUMP CONTINUOUS Aspirin EC [Ecotrin Low Dose] 81 mg PO DAILY Glucagon [Baqsimi] 1 spr NASAL BID PRN PRN Reason: LOW BLOOD SUGAR Acetaminophen Tab [Tylenol] 1,000 mg PO Q6HR PRN PRN Reason: Fever And/ Or Pain Ketoconazole 2% Shampoo [Nizoral] 1 applic TOPICAL DAILY PRN PRN Reason: Rash predniSONE 2 mg PO DAILY Triamcinolone 0.1% Ointment [Kenalog 0.1% Ointment] 1 applic TOPICAL BID PRN PRN Reason: Rash Eylea (Aflibercept) 2mg/0.05ml Solution 2 mg IV Q60D carvediloL [Coreg] 3.125 mg PO BID-W/MEALS #60 tab Famotidine [Pepcid] 40 mg PO BID #60 tab Pantoprazole Sodium [Protonix] 40 mg PO AC-BID #60 tab Ondansetron Odt [Zofran ODT] 4 mg PO Q8HR PRN #30 tab PRN Reason: Nausea And Vomiting Gabapentin [Neurontin] 600 mg PO HS Cholecalciferol [Vitamin D3 (25 Mcg = 1000 Iu)] 50 mcg PO DAILY Sodium Zirconium Cyclosilicate [Lokelma] 10 gm PO DAILY PRN PRN Reason: HIGH POTASSIUM LEVELS Albuterol Inhaler [Ventolin Hfa Inhaler] 1 - 2 puff INHALATION RT-Q6H PRN PRN Reason: Shortness Of Breath Insulin NPH Human Isophane [humuLIN N Kwikpen] See Protocol SQ ACHS PRN PRN Reason: HIGH BLOOD SUGAR/PUMP FAILURE Magnesium Chloride [Slow-Mag] 64 mg PO BID traMADol HCL 50 mg PO BID PRN PRN Reason: Pain Sertraline [Zoloft] 100 mg PO DAILY azaTHIOprine [Imuran] 50 mg PO DAILY Trimethobenzamide [Tigan] 300 mg PO TID PRN #90 capsule PRN Reason: Nausea And Vomiting Calcium Carbonate [Tums] 500 mg PO TID PRN #90 tab PRN Reason: Heartburn Scopolamine 1 mg/72 Hr Patch [TransDerm Scop] 1 patch TRANSDERM Q72H PRN PRN Reason: Nausea Changed hydrALAZINE HCL [Apresoline] 50 mg PO BID #90 tab Discontinued Tacrolimus [Prograf] 5 mg PO BID Discharge Medication List Gabapentin [Neurontin] 300 mg PO AC-BID@0800,1200 06/09/20 [History] Aspirin EC [Ecotrin Low Dose] 81 mg PO DAILY 11/05/21 [History] Glucagon [Baqsimi] 1 spr NASAL BID PRN 11/05/21 [History] INSULIN LISPRO (For Pump) [humaLOG (For Pump)] 0.01 units SQ-PUMP CONTINUOUS 11/05/21 [History] Acetaminophen Tab [Tylenol] 1,000 mg PO Q6HR PRN 04/06/22 [History] Cholecalciferol [Vitamin D3 (25 Mcg = 1000 Iu)] 50 mcg PO DAILY 04/06/22 [History] Sodium Zirconium Cyclosilicate [Lokelma] 10 gm PO DAILY PRN 04/06/22 [History] Albuterol Inhaler [Ventolin Hfa Inhaler] 1 - 2 puff INHALATION RT-Q6H PRN 02/13/23 [History] Eylea (Aflibercept) 2mg/0.05ml Solution 2 mg IV Q60D 02/13/23 [History] Insulin NPH Human Isophane [humuLIN N Kwikpen] See Protocol SQ ACHS PRN 02/13/23 [History] Ketoconazole 2% Shampoo [Nizoral] 1 applic TOPICAL DAILY PRN 02/13/23 [History] Magnesium Chloride [Slow-Mag] 64 mg PO BID 02/13/23 [History] Sertraline [Zoloft] 100 mg PO DAILY 02/13/23 [History] Triamcinolone 0.1% Ointment [Kenalog 0.1% Ointment] 1 applic TOPICAL BID PRN 02/13/23 [History] azaTHIOprine [Imuran] 50 mg PO DAILY 02/13/23 [History] predniSONE 2 mg PO DAILY 02/13/23 [History] traMADol HCL 50 mg PO BID PRN 02/13/23 [History] Calcium Carbonate [Tums] 500 mg PO TID PRN #90 tab 02/22/23 [Rx] Famotidine [Pepcid] 40 mg PO BID #60 tab 02/22/23 [Rx] Ondansetron Odt [Zofran ODT] 4 mg PO Q8HR PRN #30 tab 02/22/23 [Rx] Pantoprazole Sodium [Protonix] 40 mg PO AC-BID #60 tab 02/22/23 [Rx] Trimethobenzamide [Tigan] 300 mg PO TID PRN #90 capsule 02/22/23 [Rx] carvediloL [Coreg] 3.125 mg PO BID-W/MEALS #60 tab 02/22/23 [Rx] Gabapentin [Neurontin] 600 mg PO HS 03/21/23 [History] Scopolamine 1 mg/72 Hr Patch [TransDerm Scop] 1 patch TRANSDERM Q72H PRN 03/21/23 [History] hydrALAZINE HCL [Apresoline] 50 mg PO BID #90 tab 03/23/23 [Rx] Follow up Appointment(s)/Referral(s): Aldo Hall MD [Primary Care Provider] - 1-2 days Patient Instructions/Handouts: Acute Kidney Injury (DC), Potassium Content of Foods List (GEN) Activity/Diet/Wound Care/Special Instructions: Diet: Low Potassium Diet - see additional handout for list of Potassium content of foods Follow up: Please follow up with your Transplant physician within 1-2 weeks. Discharge Disposition: HOME SELF-CARE
== END 2023-03-23 14:09 | disposition home or self-care (01) | DRG 683 ==
LOC: EC 17:10 → 3SCARD 21:24
PROVIDERS: ADMIT Internal Medicine; ATTEND Internal Medicine
DX: N17.9 Acute kidney failure, unspecified (principal); Z94.4 Liver transplant status; T45.1X5A Adverse effect of antineoplastic and immunosuppressive drugs, initial encounter; E87.5 Hyperkalemia; R74.01 Elevation of levels of liver transaminase levels; E11.22 Type 2 diabetes mellitus with diabetic chronic kidney disease; I12.9 Hypertensive chronic kidney disease with stage 1 through stage 4 chronic kidney disease, or unspecified chronic kidney disease; N18.9 Chronic kidney disease, unspecified; E11.40 Type 2 diabetes mellitus with diabetic neuropathy, unspecified; K74.60 Unspecified cirrhosis of liver; E86.0 Dehydration; E86.9 Volume depletion, unspecified; I95.9 Hypotension, unspecified; E83.52 Hypercalcemia; E83.42 Hypomagnesemia; D69.6 Thrombocytopenia, unspecified; Z96.41 Presence of insulin pump (external) (internal); Z88.2 Allergy status to sulfonamides; Z88.8 Allergy status to other drugs, medicaments and biological substances; Z28.310 Unvaccinated for COVID-19; Z79.4 Long term (current) use of insulin; Z79.899 Other long term (current) drug therapy; Z79.82 Long term (current) use of aspirin; Z79.624 Long term (current) use of inhibitors of nucleotide synthesis
CPT/HCPCS: 36415; 74022; 80048; 80053; 80197; 81001; 83036; 83605; 83690; 83735; 84100; 84132; 85025; 93005; 96361; 96365; 96366; 96372; 96375; 96376; 99291

== ENCOUNTER → 2023-06-13 | Outpatient (CLI) | payer OTHER, MEDICARE ==
--- NOTE | 2023-06-14 15:15 | NM ---
EXAMINATION TYPE: NM gastric emptying static DATE OF EXAM: 06/13/2023 COMPARISON: NONE CLINICAL INDICATION: Female, 48 years old with history of R11.2 NAUSEA WITH VOMITING, UNSPECIFIED; Following administration of 1.9 mCi Tc 99m Sulfur Colloid with 4 oz. Scrambled eggs, 1 piece of toast with jelly, and 8 oz. water, projection images of the abdomen were obtained 10 minutes post ingestio n. Patient Emptying Values 1 Hour 38 % (70-10%) 2 Hours 61 % (> 40%) 3 Hours 81 % (> 70%) 4 Hours 92 % (> 90%) Gastroesophageal reflux: None IMPRESSION: No scintigraphic evidence for gastroparesis.
== END | disposition home or self-care (01) ==
LOC: RADNMMAIN 07:05
PROVIDERS: ATTEND Internal Medicine Gastroenterology
DX: R11.2 Nausea with vomiting, unspecified (principal)
CPT/HCPCS: 78264; A9541

== ENCOUNTER → 2023-08-25 | Outpatient (CLI) | payer OTHER, MEDICARE ==
[2023-08-25 18:13] LABS: Basophils # (A) 0.01 X 10*3/uL (0.00-0.10); Basophils % (A) 0.2 %; Eosinophils # (A) 0.03 X 10*3/uL (0.04-0.35); Eosinophils % (A) 0.5 %; HCT 32.6 % (37.2-46.3); HGB 9.5 g/dL (12.0-15.0); Lymphocytes # (A) 1.47 X 10*3/uL (0.90-5.00); Lymphocytes % (A) 23.3 %; MCH 26.8 pg (27.0-32.0); MCHC 29.1 g/dL (32.0-37.0); MCV 92.1 FL (80.0-97.0); Monocytes # (A) 0.53 X 10*3/uL (0.20-1.00); Monocytes % (A) 8.4 %; NRBC Per 100 WBC 0 X 10*3/uL (0.00-0.01); Neutrophils # (A) 4.23 X 10*3/uL (1.80-7.70); Platelet Count 123 X 10*3/uL (140-440); RBC 3.54 X 10*6/uL (4.10-5.20); RDW 18.3 % (11.5-14.5); WBC 6.31 X 10*3/uL (4.50-10.00)
[2023-08-25 19:22] LABS: BUN/Creat Ratio 20.31 Ratio (12.00-20.00); Blood Urea Nitrogen 32.5 mg/dL (9.0-27.0); Chloride 108 mmol/L (96-109); Glucose 94 mg/dL (70-110); Potassium 5.3 mmol/L (3.5-5.5); Sodium 144 mmol/L (135-145)
[2023-08-25 19:23] LABS: ALT 50 U/L (8-44); AST 34 U/L (13-35); Albumin 4.3 g/dL (3.8-4.9); Albumin/Globulin Ratio 1.54 Ratio (1.60-3.17); Alkaline Phosphatase 141 U/L (41-126); Calcium 9.1 mg/dL (8.7-10.3); Carbon Dioxide 23.1 mmol/L (21.6-31.8); Globulin 2.8 g/dL (1.6-3.3); T4, Free (Free Thyroxine) 1.18 ng/dL (0.80-1.80); Total Bilirubin 0.2 mg/dL (0.3-1.2); Total Protein 7.1 g/dL (6.2-8.2)
== END | disposition home or self-care (01) ==
LOC: LABWHC1 11:18
PROVIDERS: ATTEND Nurse Practitioner Acute Care
DX: Z00.01 Encounter for general adult medical examination with abnormal findings (principal); E11.40 Type 2 diabetes mellitus with diabetic neuropathy, unspecified; N17.9 Acute kidney failure, unspecified; M85.80 Other specified disorders of bone density and structure, unspecified site
CPT/HCPCS: 36415; 80053; 82306; 83036; 84439; 84443; 85025

== ENCOUNTER → 2023-12-14 | Outpatient (CLI) | payer OTHER, MEDICARE ==
[2023-12-14 15:16] LABS: Basophils # (A) 0.01 X 10*3/uL (0.00-0.10); Basophils % (A) 0.1 %; Eosinophils # (A) 0.04 X 10*3/uL (0.04-0.35); Eosinophils % (A) 0.6 %; HCT 33.1 % (37.2-46.3); HGB 10.8 g/dL (12.0-15.0); Lymphocytes # (A) 1.27 X 10*3/uL (0.90-5.00); Lymphocytes % (A) 18.4 %; MCH 30.7 pg (27.0-32.0); MCHC 32.6 g/dL (32.0-37.0); Mean Platelet Volume 10.6 FL (9.5-12.2); Monocytes # (A) 0.47 X 10*3/uL (0.20-1.00); Monocytes % (A) 6.8 %; NRBC Per 100 WBC 0 X 10*3/uL (0.00-0.01); Neutrophils # (A) 5.07 X 10*3/uL (1.80-7.70); Neutrophils % (A) 73.5 %; Platelet Count 123 X 10*3/uL (140-440); RBC 3.52 X 10*6/uL (4.10-5.20); RDW 16.7 % (11.5-14.5)
[2023-12-14 15:28] LABS: ALT 32 U/L (8-44); AST 34 U/L (13-35); Albumin 4.4 g/dL (3.8-4.9); Albumin/Globulin Ratio 1.47 Ratio (1.60-3.17); Alkaline Phosphatase 125 U/L (41-126); BUN/Creat Ratio 15.73 Ratio (12.00-20.00); Bilirubin, Conjugated <0.20 mg/dL (0.20-0.40); Bilirubin,Unconjugated >0.30 mg/dL (0.20-1.00); Blood Urea Nitrogen 23.6 mg/dL (9.0-27.0); Calcium 9.6 mg/dL (8.7-10.3); Carbon Dioxide 23.8 mmol/L (21.6-31.8); Chloride 103 mmol/L (96-109); Glucose 129 mg/dL (70-110); Magnesium 1.4 mg/dL (1.5-2.4); Potassium 4.6 mmol/L (3.5-5.5); Sodium 139 mmol/L (135-145); Total Bilirubin 0.5 mg/dL (0.3-1.2); Total Protein 7.4 g/dL (6.2-8.2)
== END | disposition home or self-care (01) ==
LOC: LABWHC1 10:46
PROVIDERS: ATTEND Internal Medicine Gastroenterology
DX: Z94.4 Liver transplant status (principal); Z79.899 Other long term (current) drug therapy
CPT/HCPCS: 36415; 80048; 80076; 83735; 85025

== ENCOUNTER → 2024-01-08 | Outpatient (CLI) | payer OTHER, MEDICARE ==
[2024-01-08 12:47] LABS: Creatinine,Urine Random 251.9 mg/dL; Protein/Creatinine Ratio,Urine 0.071
[2024-01-08 15:08] LABS: Appearance,Urine Clear (Clear); Bilirubin,Urine Negative (Negative); Blood,Urine Negative (Negative); Color,Urine Dark Yellow (Yellow); Ketones,Urine Trace (Negative); Nitrite,Urine Negative (Negative); Specific Gravity,Urine 1.023 (1.001-1.030); Urobilinogen,Urine 0.2 E.U./DL
[2024-01-08 15:20] LABS: ALT 57 U/L (8-44); AST 42 U/L (13-35); Alkaline Phosphatase 129 U/L (41-126); BUN/Creat Ratio 17.33 Ratio (12.00-20.00); Bilirubin, Conjugated <0.20 mg/dL (0.20-0.40); Calcium 9.7 mg/dL (8.7-10.3); Carbon Dioxide 23.7 mmol/L (21.6-31.8); Chloride 109 mmol/L (96-109); Glucose 102 mg/dL (70-110); Magnesium 2.1 mg/dL (1.5-2.4); Phosphorus 3.5 mg/dL (2.4-5.1); Potassium 5.6 mmol/L (3.5-5.5); Sodium 143 mmol/L (135-145); Total Bilirubin 0.4 mg/dL (0.3-1.2)
[2024-01-08 15:21] LABS: Albumin 4.4 g/dL (3.8-4.9); Albumin/Globulin Ratio 1.47 Ratio (1.60-3.17); Total Protein 7.4 g/dL (6.2-8.2)
[2024-01-08 15:46] LABS: Bacteria,Urine 2+ (None Seen)
[2024-01-08 15:48] LABS: Bilirubin,Unconjugated >0.2 mg/dL (0.2-1.0)
[2024-01-08 16:01] LABS: Basophils # (A) 0.01 X 10*3/uL (0.00-0.10); Basophils % (A) 0.1 %; Eosinophils # (A) 0.05 X 10*3/uL (0.04-0.35); Eosinophils % (A) 0.7 %; HCT 33.6 % (37.2-46.3); HGB 10.9 g/dL (12.0-15.0); Lymphocytes # (A) 1.68 X 10*3/uL (0.90-5.00); MCHC 32.4 g/dL (32.0-37.0); MCV 95.5 FL (80.0-97.0); Mean Platelet Volume 10.3 FL (9.5-12.2); Monocytes # (A) 0.48 X 10*3/uL (0.20-1.00); Monocytes % (A) 6.6 %; NRBC Per 100 WBC 0 X 10*3/uL (0.00-0.01); Neutrophils # (A) 5.04 X 10*3/uL (1.80-7.70); Neutrophils % (A) 68.9 %; Platelet Count 142 X 10*3/uL (140-440); RBC 3.52 X 10*6/uL (4.10-5.20); RDW 16.9 % (11.5-14.5); WBC 7.31 X 10*3/uL (4.50-10.00)
== END | disposition home or self-care (01) ==
LOC: LABWHC1 10:58
PROVIDERS: ATTEND Internal Medicine
DX: N39.0 Urinary tract infection, site not specified (principal); N18.32 Chronic kidney disease, stage 3b; D63.1 Anemia in chronic kidney disease; R80.9 Proteinuria, unspecified
CPT/HCPCS: 36415; 80053; 81001; 82043; 82248; 82570; 83735; 84100; 84156; 85025

== ENCOUNTER → 2024-01-11 | Outpatient (CLI) | payer OTHER, MEDICARE ==
--- NOTE | 2024-01-12 18:52 | MM ---
Reason for Exam: Screening (asymptomatic). Last mammogram was performed 1 year(s) and 5 month(s) ago. Patient History: Menarche at age 12. First Full-Term at age 22. Right ovary removed at age 42. Postmenopausal. Maternal grandmother had breast cancer at or over age 50. Risk Values: Aleja 5 year model risk: 0.8%. NCI Lifetime model risk: 8.2%. Prior Study Comparison: 08/26/2018 Bilateral MG 3D screening mammo w/cad, [facility] . 08/03/2022 Bilateral MG 3D screening mammo w/cad, [facility]. Tissue Density: There are scattered areas of fibroglandular density. Findings: Analyzed By CAD. There is no suspicious group of microcalcifications or new suspicious mass in either breast. Overall Assessment: Negative, BI-RAD 1 Management: Screening Mammogram of both breasts in 1 year. . Patient should continue monthly self-breast exams. A clinical breast exam by your physician is recommended on an annual basis. This exam should not preclude additional follow-up of suspicious palpable abnormalities. Note on Aleja scores and lifetime risk: 1. A Aleja score greater than 3% is considered moderate risk. If this is the case, consider specialist referral to assess eligibility for a risk reducing agent. 2. If overall lifetime risk for the development of breast cancer is 20% or higher, the patient may qualify for future screening with alternating mammogram and breast MRI. [facility], , 01/12/2024 6:48 PM. Electronically signed and approved by: Courtney Thompson M.D. Radiologist
== END | disposition home or self-care (01) ==
LOC: RADMAMWWP 08:22
PROVIDERS: ATTEND Family Medicine
CPT/HCPCS: 77063; 77067

== ENCOUNTER → 2024-02-27 | Outpatient (CLI) | payer OTHER, MEDICARE ==
[2024-02-27 15:49] LABS: % Iron Saturation 20.86 (12.00-45.00); BUN/Creat Ratio 17.11 Ratio (12.00-20.00); Blood Urea Nitrogen 32.5 mg/dL (9.0-27.0); Calcium 9.5 mg/dL (8.7-10.3); Carbon Dioxide 24.9 mmol/L (21.6-31.8); Chloride 104 mmol/L (96-109); Glucose 93 mg/dL (70-110); Iron 63 UG/DL (50-170); Magnesium 1.7 mg/dL (1.5-2.4); Potassium 4.7 mmol/L (3.5-5.5); Sodium 142 mmol/L (135-145); Total Iron Binding Capacity 302 UG/DL (228-460)
[2024-02-27 15:50] LABS: ALT 31 U/L (8-44); AST 30 U/L (13-35); Albumin 4.4 g/dL (3.8-4.9); Albumin/Globulin Ratio 1.63 Ratio (1.60-3.17); Alkaline Phosphatase 105 U/L (41-126); Bilirubin, Conjugated <0.20 mg/dL (0.20-0.40); Bilirubin,Unconjugated >0.30 mg/dL (0.20-1.00); Globulin 2.7 g/dL (1.6-3.3); Total Bilirubin 0.5 mg/dL (0.3-1.2); Total Protein 7.1 g/dL (6.2-8.2)
[2024-02-27 16:42] LABS: Basophils # (A) 0.01 X 10*3/uL (0.00-0.10); Basophils % (A) 0.1 %; Eosinophils # (A) 0.03 X 10*3/uL (0.04-0.35); Eosinophils % (A) 0.4 %; HCT 31.3 % (37.2-46.3); HGB 10.4 g/dL (12.0-15.0); Lymphocytes # (A) 1.58 X 10*3/uL (0.90-5.00); Lymphocytes % (A) 22.7 %; MCH 32.7 pg (27.0-32.0); MCHC 33.2 g/dL (32.0-37.0); MCV 98.4 FL (80.0-97.0); Mean Platelet Volume 10.5 FL (9.5-12.2); Monocytes # (A) 0.48 X 10*3/uL (0.20-1.00); Monocytes % (A) 6.9 %; NRBC Per 100 WBC 0 X 10*3/uL (0.00-0.01); Neutrophils # (A) 4.81 X 10*3/uL (1.80-7.70); Neutrophils % (A) 69.3 %; Platelet Count 127 X 10*3/uL (140-440); RBC 3.18 X 10*6/uL (4.10-5.20); RDW 16.6 % (11.5-14.5); WBC 6.95 X 10*3/uL (4.50-10.00)
== END | disposition home or self-care (01) ==
LOC: LABWHC1 11:17
PROVIDERS: ATTEND Internal Medicine Gastroenterology
DX: D50.9 Iron deficiency anemia, unspecified (principal)
CPT/HCPCS: 36415; 80048; 80076; 82728; 83540; 83550; 83735; 85025

== ENCOUNTER → 2024-04-10 | Outpatient (CLI) | payer OTHER, MEDICARE ==
[2024-04-10 12:11] LABS: Creatinine,Urine Random 164.5 mg/dL; Protein/Creatinine Ratio,Urine 0.049
[2024-04-10 15:03] LABS: Basophils # (A) 0.01 X 10*3/uL (0.00-0.10); Basophils % (A) 0.2 %; Eosinophils # (A) 0.07 X 10*3/uL (0.04-0.35); Eosinophils % (A) 1.1 %; HCT 32.2 % (37.2-46.3); HGB 10.8 g/dL (12.0-15.0); Lymphocytes # (A) 2.45 X 10*3/uL (0.90-5.00); MCH 32.3 pg (27.0-32.0); MCHC 33.5 g/dL (32.0-37.0); MCV 96.4 FL (80.0-97.0); Monocytes # (A) 0.54 X 10*3/uL (0.20-1.00); Monocytes % (A) 8.1 %; NRBC Per 100 WBC 0.02 X 10*3/uL (0.00-0.01); Neutrophils # (A) 3.53 X 10*3/uL (1.80-7.70); Neutrophils % (A) 53.1 %; Platelet Count 127 X 10*3/uL (140-440); RBC 3.34 X 10*6/uL (4.10-5.20); RDW 15.9 % (11.5-14.5); WBC 6.63 X 10*3/uL (4.50-10.00)
[2024-04-10 15:43] LABS: Appearance,Urine Cloudy (Clear); Bilirubin,Urine Negative (Negative); Blood,Urine Negative (Negative); Color,Urine Yellow (Yellow); Ketones,Urine Negative (Negative); Nitrite,Urine Negative (Negative); Specific Gravity,Urine 1.015 (1.001-1.030); Urobilinogen,Urine 0.2 E.U./DL
[2024-04-10 15:50] LABS: Bacteria,Urine 2+ (None Seen)
[2024-04-10 16:20] LABS: ALT 34 U/L (8-44); AST 28 U/L (13-35); Albumin 4.4 g/dL (3.8-4.9); Albumin/Globulin Ratio 1.63 Ratio (1.60-3.17); Alkaline Phosphatase 118 U/L (41-126); BUN/Creat Ratio 13.36 Ratio (12.00-20.00); Bilirubin, Conjugated 0.23 mg/dL (0.20-0.40); Bilirubin,Unconjugated 0.27 mg/dL (0.20-1.00); Blood Urea Nitrogen 29.4 mg/dL (9.0-27.0); Calcium 9.6 mg/dL (8.7-10.3); Carbon Dioxide 26.1 mmol/L (21.6-31.8); Chloride 105 mmol/L (96-109); Globulin 2.7 g/dL (1.6-3.3); Glucose 104 mg/dL (70-110); Magnesium 1.9 mg/dL (1.5-2.4); Phosphorus 4.7 mg/dL (2.4-5.1); Potassium 4.8 mmol/L (3.5-5.5); Sodium 142 mmol/L (135-145); Total Bilirubin 0.5 mg/dL (0.3-1.2); Total Protein 7.1 g/dL (6.2-8.2)
== END | disposition home or self-care (01) ==
LOC: LABWHC1 11:07
PROVIDERS: ATTEND Internal Medicine Gastroenterology
DX: N18.32 Chronic kidney disease, stage 3b (principal); T86.41 Liver transplant rejection; Z94.4 Liver transplant status; Z79.899 Other long term (current) drug therapy
CPT/HCPCS: 36415; 80053; 81001; 82043; 82248; 82570; 83735; 84100; 84156; 85025

== ENCOUNTER → 2024-04-15 | Outpatient (CLI) | payer OTHER, MEDICARE ==
[2024-04-15 18:13] LABS: ALT 25 U/L (8-44); AST 24 U/L (13-35); Albumin 4.3 g/dL (3.8-4.9); Albumin/Globulin Ratio 1.54 Ratio (1.60-3.17); Alkaline Phosphatase 115 U/L (41-126); BUN/Creat Ratio 12.36 Ratio (12.00-20.00); Blood Urea Nitrogen 27.2 mg/dL (9.0-27.0); Calcium 9.4 mg/dL (8.7-10.3); Carbon Dioxide 24.2 mmol/L (21.6-31.8); Chloride 107 mmol/L (96-109); Globulin 2.8 g/dL (1.6-3.3); Glucose 95 mg/dL (70-110); Sodium 143 mmol/L (135-145); Total Bilirubin 0.5 mg/dL (0.3-1.2); Total Protein 7.1 g/dL (6.2-8.2)
== END | disposition home or self-care (01) ==
LOC: LABWHC1 10:55
PROVIDERS: ATTEND Internal Medicine
DX: N18.32 Chronic kidney disease, stage 3b (principal)
CPT/HCPCS: 36415; 80053

== ENCOUNTER → 2024-07-09 | Outpatient (CLI) | payer OTHER, MEDICARE ==
[2024-07-09 13:21] LABS: Creatinine,Urine Random 372.6 mg/dL; Protein/Creatinine Ratio,Urine 0.03
[2024-07-09 15:21] LABS: Basophils # (A) 0.02 X 10*3/uL (0.00-0.10); Basophils % (A) 0.4 %; Eosinophils # (A) 0.04 X 10*3/uL (0.04-0.35); Eosinophils % (A) 0.7 %; HCT 30.8 % (37.2-46.3); HGB 10.3 g/dL (12.0-15.0); Lymphocytes # (A) 1.63 X 10*3/uL (0.90-5.00); Lymphocytes % (A) 29.7 %; MCH 33.2 pg (27.0-32.0); MCHC 33.4 g/dL (32.0-37.0); MCV 99.4 FL (80.0-97.0); Monocytes # (A) 0.34 X 10*3/uL (0.20-1.00); Monocytes % (A) 6.2 %; NRBC Per 100 WBC 0 X 10*3/uL (0.00-0.01); Neutrophils # (A) 3.44 X 10*3/uL (1.80-7.70); Neutrophils % (A) 62.8 %; Platelet Count 127 X 10*3/uL (140-440); RDW 15.9 % (11.5-14.5); WBC 5.48 X 10*3/uL (4.50-10.00)
[2024-07-09 15:27] LABS: BUN/Creat Ratio 12.48 Ratio (12.00-20.00); Blood Urea Nitrogen 26.2 mg/dL (9.0-27.0); Carbon Dioxide 24.7 mmol/L (21.6-31.8); Chloride 105 mmol/L (96-109); Glucose 122 mg/dL (70-110); Magnesium 1.8 mg/dL (1.5-2.4); Potassium 4.8 mmol/L (3.5-5.5); Sodium 141 mmol/L (135-145)
[2024-07-09 15:28] LABS: ALT 16 U/L (8-44); AST 21 U/L (13-35); Albumin 4.3 g/dL (3.8-4.9); Albumin/Globulin Ratio 1.59 Ratio (1.60-3.17); Alkaline Phosphatase 113 U/L (41-126); Bilirubin, Conjugated 0.21 mg/dL (0.20-0.40); Bilirubin,Unconjugated 0.29 mg/dL (0.20-1.00); Calcium 9.3 mg/dL (8.7-10.3); Globulin 2.7 g/dL (1.6-3.3); Total Bilirubin 0.5 mg/dL (0.3-1.2)
[2024-07-09 16:03] LABS: Appearance,Urine Turbid (Clear); Bilirubin,Urine Small (Negative); Blood,Urine Negative (Negative); Color,Urine Dark Yellow (Yellow); Ketones,Urine Trace (Negative); Nitrite,Urine Negative (Negative); Specific Gravity,Urine 1.023 (1.001-1.030)
[2024-07-09 16:42] LABS: Bacteria,Urine 3+ (None Seen); Mucus,Urine Present; Yeast (UA) Present (None Seen)
== END | disposition home or self-care (01) ==
LOC: LABWHC1 10:16
PROVIDERS: ATTEND Nurse Practitioner Acute Care
DX: N18.32 Chronic kidney disease, stage 3b (principal); D63.1 Anemia in chronic kidney disease; N39.0 Urinary tract infection, site not specified; R80.9 Proteinuria, unspecified
CPT/HCPCS: 36415; 80053; 81001; 82043; 82248; 82570; 83735; 84100; 84156; 85025

== ENCOUNTER → 2024-09-20 | Outpatient (CLI) | payer OTHER, MEDICARE ==
[2024-09-20 15:47] LABS: Basophils # (A) 0.01 X 10*3/uL (0.00-0.10); Basophils % (A) 0.2 %; Eosinophils # (A) 0.02 X 10*3/uL (0.04-0.35); Eosinophils % (A) 0.5 %; HCT 29.7 % (37.2-46.3); HGB 9.8 g/dL (12.0-15.0); Lymphocytes # (A) 1.19 X 10*3/uL (0.90-5.00); MCH 33.7 pg (27.0-32.0); MCV 102.1 FL (80.0-97.0); Mean Platelet Volume 10.3 FL (9.5-12.2); Monocytes # (A) 0.31 X 10*3/uL (0.20-1.00); Monocytes % (A) 7.3 %; NRBC Per 100 WBC 0 X 10*3/uL (0.00-0.01); Neutrophils # (A) 2.71 X 10*3/uL (1.80-7.70); Neutrophils % (A) 63.8 %; Platelet Count 112 X 10*3/uL (140-440); RBC 2.91 X 10*6/uL (4.10-5.20); RDW 16.5 % (11.5-14.5); WBC 4.25 X 10*3/uL (4.50-10.00)
[2024-09-20 16:02] LABS: ALT 16 U/L (8-44); AST 25 U/L (13-35); Albumin 4.3 g/dL (3.8-4.9); Albumin/Globulin Ratio 1.72 Ratio (1.60-3.17); Alkaline Phosphatase 94 U/L (41-126); Bilirubin, Conjugated 0.23 mg/dL (0.20-0.40); Bilirubin,Unconjugated 0.37 mg/dL (0.20-1.00); Blood Urea Nitrogen 24.8 mg/dL (9.0-27.0); Calcium 9.3 mg/dL (8.7-10.3); Carbon Dioxide 25.3 mmol/L (21.6-31.8); Chloride 108 mmol/L (96-109); Globulin 2.5 g/dL (1.6-3.3); Glucose 86 mg/dL (70-110); Magnesium 1.8 mg/dL (1.5-2.4); Potassium 5.8 mmol/L (3.5-5.5); Sodium 141 mmol/L (135-145); Total Bilirubin 0.6 mg/dL (0.3-1.2); Total Protein 6.8 g/dL (6.2-8.2)
== END | disposition home or self-care (01) ==
LOC: LABWHC1 11:13
PROVIDERS: ATTEND Family Medicine
DX: Z94.4 Liver transplant status (principal); Z79.899 Other long term (current) drug therapy
CPT/HCPCS: 36415; 80048; 80076; 83735; 85025

== ENCOUNTER 2024-09-21 17:31 | Observation (INO) | payer OTHER, MEDICARE ==
--- NOTE | 2024-09-21 17:56 | ED ---
Nausea/Vomiting/Diarrhea HPI - General Chief complaint: Nausea/Vomiting/Diarrhea Stated complaint: N/V Time Seen by Provider: 09/21/24 17:36 Source: patient, EMS, RN notes reviewed Mode of arrival: EMS Limitations: no limitations - History of Present Illness Initial comments: This is a 49-year-old female who presents to the emergency department for abdom inal pain, nausea, and vomiting. States that it started last night. Abdominal pain is centralized and fairly diffuse. Denies any diarrhea or constipation. States that her last bowel movement was last night. She has been unable to control the vomiting. She was given Zofran by EMS en route, however states that it was not helpful. Denies any fevers/chills or sick contacts. Denies any chest pain or shortness of breath. She is a liver transplant patient and states that this took place 10 years ago. MD complaint: nausea, vomiting, abdominal pain - Related Data Home Medications Medication Instructions Recorded Confirmed Gabapentin [Neurontin] 300 mg PO AC-BID@0800,1200 06/09/20 03/21/23 Aspirin EC [Ecotrin Low Dose] 81 mg PO DAILY 11/05/21 03/21/23 Glucagon [Baqsimi] 1 spr NASAL BID PRN 11/05/21 03/21/23 INSULIN LISPRO (For Pump) [humaLOG 0.01 units SQ-PUMP CONTINUOUS 11/05/21 03/21/23 (For Pump)] Acetaminophen Tab [Tylenol] 1,000 mg PO Q6HR PRN 04/06/22 03/21/23 Cholecalciferol [Vitamin D3 (25 50 mcg PO DAILY 04/06/22 03/21/23 Mcg = 1000 Iu)] Sodium Zirconium Cyclosilicate 10 gm PO DAILY PRN 04/06/22 03/21/23 [Lokelma] Albuterol Inhaler [Ventolin Hfa 1 - 2 puff INHALATION RT-Q6H PRN 02/13/23 03/21/23 Inhaler] Eylea (Aflibercept) 2mg/0.05ml 2 mg IV Q60D 02/13/23 03/21/23 Solution Insulin NPH Human Isophane See Protocol SQ ACHS PRN 02/13/23 03/21/23 [humuLIN N Kwikpen] Ketoconazole 2% Shampoo [Nizoral] 1 applic TOPICAL DAILY PRN 02/13/23 03/21/23 Magnesium Chloride [Slow-Mag] 64 mg PO BID 02/13/23 03/21/23 Sertraline [Zoloft] 100 mg PO DAILY 02/13/23 03/21/23 Triamcinolone 0.1% Ointment 1 applic TOPICAL BID PRN 02/13/23 03/21/23 [Kenalog 0.1% Ointment] azaTHIOprine [Imuran] 50 mg PO DAILY 02/13/23 03/21/23 predniSONE 2 mg PO DAILY 02/13/23 03/21/23 traMADol HCL 50 mg PO BID PRN 02/13/23 03/21/23 Gabapentin [Neurontin] 600 mg PO HS 03/21/23 03/21/23 Scopolamine 1 mg/72 Hr Patch 1 patch TRANSDERM Q72H PRN 03/21/23 03/21/23 [TransDerm Scop] Previous Rx's Medication Instructions Recorded Calcium Carbonate [Tums] 500 mg PO TID PRN #90 tab 02/22/23 Famotidine [Pepcid] 40 mg PO BID #60 tab 02/22/23 Ondansetron Odt [Zofran ODT] 4 mg PO Q8HR PRN #30 tab 02/22/23 Pantoprazole Sodium [Protonix] 40 mg PO AC-BID #60 tab 02/22/23 Trimethobenzamide [Tigan] 300 mg PO TID PRN #90 capsule 02/22/23 carvediloL [Coreg] 3.125 mg PO BID-W/MEALS #60 tab 02/22/23 hydrALAZINE HCL [Apresoline] 50 mg PO BID #90 tab 03/23/23 Allergies Allergy/AdvReac Type Severity Reaction Status Date / Time furosemide [From Lasix] AdvReac Nausea & Verified 03/21/23 22:20 Vomiting tirzepatide [From Mounjaro] AdvReac Nausea & Verified 03/21/23 22:20 Vomiting Review of Systems ROS Statement: Those systems with pertinent positive or pertinent negative responses have been documented in the HPI. ROS Other: All systems not noted in ROS Statement are negative. 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 Covid 07/16/20 History of Any Multi-Drug Resistant Organisms: None Reported Past Surgical History: Tubal Ligation Additional Past Surgical History / Comment(s): carpal tunnel - rt hand, esphog eal banding, Liver transplant July 2021 Past Anesthesia/Blood Transfusion Reactions: No Reported Reaction Past Psychological History: No Psychological Hx Reported Smoking Status: Never smoker Past Alcohol Use History: Rare Past Drug Use History: None Reported General Exam Limitations: no limitations General appearance: alert, in no apparent distress Head exam: Present: atraumatic, normocephalic, normal inspection Respiratory exam: Present: normal lung sounds bilaterally. Absent: respiratory distress, wheezes, rales, rhonchi, stridor Cardiovascular Exam: Present: normal rhythm, tachycardia GI/Abdominal exam: Present: soft, tenderness (diffuse). Absent: distended Neurological exam: Present: alert, oriented X3, CN II-XII intact Psychiatric exam: Present: normal affect, normal mood Skin exam: Present: warm, dry, intact, normal color. Absent: rash Course Vital Signs 09/21/24 09/21/24 09/21/24 17:37 18:15 19:58 Temperature 98.9 F Pulse Rate 120 H 78 135 H Respiratory 20 18 16 Rate Blood Pressure 170/89 164/99 158/83 O2 Sat by Pulse 95 97 99 Oximetry 09/21/24 20:00 Temperature Pulse Rate 131 H Respiratory 18 Rate Blood Pressure 136/75 O2 Sat by Pulse 98 Oximetry Medical Decision Making - Medical Decision Making This is a 49 year old female who presents to the emergency department for nausea and vomiting. Was pt. sent in by a medical professional or institution? @ -No Did you speak to anyone other than the patient for history? @ -No Did you review nursing and triage notes? @ -Yes, and I agree, it is accurate with regards to the patient's symptoms. Were old charts reviewed? @ -No Differential Diagnosis? @ -Differential Nausea and Vomiting: Gastroenteritis, cholecystitis, appendicitis, pancreatitis, migraine, benign positional vertigo, food borne illness, pyelonephritis, irritable bowel syndrome, influenza, Covid, GERD, incarcerated hernia, intestinal obstruction, this is not meant to be an all-inclusive list. EKG interpreted by me (3pts min.)? @ -EKG interpreted by me demonstrating the following: Sinus tachycardia. Ventricular rate 123 bpm, QRS duration 71 ms, QTc 376 ms. X-rays interpreted by me (1pt min.)? @ -Not obtained CT interpreted by me (1pt min.)? @ -CT scan of the abdomen and pelvis obtained. My interpretation identifies no bowel wall thickening or free air. U/S interpreted by me (1pt. min.)? @ -Not obtained What testing was considered but not performed? (CT, X-rays, U/S, labs)? Why? @ -None What meds were considered but not given? Why? @ -None Did you discuss the management of the patient with other professionals? @ -Yes, Dr. Boswell, who accepts the patient for admission. Did you reconcile home meds? @ -No Was smoking cessation discussed for >3mins.? @ -No Was critical care preformed (if so, how long)? @ -No Were there social determinants of health that impacted care today? How? (Homelessness, low income, unemployed, alcoholism, drug addiction, transportation, low edu. Level, literacy, decrease access to med. care, [place] [facility], rehab)? @ -No Was there de-escalation of care discussed even if they declined? (Discuss DNR or withdrawal of care, Hospice)? @ -No What co-morbidities impacted this encounter? (DM, HTN, Smoking, COPD, CAD, Cancer, CVA, Hep., AIDS, mental health diagnosis, sleep apnea, morbid obesity)? @ -DM, HTN Was patient admitted / discharged? @ -Admitted. Lab work demonstrates hyperkalemia with a potassium of 6.3. Renal function is stable when compared with prior. Magnesium slightly low at 1.5. CT scan of the abdomen and pelvis obtained revealing no acute process. 2 L of normal saline administered and she was started on maintenance fluids at 130 mL an hour. Given that the Zofran was not effective, she was given a dose of Reglan. She felt like this was more helpful, however she still had some mild re sidual nausea. She was then given a dose of Compazine and was overall feeling much better. Hyper-K cocktail consisting of 1 g of calcium gluconate, insulin, and Lokelma was administered. 2 g of magnesium sulfate administered for the magnesium as well. Of note, patient was exhibiting bouts of tachycardia with a heart rate in the 120s to 130s. Patient advised that this is normal for her. States that they have never been able to figure out why this is the case. She denies any chest pain, palpitations, or shortness of breath. Patient admitted to medicine for the hyperkalemia with nausea and vomiting. Consult placed for nephrology. Case discussed with ED attending Dr. Santizo. Undiagnosed new problem with uncertain prognosis? @ -None Drug Therapy requiring intensive monitoring for toxicity (Heparin, Nitro, Insulin, Cardizem)? @ -None Were any procedures done? @ -None Diagnosis/symptom? @ -Hyperkalemia, nausea and vomiting Acute, or Chronic, or Acute on Chronic? @ -Acute Uncomplicated (without systemic symptoms) or Complicated (systemic symptoms)? @ -Complicated Side effects of treatment? @ -None Exacerbation, Progression, or Severe Exacerbation] @ -Not applicable Poses a threat to life or bodily function? @ -Yes, can lead to cardiac arrhythmias and - Lab Data Result diagrams: 09/21/24 18:17 09/21/24 18:17 Lab Results 09/21/24 09/21/24 09/21/24 Range/Units 18:13 18:17 18:17 WBC 6.77 (4.50-10.00) 10*3/uL RBC 3.37 L (4.10-5.20) 10*6/uL Hgb 11.7 L (12.0-15.0) g/dL Hct 32.5 L (37.2-46.3) % MCV 96.4 (80.0-97.0) fL MCH 34.7 H (27.0-32.0) pg MCHC 36.0 (32.0-37.0) g/dL Plt Count 129 L (140-440) 10*3/uL MPV 11.0 (9.5-12.2) fL Immature Gran % (Auto) 0.3 % Neutrophils % 86.4 % Lymphocytes % 8.3 % Monocytes % 4.7 % Eosinophils % 0.0 % Basophils % 0.3 % Immature Gran # 0.02 (0.00-0.04) 10*3/uL Neutrophils # 5.85 (1.80-7.70) 10*3/uL Lymphocytes # 0.56 L (0.90-5.00) 10*3/uL Monocytes # 0.32 (0.20-1.00) 10*3/uL Eosinophils # 0.00 L (0.04-0.35) 10*3/uL Basophils # 0.02 (0.00-0.10) 10*3/uL Sodium 142 (137-145) mmol/L Potassium 6.3 H* (3.5-5.1) mmol/L Chloride 107 (98-107) mmol/L Carbon Dioxide 18 L (22-30) mmol/L Anion Gap 17 mmol/L BUN 26 H (7-17) mg/dL Creatinine 1.65 H (0.52-1.04) mg/dL Est GFR (CKD-EPI)AfAm 42 (>60 ml/min/1.73 sqM) Est GFR (CKD-EPI)NonAf 36 (>60 ml/min/1.73 sqM) Glucose 189 H (74-99) mg/dL POC Glucose (mg/dL) 186 H (70-110) mg/dL POC Glu Roll Skinner ID Jordy Morrissey Plasma Lactic Acid Kai (0.7-2.0) mmol/L Calcium 10.0 (8.4-10.2) mg/dL Magnesium 1.5 L (1.6-2.3) mg/dL Total Bilirubin 2.1 H (0.2-1.3) mg/dL AST 35 (14-36) U/L ALT 18 (4-34) U/L Alkaline Phosphatase 117 (38-126) U/L Total Protein 8.1 (6.3-8.2) g/dL Albumin 5.1 H (3.5-5.0) g/dL Amylase 87 (30-110) U/L Lipase 105 (23-300) U/L Acetone, Qual Negative (Negative) 09/21/24 Range/Units 18:17 WBC (4.50-10.00) 10*3/uL RBC (4.10-5.20) 10*6/uL Hgb (12.0-15.0) g/dL Hct (37.2-46.3) % MCV (80.0-97.0) fL MCH (27.0-32.0) pg MCHC (32.0-37.0) g/dL Plt Count (140-440) 10*3/uL MPV (9.5-12.2) fL Immature Gran % (Auto) % Neutrophils % % Lymphocytes % % Monocytes % % Eosinophils % % Basophils % % Immature Gran # (0.00-0.04) 10*3/uL Neutrophils # (1.80-7.70) 10*3/uL Lymphocytes # (0.90-5.00) 10*3/uL Monocytes # (0.20-1.00) 10*3/uL Eosinophils # (0.04-0.35) 10*3/uL Basophils # (0.00-0.10) 10*3/uL Sodium (137-145) mmol/L Potassium (3.5-5.1) mmol/L Chloride (98-107) mmol/L Carbon Dioxide (22-30) mmol/L Anion Gap mmol/L BUN (7-17) mg/dL Creatinine (0.52-1.04) mg/dL Est GFR (CKD-EPI)AfAm (>60 ml/min/1.73 sqM) Est GFR (CKD-EPI)NonAf (>60 ml/min/1.73 sqM) Glucose (74-99) mg/dL POC Glucose (mg/dL) (70-110) mg/dL POC Glu Roll Skinner ID Plasma Lactic Acid Kai 1.6 (0.7-2.0) mmol/L Calcium (8.4-10.2) mg/dL Magnesium (1.6-2.3) mg/dL Total Bilirubin (0.2-1.3) mg/dL AST (14-36) U/L ALT (4-34) U/L Alkaline Phosphatase (38-126) U/L Total Protein (6.3-8.2) g/dL Albumin (3.5-5.0) g/dL Amylase (30-110) U/L Lipase (23-300) U/L Acetone, Qual (Negative) - Radiology Data Radiology results: report reviewed, image reviewed Disposition Clinical Impression: Hyperkalemia, Nausea and vomiting Disposition: ADMITTED IP TO THIS [facility] Referrals: Aldo Hall MD [Primary Care Provider] - 1-2 days
[2024-09-21] MEDS: SODIUM CHLORIDE 0.9% 1,000 ML IV STA (18:13)
[2024-09-21] MEDS: PANTOPRAZOLE 40 MG/10 ML VIAL IVP STA (18:13)
[2024-09-21] MEDS: METOCLOPRAMIDE 5 MG/ML 2 ML VIAL IVP STA (18:14)
[2024-09-21] MEDS: diphenhydrAMINE 50 MG/ML 1 ML VIAL IVP STA (18:14)
[2024-09-21 18:24] LABS: Glucose,Whole Blood 186 mg/dL (70-110)
[2024-09-21 18:28] LABS: Basophils # (A) 0.02 10*3/uL (0.00-0.10); Basophils % (A) 0.3 %; HCT 32.5 % (37.2-46.3); HGB 11.7 g/dL (12.0-15.0); Lymphocytes # (A) 0.56 10*3/uL (0.90-5.00); Lymphocytes % (A) 8.3 %; MCH 34.7 pg (27.0-32.0); MCV 96.4 fL (80.0-97.0); Monocytes # (A) 0.32 10*3/uL (0.20-1.00); Monocytes % (A) 4.7 %; Neutrophils # (A) 5.85 10*3/uL (1.80-7.70); Neutrophils % (A) 86.4 %; Platelet Count 129 10*3/uL (140-440); RBC 3.37 10*6/uL (4.10-5.20); RDW 15.5 % (11.5-14.5); WBC 6.77 10*3/uL (4.50-10.00)
[2024-09-21 18:43] LABS: ALT 18 U/L (4-34); AST 35 U/L (14-36); African American GFR (CKD) 42 (>60 ml/min/1.73 sqM); Albumin 5.1 g/dL (3.5-5.0); Alkaline Phosphatase 117 U/L (38-126); Amylase 87 U/L (30-110); Anion Gap 17 mmol/L; Blood Urea Nitrogen 26 mg/dL (7-17); Carbon Dioxide 18 mmol/L (22-30); Chloride 107 mmol/L (98-107); Glucose 189 mg/dL (74-99); Lipase 105 U/L (23-300); Magnesium 1.5 mg/dL (1.6-2.3); Non-African American GFR(CKD) 36 (>60 ml/min/1.73 sqM); Sodium 142 mmol/L (137-145); Total Bilirubin 2.1 mg/dL (0.2-1.3); Total Protein 8.1 g/dL (6.3-8.2)
[2024-09-21 19:09] LABS: Potassium 6.3 mmol/L (3.5-5.1)
[2024-09-21] MEDS: PROCHLORPERAZINE INJ 10 MG/2 ML VIAL IVP STA (19:33)
[2024-09-21] MEDS: CALCIUM GLUCONATE IN NACL 1 GM in SALINE 1 100ML.BAG IVPB ONE (19:38)
[2024-09-21] MEDS: INSULIN REGULAR 100 UNIT/ML VIAL (IV) IV ONE (19:47)
[2024-09-21] MEDS: DEXTROSE 50% SYRINGE 50 ML IVP ONE (19:48)
[2024-09-21] MEDS: SODIUM CHLORIDE 0.9% 1,000 ML IV ONE (19:51)
[2024-09-21] MEDS: SODIUM CHLORIDE 0.9% 1,000 ML IV SCH (19:52)
[2024-09-21] MEDS: MAGNESIUM SULFATE-D5W PMX 1 GM in DEXTROSE/WATER 1 100ML.BAG IVPB SCH (20:42)
--- NOTE | 2024-09-21 20:44 | CT ---
EXAMINATION TYPE: CT abdomen pelvis wo con DATE OF EXAM: 09/21/2024 8:19 PM COMPARISON: Prior CT abdomen/pelvis dated 02/15/2023. CLINICAL INDICATION: Female, 49 years old with history of Abdominal pain, N/V; N/V since last night. Hx: liver transplant 10 years ago. TECHNIQUE: Axial CT abdomen pelvis wo con;Sagittal and coronal reformats were created on a separate workstation. , (none if empty)Oral contrast used: without Oral Contrast (none if empty) CT DLP: 423.5 mGycm, Automated exposure control for dose reduction was used. FINDINGS: LOWER CHEST: Patchy small nodular groundglass opacities in the right middle lobe. ABDOMEN LIVER: Postsurgical changes of previous hepatic transplant. GALLBLADDER AND BILE DUCTS: Unremarkable. PANCREAS: Unremarkable. SPLEEN: Splenomegaly measuring 14.5 cm in AP dimension. ADRENAL GLANDS: Unremarkable. KIDNEYS AND URETERS: No evidence of hydronephrosis or renal calculus. The ureters are unremarkable. Simple left renal cyst. PELVIS BLADDER: No evidence for wall thickening or mass given limitations of exam. REPRODUCTIVE: Unremarkable. ABDOMEN & PELVIS STOMACH AND BOWEL: Stomach and duodenum are unremarkable. No evidence of bowel obstruction. PERITONEUM/RETROPERITONEUM: No evidence of pneumoperitoneum or free fluid. VASCULATURE: No evidence of aortic aneurysm. MUSCULOSKELETAL: No acute osseous abnormalities LYMPH NODES: No gross evidence for lymphadenopathy. SOFT TISSUE/ABDOMINAL WALL: Unremarkable IMPRESSION: No acute abnormality in the abdomen/pelvis. [facility], , 09/21/2024 8:41 PM
[2024-09-21] MEDS: SODIUM ZIRCONIUM CYCLOSILICATE 10 GM PACKET PO ONE (20:53)
[2024-09-21] MEDS: DEXTROSE 10% IN WATER 500 ML in EMPTY BAG 1 BAG IV SCH (20:55)
[2024-09-21] MEDS ORDERED: NALOXONE 0.4 MG/ML 1 ML VIAL IV PRN (21:13)
[2024-09-21] MEDS ORDERED: MORPHINE SULFATE 4 MG/ML SYRINGE IV PRN (21:13)
[2024-09-21] MEDS ORDERED: HYDROcodone/APAP 5-325MG 1 EACH TAB PO PRN (21:13)
[2024-09-22 04:11] LABS: Appearance,Urine Clear (Clear); Bilirubin,Urine Negative (Negative); Blood,Urine Negative (Negative); Color,Urine Light Yellow; Glucose,Urine (UA) Negative (Negative); Ketones,Urine 1+ (Negative); Leukocyte Esterase,Urine Negative (Negative); Nitrite,Urine Negative (Negative); Protein,Urine Negative (Negative); Specific Gravity,Urine 1.016 (1.001-1.035); Urobilinogen,Urine <2.0 mg/dL (<2.0)
[2024-09-22] MEDS: ACETAMINOPHEN TAB 325 MG TAB PO PRN (06:50)
[2024-09-22 08:26] LABS: African American GFR (CKD) 46 (>60 ml/min/1.73 sqM); Anion Gap 9 mmol/L; Blood Urea Nitrogen 22 mg/dL (7-17); Calcium 9.3 mg/dL (8.4-10.2); Carbon Dioxide 21 mmol/L (22-30); Chloride 110 mmol/L (98-107); Glucose 95 mg/dL (74-99); Magnesium 1.8 mg/dL (1.6-2.3); Non-African American GFR(CKD) 40 (>60 ml/min/1.73 sqM); Potassium 4.7 mmol/L (3.5-5.1); Sodium 140 mmol/L (137-145)
[2024-09-22] MEDS: PANTOPRAZOLE 40 MG/10 ML VIAL IV SCH (09:22)
[2024-09-22] MEDS: PROCHLORPERAZINE INJ 10 MG/2 ML VIAL IVP PRN (09:23)
[2024-09-22 10:37] LABS: Glucose,Whole Blood 111 mg/dL (70-110)
--- NOTE | 2024-09-22 11:49 | P.NPCON ---
History of Present Illness - Reason for Consult chronic renal failure - History of Present Illness Reason for consultation: Chronic kidney disease History of present illness: Patient is a 49-year-old female seen in renal consultation for chronic kidney disease. Patient was seen and examined in the emergency room. Patient has chronic kidney disease stage IIIb with recent creatinine in the range of 1.5-2. Creatinine this admission has been 1.5-1.6 which is at her baseline. Etiology is long-term use of calcineurin inhibitor and nephrosclerosis. Patient does have history of liver transplant from 2021 done at [facility]. She is maintained on prednisone and tacrolimus 4 mg twice daily. She is also on Imuran. Patient came to the hospital due to abdominal pain along with nausea and vomiting which started Monday night. Patient denies any sick contacts. Denies any recent travel. She did not have any episodes last night and is feeling better now. She is currently receiving IV fluids. She denies use of nonsteroidals. No gross hematuria or dysuria. Denies fever or chills. UA benign. She does have history of diabetes. Denies history of coronary artery disease. Vital signs are stable. General: No acute distress. HEENT: Head exam is unremarkable. LUNGS: No audible rhonchi or wheezes. HEART: Rate and Rhythm are regular. ABDOMEN: Nontender. EXTREMITITES: No edema. 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 Covid 07/16/20 History of Any Multi-Drug Resistant Organisms: None Reported Past Surgical History: Tubal Ligation Additional Past Surgical History / Comment(s): carpal tunnel - rt hand, esphogeal banding, Liver transplant July 2021 Past Anesthesia/Blood Transfusion Reactions: No Reported Reaction Past Psychological History: No Psychological Hx Reported Smoking Status: Never smoker Past Alcohol Use History: Rare Past Drug Use History: None Reported Medications and Allergies Home Medications Medication Instructions Recorded Confirmed Type Gabapentin [Neurontin] 300 mg PO AC-BID@0800,1200 06/09/20 09/22/24 History Glucagon [Baqsimi] 1 spr NASAL BID PRN 11/05/21 09/22/24 History INSULIN LISPRO (For Pump) [humaLOG 0.01 units SQ-PUMP CONTINUOUS 11/05/21 09/22/24 History (For Pump)] Acetaminophen Tab [Tylenol] 1,000 mg PO Q6HR PRN 04/06/22 09/22/24 History Cholecalciferol [Vitamin D3 (25 50 mcg PO DAILY 04/06/22 09/22/24 History Mcg = 1000 Iu)] Albuterol Inhaler [Ventolin Hfa 1 - 2 puff INHALATION RT-Q6H PRN 02/13/23 09/22/24 History Inhaler] Eylea (Aflibercept) 2mg/0.05ml 1 dose IV Q60D 02/13/23 09/22/24 History Solution traMADol HCL 50 mg PO BID PRN 02/13/23 09/22/24 History Calcium Carbonate [Tums] 500 mg PO TID PRN #90 tab 02/22/23 09/22/24 Rx Famotidine [Pepcid] 40 mg PO BID #60 tab 02/22/23 09/22/24 Rx Pantoprazole Sodium [Protonix] 40 mg PO AC-BID #60 tab 02/22/23 09/22/24 Rx Gabapentin [Neurontin] 600 mg PO HS 03/21/23 09/22/24 History Aspirin 81 mg PO DAILY 09/22/24 09/22/24 History Fluoride (Sodium) [Sodium Fluoride 1 applic DENTAL HS 09/22/24 09/22/24 History 5000 Plus] Montelukast [Singulair] 10 mg PO HS 09/22/24 09/22/24 History Ondansetron Odt [Zofran Odt] 8 mg PO Q8HR PRN 09/22/24 09/22/24 History Sertraline [Zoloft] 50 mg PO DAILY 09/22/24 09/22/24 History Tacrolimus [Prograf] 4 mg PO Q12HR 09/22/24 09/22/24 History Tirzepatide [Mounjaro] 7.5 mg SQ WE 09/22/24 09/22/24 History azaTHIOprine [Imuran] 150 mg PO DAILY 09/22/24 09/22/24 History predniSONE 5 mg PO DAILY 09/22/24 09/22/24 History Allergies Allergy/AdvReac Type Severity Reaction Status Date / Time furosemide [From Lasix] AdvReac Nausea & Verified 09/22/24 10:37 Vomiting tirzepatide [From Mounjaro] AdvReac Nausea & Verified 09/22/24 10:37 Vomiting Physical Exam Vitals: Vital Signs Temp Pulse Pulse Resp BP BP Pulse Ox 09/22/24 08:00 97 F L 109 H 18 143/71 99 09/22/24 06:51 108 H 16 145/80 98 09/22/24 02:00 115 H 16 134/74 97 09/22/24 00:00 120 H 16 131/79 98 09/21/24 22:00 125 H 18 136/74 98 09/21/24 20:00 131 H 18 136/75 98 09/21/24 19:58 135 H 16 158/83 99 09/21/24 18:15 78 18 164/99 97 09/21/24 17:37 98.9 F 120 H 20 170/89 95 Intake and Output 09/21/24 09/22/24 09/22/24 22:59 06:59 14:59 Other: Weight 65.771 kg Results - Lab Results Most recent lab results Calcium 9.3 mg/dL (8.4-10.2) 09/22/24 07:06 Magnesium 1.8 mg/dL (1.6-2.3) 09/22/24 07:06 09/21/24 18:17 09/22/24 07:06 Assessment and Plan Plan: Assessment: 1. Chronic kidney disease stage IIIb secondary to nephrosclerosis and calcineurin inhibitor use with baseline creatinine recently in the range of 1.6- 2. GFR at baseline. UA benign. 2. Nausea and vomiting, possibly gastroenteritis. Improved. 3. History of liver transplant any was to [place] in 2021. 4. Diabetes mellitus. 5. Hyperkalemia secondary to chronic kidney disease, acidosis and possibly tacrolimus toxicity. Improved with medical management. 6. Metabolic acidosis secondary to acute kidney injury and IV fluids. 7. Hypomagnesemia from poor intake. Replaced. Better. 8. Hypovolemia, improved with IV fluids. Plan: Maintain IV fluids. Decrease rate to 75 cc an hour. Resume antirejection meds. Check a.m. tacrolimus level. Avoid nephrotoxins. Continue to monitor renal function and urine output. Thank you for the consultation. I will continue to follow the patient with you during her hospital stay.
[2024-09-22 15:45] LABS: Glucose,Whole Blood 102 mg/dL (70-110)
[2024-09-22] MEDS: predniSONE 5 MG TAB PO SCH (17:07)
[2024-09-22] MEDS ORDERED: traMADol 50 MG TAB PO PRN (18:08)
--- NOTE | 2024-09-22 18:11 | P.HPIM ---
History of Present Illness H&P Date: 09/21/24 Chief Complaint: Abdominal pain/nausea/vomiting 49-year-old female who presents to the emergency department for abdominal pain, nausea, and vomiting. States that it started last night. Abdominal pain is centralized and fairly diffuse. Denies any diarrhea or constipation. States that her last bowel movement was last night. She has been unable to control the vomiting. She was given Zofran by EMS en route, however states that it was not helpful. Denies any fevers/chills or sick contacts. Denies any chest pain or shortness of breath. She is a liver transplant patient and states that this took place 10 years ago. Blood work completed in ED reveals a WBC of 6.77, hemoglobin of 11.7 and platelet count of 129, sodium 142, potassium 6.3, BUN/creatinine of 26/1.65 and blood glucose of 189, magnesium of 1.5 CT scan of the abdomen and pelvis obtained revealing no acute process. Patient received 2 L of normal saline in the ED at a rate of 130 cc an hour with symptomatic treatment for nausea and vomiting Patient was treated with hyperkalemia cocktail consisting of 1 g of calcium gluconate, insulin and Lokelma; received 2 g of magnesium sulfate Patient is being admitted for persistent tachycardia and further evaluation by nephrology Review of Systems REVIEW OF SYSTEMS: CONSTITUTIONAL: No fever, no malaise, no fatigue. HEENT: No recent visual problems or hearing problems. Denied any sore throat. CARDIOVASCULAR: No chest pain, orthopnea, PND, no palpitations, no syncope. PULMONARY: No shortness of breath, no cough, no hemoptysis. GASTROINTESTINAL: No diarrhea, no nausea, no vomiting, no abdominal pain. NEUROLOGICAL: No headaches, no weakness, no numbness. HEMATOLOGICAL: Denies any bleeding or petechiae. GENITOURINARY: Denies any burning micturition, frequency, or urgency. MUSCULOSKELETAL/RHEUMATOLOGICAL: Denies any joint pain, swelling, or any muscle pain. ENDOCRINE: Denies any polyuria or polydipsia. The rest of the 14-point review of systems is negative. 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 Covid 07/16/20 History of Any Multi-Drug Resistant Organisms: None Reported Past Surgical History: Tubal Ligation Additional Past Surgical History / Comment(s): carpal tunnel - rt hand, esphogeal banding, Liver transplant July 2021 Past Anesthesia/Blood Transfusion Reactions: No Reported Reaction Past Psychological History: No Psychological Hx Reported Smoking Status: Never smoker Past Alcohol Use History: Rare Past Drug Use History: None Reported Medications and Allergies Home Medications Medication Instructions Recorded Confirmed Type Gabapentin [Neurontin] 300 mg PO AC-BID@0800,1200 06/09/20 09/22/24 History Glucagon [Baqsimi] 1 spr NASAL BID PRN 11/05/21 09/22/24 History INSULIN LISPRO (For Pump) [humaLOG 0.01 units SQ-PUMP CONTINUOUS 11/05/21 09/22/24 History (For Pump)] Acetaminophen Tab [Tylenol] 1,000 mg PO Q6HR PRN 04/06/22 09/22/24 History Cholecalciferol [Vitamin D3 (25 50 mcg PO DAILY 04/06/22 09/22/24 History Mcg = 1000 Iu)] Albuterol Inhaler [Ventolin Hfa 1 - 2 puff INHALATION RT-Q6H PRN 02/13/23 09/22/24 History Inhaler] Eylea (Aflibercept) 2mg/0.05ml 1 dose IV Q60D 02/13/23 09/22/24 History Solution traMADol HCL 50 mg PO BID PRN 02/13/23 09/22/24 History Calcium Carbonate [Tums] 500 mg PO TID PRN #90 tab 02/22/23 09/22/24 Rx Famotidine [Pepcid] 40 mg PO BID #60 tab 02/22/23 09/22/24 Rx Pantoprazole Sodium [Protonix] 40 mg PO AC-BID #60 tab 02/22/23 09/22/24 Rx Gabapentin [Neurontin] 600 mg PO HS 03/21/23 09/22/24 History Aspirin 81 mg PO DAILY 09/22/24 09/22/24 History Fluoride (Sodium) [Sodium Fluoride 1 applic DENTAL HS 09/22/24 09/22/24 History 5000 Plus] Montelukast [Singulair] 10 mg PO HS 09/22/24 09/22/24 History Ondansetron Odt [Zofran Odt] 8 mg PO Q8HR PRN 09/22/24 09/22/24 History Sertraline [Zoloft] 50 mg PO DAILY 09/22/24 09/22/24 History Tacrolimus [Prograf] 4 mg PO Q12HR 09/22/24 09/22/24 History Tirzepatide [Mounjaro] 7.5 mg SQ WE 09/22/24 09/22/24 History azaTHIOprine [Imuran] 150 mg PO DAILY 09/22/24 09/22/24 History predniSONE 5 mg PO DAILY 09/22/24 09/22/24 History Allergies Allergy/AdvReac Type Severity Reaction Status Date / Time furosemide [From Lasix] AdvReac Nausea & Verified 09/22/24 10:37 Vomiting tirzepatide [From Mounjaro] AdvReac Nausea & Verified 09/22/24 10:37 Vomiting Physical Exam Vitals: Vital Signs Temp Pulse Resp BP Pulse Ox 09/21/24 20:00 131 H 18 136/75 98 09/21/24 19:58 135 H 16 158/83 99 09/21/24 18:15 78 18 164/99 97 09/21/24 17:37 98.9 F 120 H 20 170/89 95 Intake and Output 09/21/24 09/21/24 09/21/24 06:59 14:59 22:59 Other: Weight 65.771 kg General appearance: alert, in no apparent distress Head exam: Present: atraumatic, normocephalic, normal inspection Respiratory exam: Present: normal lung sounds bilaterally. Absent: respiratory distress, wheezes, rales, rhonchi, stridor Cardiovascular Exam: Present: normal rhythm, tachycardia GI/Abdominal exam: Present: soft, tenderness (diffuse). Absent: distended Neurological exam: Present: alert, oriented X3, CN II-XII intact Psychiatric exam: Present: normal affect, normal mood Skin exam: Present: warm, dry, intact, normal color. Absent: rash Results CBC & Chem 7: 09/21/24 18:17 09/22/24 07:06 Labs: Abnormal Lab Results - Last 24 Hours (Table) 09/21/24 09/21/24 09/21/24 Range/Units 18:13 18:17 18:17 RBC 3.37 L (4.10-5.20) 10*6/uL Hgb 11.7 L (12.0-15.0) g/dL Hct 32.5 L (37.2-46.3) % MCH 34.7 H (27.0-32.0) pg Plt Count 129 L (140-440) 10*3/uL Lymphocytes # 0.56 L (0.90-5.00) 10*3/uL Eosinophils # 0.00 L (0.04-0.35) 10*3/uL Potassium 6.3 H* (3.5-5.1) mmol/L Carbon Dioxide 18 L (22-30) mmol/L BUN 26 H (7-17) mg/dL Creatinine 1.65 H (0.52-1.04) mg/dL Glucose 189 H (74-99) mg/dL POC Glucose (mg/dL) 186 H (70-110) mg/dL Magnesium 1.5 L (1.6-2.3) mg/dL Total Bilirubin 2.1 H (0.2-1.3) mg/dL Albumin 5.1 H (3.5-5.0) g/dL Assessment and Plan Assessment: 1. Acute renal injury; patient has history of renal transplant -BUN/creatinine elevated at 26/1.65; patient received 2 L of IV fluids in ED and is maintained on normal saline at rate of 130 cc an hour - We will continue with renal transplant antirejection medications - Monitor strict YOVANY's, daily weights, renal function electrolytes; avoid nephrotoxins and hypotension Consult nephrology 2. Hyperkalemia; potassium was 6.3 in ED; patient treated with normal saline at a rate of 130 cc an hour; currently not on any potassium supplement; patient does report such episodes in the past also -We will monitor electrolytes closely; further recommendations pending clinical course 3. Sinus tachycardia; likely related to dehydration, patient remains on IV fluids; Continue telemetry; consult cardiology if tachycardia does not subside with IV fluids 4. Intractable nausea and vomiting; possible acute gastroenteritis; continue with supportive care 5. History of renal transplant; continue with Imuran 150 mg daily, prednisone 5 mg daily, Prograf 4 mg twice daily 6. Diabetes mellitus with long-term insulin use;-Accu-Cheks ACHS with insulin sliding scale 7. Depression; Zoloft 50 mg daily
--- NOTE | 2024-09-22 18:12 | P.PN ---
Subjective Progress Note Date: 09/22/24 49-year-old female who presents to the emergency department for abdominal pain, nausea, and vomiting. States that it started last night. Abdominal pain is centralized and fairly diffuse. Denies any diarrhea or constipation. States that her last bowel movement was last night. She has been unable to control the vomiting. She was given Zofran by EMS en route, however states that it was not helpful. Denies any fevers/chills or sick contacts. Denies any chest pain or shortness of breath. She is a liver transplant patient and states that this took place 10 years ago. Blood work completed in ED reveals a WBC of 6.77, hemoglobin of 11.7 and platelet count of 129, sodium 142, potassium 6.3, BUN/creatinine of 26/1.65 and blood glucose of 189, magnesium of 1.5 CT scan of the abdomen and pelvis obtained revealing no acute process. Patient received 2 L of normal saline in the ED at a rate of 130 cc an hour with symptomatic treatment for nausea and vomiting Patient was treated with hyperkalemia cocktail consisting of 1 g of calcium gluconate, insulin and Lokelma; received 2 g of magnesium sulfate Patient is being admitted for persistent tachycardia and further evaluation by nephrology Objective - Vital Signs Vital signs: Vital Signs Temp 97.7 F 09/22/24 17:26 Pulse 102 H 09/22/24 17:26 Resp 18 09/22/24 17:26 BP 137/72 09/22/24 17:26 Pulse Ox 95 09/22/24 17:26 FiO2 Intake & Output 09/21/24 09/22/24 09/22/24 18:59 06:59 18:59 Weight 65.771 kg Other: # Voids 3 - Exam General appearance: alert, in no apparent distress Head exam: Present: atraumatic, normocephalic, normal inspection Respiratory exam: Present: normal lung sounds bilaterally. Absent: respiratory distress, wheezes, rales, rhonchi, stridor Cardiovascular Exam: Present: normal rhythm, tachycardia GI/Abdominal exam: Present: soft, tenderness (diffuse). Absent: distended Neurological exam: Present: alert, oriented X3, CN II-XII intact Psychiatric exam: Present: normal affect, normal mood Skin exam: Present: warm, dry, intact, normal color. Absent: rash - Labs CBC & Chem 7: 09/21/24 18:17 09/22/24 07:06 Labs: Abnormal Lab Results - Last 24 Hours (Table) 09/21/24 09/21/24 09/21/24 Range/Units 18:13 18:17 18:17 RBC 3.37 L (4.10-5.20) 10*6/uL Hgb 11.7 L (12.0-15.0) g/dL Hct 32.5 L (37.2-46.3) % MCH 34.7 H (27.0-32.0) pg Plt Count 129 L (140-440) 10*3/uL Lymphocytes # 0.56 L (0.90-5.00) 10*3/uL Eosinophils # 0.00 L (0.04-0.35) 10*3/uL Potassium 6.3 H* (3.5-5.1) mmol/L Chloride (98-107) mmol/L Carbon Dioxide 18 L (22-30) mmol/L BUN 26 H (7-17) mg/dL Creatinine 1.65 H (0.52-1.04) mg/dL Glucose 189 H (74-99) mg/dL POC Glucose (mg/dL) 186 H (70-110) mg/dL Magnesium 1.5 L (1.6-2.3) mg/dL Total Bilirubin 2.1 H (0.2-1.3) mg/dL Albumin 5.1 H (3.5-5.0) g/dL Urine Ketones (Negative) 09/22/24 09/22/24 09/22/24 Range/Units 03:04 07:06 10:35 RBC (4.10-5.20) 10*6/uL Hgb (12.0-15.0) g/dL Hct (37.2-46.3) % MCH (27.0-32.0) pg Plt Count (140-440) 10*3/uL Lymphocytes # (0.90-5.00) 10*3/uL Eosinophils # (0.04-0.35) 10*3/uL Potassium (3.5-5.1) mmol/L Chloride 110 H (98-107) mmol/L Carbon Dioxide 21 L (22-30) mmol/L BUN 22 H (7-17) mg/dL Creatinine 1.53 H (0.52-1.04) mg/dL Glucose (74-99) mg/dL POC Glucose (mg/dL) 111 H (70-110) mg/dL Magnesium (1.6-2.3) mg/dL Total Bilirubin (0.2-1.3) mg/dL Albumin (3.5-5.0) g/dL Urine Ketones 1+ H (Negative) Assessment and Plan Assessment: 1. Acute renal injury; patient has history of renal transplant -BUN/creatinine elevated at 26/1.65; patient received 2 L of IV fluids in ED and is maintained on normal saline at rate of 130 cc an hour - We will continue with renal transplant antirejection medications - Monitor strict YOVANY's, daily weights, renal function electrolytes; avoid nephrotoxins and hypotension Consult nephrology 2. Hyperkalemia; potassium was 6.3 in ED; patient treated with normal saline at a rate of 130 cc an hour; currently not on any potassium supplement; patient does report such episodes in the past also -We will monitor electrolytes closely; further recommendations pending clinical course 3. Sinus tachycardia; likely related to dehydration, patient remains on IV fluids; Continue telemetry; consult cardiology if tachycardia does not subside with IV fluids 4. Intractable nausea and vomiting; possible acute gastroenteritis; continue with supportive care 5. History of renal transplant; continue with Imuran 150 mg daily, prednisone 5 mg daily, Prograf 4 mg twice daily 6. Diabetes mellitus with long-term insulin use;-Accu-Cheks ACHS with insulin sliding scale 7. Depression; Zoloft 50 mg daily
[2024-09-22 20:30] LABS: Glucose,Whole Blood 105 mg/dL (70-110)
[2024-09-22] MEDS: FAMOTIDINE 20 MG TAB PO SCH (21:22)
[2024-09-22] MEDS: TACROLIMUS 1 MG CAP PO SCH (21:22)
[2024-09-22] MEDS: MONTELUKAST 10 MG TAB PO SCH (21:22)
[2024-09-22] MEDS: INSULIN LISPRO (For Pump) 100 UNIT/ML VIAL SQ-PUMP SCH (21:28)
[2024-09-23 05:58] LABS: Glucose,Whole Blood 107 mg/dL (70-110)
[2024-09-23] MEDS: azaTHIOprine 50 MG TAB PO SCH (08:52)
[2024-09-23] MEDS: GABAPENTIN 300 MG CAP PO SCH (08:52)
[2024-09-23] MEDS: CHOLECALCIFEROL 25 MCG (1000 IU) TABLET PO SCH (08:52)
[2024-09-23] MEDS: ASPIRIN 81 MG PO SCH (08:53)
[2024-09-23] MEDS: SERTRALINE 50 MG TAB PO SCH (08:53)
[2024-09-23] MEDS: ONDANSETRON 4 MG/2 ML VIAL IVP PRN (10:19)
[2024-09-23 10:35] LABS: Magnesium 1.7 mg/dL (1.5-2.4)
[2024-09-23 10:36] LABS: Blood Urea Nitrogen 21.7 mg/dL (9.0-27.0); Calcium 8.4 mg/dL (8.7-10.3); Carbon Dioxide 22.4 mmol/L (21.6-31.8); Chloride 108 mmol/L (96-109); Glucose 92 mg/dL (70-110); Potassium 4.6 mmol/L (3.5-5.5); Sodium 139 mmol/L (135-145)
[2024-09-23 12:43] LABS: Glucose,Whole Blood 111 mg/dL (70-110)
[2024-09-23 17:32] LABS: Glucose,Whole Blood 115 mg/dL (70-110)
--- NOTE | 2024-09-23 18:41 | P.PN ---
Subjective Patient is seen for follow-up for chronic kidney disease No significant complaints today Renal function is stable with serum creatinine at 1.4 mg/dL today. Objective - Vital Signs Vital signs: Vital Signs Temp 98.1 F 09/23/24 14:35 Pulse 93 09/23/24 14:35 Resp 16 09/23/24 14:35 BP 175/91 09/23/24 14:35 Pulse Ox 100 09/23/24 14:35 FiO2 Intake & Output 09/22/24 09/23/24 09/23/24 18:59 06:59 18:59 Weight 65.771 kg Other: # Voids 3 1 3 - Labs CBC & Chem 7: 09/21/24 18:17 09/23/24 05:45 Labs: Abnormal Lab Results - Last 24 Hours (Table) 09/23/24 09/23/24 09/23/24 Range/Units 05:45 12:42 17:31 Est GFR (CKD-EPI) 46 L (>=60) POC Glucose (mg/dL) 111 H 115 H (70-110) mg/dL Calcium 8.4 L (8.7-10.3) mg/dL Assessment and Plan Assessment: 1. Chronic kidney disease stage IIIb secondary to nephrosclerosis and calcineurin inhibitor use with baseline creatinine recently in the range of 1.6- 2. GFR at baseline. UA benign. 2. Nausea and vomiting, possibly gastroenteritis. Improved. 3. History of liver transplant any was to [place] in 2021. 4. Diabetes mellitus. 5. Hyperkalemia secondary to chronic kidney disease, acidosis and possibly tacrolimus toxicity. Improved with medical management. 6. Metabolic acidosis secondary to acute kidney injury and IV fluids. 7. Hypomagnesemia from poor intake. Replaced. Better. 8. Hypovolemia, improved with IV fluids. Plan: Continue with IV fluids Monitor labs periodically Continue current immunosuppressive therapy
[2024-09-23 20:44] LABS: Glucose,Whole Blood 109 mg/dL (70-110)
--- NOTE | 2024-09-23 23:50 | P.PN ---
Subjective 49-year-old female who presents to the emergency department for abdominal pain, nausea, and vomiting. States that it started last night. Abdominal pain is centralized and fairly diffuse. Denies any diarrhea or constipation. States that her last bowel movement was last night. She has been unable to control the vomiting. She was given Zofran by EMS en route, however states that it was not helpful. Denies any fevers/chills or sick contacts. Denies any chest pain or shortness of breath. She is a liver transplant patient and states that this took place 10 years ago. Blood work completed in ED reveals a WBC of 6.77, hemoglobin of 11.7 and platelet count of 129, sodium 142, potassium 6.3, BUN/creatinine of 26/1.65 and blood glucose of 189, magnesium of 1.5 CT scan of the abdomen and pelvis obtained revealing no acute process. Patient received 2 L of normal saline in the ED at a rate of 130 cc an hour with symptomatic treatment for nausea and vomiting Patient was treated with hyperkalemia cocktail consisting of 1 g of calcium gluconate, insulin and Lokelma; received 2 g of magnesium sulfate Patient is being admitted for persistent tachycardia and further evaluation by nephrology 09/23 Patient still complaining from nausea vomiting about 4-5 times, no blood mainly bile and yellowish. No significant abdominal pain As per patient at bedside patient has no bowel movement but passing gas She is still on normal saline at 75 mL/h She wants scopolamine patch we will order tonight Objective - Vital Signs Vital signs: Vital Signs Temp 98.1 F 09/23/24 14:35 Pulse 93 09/23/24 14:35 Resp 16 09/23/24 14:35 BP 175/91 09/23/24 14:35 Pulse Ox 100 09/23/24 14:35 FiO2 Intake & Output 09/22/24 09/23/24 09/23/24 18:59 06:59 18:59 Weight 65.771 kg Other: # Voids 3 1 3 - Exam GENERAL: The patient is alert and oriented x3, not in any acute distress. Well developed, well nourished. HEENT: Pupils are round and equally reacting to light. EOMI. No scleral icterus. No conjunctival pallor. Normocephalic, atraumatic. No pharyngeal erythema. No thyromegaly. CARDIOVASCULAR: S1 and S2 present. No murmurs, rubs, or gallops. PULMONARY: Chest is clear to auscultation, no wheezing , no crackles. ABDOMEN: Soft, nontender, nondistended, normoactive bowel sounds. No palpable organomegaly. MUSCULOSKELETAL: No joint swelling or deformity. EXTREMITIES: No cyanosis, clubbing, or pedal edema. NEUROLOGICAL: Gross neurological examination did not reveal any focal deficits. SKIN: No rashes. no petechiae. - Labs CBC & Chem 7: 09/21/24 18:17 09/23/24 05:45 Labs: Abnormal Lab Results - Last 24 Hours (Table) 09/23/24 09/23/24 Range/Units 05:45 12:42 Est GFR (CKD-EPI) 46 L (>=60) POC Glucose (mg/dL) 111 H (70-110) mg/dL Calcium 8.4 L (8.7-10.3) mg/dL Assessment and Plan Assessment: 1. Acute renal injury; patient has history of renal transplant -BUN/creatinine elevated at 26/1.65; patient received 2 L of IV fluids in ED and is maintained on normal saline at rate of 130 cc an hour - We will continue with renal transplant antirejection medications - Monitor strict YOVANY's, daily weights, renal function electrolytes; avoid nephrotoxins and hypotension Consult nephrology 2. Hyperkalemia; potassium was 6.3 in ED; patient treated with normal saline at a rate of 130 cc an hour; currently not on any potassium supplement; patient grayson s report such episodes in the past also -We will monitor electrolytes closely; further recommendations pending clinical course 3. Sinus tachycardia; likely related to dehydration, patient remains on IV fluids; Continue telemetry; consult cardiology if tachycardia does not subside with IV fluids 4. Intractable nausea and vomiting; possible acute gastroenteritis; continue with supportive care 5. History of renal transplant; continue with Imuran 150 mg daily, prednisone 5 mg daily, Prograf 4 mg twice daily 6. Diabetes mellitus with long-term insulin use;-Accu-Cheks ACHS with insulin sliding scale 7. Depression; Zoloft 50 mg daily
[2024-09-24] MEDS: SCOPOLAMINE 1 MG/72 HR PATCH TRANSDERM SCH (00:01)
[2024-09-24 05:55] LABS: Glucose,Whole Blood 82 mg/dL (70-110)
[2024-09-24 07:49] VITALS: RESP 15
[2024-09-24 08:13] LABS: Basophils # (A) 0.01 X 10*3/uL (0.00-0.10); Basophils % (A) 0.2 %; Eosinophils # (A) 0.01 X 10*3/uL (0.04-0.35); Eosinophils % (A) 0.2 %; HCT 25.5 % (37.2-46.3); HGB 9.1 g/dL (12.0-15.0); Lymphocytes # (A) 1.54 X 10*3/uL (0.90-5.00); Lymphocytes % (A) 33.6 %; MCH 34.3 pg (27.0-32.0); MCHC 35.7 g/dL (32.0-37.0); MCV 96.2 FL (80.0-97.0); Mean Platelet Volume 11.1 FL (9.5-12.2); Monocytes # (A) 0.43 X 10*3/uL (0.20-1.00); Monocytes % (A) 9.4 %; NRBC Per 100 WBC 0 X 10*3/uL (0.00-0.01); Neutrophils # (A) 2.59 X 10*3/uL (1.80-7.70); Neutrophils % (A) 56.4 %; Platelet Count 100 X 10*3/uL (140-440); RBC 2.65 X 10*6/uL (4.10-5.20); RDW 15.7 % (11.5-14.5); WBC 4.59 X 10*3/uL (4.50-10.00)
[2024-09-24 08:29] LABS: BUN/Creat Ratio 14.14 Ratio (12.00-20.00); Blood Urea Nitrogen 19.8 mg/dL (9.0-27.0); Calcium 8.4 mg/dL (8.7-10.3); Carbon Dioxide 20.5 mmol/L (21.6-31.8); Chloride 106 mmol/L (96-109); Glucose 79 mg/dL (70-110); Potassium 4.4 mmol/L (3.5-5.5); Sodium 139 mmol/L (135-145)
[2024-09-24 12:04] LABS: Glucose,Whole Blood 117 mg/dL (70-110)
[2024-09-24 14:44] VITALS: BP 115/74; TEMP 98
[2024-09-24 15:10] VITALS: PULSE 106
--- NOTE | 2024-09-24 16:55 | P.PN ---
Subjective Patient is seen for follow-up for chronic kidney disease No significant complaints today Renal function is stable with serum creatinine at 1.4 mg/dL Tacrolimus level noted at 3.2. This will be adjusted by transplant through [facility] Objective - Vital Signs Vital signs: Vital Signs Temp 98.0 F 09/24/24 14:43 Pulse 96 09/24/24 14:43 Resp 15 09/24/24 14:43 BP 115/74 09/24/24 14:43 Pulse Ox 99 09/24/24 14:43 FiO2 Intake & Output 09/23/24 09/24/24 09/24/24 18:59 06:59 18:59 Other: # Voids 3 1 4 - Exam Patient is comfortable, no acute distress Alert oriented x 3 No edema noted RN CLINICAL QUALITY exam grossly intact - Labs CBC & Chem 7: 09/24/24 02:49 09/24/24 02:49 Labs: Abnormal Lab Results - Last 24 Hours (Table) 09/23/24 09/23/24 09/24/24 Range/Units 05:45 17:31 02:49 RBC 2.65 L (4.10-5.20) X 10*6/uL Hgb 9.1 L (12.0-15.0) g/dL Hct 25.5 L (37.2-46.3) % MCH 34.3 H (27.0-32.0) pg RDW 15.7 H (11.5-14.5) % Plt Count 100 L (140-440) X 10*3/uL Eosinophils # 0.01 L (0.04-0.35) X 10*3/uL Carbon Dioxide (21.6-31.8) mmol/L Anion Gap (4.00-12.00) mmol/L Est GFR (CKD-EPI) (>=60) POC Glucose (mg/dL) 115 H (70-110) mg/dL Calcium (8.7-10.3) mg/dL Tacrolimus 3.2 L (5.0-20.0) ng/mL 09/24/24 09/24/24 Range/Units 02:49 12:02 RBC (4.10-5.20) X 10*6/uL Hgb (12.0-15.0) g/dL Hct (37.2-46.3) % MCH (27.0-32.0) pg RDW (11.5-14.5) % Plt Count (140-440) X 10*3/uL Eosinophils # (0.04-0.35) X 10*3/uL Carbon Dioxide 20.5 L (21.6-31.8) mmol/L Anion Gap 12.50 H (4.00-12.00) mmol/L Est GFR (CKD-EPI) 46 L (>=60) POC Glucose (mg/dL) 117 H (70-110) mg/dL Calcium 8.4 L (8.7-10.3) mg/dL Tacrolimus (5.0-20.0) ng/mL Assessment and Plan Assessment: 1. Chronic kidney disease stage IIIb secondary to nephrosclerosis and calci neurin inhibitor use with baseline creatinine recently in the range of 1.6-2. GFR at baseline. UA benign. 2. Nausea and vomiting, possibly gastroenteritis. Improved. 3. History of liver transplant at [facility] in 2021. 4. Diabetes mellitus. 5. Hyperkalemia secondary to chronic kidney disease, acidosis and possibly tacrolimus toxicity. Improved with medical management. 6. Metabolic acidosis secondary to acute kidney injury and IV fluids. 7. Hypomagnesemia from poor intake. Replaced. Better. 8. Hypovolemia, improved with IV fluids. Plan: Follow-up with transplant postdischarge Stable for discharge from nephrology standpoint Continue current immunosuppressive therapy
--- NOTE | 2024-09-25 06:52 | P.DS ---
Providers Date of admission: 09/21/24 21:15 Attending physician: Wally Boswell MD Consults: 09/21/24 21:13 Consult Physician Urgent Consulting Provider: Kal Diane Consult Reason/Comments: Hyperkalemia Do you want consulting provider notified?: Yes Primary care physician: Aldo Hall MD Hospital Course: Diagnoses: 1. Acute renal injury 2. Hyperkalemia; resolved 3. Sinus tachycardia 4. Intractable nausea and vomiting 5. History of renal transplant 6. Diabetes mellitus with long-term insulin use 7. Depression 8. history of liver transplant on immunosuppressive therapy Hospital course: 49-year-old female who presents to the emergency department for abdominal pain, nausea, and vomiting. States that it started last night. Patient abdominal pain and diarrhea resolved since yesterday. However she was still complaining from nausea vomiting, she requested scopolamine patch stating that it helped last time. After placement she felt much better no more vomiting no nausea tolerates diet. She denies any other new complaints. She agrees for discharge Her creatinine was elevated on admission 1.6 improved down to 1.4 however patient has chronic kidney disease and creatinine currently at baseline Nephrology team already cleared her for discharge Also patient has history of liver transplant on immunosuppressive therapy. She told us that she has an appointment with her transplant doctor at [facility] this coming week. Tacrolimus level was slightly low but nephrology said patient needs to follow-up with her managing physician within 1 week as p lanned. Problems and management plan were discussed with the patient and he verbalized understanding and acceptance Patient was found stable and can be discharged home in guarded prognosis however he needs follow-up as an outpatient. Patient was instructed to follow up with PCP within one week and patient agrees Patient instructed to keep her appointment and follow-up with [facility] as as her transplant team. Patient confirms she will follow-up Patient instructed to follow-up with ad taker Dr. Stafford in 1 week and she agrees Physical exam Gen: patient is a AAOx3, no distress CVS: S1-S2, RRR, no murmur Lungs: B/L CTA, no wheezing Abdomen: soft, no distention, no tenderness, positive bowel sounds Extremity: no leg edema or induration Time spent more than 35 minutes Plan - Discharge Summary New Discharge Prescriptions: New Scopolamine 1 mg/72 Hr Patch [TransDerm Scop] 1 patch TRANSDERM Q72H PRN #1 patch PRN Reason: Nausea And Vomiting Continue Gabapentin [Neurontin] 300 mg PO AC-BID@0800,1200 INSULIN LISPRO (For Pump) [humaLOG (For Pump)] 0.01 units SQ-PUMP CONTINUOUS Glucagon [Baqsimi] 1 spr NASAL BID PRN PRN Reason: LOW BLOOD SUGAR Acetaminophen Tab [Tylenol] 1,000 mg PO Q6HR PRN PRN Reason: Fever And/ Or Pain Eylea (Aflibercept) 2mg/0.05ml Solution 1 dose IV Q60D Famotidine [Pepcid] 40 mg PO BID #60 tab Pantoprazole Sodium [Protonix] 40 mg PO AC-BID #60 tab Gabapentin [Neurontin] 600 mg PO HS azaTHIOprine [Imuran] 150 mg PO DAILY Ondansetron Odt [Zofran ODT] 8 mg PO Q8HR PRN PRN Reason: Nausea Aspirin 81 mg PO DAILY Cholecalciferol [Vitamin D3 (25 Mcg = 1000 Iu)] 50 mcg PO DAILY Albuterol Inhaler [Ventolin Hfa Inhaler] 1 - 2 puff INHALATION RT-Q6H PRN PRN Reason: Shortness Of Breath traMADol HCL 50 mg PO BID PRN PRN Reason: Pain Calcium Carbonate [Tums] 500 mg PO TID PRN #90 tab PRN Reason: Heartburn Tacrolimus [Prograf] 4 mg PO Q12HR Montelukast [Singulair] 10 mg PO HS predniSONE 5 mg PO DAILY Tirzepatide [Mounjaro] 7.5 mg SQ WE Sertraline [Zoloft] 50 mg PO DAILY Fluoride (Sodium) [Sodium Fluoride 5000 Plus] 1 applic DENTAL HS Discharge Medication List Gabapentin [Neurontin] 300 mg PO AC-BID@0800,1200 06/09/20 [History] Glucagon [Baqsimi] 1 spr NASAL BID PRN 11/05/21 [History] INSULIN LISPRO (For Pump) [humaLOG (For Pump)] 0.01 units SQ-PUMP CONTINUOUS 11/05/21 [History] Acetaminophen Tab [Tylenol] 1,000 mg PO Q6HR PRN 04/06/22 [History] Cholecalciferol [Vitamin D3 (25 Mcg = 1000 Iu)] 50 mcg PO DAILY 04/06/22 [History] Albuterol Inhaler [Ventolin Hfa Inhaler] 1 - 2 puff INHALATION RT-Q6H PRN 02/13/23 [History] Eylea (Aflibercept) 2mg/0.05ml Solution 1 dose IV Q60D 02/13/23 [History] traMADol HCL 50 mg PO BID PRN 02/13/23 [History] Calcium Carbonate [Tums] 500 mg PO TID PRN #90 tab 02/22/23 [Rx] Famotidine [Pepcid] 40 mg PO BID #60 tab 02/22/23 [Rx] Pantoprazole Sodium [Protonix] 40 mg PO AC-BID #60 tab 02/22/23 [Rx] Gabapentin [Neurontin] 600 mg PO HS 03/21/23 [History] Aspirin 81 mg PO DAILY 09/22/24 [History] Fluoride (Sodium) [Sodium Fluoride 5000 Plus] 1 applic DENTAL HS 09/22/24 [History] Montelukast [Singulair] 10 mg PO HS 09/22/24 [History] Ondansetron Odt [Zofran ODT] 8 mg PO Q8HR PRN 09/22/24 [History] Sertraline [Zoloft] 50 mg PO DAILY 09/22/24 [History] Tacrolimus [Prograf] 4 mg PO Q12HR 09/22/24 [History] Tirzepatide [Mounjaro] 7.5 mg SQ WE 09/22/24 [History] azaTHIOprine [Imuran] 150 mg PO DAILY 09/22/24 [History] predniSONE 5 mg PO DAILY 09/22/24 [History] Scopolamine 1 mg/72 Hr Patch [TransDerm Scop] 1 patch TRANSDERM Q72H PRN #1 patch 09/24/24 [Rx] Follow up Appointment(s)/Referral(s): lAdo Hall MD [Primary Care Provider] - 1-2 days Kal Diane DO [STAFF PHYSICIAN] - 1 Week Patient Instructions/Handouts: Hyperkalemia (DC) Activity/Diet/Wound Care/Special Instructions: Heart healthy diet, renal diet Activity is restricted till you see your doctor Please follow-up with [facility] for your liver transplant management and discuss medication with them. Please call to make an appointment within 1 week. You have the contact information as you inform the medical team Discharge Disposition: HOME SELF-CARE
== END 2024-09-24 15:38 | disposition home or self-care (01) ==
LOC: EC 17:31 → 3SCARD 21:15 → 6NMEDSUR 09-22 06:16
PROVIDERS: ADMIT Internal Medicine; ATTEND Internal Medicine
DX: N17.9 Acute kidney failure, unspecified (principal); E87.5 Hyperkalemia; R11.2 Nausea with vomiting, unspecified; E87.20 Acidosis, unspecified; E83.42 Hypomagnesemia; E86.1 Hypovolemia; R00.0 Tachycardia, unspecified; E11.40 Type 2 diabetes mellitus with diabetic neuropathy, unspecified; I12.9 Hypertensive chronic kidney disease with stage 1 through stage 4 chronic kidney disease, or unspecified chronic kidney disease; N18.32 Chronic kidney disease, stage 3b; E11.22 Type 2 diabetes mellitus with diabetic chronic kidney disease; F32.A Depression, unspecified; D84.821 Immunodeficiency due to drugs; Z86.16 Personal history of COVID-19; Z94.4 Liver transplant status; Z96.41 Presence of insulin pump (external) (internal); Z79.4 Long term (current) use of insulin; Z79.52 Long term (current) use of systemic steroids; Z79.624 Long term (current) use of inhibitors of nucleotide synthesis; Z79.82 Long term (current) use of aspirin; Z79.899 Other long term (current) drug therapy
CPT/HCPCS: 96376 ×3; 96375 ×2; 96361; 96365; 96366; 96374; 99285; 36415; 93005; 80053; 80048 ×3; 80197; 82150; 82009; 83605; 83690; 83735 ×3; 84132; 85025 ×2; 81003; 74176; G0378 ×5; J7500 ×2; J1200; J0780 ×4; J2765; J2405; J7507 ×3; J3475; J7512 ×2; J0613; J2470 ×4

== ENCOUNTER → 2024-11-01 | Outpatient (CLI) | payer OTHER, MEDICARE ==
[2024-11-01 15:23] LABS: Basophils # (A) 0.01 X 10*3/uL (0.00-0.10); Basophils % (A) 0.2 %; Eosinophils # (A) 0.03 X 10*3/uL (0.04-0.35); Eosinophils % (A) 0.7 %; HCT 26.1 % (37.2-46.3); HGB 8.9 g/dL (12.0-15.0); Immature Grans, Automated 0.20 %; Lymphocytes # (A) 1.19 X 10*3/uL (0.90-5.00); Lymphocytes % (A) 27.5 %; MCH 32.5 pg (27.0-32.0); MCHC 34.1 g/dL (32.0-37.0); MCV 95.3 FL (80.0-97.0); Monocytes # (A) 0.37 X 10*3/uL (0.20-1.00); Monocytes % (A) 8.6 %; NRBC Per 100 WBC 0 X 10*3/uL (0.00-0.01); Neutrophils # (A) 2.71 X 10*3/uL (1.80-7.70); Neutrophils % (A) 62.8 %; Platelet Count 108 X 10*3/uL (140-440); RBC 2.74 X 10*6/uL (4.10-5.20); RDW 14.6 % (11.5-14.5); WBC 4.32 X 10*3/uL (4.50-10.00)
[2024-11-01 15:42] LABS: ALT 13 U/L (8-44); AST 23 U/L (13-35); Albumin 4.1 g/dL (3.8-4.9); Albumin/Globulin Ratio 1.58 Ratio (1.60-3.17); Alkaline Phosphatase 93 U/L (41-126); Anion Gap 10.00 mmol/L (4.00-12.00); BUN/Creat Ratio 15.26 Ratio (12.00-20.00); Bilirubin,Unconjugated 0.19 mg/dL (0.20-1.00); Blood Urea Nitrogen 35.1 mg/dL (9.0-27.0); Calcium 9.1 mg/dL (8.7-10.3); Carbon Dioxide 27.0 mmol/L (21.6-31.8); Chloride 107 mmol/L (96-109); Ferritin 180.0 ng/mL (10.0-291.0); Globulin 2.6 g/dL (1.6-3.3); Glucose 79 mg/dL (70-110); Iron 52 UG/DL (50-170); Magnesium 1.8 mg/dL (1.5-2.4); Potassium 4.4 mmol/L (3.5-5.5); Sodium 144 mmol/L (135-145); Total Iron Binding Capacity 246 UG/DL (228-460); Total Protein 6.7 g/dL (6.2-8.2)
== END | disposition home or self-care (01) ==
LOC: LABWHC1 09:46
PROVIDERS: ATTEND Internal Medicine Gastroenterology
DX: Z94.4 Liver transplant status (principal); Z79.899 Other long term (current) drug therapy
CPT/HCPCS: 36415; 80048; 80076; 82728; 83540; 83550; 83735; 85025